=== PATIENT | female | born 1935 | race Caucasian/White ===

== ENCOUNTER 2020-08-16 10:18 | Outpatient (CLI) | payer MEDICARE, SELFPAY ==
[2020-08-16 10:35] LABS: Hematocrit 42.2 % (35.0-42.0); Hemoglobin 13.8 g/dL (11.7-13.8); Mean Corpuscular HGB Conc 32.7 g/dL (32.0-36.0); Mean Corpuscular Hemoglobin 30.3 pg (27.0-31.0); Mean Corpuscular Volume 92.5 fL (78.0-102.0); Mean Platelet Volume 9.5 fl (9.2-11.8); Platelet Count Result 259 K/mm3 (150-420); Red Blood Count 4.56 M/mm3 (4.20-5.40); Red Cell Distribution Width 12.4 % (11.6-14.4); White Blood Count 11.9 K/mm3 (4.8-10.8)
[2020-08-16 10:41] LABS: Add Urine Microscopic? YES; Appearance Urine Clear (Clear); Bilirubin Urine 1+ (Negative); Blood Urine Negative (Negative); Color Urine Amber (Yellow); Glucose Urine UA Negative (Negative); Ketones Urine Trace (Negative); Leukocyte Esterase Ur Negative LEU/UL (Negative); Nitrate Urine Negative (Negative); Protein Urine 1+ (Negative); Specific Grav Ur >= 1.030 (1.010-1.020); Urobilinogen Urine 0.2 mg/dL (0.2-1.0); pH Urine 5.5 (5.0-8.0)
[2020-08-16 11:11] LABS: Bacteria Urine 3+ /hpf; Mucus Urine Moderate /lpf; RBC Urine 0-2 /hpf (0-2); Squamous Epithelial Cell Urine Few /hpf (Few); WBC Urine 0-3 /hpf (0-3)
[2020-08-16 11:13] LABS: Alanine Aminotransferase 21 U/L (14-59); Albumin Level 3.5 g/dL (3.4-5.0); Alkaline Phosphatase 89 U/L (46-116); Anion Gap 6 mmol/L (8-16); Aspartate Amino Transferase 43 U/L (15-37); Bilirubin,Total 0.4 mg/dL (0.00-1.00); Blood Urea Nitrogen 11 mg/dL (7-18); CRP 2.8 mg/dL (0.0-0.9); Calcium 9.9 mg/dL (8.5-10.1); Carbon Dioxide 31 mmol/L (21-32); Chloride 100 mmol/L (98-108); Estimated Glomerular Filt Rate > 60; Glucose 105 mg/dL (70-99); Osmolality Calculated 283 mOsm/kg (285-295); Potassium 4.6 mmol/L (3.5-5.1); Sodium 137 mmol/L (136-145); Total Protein 6.1 g/dL (6.4-8.2)
== END 2020-08-16 10:19 | disposition home or self-care (01) ==
LOC: CHSLAB 10:22
PROVIDERS: PCP Internal Medicine; Visit Provider Internal Medicine
DX: M05.749 Rheumatoid arthritis with rheumatoid factor of unspecified hand without organ or systems involvement (principal); M19.90 Unspecified osteoarthritis, unspecified site
CPT/HCPCS: 36415; 80053; 81001; 85027; 86140

== ENCOUNTER 2020-12-30 09:50 | Inpatient (IN) | payer MEDICARE, SELFPAY ==
[2020-12-30] VITALS (7 sets, daily range): BP systolic 153–181; BP diastolic 75–100; PULSE 67–93; RESP 14–20; TEMP 36.5–37.4; O2SAT 95–100; BMI 17.2
--- NOTE | ~2020-12-30 | XR_ITS ---
EXAMINATION: XR chest 2V EXAM DATE: 12/30/2020 11:04 INDICATION: syncope last night found this AM, chest heaviness today . TECHNIQUE: Frontal and lateral projections of the chest obtained and reviewed. Comparison is made to prior examination from 01/15/2012. FINDINGS: Severe chronic hyperinflation. The lungs are clear. There are no pleural effusions. The cardiomediastinal silhouette is within normal limits. There is no pneumothorax suspected. Bones sean ear osteopenic. Thoracic vertebral body heights are maintained. There are cholecystectomy clips. IMPRESSION: Chronic hyperinflation. Reviewed, dictated and finalized at location B. ITY CONTROLLER IMPRESSION: Chronic hyperinflation.
--- NOTE | ~2020-12-30 | CT_ITS ---
EXAMINATION: CT brain wo con, CT cervical spine wo con EXAM DATE: 12/30/2020 11:03 (accession [id number]), 12/30/2020 11:05 (accession [id number]) INDICATION: Syncope, fall last night and found this AM, post head pain, injury. TECHNIQUE: Spiral CT of the head was performed without contrast. Axial, coronal and sagittal images were reviewed. Spiral CT of the cervical spine was performed without contrast. Axial images were rev iewed. Coronal and sagittal reformatted images were also reviewed. The dose-length product (DLP) fo r this examination was 605.33 (accession [id number]), 91.52 (accession [id number]) mGy-cm. T he exposure was tailored according to patient size, and iterative reconstruction (ASIR) was used as a dditional dose reduction technique. There is no prior study for comparison. FINDINGS: HEAD CT: There is no acute intraparenchymal hemorrhage. No evidence of intraparenchymal brain mass l esion. No evidence of acute infarction. There is mild to moderate periventricular and subcortical hy podensity, nonspecific but probably related to small vessel ischemic disease. There is mild to mode rate prominence of the sulci and ventricles related to cerebral atrophy. There is intracranial banuelos tid arteriosclerosis. There is no mass effect or midline shift. There is no obstructive hydrocephal us suspected. There are no extra-axial collections. There are no acute calvarial fractures. The or bits are unremarkable. Soft tissue is unremarkable. The visualized sinuses and mastoid air cells ar e well aerated. CERVICAL CT: There is no evidence of acute cervical fracture. The odontoid process is intact. Pre- dens space is normal. Prevertebral soft tissue is normal. There are no soft tissue abnormalities id entified. There is no disc space widening or traumatic vertebral body subluxation suspected. There is advanced arthropathy and moderate cervical disc disease. A detailed level by level evaluation of spondylosis can be added as addendum if requested. IMPRESSION: 1. No acute intracranial findings or cervical fracture. 2. Age-related intracranial findings. 3. Moderate to severe cervical spondylosis. Reviewed, dictated and finalized at location B. TECHNICIAN IMPRESSION: 1. No acute intracranial findings or cervical fracture. 2. Age-related intracranial findings. 3. Moderate to severe cervical spondylosis.
--- NOTE | ~2020-12-30 | MR_ITS ---
EXAMINATION: MR brain IAC wo con DATE: 01/01/2021 08:39 INDICATION: Dizziness. TECHNIQUE: Magnetic resonance imaging (MRI) of the brain and brainstem was performed without intraven ous contrast. Sequences included sagittal and axial T1-weighted FSE, axial diffusion-weighted FS EPI, axial T2*-weighted GRE, axial T2-weighted FLAIR Propeller, and axial T2-weighted Propeller. Apparent diffusion coefficient (ADC) maps were created. COMPARISON: Head CT 12/30/2020 FINDINGS: There are scattered areas of nonspecific increased T2-weighted signal intensity in the cere bral white matter and mohan. There is no intracranial hemorrhage, acute infarction, or abnormal intrac ranial mass lesion. The ventricles are normal in size. There is mild mucosal thickening in the ethmoi d sinuses. The orbits are normal. The mastoid air cells are normal. IMPRESSION: 1. Moderate nonspecific cerebral white matter disease and pontine disease, which likely represents ch ronic small vessel ischemic disease. Reviewed, dictated and finalized at location A. MILITARY ANALYST IMPRESSION: 1. Moderate nonspecific cerebral white matter disease and pontine disease, whic h likely represents chronic small vessel ischemic disease.
--- NOTE | ~2020-12-30 | US_ITS ---
EXAMINATION: US carotid duplex BI EXAM DATE: 12/31/2020 15:40 INDICATION: Stroke. TECHNIQUE: Grayscale, color and pulsed Doppler images of the cervical carotid arteries were obtained . The degree of vessel stenosis is placed in one of the following categories: normal, <50% stenosis, 50-69% stenosis, >=70% stenosis but less than near-occlusion, near-occlusion, or occlusion. Note that percent stenosis relative to normal distal artery lumen diameter is indirectly measured from velocit y measurements as described by Shyam, et al. Radiology 2003; 229:340-346. There is no prior study fo r comparison. FINDINGS: RIGHT SIDE: Right common carotid artery peak systolic velocity (PSV in cm/s): 59 Right bulb/internal carotid artery peak systolic velocity (PSV in cm/s): 106 Right internal carotid artery end diastolic velocity (EDV in cm/s): 29 Right ICA/CCA peak systolic ratio: 1.8 Right external carotid artery peak systolic velocity (PSV in cm/s): 53 Right vertebral artery antegrade flow: yes There is mild carotid bulb plaque. Velocity and Doppler waveforms in the common and internal carotid arteries is normal. LEFT SIDE: Left common carotid artery peak systolic velocity (PSV in cm/s): 78 Left bulb/internal carotid artery peak systolic velocity (PSV in cm/s): 73 Left internal carotid artery end diastolic velocity (EDV in cm/s): 24 Left ICA/CCA peak systolic ratio: 0.9 Left external carotid artery peak systolic velocity (PSV in cm/s): 55 Left vertebral artery antegrade flow: yes There is mild carotid bulb plaque. Velocity and Doppler waveforms in the common and internal carotid arteries is normal. IMPRESSION: 1. Less than 50 percent stenosis in the right internal carotid artery. 2. Less than 50 percent stenosis in the left internal carotid artery. Reviewed, dictated and finalized at location B. ANTINE INSPECTOR
[2020-12-30 10:03] LABS: Glucose Point of Care 93 (65-105)
[2020-12-30 10:20] LABS: Add Urine Microscopic? YES; Appearance Urine Cloudy (Clear); Bilirubin Urine Negative (Negative); Blood Urine Negative (Negative); Color Urine Yellow (Yellow); Glucose Urine UA Negative (Negative); Ketones Urine 1+ (Negative); Leukocyte Esterase Ur Negative LEU/UL (Negative); Nitrate Urine Negative (Negative); Protein Urine Trace (Negative); Specific Grav Ur 1.025 (1.010-1.020); pH Urine 7.5 (5.0-8.0)
[2020-12-30 10:25] LABS: Amorphous Sediment Urine Moderate; Bacteria Urine Trace /hpf; RBC Urine None seen /hpf (0-2); Squamous Epithelial Cell Urine Few /hpf (Few); WBC Urine None seen /hpf (0-3)
[2020-12-30] MEDS: SODIUM CHLORIDE 0.9% IV 500 ML 999 ML IV CONT (10:28)
[2020-12-30 10:30] LABS: Basophils Absolute Auto 0.04 K/mm3 (0.00-0.10); Basophils Percent Auto 0.3 % (0.0-1.0); Eosinophils Absolute Auto 0.02 K/mm3 (0.02-0.50); Eosinophils Percent Auto 0.1 % (1.0-6.0); Hematocrit 40.8 % (35.0-42.0); Immature Granulocyte Absolute 0.08 K/mm3 (0.00-0.00); Immature Granulocyte Percent A 0.6 % (0.0-0.0); Lymphocytes Absolute Auto 0.88 K/mm3 (1.10-4.50); Lymphocytes Percent Auto 6.6 % (18.0-42.0); Mean Corpuscular HGB Conc 31.9 g/dL (32.0-36.0); Mean Corpuscular Volume 84.8 fL (78.0-102.0); Mean Platelet Volume 8.6 fl (9.2-11.8); Monocytes Absolute Auto 1.26 K/mm3 (0.10-0.90); Monocytes Percent Auto 9.4 % (2.0-11.0); Neutrophils Absolute Auto 11.1 K/mm3 (1.7-7.2); Platelet Count Result 420 K/mm3 (150-420); Red Blood Count 4.81 M/mm3 (4.20-5.40); Red Cell Distribution Width 12.8 % (11.6-14.4); White Blood Count 13.4 K/mm3 (4.8-10.8)
--- NOTE | 2020-12-30 10:38 | ECG_ITS ---
Measurements Intervals [place] Rate: 85 P: 76 CT: 123 QRS: 83 QRSD: 79 T: 50 QT: 394 QTc: 469 Interpretive Statements SINUS RHYTHM MINIMAL Q WAVES- INF/LAT LEADS BORDERLINE ST ABNORMALITY- ANTEROLAT/INF LEADS BASELINE WANDER- I, II, III, AVR, AVL BORDERLINE ECG Electronically Signed On 12-30-2020 11:07:18 PLOW HOLDER by Jesus Allen D.O.
[2020-12-30 10:44] LABS: INR 1.1; Partial Thromboplastin Time 31.6 SEC (23.90-30.70); Prothrombin Time 11.9 Seconds (9.50-12.10)
[2020-12-30 10:48] LABS: BNP 158 pg/mL (0-100)
[2020-12-30 10:51] LABS: Lactic Acid Reflex 1.7 mmol/L (0.4-2.0)
[2020-12-30 10:52] LABS: Magnesium 1.8 mg/dL (1.8-2.4)
[2020-12-30 10:53] LABS: Troponin I 23.8 ng/L (0.00-60.4)
[2020-12-30 10:58] LABS: Alanine Aminotransferase 25 U/L (14-59); Albumin Level 2.9 g/dL (3.4-5.0); Alkaline Phosphatase 96 U/L (46-116); Anion Gap 9 mmol/L (8-16); Aspartate Amino Transferase 53 U/L (15-37); Bilirubin,Total 0.8 mg/dL (0.00-1.00); Blood Urea Nitrogen 11 mg/dL (7-18); Calcium 9.9 mg/dL (8.5-10.1); Carbon Dioxide 28 mmol/L (21-32); Chloride 96 mmol/L (98-108); Estimated Glomerular Filt Rate > 60; Glucose 103 mg/dL (70-99); Osmolality Calculated 275 mOsm/kg (285-295); Potassium 3.3 mmol/L (3.5-5.1); Sodium 133 mmol/L (136-145); Total Protein 6.4 g/dL (6.4-8.2)
--- NOTE | 2020-12-30 11:13 | ED.FALL ---
HPI - Fall General Chief Complaint: Fall Stated Complaint: ambulance Source: patient Mode of arrival: EMS History of Present Illness HPI Narrative: This is an 85-year-old patient from home that was brought in via EMS with a weakness left-sided with a mild facial droop and deviation of her tongue to the left apparently fell earlier today last known normal was some last night when she went to bed currently has some confusion weakness patient states that she did strike the back of her head there is no hematoma currently no chest pain no shortness of no dysuria no back pain does have some neck pain with with movement and minimal with palpation. Patient has a history of rheumatoid arthritis and hypertension. complaint: fall Onset (ago): hour(s) Fall from: standing Fall witnessed: no Place fall occurred: home Prolonged down time: unclear Symptoms prior to fall: dizziness Related Data Home Medications Medication Instructions Recorded Confirmed gabapentin 300 mg PO TID 08/25/19 12/30/20 quinapril 10 mg PO DAILY 12/30/20 12/30/20 Allergies Allergy/AdvReac Type Severity Reaction Status Date / Time celecoxib Allergy Unknown pounding Verified 08/20/20 12:16 chest fluconazole Allergy Unknown chest Verified 08/20/20 12:16 pain, dizziness ibandronate sodium Allergy Unknown Chest pain Verified 08/20/20 12:16 Review of Systems Review of Systems: All systems reviewed & are unremarkable except as noted in HPI and below PMFSH Past Medical History Medical History Allergies Arthritis Rhuematoid Hypertension Osteoporosis Vaginal delivery X2 1979 Female 1981 Female Surgical History Surgical History H/O: hysterectomy History of appendectomy Hx of cholecystectomy Family History Family History Grandparent Cerebrovascular accident Father Family history of chronic obstructive pulmonary disease Mother Hypertension Social History Social History Smoking status: Never smoker Alcohol intake: current Substance use: never Exam Const: General: no acute distress and alert Limitations: altered mental status HENMT: Head: normal to inspection Eyes: Conjunctivae: conjunctivae normal Pupils: Equal, round and reactive pupils present EOM: EOMs intact bilaterally Neck: Neck: normal visual inspection, no lymphadenopathy and no meningeal signs Chest: Chest palpation & inspection: normal inspection of the chest Resp: Effort & Inspection: normal respiratory effort Auscultation: clear to auscultation bilaterally Cardio: Rate: regular rate Rhythm: regular rhythm GI: GI Palp: Yes Soft to palpation Percussion: Yes normal to percussion : General: Yes no CVA tenderness Urinary Catheter: Urinary Catheter: patent and draining Back/Spine/Pelvis: Back: no CVA tenderness Skin: General skin exam: normal color Rashes: no rashes Neuro: Other: Motor weakness with some decreased strength in her left compared to her right arm currently no leg weakness or drift, the left arm there is a slight drift compared to the right and with a minimal deviation of her of her tongue to the left. Extrem: General: normal to inspection Psych: Appearance: disheveled Course Course Emergency Course: Patient appears comfortable in no acute distress no acute pain and family member with her and reviewed findings and advise admission. Vital Signs Vital signs: Vital Signs Temperature 36.5 C 12/30/20 10:04 Pulse Rate 90 12/30/20 10:04 Respiratory Rate 20 12/30/20 10:04 Blood Pressure 181/80 H 12/30/20 10:04 Pulse Oximetry 95 12/30/20 10:04 Temperature 36.5 C 12/30/20 10:04 Pulse Rate 86 12/30/20 10:29 Respiratory Rate 16 12/30/20 10:29 Blood Pressure 153/85 H 12/30
[2020-12-30] MEDS: SODIUM CHLORIDE 0.9% IV 1,000 ML 100 ML IV CONT ×2 (12:11→22:36)
--- NOTE | 2020-12-30 13:38 | ADMGEN ---
This patient, Roma Trujillo, was admitted to 2nd Floor Room 226-1. Patient/family oriented to hospital policies and general routines including ID bracelet, bed and alarms, visiting hours, pain management, procedures, bathroom and other care routines, personal items, smoking policy, room service/diet, and visiting hours. Information on how to activate the Rapid Response Team has been discussed. Patient/Family are encouraged to report perceived risks to care and to ask questions if they do not understand what they are told or what they should do. Patient alert and orient. claims she lost balance and fell to kitchen floor. claims she spent over a day on floor til she was able to crawl over to cell phone. lungs cta, abd soft. hand adult neuropsychologist equal. no pedal edema.
--- NOTE | 2020-12-30 13:44 | PM.IMHP ---
H&P: HPI History of Present Illness Date/Time: 12/30/20 13:44 Chief Complaint: Fatigue status post fall Narrative: Roma Trujillo is a 85 year old female who presented to our ED post fall patient has a past medical history of allergies, rheumatoid arthritis, and hypertension according to patient she has been feeling fatigued and lightheaded that particular day. Patient noted that she had been lying around in bed all day and needed to go to the restroom she proceeded to the restroom when she got out of the toilet she blacked out. Patient noted that she had stayed on the floor most of the night and her neighbors came over and discovered her on the floor. Patient does live at home alone she noted that she could not get herself of the floor. Patient noted she did hit the back of her head she denies injuring any other part of her body. Patient blood pressure is a little elevated 163/84 she does have left side facial drooping and left side upper arm weakness. Patient CT of her head was negative for any acute intracranial finding, a MRI, echo in carotid ultrasound are currently pending she will also have a bedside swallow eval. Patient EKG indicates sinus rhythm with a heart rate of 85, patient AST slightly elevated all other labs within normal limits. The patient denies SOB, CP, palpitation, extremity numbness, dizziness, constipation, diarrhea, chills, or fever. She does complain of a slight headache. Review of Systems Review of Systems: All systems reviewed & are unremarkable except as noted in HPI and below (10 point system review) [facility] Past Medical History Medical History (Updated 12/30/20 @ 13:45 by FRED Estrada) Allergies Arthritis Rhuematoid Hypertension Osteoporosis Vaginal delivery X2 1979 Female 1981 Female Surgical History Surgical History H/O: hysterectomy History of appendectomy Hx of cholecystectomy Family History Family History Grandparent Cerebrovascular accident Father Family history of chronic obstructive pulmonary disease Mother Hypertension Social History Social History Smoking status: Never smoker Alcohol intake: current Drinks per week: 3 Substance use: never Gender identity (if verbalized by the patient): Female Sexual Orientation (if Verbalized by the Patient): Straight or Heterosexual Spiritual care concerns: No Meds Home Medications and Allergies Home Medications Medication Instructions Recorded Confirmed Type hydroxychloroquine 200 mg tablet 400 mg PO DAILY #60 tablet 08/20/20 12/30/20 Rx prednisone 1 mg tablet 1 mg PO DAILY #90 tablet 08/20/20 12/30/20 Rx gabapentin 100 mg PO DAILY 12/30/20 12/30/20 History gabapentin [Neurontin] 200 mg PO HS 12/30/20 12/30/20 History quinapril 10 mg PO DAILY 12/30/20 12/30/20 History Allergies Allergy/AdvReac Type Severity Reaction Status Date / Time celecoxib Allergy Unknown pounding Verified 08/20/20 12:16 chest fluconazole Allergy Unknown chest Verified 08/20/20 12:16 pain, dizziness ibandronate sodium Allergy Unknown Chest pain Verified 08/20/20 12:16 Vital Signs Vital Signs - 24 hr 12/30/20 10:04 12/30/20 10:29 12/30/20 11:17 Temperature 97.7 F Pulse Rate 90 86 86 Respiratory Rate 20 16 Blood Pressure 181/80 H 153/85 H 161/88 H Pulse Oximetry 95 100 100 12/30/20 11:53 Temperature Pulse Rate 67 Respiratory Rate Blood Pressure 163/84 H Pulse Oximetry 100 Exam Narrative: Exam Narrative: GENERAL: This is a well-nourished, well-developed patient, in no apparent distress. HEAD: normocephalic, atraumatic. Left side facial drooping EYES: PERRL. Sclera clear/white. Vision is grossly intact. EARS: External ears normal, auditory canals clear and without drainage, TMs normal without perforation. Hearing
[2020-12-30] MEDS: GABAPENTIN 100 MG CAPSULE 200 MG PO (20:52)
[2020-12-31] VITALS: BP 154/75; PULSE 86; RESP 12; TEMP 37.6; O2SAT 97
[2020-12-31 04:00] VITALS: BP 154/75; PULSE 96; RESP 14; TEMP 37.6; O2SAT 99
[2020-12-31 05:42] LABS: Basophils Absolute Auto 0.05 K/mm3 (0.00-0.10); Basophils Percent Auto 0.5 % (0.0-1.0); Eosinophils Absolute Auto 0.25 K/mm3 (0.02-0.50); Eosinophils Percent Auto 2.7 % (1.0-6.0); Hematocrit 33.9 % (35.0-42.0); Hemoglobin 10.7 g/dL (11.7-13.8); Immature Granulocyte Absolute 0.06 K/mm3 (0.00-0.00); Immature Granulocyte Percent A 0.7 % (0.0-0.0); Lymphocytes Absolute Auto 0.71 K/mm3 (1.10-4.50); Lymphocytes Percent Auto 7.7 % (18.0-42.0); Mean Corpuscular HGB Conc 31.6 g/dL (32.0-36.0); Mean Corpuscular Volume 85.6 fL (78.0-102.0); Mean Platelet Volume 8.3 fl (9.2-11.8); Monocytes Percent Auto 9.8 % (2.0-11.0); Neutrophils Absolute Auto 7.2 K/mm3 (1.7-7.2); Neutrophils Percent Auto 78.6 % (50.0-70.0); Platelet Count Result 346 K/mm3 (150-420); Red Blood Count 3.96 M/mm3 (4.20-5.40); Red Cell Distribution Width 13.2 % (11.6-14.4); White Blood Count 9.2 K/mm3 (4.8-10.8)
[2020-12-31 06:08] LABS: Alanine Aminotransferase 18 U/L (14-59); Albumin Level 2.2 g/dL (3.4-5.0); Alkaline Phosphatase 71 U/L (46-116); Anion Gap 9 mmol/L (8-16); Aspartate Amino Transferase 34 U/L (15-37); Bilirubin,Total 0.4 mg/dL (0.00-1.00); Blood Urea Nitrogen 9 mg/dL (7-18); Calcium 8.6 mg/dL (8.5-10.1); Carbon Dioxide 25 mmol/L (21-32); Chloride 101 mmol/L (98-108); Estimated CRCL calculation 42 ml/min; Estimated Glomerular Filt Rate > 60; Glucose 101 mg/dL (70-99); Osmolality Calculated 278 mOsm/kg (285-295); Potassium 3.3 mmol/L (3.5-5.1); Sodium 135 mmol/L (136-145); Total Protein 5.2 g/dL (6.4-8.2)
[2020-12-31 08:00] VITALS: BP 156/90; PULSE 86; RESP 18; TEMP 37.7; O2SAT 98
--- NOTE | 2020-12-31 09:00 | ECHO_ITS ---
Patient Info Name: Roma Trujillo Age: 85 years : 1935 Gender: Female Ht: 64 in Wt: 100 lbs BSA: 1.42 m2 HR: 67 bpm BP: 163 / 84 mmHg Heart Rhythm: Sinus Rhythm Technical Quality: Excellent Exam Date: 12/31/2020 2:12 PM Exam Location: [facility] Patient Status: Inpatient Admit Date: 12/30/2020 Staff Ordering Physician: Braeden Borja MD Leader Assembler: Vanesa Browning RDCS Attending Provider: Braeden Borja MD Referring Physician: Huong MOONEY; Exam Type: CA echo doppler color flow Study Info Indications I69.90 - Unspecified sequelae of unspecified cerebrovascular disease Complete two-dimensional, color flow and Doppler transthoracic echocardiogram is performed. Strain analysis performed. History/Risk Factors Hypertension: Yes Tobacco Use: Never Cerebrovascular Disease: CVA Frailty Scale (CSHA): 4: Vulnerable Summary 1. Complete two-dimensional, color flow and Doppler transthoracic echocardiogram is performed. 2. Left ventricular chamber dimension is normal. 3. Left ventricular systolic function is normal, estimated at 65-70%. 4. The left ventricular diastolic function is grade I diastolic dysfunction. 5. E/e' 10 is mildly elevated. 6. Left atrial chamber dimension is mildly enlarged. 7. Right atrial chamber dimension is mildly enlarged. 8. There is mild aortic valve sclerosis. 9. There is trace mitral valve regurgitation. 10. There is mild tricuspid valve regurgitation. 11. No pulmonary hypertension, estimated pulmonary arterial systolic pressure is 26 mmHg. Left Ventricle E/e' 10 is mildly elevated. Left ventricular chamber dimension is normal. Left ventricular systolic function is normal, estimated at 65-70%. The left ventricular diastolic function is grade I diastolic dysfunction. Right Ventricle Right ventricular chamber dimension is normal. Right ventricular systolic function is normal. Left Atria Left atrial chamber dimension is mildly enlarged. Right Atria Right atrial chamber dimension is mildly enlarged. Aortic Valve The aortic valve is trileaflet. There is mild aortic valve sclerosis. There is no aortic valve stenosis. There is no aortic valve regurgitation. Pulmonic Valve There is no pulmonic regurgitation. Mitral Valve There is no mitral valve stenosis. There is trace mitral valve regurgitation. Tricuspid Valve There is mild tricuspid valve regurgitation. No pulmonary hypertension, estimated pulmonary arterial systolic pressure is 26 mmHg. Pericardium/Pleural There is no pericardial effusion. Inferior Vena Cava Normal inferior vena cava with >50% collapse upon inspiration consistent with normal right atrial pressure, 5 mmHg. Aorta The aortic root size at the sinus of Valsalva is normal. Left Ventricular Outflow Tract Name Value Normal LVOT 2D LVOT Diameter 1.6 cm LVOT Doppler LVOT Peak Velocity 136 cm/s LVOT Peak Gradient 7 mmHg LVOT Mean Gradient 3 mmHg LVOT VTI 25 cm
[2020-12-31] MEDS: POTASSIUM CHLORIDE 20 MEQ TABLET 40 MEQ PO (09:19)
[2020-12-31] MEDS: HYDROXYCHLOROQUINE SULFATE 200 MG TABLET 400 MG PO (09:20)
[2020-12-31] MEDS: predniSONE 1 MG TABLET PO (09:20)
[2020-12-31] MEDS: CLOPIDOGREL BISULFATE 75 MG TABLET PO (09:21)
[2020-12-31] MEDS: GABAPENTIN 100 MG CAPSULE PO (09:21)
[2020-12-31] MEDS: lisinopriL 10 MG TABLET PO (09:22)
[2020-12-31 12:00] VITALS: BP 154/92
--- NOTE | 2020-12-31 12:49 | WPDPN ---
Progress Note: A&P Assessment and Plan (1) Stroke: Qualifiers: CVA mechanism: unspecified Qualified Code(s): I63.9 - Cerebral infarction, unspecified <Daphne Mccarthy TAYENicholas - Last Filed: 12/31/20 12:52> Code(s): I63.9 - Cerebral infarction, unspecified <Daphne Mccarthy TAYEC - Last Filed: 12/31/20 12:52> Status: Acute <Daphne Mccarthy TAYENicholas - Last Filed: 12/31/20 12:52> Assessment and Plan: Left-sided weakness CT of the head no acute intracranial finding MRI, echo in carotid ultrasound pending Continue Plavix Will start aspirin once we rule out hemorrhagic stroke Continue PT OT Speech therapy consult placed <Daphne Mccarthy ELECTRONIC OPERATORPedroNicholas - Last Filed: 12/31/20 12:52> (2) Syncope: Qualifiers: Syncope type: unspecified Qualified Code(s): R55 - Syncope and collapse <Daphne Mccarthy DYLONRadha - Last Filed: 12/31/20 12:52> Code(s): R55 - Syncope and collapse <Daphne Mccarthy TAYEC - Last Filed: 12/31/20 12:52> Status: Acute <Daphne Mccarthy FRED - Last Filed: 12/31/20 12:52> Assessment and Plan: Possibly secondary to severe CT of the head no acute intracranial finding MRI, echo in carotid ultrasound pending Continue Plavix Will start aspirin once we rule out hemorrhagic stroke Will start PT OT <Daphne Mccarthy ELECTRONIC OPERATOR-C - Last Filed: 12/31/20 12:52> (3) Seropositive rheumatoid arthritis of hand: Code(s): M05.749 - Rheumatoid arthritis with rheumatoid factor of unspecified hand without organ or systems involvement <Daphne Mccarthy ELECTRONIC OPERATOR-C - Last Filed: 12/31/20 12:52> Status: Acute <Daphne Mccarthy ELECTRONIC OPERATORPedroNicholas - Last Filed: 12/31/20 12:52> Assessment and Plan: Will start hydroxychloroquin, prednisone <Daphne FranksFRED Reeder - Last Filed: 12/31/20 12:52> (4) Hypertension: Code(s): I10 - Essential (primary) hypertension <TAYE EstradaNicholas - Last Filed: 12/31/20 12:52> Status: Acute <FRED Estrada - Last Filed: 12/31/20 12:52> Assessment and Plan: Blood pressure 156/90 Continue quinapril Will slowly lower blood pressure Vital signs as ordered Will adjust medication as needed <TAYE EstradaNicholas - Last Filed: 12/31/20 12:52> Review of Systems Review of Systems: All systems reviewed & are unremarkable except as noted in HPI and below (10 point system review) <FRED Estrada - Last Filed: 12/31/20 12:52> Exam Narrative: Exam Narrative: GENERAL: This is a well-nourished, well-developed patient, in no apparent distress. HEAD: normocephalic, atraumatic. Left side facial drooping EYES: PERRL. Sclera clear/white. Vision is grossly intact. EARS: External ears normal, auditory canals clear and without drainage, TMs normal without perforation. Hearing grossly intact. NOSE: External nose normal with no obvious nasal discharge, nares without redness, no rhinorrhea. THROAT: Mucous membranes moist, posterior pharynx clear. NECK: Neck supple, non-tender without lymphadenopathy, masses or thyromegaly. CARDIOVASCULAR: Regular rate and rhythm without murmurs, gallops, or rubs. RESPIRATORY: Clear to auscultation. Breath sounds equal bilaterally. No wheezes, rales, or rhonchi. GASTROINTESTINAL: Abdomen soft, non-tender, nondistended. Bowel sounds are active. No hepato-splenomegaly, or palpable masses. No guarding. SKIN: warm, intact with no suspicious lesions or rash, good texture and turgor. NEURO: awake, alert, and oriented to person, place and time. EXTREMITIES: unequal handgrips upper extremity left side weakness no edema. No calf tenderness. Negative Homans sign bilaterally. BACK: Nontender without deformity or crepitance. No flank tenderness. <TAYE EstradaNicholas - Last Filed: 12/31/20 12:52> Objective Data Vital Signs Vital Signs: Vital Signs - 24 hr 12/30/20 15:57 12/30/20 20:00 12/31
--- NOTE | 2020-12-31 12:49 | P.PN_ITS ---
Progress Note: A&P Assessment and Plan (1) Stroke: Qualifiers: CVA mechanism: unspecified Qualified Code(s): I63.9 - Cerebral infarction, unspecified <Daphne MccarthyFRED - Last Filed: 12/31/20 12:52> Code(s): I63.9 - Cerebral infarction, unspecified <Daphne MccarthyFRED - Last Filed: 12/31/20 12:52> Status: Acute <Daphne MccarthyFRED - Last Filed: 12/31/20 12:52> Assessment and Plan: * Left-sided weakness * CT of the head no acute intracranial finding * MRI, echo in carotid ultrasound pending * Continue Plavix * Will start aspirin once we rule out hemorrhagic stroke * Continue PT OT * Speech therapy consult placed <Daphne MccarthyFRED - Last Filed: 12/31/20 12:52> (2) Syncope: Qualifiers: Syncope type: unspecified Qualified Code(s): R55 - Syncope and collapse <Daphne Snyder FRED Mccarthy - Last Filed: 12/31/20 12:52> Code(s): R55 - Syncope and collapse <Daphne MccarthyFRED - Last Filed: 12/31/20 12:52> Status: Acute <Daphne MccarthyFRED - Last Filed: 12/31/20 12:52> Assessment and Plan: * Possibly secondary to severe * CT of the head no acute intracranial finding * MRI, echo in carotid ultrasound pending * Continue Plavix * Will start aspirin once we rule out hemorrhagic stroke * Will start PT OT <Daphne MccarthyFRED - Last Filed: 12/31/20 12:52> (3) Seropositive rheumatoid arthritis of hand: Code(s): M05.749 - Rheumatoid arthritis with rheumatoid factor of unspecified hand without organ or systems involvement <Reaganlucila TinyFRED Reeder - Last Filed: 12/31/20 12:52> Status: Acute <Daphne Snyder FRED Mccarthy - Last Filed: 12/31/20 12:52> Assessment and Plan: * Will start hydroxychloroquin, prednisone <Reaganlucila TinyFRED Reeder - Last Filed: 12/31/20 12:52> (4) Hypertension: Code(s): I10 - Essential (primary) hypertension <FRED Estrada - Last Filed: 12/31/20 12:52> Status: Acute <FRED Estrada - Last Filed: 12/31/20 12:52> Assessment and Plan: * Blood pressure 156/90 * Continue quinapril * Will slowly lower blood pressure * Vital signs as ordered * Will adjust medication as needed <FRED Estrada - Last Filed: 12/31/20 12:52> Review of Systems Review of Systems: All systems reviewed & are unremarkable except as noted in HPI and below (10 point system review) <FRED Estrada - Last Filed: 12/31/20 12:52> Exam Narrative: Exam Narrative: GENERAL: This is a well-nourished, well-developed patient, in no apparent distress. HEAD: normocephalic, atraumatic. Left side facial drooping EYES: PERRL. Sclera clear/white. Vision is grossly intact. EARS: External ears normal, auditory canals clear and without drainage, TMs normal without perforation. Hearing grossly intact. NOSE: External nose normal with no obvious nasal discharge, nares without redness, no rhinorrhea. THROAT: Mucous membranes moist, posterior pharynx clear. NECK: Neck supple, non-tender without lymphadenopathy, masses or thyromegaly. CARDIOVASCULAR: Regular rate and rhythm without murmurs, gallops, or rubs. RESPIRATORY: Clear to auscultation. Breath sounds equal bilaterally. No wheezes, rales, or rhonchi. GASTROINTESTINAL: Abdomen soft, non-tender, nondistended. Bowel sounds are active. No hepato-splenomegaly, or palpable masses. No guarding. SKIN: warm, intact with no suspicious lesions or rash, good texture and turgor. NEURO: awake, alert, and oriented to person, place and time.
[2020-12-31 15:47] VITALS: BP 145/75; PULSE 85; RESP 20; TEMP 36.3; O2SAT 100
[2020-12-31 20:00] VITALS: BP 130/70; PULSE 80; RESP 20; TEMP 36.4; O2SAT 98
[2020-12-31] MEDS: GABAPENTIN 100 MG CAPSULE 200 MG PO (20:40)
[2021-01-01] VITALS (7 sets, daily range): BP systolic 116–146; BP diastolic 63–76; PULSE 75–98; RESP 18–20; TEMP 36.6–37.8; O2SAT 95–98
[2021-01-01 05:45] LABS: Hematocrit 32.7 % (35.0-42.0); Hemoglobin 10.2 g/dL (11.7-13.8); Mean Corpuscular HGB Conc 31.2 g/dL (32.0-36.0); Mean Corpuscular Hemoglobin 26.8 pg (27.0-31.0); Mean Corpuscular Volume 85.8 fL (78.0-102.0); Mean Platelet Volume 8.2 fl (9.2-11.8); Platelet Count Result 339 K/mm3 (150-420); Red Blood Count 3.81 M/mm3 (4.20-5.40); Red Cell Distribution Width 13.2 % (11.6-14.4); White Blood Count 8.1 K/mm3 (4.8-10.8)
[2021-01-01 06:03] LABS: Alanine Aminotransferase 18 U/L (14-59); Albumin Level 2.1 g/dL (3.4-5.0); Alkaline Phosphatase 66 U/L (46-116); Anion Gap 3 mmol/L (8-16); Aspartate Amino Transferase 28 U/L (15-37); Bilirubin,Total 0.2 mg/dL (0.00-1.00); Blood Urea Nitrogen 6 mg/dL (7-18); Calcium 8.8 mg/dL (8.5-10.1); Carbon Dioxide 29 mmol/L (21-32); Chloride 104 mmol/L (98-108); Estimated CRCL calculation 44 ml/min; Estimated Glomerular Filt Rate > 60; Glucose 109 mg/dL (70-99); Osmolality Calculated 280 mOsm/kg (285-295); Potassium 3.8 mmol/L (3.5-5.1); Sodium 136 mmol/L (136-145); Total Protein 4.9 g/dL (6.4-8.2)
--- NOTE | 2021-01-01 08:39 | PC.NURSE ---
Returned via wheel chair to room from MRI, assisted to bed, side rails up and call light in reach of patient, denies needs
[2021-01-01] MEDS: ASPIRIN 325 MG ENTERIC TABLET PO (09:00)
[2021-01-01] MEDS: HYDROXYCHLOROQUINE SULFATE 200 MG TABLET 400 MG PO (09:06)
[2021-01-01] MEDS: POTASSIUM CHLORIDE 20 MEQ TABLET 40 MEQ PO (09:06)
[2021-01-01] MEDS: lisinopriL 10 MG TABLET PO (09:06)
[2021-01-01] MEDS: CLOPIDOGREL BISULFATE 75 MG TABLET PO (09:07)
[2021-01-01] MEDS: predniSONE 1 MG TABLET PO (09:07)
[2021-01-01] MEDS: GABAPENTIN 100 MG CAPSULE PO (09:07)
--- NOTE | 2021-01-01 12:09 | WPDPN ---
Progress Note: A&P Assessment and Plan (1) Stroke: Qualifiers: CVA mechanism: unspecified Qualified Code(s): I63.9 - Cerebral infarction, unspecified Code(s): I63.9 - Cerebral infarction, unspecified Status: Acute Assessment and Plan: Resolved Resolved left-sided weakness CT of the head no acute intracranial finding MRI-pending echo -grade 1 diastolic dysfunction carotid ultrasound <50 stenosis bilater Continue Plavix started Plavix ABCD2 score 6 Continue PT OT Speech therapy without any deficiency (2) Syncope: Qualifiers: Syncope type: unspecified Qualified Code(s): R55 - Syncope and collapse Code(s): R55 - Syncope and collapse Status: Acute Assessment and Plan: Possibly secondary to TIA versus CVA Refer to stroke CT of the head no acute intracranial finding Continue Plavix Will start aspirin once we rule out hemorrhagic stroke Continue PT OT (3) Seropositive rheumatoid arthritis of hand: Code(s): M05.749 - Rheumatoid arthritis with rheumatoid factor of unspecified hand without organ or systems involvement Status: Acute Assessment and Plan: Will continue hydroxychloroquin, prednisone (4) Hypertension: Code(s): I10 - Essential (primary) hypertension Status: Acute Assessment and Plan: Blood pressure 136/96 Continue quinapril Vital signs as ordered Will adjust medication as needed Review of Systems Review of Systems: All systems reviewed & are unremarkable except as noted in HPI and below (10 point system review) Exam Narrative: Exam Narrative: GENERAL: This is a well-nourished, well-developed patient, in no apparent distress. HEAD: normocephalic, atraumatic. EYES: PERRL. Sclera clear/white. Vision is grossly intact. EARS: External ears normal, auditory canals clear and without drainage, TMs normal without perforation. Hearing grossly intact. NOSE: External nose normal with no obvious nasal discharge, nares without redness, no rhinorrhea. THROAT: Mucous membranes moist, posterior pharynx clear. NECK: Neck supple, non-tender without lymphadenopathy, masses or thyromegaly. CARDIOVASCULAR: Regular rate and rhythm without murmurs, gallops, or rubs. RESPIRATORY: Clear to auscultation. Breath sounds equal bilaterally. No wheezes, rales, or rhonchi. GASTROINTESTINAL: Abdomen soft, non-tender, nondistended. Bowel sounds are active. No hepato-splenomegaly, or palpable masses. No guarding. SKIN: warm, intact with no suspicious lesions or rash, good texture and turgor. NEURO: awake, alert, and oriented to person, place and time. There were no obvious focal neurologic abnormalities. Steady gait EXTREMITIES: Normal range of motion. No edema. No calf tenderness. Negative Homans sign bilaterally. BACK: Nontender without deformity or crepitance. No flank tenderness. Objective Data Vital Signs Vital Signs: Vital Signs - 24 hr 12/31/20 15:47 12/31/20 20:00 01/01/21 00:00 Temperature 97.3 F L 97.5 F L 98 F Pulse Rate 85 80 98 Respiratory Rate 20 20 20 Blood Pressure 145/75 H 130/70 117/63 Pulse Oximetry 100 98 98 01/01/21 03:54 01/01/21 08:00 Temperature 97.8 F 100.1 F H Pulse Rate 92 81 Respiratory Rate 18 18 Blood Pressure 146/76 H 126/76 Pulse Oximetry 98 97 Intake/Output Intake/Output: Intake & Output 12/29/20 12/30/20 12/31/20 01/01/21 23:59 23:59 23:59 23:59 Intake Total 2340 2890 360 Output Total 852 857 2217 Balance 2040 2190 -940 Meds/Results Medications: Active Medications Generic Name Dose Route Start Last Admin Trade Name Freq PRN Reason Stop Dose Admin Acetaminophen 650 mg 12/30/20 11:20 Acetaminophen 325 Mg Tablet PO Q4H PRN Mild Pain (1-3) or Fever Bisacodyl 5 mg 12/30/20 11:20 Bisacodyl 5 Mg Tablet Ec PO DAILY PRN Constipation Clopidogrel Bisulfate 75 mg 12/31/20 09:00 01/01/21 09:07 Clopidogrel Bisulfate 75 Mg
[2021-01-01] MEDS: GABAPENTIN 100 MG CAPSULE 200 MG PO (21:23)
[2021-01-02 04:00] VITALS: BP 135/66; PULSE 84; RESP 20; TEMP 36.7; O2SAT 97
[2021-01-02 08:00] VITALS: BP 132/72; PULSE 85; RESP 18; TEMP 37.2; O2SAT 97
[2021-01-02] MEDS: predniSONE 1 MG TABLET PO (09:08)
[2021-01-02] MEDS: HYDROXYCHLOROQUINE SULFATE 200 MG TABLET 400 MG PO (09:08)
[2021-01-02] MEDS: GABAPENTIN 100 MG CAPSULE PO (09:09)
[2021-01-02] MEDS: CLOPIDOGREL BISULFATE 75 MG TABLET PO (09:09)
[2021-01-02] MEDS: ASPIRIN 325 MG ENTERIC TABLET PO (09:09)
[2021-01-02] MEDS: lisinopriL 10 MG TABLET PO (09:09)
[2021-01-02] MEDS: POTASSIUM CHLORIDE 20 MEQ TABLET 40 MEQ PO (09:09)
--- NOTE | 2021-01-02 10:54 | WPDPN ---
Progress Note: A&P Assessment and Plan (1) Stroke: Qualifiers: CVA mechanism: unspecified Qualified Code(s): I63.9 - Cerebral infarction, unspecified Code(s): I63.9 - Cerebral infarction, unspecified Status: Acute Assessment and Plan: Resolved Resolved left-sided weakness CT of the head no acute intracranial finding MRI-negative for CVA echo -grade 1 diastolic dysfunction carotid ultrasound <50 stenosis bilater Continue Plavix started Plavix ABCD2 score 6 Continue PT OT Speech therapy without any deficiency (2) Syncope: Qualifiers: Syncope type: unspecified Qualified Code(s): R55 - Syncope and collapse Code(s): R55 - Syncope and collapse Status: Acute Assessment and Plan: Possibly secondary to TIA versus CVA Refer to stroke CT of the head no acute intracranial finding Continue Plavix Will start aspirin once we rule out hemorrhagic stroke Continue PT OT (3) Seropositive rheumatoid arthritis of hand: Code(s): M05.749 - Rheumatoid arthritis with rheumatoid factor of unspecified hand without organ or systems involvement Status: Acute Assessment and Plan: Will continue hydroxychloroquin, prednisone (4) Hypertension: Code(s): I10 - Essential (primary) hypertension Status: Acute Assessment and Plan: Blood pressure stable Continue quinapril Vital signs as ordered Will adjust medication as needed Review of Systems Review of Systems: All systems reviewed & are unremarkable except as noted in HPI and below (10 point system review) Exam Narrative: Exam Narrative: GENERAL: This is a well-nourished, well-developed patient, in no apparent distress. HEAD: normocephalic, atraumatic. EYES: PERRL. Sclera clear/white. Vision is grossly intact. EARS: External ears normal, auditory canals clear and without drainage, TMs normal without perforation. Hearing grossly intact. NOSE: External nose normal with no obvious nasal discharge, nares without redness, no rhinorrhea. THROAT: Mucous membranes moist, posterior pharynx clear. NECK: Neck supple, non-tender without lymphadenopathy, masses or thyromegaly. CARDIOVASCULAR: Regular rate and rhythm without murmurs, gallops, or rubs. RESPIRATORY: Clear to auscultation. Breath sounds equal bilaterally. No wheezes, rales, or rhonchi. GASTROINTESTINAL: Abdomen soft, non-tender, nondistended. Bowel sounds are active. No hepato-splenomegaly, or palpable masses. No guarding. SKIN: warm, intact with no suspicious lesions or rash, good texture and turgor. NEURO: awake, alert, and oriented to person, place and time. There were no obvious focal neurologic abnormalities. Steady gait EXTREMITIES: Normal range of motion. No edema. No calf tenderness. Negative Homans sign bilaterally. BACK: Nontender without deformity or crepitance. No flank tenderness. Objective Data Vital Signs Vital Signs: Vital Signs - 24 hr 01/01/21 12:00 01/01/21 16:00 01/01/21 19:26 Temperature 99.6 F 99.1 F 98.9 F Pulse Rate 88 85 81 Respiratory Rate 18 18 18 Blood Pressure 116/68 118/75 126/68 Pulse Oximetry 97 97 95 01/01/21 23:48 01/02/21 04:00 01/02/21 08:00 Temperature 98.4 F 98.1 F 98.9 F Pulse Rate 75 84 85 Respiratory Rate 20 20 18 Blood Pressure 130/73 135/66 132/72 Pulse Oximetry 98 97 97 Intake/Output Intake/Output: Intake & Output 12/30/20 12/31/20 01/01/21 01/02/21 23:59 23:59 23:59 23:59 Intake Total 2340 2890 1080 440 Output Total 150 828 0217 1000 Balance 2040 2190 -820 -560 Meds/Results Medications: Active Medications Generic Name Dose Route Start Last Admin Trade Name Freq PRN Reason Stop Dose Admin Acetaminophen 650 mg 12/30/20 11:20 Acetaminophen 325 Mg Tablet PO Q4H PRN Mild Pain (1-3) or Fever Aspirin 325 mg 01/01/21 09:00 01/02/21 09:09 Aspirin 325 Mg Enteric Tablet PO 325 mg QAM HILARY Administration Bisacodyl 5 mg 02
[2021-01-02 12:00] VITALS: BP 120/62; PULSE 78; RESP 18; TEMP 37.2; O2SAT 97
[2021-01-02 16:00] VITALS: BP 128/63; PULSE 83; RESP 16; TEMP 37.6; O2SAT 98
[2021-01-02 20:00] VITALS: BP 125/70; PULSE 80; RESP 18; TEMP 37; O2SAT 98
[2021-01-02] MEDS: GABAPENTIN 100 MG CAPSULE 200 MG PO (21:01)
[2021-01-02 23:57] VITALS: BP 115/62; PULSE 74; RESP 18; TEMP 36.8; O2SAT 99
--- NOTE | 2021-01-03 01:35 | PC.NURSE ---
pt ambulated to bathroom with walker and sba, pt tolerated well
[2021-01-03 08:00] VITALS: BP 148/73; PULSE 81; RESP 18; TEMP 36.8; O2SAT 97
[2021-01-03] MEDS: POTASSIUM CHLORIDE 20 MEQ TABLET 40 MEQ PO (09:15)
[2021-01-03] MEDS: ASPIRIN 325 MG ENTERIC TABLET PO (09:15)
[2021-01-03] MEDS: GABAPENTIN 100 MG CAPSULE PO (09:15)
[2021-01-03] MEDS: CLOPIDOGREL BISULFATE 75 MG TABLET PO (09:15)
[2021-01-03] MEDS: HYDROXYCHLOROQUINE SULFATE 200 MG TABLET 400 MG PO (09:15)
[2021-01-03] MEDS: lisinopriL 10 MG TABLET PO (09:16)
[2021-01-03] MEDS: predniSONE 1 MG TABLET PO (09:16)
--- NOTE | 2021-01-03 10:39 | WPDPN ---
Progress Note: A&P Assessment and Plan (1) Stroke: Qualifiers: CVA mechanism: unspecified Qualified Code(s): I63.9 - Cerebral infarction, unspecified Code(s): I63.9 - Cerebral infarction, unspecified Status: Acute Assessment and Plan: Resolved Resolved left-sided weakness CT of the head no acute intracranial finding MRI-negative for CVA echo -grade 1 diastolic dysfunction carotid ultrasound <50 stenosis bilater Continue Plavix started Plavix ABCD2 score 6 Continue PT OT Speech therapy without any deficiency (2) Syncope: Qualifiers: Syncope type: unspecified Qualified Code(s): R55 - Syncope and collapse Code(s): R55 - Syncope and collapse Status: Acute Assessment and Plan: Possibly secondary to TIA versus CVA Refer to stroke CT of the head no acute intracranial finding Continue Plavix Will start aspirin once we rule out hemorrhagic stroke Continue PT OT (3) Seropositive rheumatoid arthritis of hand: Code(s): M05.749 - Rheumatoid arthritis with rheumatoid factor of unspecified hand without organ or systems involvement Status: Acute Assessment and Plan: Will continue hydroxychloroquin, prednisone (4) Hypertension: Code(s): I10 - Essential (primary) hypertension Status: Acute Assessment and Plan: Blood pressure stable Continue quinapril Vital signs as ordered Will adjust medication as needed Review of Systems Review of Systems: All systems reviewed & are unremarkable except as noted in HPI and below (10 point system review) Exam Narrative: Exam Narrative: GENERAL: This is a well-nourished, well-developed patient, in no apparent distress. HEAD: normocephalic, atraumatic. EYES: PERRL. Sclera clear/white. Vision is grossly intact. EARS: External ears normal, auditory canals clear and without drainage, TMs normal without perforation. Hearing grossly intact. NOSE: External nose normal with no obvious nasal discharge, nares without redness, no rhinorrhea. THROAT: Mucous membranes moist, posterior pharynx clear. NECK: Neck supple, non-tender without lymphadenopathy, masses or thyromegaly. CARDIOVASCULAR: Regular rate and rhythm without murmurs, gallops, or rubs. RESPIRATORY: Clear to auscultation. Breath sounds equal bilaterally. No wheezes, rales, or rhonchi. GASTROINTESTINAL: Abdomen soft, non-tender, nondistended. Bowel sounds are active. No hepato-splenomegaly, or palpable masses. No guarding. SKIN: warm, intact with no suspicious lesions or rash, good texture and turgor. NEURO: awake, alert, and oriented to person, place and time. There were no obvious focal neurologic abnormalities. Steady gait EXTREMITIES: Normal range of motion. No edema. No calf tenderness. Negative Homans sign bilaterally. BACK: Nontender without deformity or crepitance. No flank tenderness. Objective Data Vital Signs Vital Signs: Vital Signs - 24 hr 01/02/21 12:00 01/02/21 16:00 01/02/21 20:00 Temperature 98.9 F 99.7 F H 98.6 F Pulse Rate 78 83 80 Respiratory Rate 18 16 18 Blood Pressure 120/62 128/63 125/70 Pulse Oximetry 97 98 98 01/02/21 23:57 01/03/21 08:00 Temperature 98.2 F 98.3 F Pulse Rate 74 81 Respiratory Rate 18 18 Blood Pressure 115/62 148/73 H Pulse Oximetry 99 97 Intake/Output Intake/Output: Intake & Output 12/31/20 01/01/21 01/02/21 01/03/21 23:59 23:59 23:59 23:59 Intake Total 2890 1080 1150 590 Output Total 700 1900 2200 1450 Balance 2190 -820 -1050 -860 Meds/Results Medications: Active Medications Generic Name Dose Route Start Last Admin Trade Name Freq PRN Reason Stop Dose Admin Acetaminophen 650 mg 12/30/20 11:20 Acetaminophen 325 Mg Tablet PO Q4H PRN Mild Pain (1-3) or Fever Aspirin 325 mg 01/01/21 09:00 01/03/21 09:15 Aspirin 325 Mg Enteric Tablet PO 325 mg QAM HILARY Administration Bisacodyl 5 mg 12/30/20 11:20 Bisacodyl 5 Mg T
--- NOTE | 2021-01-03 11:09 | PM.DS ---
DS: Admitting Diagnosis Admitting Diagnosis Admitting Diagnosis: TIA generalized weakness DS: Discharge Diagnosis Discharge Diagnosis (1) Stroke: Qualifiers: CVA mechanism: unspecified Qualified Code(s): I63.9 - Cerebral infarction, unspecified Code(s): I63.9 - Cerebral infarction, unspecified Status: Acute Assessment and Plan: Resolved Resolved left-sided weakness CT of the head no acute intracranial finding MRI-negative for CVA echo -grade 1 diastolic dysfunction carotid ultrasound <50 stenosis bilater Continue Plavix started Plavix ABCD2 score 6 Continue PT OT Speech therapy without any deficiency (2) Syncope: Qualifiers: Syncope type: unspecified Qualified Code(s): R55 - Syncope and collapse Code(s): R55 - Syncope and collapse Status: Acute Assessment and Plan: Possibly secondary to TIA versus CVA Refer to stroke CT of the head no acute intracranial finding Continue Plavix started aspirin once we rule out hemorrhagic stroke Continue PT OT (3) Seropositive rheumatoid arthritis of hand: Code(s): M05.749 - Rheumatoid arthritis with rheumatoid factor of unspecified hand without organ or systems involvement Status: Acute Assessment and Plan: Will continue hydroxychloroquin, prednisone (4) Hypertension: Code(s): I10 - Essential (primary) hypertension Status: Acute Assessment and Plan: Blood pressure stable Continue quinapril Vital signs as ordered Will adjust medication as needed (5) TIA (transient ischemic attack): Code(s): G45.9 - Transient cerebral ischemic attack, unspecified Status: Acute Assessment and Plan: Resolved Resolved left-sided weakness CT of the head no acute intracranial finding MRI-negative for CVA echo -grade 1 diastolic dysfunction carotid ultrasound <50 stenosis bilater Continue Plavix started Plavix ABCD2 score 6 Continue PT OT Speech therapy without any deficiency DS: Summary Hospital Course Reason for hospitalization: TIA, General weakness Hospital Course: Roma Trujillo is a 85 year old female who presented to our ED post fall patient has a past medical history of allergies, rheumatoid arthritis, and hypertension according to patient she has been feeling fatigued and lightheaded that particular day. Patient noted that she had been lying around in bed all day and needed to go to the restroom she proceeded to the restroom when she got out of the toilet she blacked out. Patient noted that she had stayed on the floor most of the night and her neighbors came over and discovered her on the floor. Patient does live at home alone she noted that she could not get herself of the floor. Patient noted she did hit the back of her head she denies injuring any other part of her body. On admission patient blood pressure was elevated 163/84 she did have left side facial drooping and left side upper arm weakness. Patient CT and MRI of her head and was negative for any acute intracranial finding.. Patient EKG indicates sinus rhythm with a heart rate of 85, patient AST slightly elevated all other labs within normal limits on admission. The patient denies SOB, CP, palpitation, extremity numbness, dizziness, constipation, diarrhea, chills, or fever. Patient continues to complain of generalized weakness she has been admitted into our swing bed due to generalized weakness and physical deconditioning. Patient admitted in swing bed for rehabilitation due to decreased balance decreased mobility in severe limited function endurant and/or mobility. Time Spent with Patient Time attestation: Total time spent providing and/or coordinating discharge services: Exam Narrative: Exam Narrative: GENERAL: This is a well-nourished, well-developed patient, in no apparent distress. HEAD: normocephalic, atraumatic. EYES: PERRL. Sclera clear/white. Vision is grossly i
--- NOTE | 2021-01-03 11:33 | PC.NURSE ---
Patient status changing from inpatient to swingbed. Patient continues to stay in 226. IV removed, catheter intact. Stand by assist with wheeled walker, gait belt.
== END 2021-01-03 11:20 | disposition swing bed (61) | DRG 69 ==
LOC: CHSED 11:20 → CHS2ND 13:01
PROVIDERS: Nurse Practitioner; Admitting Provider Emergency Medicine; Emergency Provider Emergency Medicine; PCP Internal Medicine; Visit Provider Emergency Medicine
DX: I63.9 Cerebral infarction, unspecified (principal); M47.812 Spondylosis without myelopathy or radiculopathy, cervical region; G45.9 Transient cerebral ischemic attack, unspecified; G81.94 Hemiplegia, unspecified affecting left nondominant side; M06.9 Rheumatoid arthritis, unspecified; I10 Essential (primary) hypertension; M81.0 Age-related osteoporosis without current pathological fracture; Z90.710 Acquired absence of both cervix and uterus; Z90.49 Acquired absence of other specified parts of digestive tract; R29.810 Facial weakness; I35.8 Other nonrheumatic aortic valve disorders; I36.1 Nonrheumatic tricuspid (valve) insufficiency; R55 Syncope and collapse
CPT/HCPCS: 36415; 70450; 70551; 71046; 72125; 80053; 81001; 82948; 83605; 83735; 83880; 84484; 85025; 85027; 85610; 85730; 87040; 92610; 93005; 93306; 93880; 96360; 97110; 97116; 97161; 97165; 97530; 99285; A9270; J7030; J7040

== ENCOUNTER 2021-01-03 11:21 | Inpatient (IN) | payer MEDICARE, SELFPAY ==
[2021-01-03 11:50] VITALS: BMI 17.2
--- NOTE | 2021-01-03 11:55 | WPDREHABHP ---
H&P: HPI History of Present Illness Date/Time: 01/03/21 11:55 Chief Complaint: Generalized weakness/physical deconditioning Narrative: Roma Trujillo is a 85 year old female who presented to our ED post fall patient has a past medical history of allergies, rheumatoid arthritis, and hypertension according to patient she has been feeling fatigued and lightheaded that particular day. Patient noted that she had been lying around in bed all day and needed to go to the restroom she proceeded to the restroom when she got out of the toilet she blacked out. Patient noted that she had stayed on the floor most of the night and her neighbors came over and discovered her on the floor. Patient does live at home alone she noted that she could not get herself of the floor. Patient noted she did hit the back of her head she denies injuring any other part of her body. On admission patient blood pressure was elevated 163/84 she did have left side facial drooping and left side upper arm weakness. Patient CT and MRI of her head and was negative for any acute intracranial finding.. Patient EKG indicates sinus rhythm with a heart rate of 85, patient AST slightly elevated all other labs within normal limits on admission. The patient denies SOB, CP, palpitation, extremity numbness, dizziness, constipation, diarrhea, chills, or fever. Patient continues to complain of generalized weakness she has been admitted into our swing bed due to generalized weakness and physical deconditioning. Patient admitted in swing bed for rehabilitation due to decreased balance decreased mobility in severe limited function endurant and/or mobility. Review of Systems Review of Systems All systems reviewed & are unremarkable except as noted in HPI and below (12 point system reviewed) [facility] Past Medical History Medical History (Updated 01/03/21 @ 11:59 by FRED Estrada) Allergies Arthritis Rhuematoid Hypertension Osteoporosis Vaginal delivery X2 1980 Female 1980 Female Surgical History Surgical History H/O: hysterectomy History of appendectomy Hx of cholecystectomy Family History Family History Grandparent Cerebrovascular accident Father Family history of chronic obstructive pulmonary disease Mother Hypertension Social History Social History Smoking status: Never smoker Alcohol intake: current Drinks per week: 3 Substance use: never Gender identity (if verbalized by the patient): Female Spiritual care concerns: No Meds Home Medications and Allergies Home Medications Medication Instructions Recorded Confirmed Type hydroxychloroquine 200 mg tablet 400 mg PO DAILY #60 tablet 08/20/20 01/03/21 Rx prednisone 1 mg tablet 1 mg PO DAILY #90 tablet 08/20/20 01/03/21 Rx gabapentin 100 mg PO DAILY 12/30/20 01/03/21 History gabapentin [Neurontin] 200 mg PO HS 12/30/20 01/03/21 History quinapril 10 mg PO DAILY 12/30/20 01/03/21 History aspirin 325 mg PO QAM #30 tablet 01/02/21 01/03/21 Rx clopidogrel 75 mg PO QAM #30 tablet 01/02/21 01/03/21 Rx Allergies Allergy/AdvReac Type Severity Reaction Status Date / Time celecoxib Allergy Unknown pounding Verified 08/20/20 12:16 chest fluconazole Allergy Unknown chest Verified 08/20/20 12:16 pain, dizziness ibandronate sodium Allergy Unknown Chest pain Verified 08/20/20 12:16 Exam Narrative Exam Narrative: Exam Narrative: GENERAL: This is a well-nourished, well-developed patient, in no apparent distress. HEAD: normocephalic, atraumatic. EYES: PERRL. Sclera clear/white. Vision is grossly intact. EARS: External ears normal, auditory canals clear and without drainage, TMs normal without perforation. Hearing grossly intact. NOSE: External nose normal with no obvious nasal discharge, nares without redness, no rhino
[2021-01-03 12:15] VITALS: BP 148/73; PULSE 81; RESP 18; TEMP 36.8; O2SAT 97
[2021-01-03 16:00] VITALS: BP 136/72; PULSE 80; RESP 18; TEMP 37.8; O2SAT 98
[2021-01-03] MEDS: DOCUSATE SODIUM 100 MG CAPSULE PO (20:29)
[2021-01-03] MEDS: ACETAMINOPHEN 500 MG TABLET 1000 MG PO (20:34)
[2021-01-03] MEDS: GABAPENTIN 100 MG CAPSULE 200 MG PO (20:39)
[2021-01-03 23:56] VITALS: BP 109/63; PULSE 70; RESP 18; TEMP 36.6; O2SAT 99
[2021-01-04] MEDS: ACETAMINOPHEN 500 MG TABLET 1000 MG PO (05:34)
[2021-01-04 07:57] VITALS: BP 132/73; PULSE 75; RESP 18; TEMP 36.7; O2SAT 99
[2021-01-04 07:58] VITALS: O2SAT 99
[2021-01-04] MEDS: HYDROXYCHLOROQUINE SULFATE 200 MG TABLET 400 MG PO (08:44)
[2021-01-04] MEDS: DOCUSATE SODIUM 100 MG CAPSULE PO ×2 (08:44→20:36)
[2021-01-04] MEDS: GABAPENTIN 100 MG CAPSULE PO (08:44)
[2021-01-04] MEDS: ASPIRIN 325 MG ENTERIC TABLET PO (08:44)
[2021-01-04] MEDS: predniSONE 1 MG TABLET PO (08:44)
[2021-01-04] MEDS: CLOPIDOGREL BISULFATE 75 MG TABLET PO (08:45)
[2021-01-04] MEDS: lisinopriL 10 MG TABLET PO (08:45)
[2021-01-04 15:58] VITALS: BP 128/72; PULSE 75; RESP 18; TEMP 37.1; O2SAT 99
[2021-01-04] MEDS: GABAPENTIN 100 MG CAPSULE 200 MG PO (20:28)
[2021-01-05] VITALS: BP 133/69; PULSE 75; RESP 20; TEMP 36.6; O2SAT 100
[2021-01-05 07:30] VITALS: BP 162/74; PULSE 85; RESP 18; TEMP 36.9; O2SAT 99
[2021-01-05] MEDS: HYDROXYCHLOROQUINE SULFATE 200 MG TABLET 400 MG PO (08:28)
[2021-01-05] MEDS: lisinopriL 10 MG TABLET PO (08:28)
[2021-01-05] MEDS: predniSONE 1 MG TABLET PO (08:28)
[2021-01-05] MEDS: DOCUSATE SODIUM 100 MG CAPSULE PO ×2 (08:28→20:49)
[2021-01-05] MEDS: CLOPIDOGREL BISULFATE 75 MG TABLET PO (08:28)
[2021-01-05] MEDS: ASPIRIN 325 MG ENTERIC TABLET PO (08:28)
[2021-01-05] MEDS: GABAPENTIN 100 MG CAPSULE PO (08:28)
[2021-01-05 16:00] VITALS: BP 134/70; PULSE 81; RESP 18; TEMP 37.4; O2SAT 98
[2021-01-05] MEDS: GABAPENTIN 100 MG CAPSULE 200 MG PO (20:49)
[2021-01-05 23:21] VITALS: BP 146/78; PULSE 80; RESP 18; TEMP 37.1; O2SAT 99
--- NOTE | 2021-01-06 01:56 | PC.NURSE ---
pt sleeping, no evidence of distress noted, belongings and call light within reach
[2021-01-06 07:40] VITALS: BP 128/80; PULSE 83; RESP 18; TEMP 36.7; O2SAT 97
[2021-01-06] MEDS: predniSONE 1 MG TABLET PO (08:37)
[2021-01-06] MEDS: HYDROXYCHLOROQUINE SULFATE 200 MG TABLET 400 MG PO (08:37)
[2021-01-06] MEDS: DOCUSATE SODIUM 100 MG CAPSULE PO ×2 (08:37→21:28)
[2021-01-06] MEDS: lisinopriL 10 MG TABLET PO (08:37)
[2021-01-06] MEDS: ASPIRIN 325 MG ENTERIC TABLET PO (08:38)
[2021-01-06] MEDS: GABAPENTIN 100 MG CAPSULE PO (08:38)
[2021-01-06] MEDS: CLOPIDOGREL BISULFATE 75 MG TABLET PO (08:38)
[2021-01-06 15:35] VITALS: BP 150/78; PULSE 79; RESP 18; TEMP 36.9; O2SAT 99
[2021-01-07] VITALS: BP 140/58; PULSE 78; RESP 14; TEMP 37.2; O2SAT 97
[2021-01-07] MEDS: GABAPENTIN 100 MG CAPSULE 200 MG PO ×2 (00:28→20:44)
[2021-01-07 07:25] VITALS: BP 140/73; PULSE 79; RESP 18; TEMP 36.6; O2SAT 97
[2021-01-07] MEDS: HYDROXYCHLOROQUINE SULFATE 200 MG TABLET 400 MG PO (08:47)
[2021-01-07] MEDS: lisinopriL 10 MG TABLET PO (08:48)
[2021-01-07] MEDS: DOCUSATE SODIUM 100 MG CAPSULE PO (08:48)
[2021-01-07] MEDS: GABAPENTIN 100 MG CAPSULE PO (08:48)
[2021-01-07] MEDS: CLOPIDOGREL BISULFATE 75 MG TABLET PO (08:48)
[2021-01-07] MEDS: predniSONE 1 MG TABLET PO (08:48)
[2021-01-07] MEDS: ASPIRIN 325 MG ENTERIC TABLET PO (08:48)
[2021-01-07 16:20] VITALS: BP 143/78; PULSE 83; RESP 18; TEMP 36.9; O2SAT 99
[2021-01-07 23:43] VITALS: BP 132/71; PULSE 72; RESP 16; TEMP 36.8; O2SAT 99
[2021-01-08 07:40] VITALS: BP 147/77; PULSE 78; RESP 18; TEMP 36.7; O2SAT 98
[2021-01-08] MEDS: lisinopriL 10 MG TABLET PO (08:43)
[2021-01-08] MEDS: DOCUSATE SODIUM 100 MG CAPSULE PO ×2 (08:43→20:36)
[2021-01-08] MEDS: GABAPENTIN 100 MG CAPSULE PO (08:43)
[2021-01-08] MEDS: ASPIRIN 325 MG ENTERIC TABLET PO (08:43)
[2021-01-08] MEDS: HYDROXYCHLOROQUINE SULFATE 200 MG TABLET 400 MG PO (08:43)
[2021-01-08] MEDS: CLOPIDOGREL BISULFATE 75 MG TABLET PO (08:43)
[2021-01-08] MEDS: predniSONE 1 MG TABLET PO (08:43)
[2021-01-08 16:00] VITALS: BP 132/78; PULSE 78; RESP 16; TEMP 37.1; O2SAT 97
[2021-01-08] MEDS: GABAPENTIN 100 MG CAPSULE 200 MG PO (20:37)
[2021-01-08 23:58] VITALS: PULSE 80; RESP 20; TEMP 36.6; O2SAT 98
[2021-01-09 06:12] LABS: Hematocrit 32.9 % (35.0-42.0); Hemoglobin 10.5 g/dL (11.7-13.8); Mean Corpuscular HGB Conc 31.9 g/dL (32.0-36.0); Mean Corpuscular Volume 84.6 fL (78.0-102.0); Mean Platelet Volume 8.8 fl (9.2-11.8); Platelet Count Result 411 K/mm3 (150-420); Red Blood Count 3.89 M/mm3 (4.20-5.40); Red Cell Distribution Width 13.2 % (11.6-14.4); White Blood Count 7.1 K/mm3 (4.8-10.8)
[2021-01-09 06:25] LABS: Anion Gap 6 mmol/L (8-16); Blood Urea Nitrogen 8 mg/dL (7-18); Calcium 9.2 mg/dL (8.5-10.1); Carbon Dioxide 27 mmol/L (21-32); Chloride 95 mmol/L (98-108); Estimated CRCL calculation 43 ml/min; Estimated Glomerular Filt Rate > 60; Glucose 95 mg/dL (70-99); Osmolality Calculated 264 mOsm/kg (285-295); Potassium 3.9 mmol/L (3.5-5.1); Sodium 128 mmol/L (136-145)
[2021-01-09 07:40] VITALS: BP 132/75; PULSE 73; RESP 18; TEMP 36.7; O2SAT 98
[2021-01-09] MEDS: HYDROXYCHLOROQUINE SULFATE 200 MG TABLET 400 MG PO (08:51)
[2021-01-09] MEDS: ASPIRIN 325 MG ENTERIC TABLET PO (08:51)
[2021-01-09] MEDS: predniSONE 1 MG TABLET PO (08:51)
[2021-01-09] MEDS: lisinopriL 10 MG TABLET PO (08:51)
[2021-01-09] MEDS: CLOPIDOGREL BISULFATE 75 MG TABLET PO (08:51)
[2021-01-09] MEDS: GABAPENTIN 100 MG CAPSULE PO (08:51)
[2021-01-09] MEDS: DOCUSATE SODIUM 100 MG CAPSULE PO ×2 (08:51→20:28)
--- NOTE | 2021-01-09 13:28 | PM.EVENT ---
Event Note Event Note Event Note: Labs drawn this AM in anticipation of DC tomorrow. Noted was a decrease in NaCl levels. I changed diet to Regular and added Sodium Chloride tabs 1 gm BID starting at 1700 this evening and Pt may add salt to her meals as well. Pt may benefit from adding the Sodium Chloride tabs to her DC medications.
[2021-01-09 16:00] VITALS: BP 146/76; PULSE 88; RESP 18; TEMP 37.4; O2SAT 99
[2021-01-09] MEDS: SODIUM CHLORIDE 1 GM TABLET PO (18:31)
[2021-01-09] MEDS: GABAPENTIN 100 MG CAPSULE 200 MG PO (20:28)
[2021-01-10] VITALS: BP 136/69; PULSE 78; RESP 20; TEMP 36.5; O2SAT 99
[2021-01-10 07:30] VITALS: BP 134/64; PULSE 76; RESP 18; TEMP 36.9; O2SAT 98
[2021-01-10] MEDS: SODIUM CHLORIDE 1 GM TABLET PO ×2 (09:05→17:53)
[2021-01-10] MEDS: DOCUSATE SODIUM 100 MG CAPSULE PO ×2 (09:05→20:18)
[2021-01-10] MEDS: HYDROXYCHLOROQUINE SULFATE 200 MG TABLET 400 MG PO (09:05)
[2021-01-10] MEDS: CLOPIDOGREL BISULFATE 75 MG TABLET PO (09:05)
[2021-01-10] MEDS: ASPIRIN 325 MG ENTERIC TABLET PO (09:05)
[2021-01-10] MEDS: GABAPENTIN 100 MG CAPSULE PO (09:05)
[2021-01-10] MEDS: lisinopriL 10 MG TABLET PO (09:05)
[2021-01-10] MEDS: predniSONE 1 MG TABLET PO (09:05)
--- NOTE | 2021-01-10 12:24 | PM.IMPN ---
Progress Note: A&P Assessment and Plan (1) Weakness: Code(s): R53.1 - Weakness Status: Acute Assessment and Plan: 01/10/2021 Had PT do and evaluation regarding DC of this Pt, PT recommendation is to extend PT for this Pt for an additional week. Pt has been doing well but will need more time with her progression towards goals. (2) TIA (transient ischemic attack): Code(s): G45.9 - Transient cerebral ischemic attack, unspecified Status: Acute Assessment and Plan: Resolved Resolved left-sided weakness CT of the head no acute intracranial finding MRI-negative for CVA echo -grade 1 diastolic dysfunction carotid ultrasound <50 stenosis bilater Continue Plavix started Plavix ABCD2 score 6 Continue PT OT Speech therapy without any deficiency 01/10/2021 Continue work with PT per PT recommendations (3) Hypertension: Code(s): I10 - Essential (primary) hypertension Status: Acute Assessment and Plan: Blood pressure stable Continue quinapril Vital signs as ordered Will adjust medication as needed 01/10/2021 BP has been stable, no changes to be made to medications at this time (4) Arthritis: Code(s): M19.90 - Unspecified osteoarthritis, unspecified site Status: Acute Assessment and Plan: Will continue hydroxychloroquin, prednisone 01/10/2021 No changes at this time (5) Syncope: Qualifiers: Syncope type: unspecified Qualified Code(s): R55 - Syncope and collapse Code(s): R55 - Syncope and collapse Status: Acute Assessment and Plan: Secondary to TIA Refer to TIA Subjective Date/time seen: 01/10/21 12:24 Pt states she feels she is getting a little stronger with PT but only a little bit at a time. PT stated she would benefit from a few more days. Pt will now be here until Thursday January 14, 2021. Pt has no CP, SOB, abdominal pain or issues. She states that being able to walk around is better but only a little bit at a time. She is happy that she will be staying though the end of the week to work with PT. Review of Systems Constitutional: Constitutional: Reports no additional constitutional complaints, Denies body ache(s), Denies chills, Denies fever(s), Denies headache(s) and Reports weakness Cardiovascular: Cardiovascular: Reports no additional cardiovascular complaints, Denies chest pain, Denies chest pain at rest and Denies chest pain with activity Respiratory: Respiratory: Reports no additional respiratory complaints, Denies chest congestion, Denies dyspnea and Denies dyspnea on exertion Gastrointestinal: Gastrointestinal: Reports no additional gastrointestinal complaints and Denies abdominal pain Musculoskeletal: Musculoskeletal: Reports muscle weakness (but improving) Neurologic: Reports system reviewed and no additional complaints, except as documented Exam Const: General: cooperative, comfortable, no acute distress, alert, awake and Physically active Nutritional Appearance: average body habitus Resp: Effort & Inspection: normal respiratory effort Auscultation: clear to auscultation bilaterally Cardio: Rate: regular rate Heart sounds: S1 normal heart sound present and S2 normal heart sound present GI: GI Palp: Yes Soft to palpation and No Tenderness to palpation present (GI) Auscultation: normal bowel sounds Neuro: General: oriented to person, oriented to place and oriented to time Cranial nerves: Yes CN's II-XII intact bilaterally (grossly intact) Extrem: General: full ROM (for age) and no pedal edema Objective Data Vital Signs Vital Signs: Vital Signs - 24 hr 01/09/21 16:00 01/10/21 00:00 01/10/21 07:30 Temperature 99.4 F 97.7 F 98.5 F Pulse Rate 88 78 76 Respiratory Rate 18 20 18 Blood Pressure 146/76 H 136/69 134/64 Pulse Oximetry 99 99 98 Intake/Output Intake/Output: Intake & Output 01/07/21 01/08/21 01/09/21 01/10/21 23:59 23:59 23:59 23:59 Intake Total 1690 1400 810 320 Balance 1690 1400 8
[2021-01-10 16:00] VITALS: BP 132/67; PULSE 78; RESP 16; TEMP 37.2; O2SAT 98
[2021-01-10] MEDS: GABAPENTIN 100 MG CAPSULE 200 MG PO (21:00)
[2021-01-10 23:56] VITALS: PULSE 75; RESP 20; TEMP 36.6; O2SAT 98
[2021-01-11 07:50] VITALS: BP 136/71; PULSE 79; RESP 18; TEMP 37.1; O2SAT 99
[2021-01-11 07:51] VITALS: PULSE 79; RESP 18; O2SAT 99
[2021-01-11] MEDS: predniSONE 1 MG TABLET PO (09:03)
[2021-01-11] MEDS: ASPIRIN 325 MG ENTERIC TABLET PO (09:03)
[2021-01-11] MEDS: lisinopriL 10 MG TABLET PO (09:04)
[2021-01-11] MEDS: CLOPIDOGREL BISULFATE 75 MG TABLET PO (09:04)
[2021-01-11] MEDS: SODIUM CHLORIDE 1 GM TABLET PO ×2 (09:04→17:05)
[2021-01-11] MEDS: HYDROXYCHLOROQUINE SULFATE 200 MG TABLET 400 MG PO (09:04)
[2021-01-11] MEDS: GABAPENTIN 100 MG CAPSULE PO (09:04)
[2021-01-11] MEDS: DOCUSATE SODIUM 100 MG CAPSULE PO ×2 (09:04→21:24)
[2021-01-11] MEDS: ACETAMINOPHEN 500 MG TABLET 1000 MG PO (09:04)
[2021-01-11 15:58] VITALS: BP 111/63; PULSE 77; RESP 16; TEMP 37; O2SAT 97
[2021-01-11] MEDS: GABAPENTIN 100 MG CAPSULE 200 MG PO (21:24)
[2021-01-12] VITALS: BP 150/74; PULSE 76; RESP 18; TEMP 37.3; O2SAT 100
[2021-01-12 08:00] VITALS: BP 130/76; PULSE 77; RESP 18; TEMP 37; O2SAT 95
[2021-01-12] MEDS: HYDROXYCHLOROQUINE SULFATE 200 MG TABLET 400 MG PO (09:17)
[2021-01-12] MEDS: DOCUSATE SODIUM 100 MG CAPSULE PO (09:17)
[2021-01-12] MEDS: SODIUM CHLORIDE 1 GM TABLET PO ×2 (09:17→16:35)
[2021-01-12] MEDS: GABAPENTIN 100 MG CAPSULE PO (09:18)
[2021-01-12] MEDS: predniSONE 1 MG TABLET PO (09:18)
[2021-01-12] MEDS: ASPIRIN 325 MG ENTERIC TABLET PO (09:18)
[2021-01-12] MEDS: lisinopriL 10 MG TABLET PO (09:18)
[2021-01-12] MEDS: CLOPIDOGREL BISULFATE 75 MG TABLET PO (09:18)
--- NOTE | 2021-01-12 09:56 | PC.NURSE ---
Assisted back to bed, denies needs, call light and personal items in reach
--- NOTE | 2021-01-12 14:00 | PC.NURSE ---
Up in [place] with physical therapy, ambulating with walker, tolerating well
[2021-01-12 15:40] VITALS: BP 120/66; PULSE 78; RESP 18; TEMP 36.7; O2SAT 98
[2021-01-12] MEDS: GABAPENTIN 100 MG CAPSULE 200 MG PO (21:31)
[2021-01-13] VITALS: BP 109/61; PULSE 74; RESP 20; TEMP 36.8; O2SAT 99
[2021-01-13 07:47] VITALS: BP 138/75; PULSE 81; RESP 18; TEMP 36.9; O2SAT 96
[2021-01-13] MEDS: ASPIRIN 325 MG ENTERIC TABLET PO (08:31)
[2021-01-13] MEDS: HYDROXYCHLOROQUINE SULFATE 200 MG TABLET 400 MG PO (08:31)
[2021-01-13] MEDS: SODIUM CHLORIDE 1 GM TABLET PO (08:31)
[2021-01-13] MEDS: CLOPIDOGREL BISULFATE 75 MG TABLET PO (08:31)
[2021-01-13] MEDS: lisinopriL 10 MG TABLET PO (08:32)
[2021-01-13] MEDS: predniSONE 1 MG TABLET PO (08:32)
[2021-01-13] MEDS: GABAPENTIN 100 MG CAPSULE PO (08:33)
--- NOTE | 2021-01-13 10:10 | PC.NURSE ---
In bed resting, states therapy wore her out, side rails up and personal items in reach of patient
--- NOTE | 2021-01-13 11:51 | PM.DS ---
DS: Admitting Diagnosis Admitting Diagnosis Admitting Diagnosis: Generalized weakness/ physical deconditioning DS: Discharge Diagnosis Discharge Diagnosis (1) Weakness: Code(s): R53.1 - Weakness Status: Acute Assessment and Plan: On discharge patient ambulated 400 feet with wheeled walker standby assistance She will discharge home with home [facility]/PT OT (2) TIA (transient ischemic attack): Code(s): G45.9 - Transient cerebral ischemic attack, unspecified Status: Acute Assessment and Plan: Resolved Resolved left-sided weakness CT of the head no acute intracranial finding MRI-negative for CVA echo -grade 1 diastolic dysfunction carotid ultrasound <50 stenosis bilater Continue Plavix started Plavix ABCD2 score 6 Speech therapy without any deficiency (3) Hypertension: Code(s): I10 - Essential (primary) hypertension Status: Acute Assessment and Plan: Blood pressure stable Continue quinapril (4) Arthritis: Code(s): M19.90 - Unspecified osteoarthritis, unspecified site Status: Acute Assessment and Plan: Will continue hydroxychloroquin, prednisone (5) Syncope: Qualifiers: Syncope type: unspecified Qualified Code(s): R55 - Syncope and collapse Code(s): R55 - Syncope and collapse Status: Acute Assessment and Plan: Secondary to TIA Refer to TIA DS: Summary Hospital Course Hospital Course: Roma Trujillo is a 85 year old female who presented to our ED post fall patient has a past medical history of allergies, rheumatoid arthritis, and hypertension according to patient she has been feeling fatigued and lightheaded that particular day. Patient noted that she had been lying around in bed all day and needed to go to the restroom she proceeded to the restroom when she got out of the toilet she blacked out. Patient noted that she had stayed on the floor most of the night and her neighbors came over and discovered her on the floor. Patient does live at home alone she noted that she could not get herself of the floor. Patient noted she did hit the back of her head she denies injuring any other part of her body. On admission patient blood pressure was elevated 163/84 she did have left side facial drooping and left side upper arm weakness. Patient CT and MRI of her head and was negative for any acute intracranial finding.. Patient EKG indicates sinus rhythm with a heart rate of 85, patient AST slightly elevated all other labs within normal limits on admission. The patient denies SOB, CP, palpitation, extremity numbness, dizziness, constipation, diarrhea, chills, or fever. On discharge patient able to ambulate 400 feet with wheeled walker and standby assist Time Spent with Patient Time attestation: Total time spent providing and/or coordinating discharge services: Exam Narrative: Exam Narrative: Exam Narrative: GENERAL: This is a well-nourished, well-developed patient, in no apparent distress. HEAD: normocephalic, atraumatic. EYES: PERRL. Sclera clear/white. Vision is grossly intact. EARS: External ears normal, auditory canals clear and without drainage, TMs normal without perforation. Hearing grossly intact. NOSE: External nose normal with no obvious nasal discharge, nares without redness, no rhinorrhea. THROAT: Mucous membranes moist, posterior pharynx clear. NECK: Neck supple, non-tender without lymphadenopathy, masses or thyromegaly. CARDIOVASCULAR: Regular rate and rhythm without murmurs, gallops, or rubs. RESPIRATORY: Clear to auscultation. Breath sounds equal bilaterally. No wheezes, rales, or rhonchi. GASTROINTESTINAL: Abdomen soft, non-tender, nondistended. Bowel sounds are active. No hepato-splenomegaly, or palpable masses. No guarding. SKIN: warm, intact with no suspicious lesions or rash, good texture and turgor. NEURO: awake, alert, and oriented to person, place and time. There were no obvious focal
--- NOTE | 2021-01-13 11:54 | PC.NURSE ---
Assisted up to bathroom, then to chair for lunch, SBA and use of walker
--- NOTE | 2021-01-13 12:50 | PC.NURSE ---
discharge to home via wheel chair with brother, denies needs, verbalizes understanding of dc orders, copies of discharge orders sent
--- NOTE | 2021-01-18 14:29 | PC.NURSE ---
Pt states she received and understood her discharge instructions. Pt states her care was excellent .
== END 2021-01-13 12:50 | disposition home health service (06) | DRG 948 ==
PROVIDERS: Nurse Practitioner Family; Admitting Provider Emergency Medicine; PCP Internal Medicine; Visit Provider Emergency Medicine
DX: R53.1 Weakness (principal); E87.1 Hypo-osmolality and hyponatremia; Z86.73 Personal history of transient ischemic attack (TIA), and cerebral infarction without residual deficits; I10 Essential (primary) hypertension; M81.0 Age-related osteoporosis without current pathological fracture; M06.9 Rheumatoid arthritis, unspecified; M19.90 Unspecified osteoarthritis, unspecified site; Z90.710 Acquired absence of both cervix and uterus; Z90.49 Acquired absence of other specified parts of digestive tract
CPT/HCPCS: 36415; 80048; 85027; 97110; 97112; 97116; 97161; 97165; 97530; 97535; A9270

== ENCOUNTER 2021-01-26 16:39 | Observation (INO) | payer MEDICARE, SELFPAY ==
--- NOTE | ~2021-01-26 | XR_ITS ---
XR hip RT 2V w AP pelvis DATE: 01/26/2021 17:08 INDICATION: Lateral right hip pain after fall. TECHNIQUE: Portable views: AP pelvis. AP and lateral views of right hip COMPARISON: 10/31/2010 left hip FINDINGS: Diffuse osteopenia. No pelvic fracture or bone destruction is detected. Normal alignment at the pubic symphysis and sacro iliac joints. No fracture, dislocation, avascular necrosis or bone destruction of the right hip is evident. Surgical clips overlie the lower abdomen and pelvis. IMPRESSION: Osteopenia; no pelvic or right hip fracture or dislocation is detected Reviewed, dictated and finalized at location B. IMPRESSION: Osteopenia; no pelvic or right hip fracture or dislocation is detec jana
[2021-01-26 16:50] VITALS: BP 137/83; PULSE 81; RESP 20; TEMP 36.7; O2SAT 96
--- NOTE | 2021-01-26 16:55 | ED.GENADULT ---
HPI - General Adult General Chief complaint: Fall Stated complaint: amb Source: patient and family Mode of arrival: ambulatory Limitations: no limitations History of Present Illness HPI narrative: Rmoa is an 85F with a PMH of a TIA/CVA, HTN, and RA on chronic steroids that presented to the ED via EMS with right hip pain after she had a ground level fall from tripping on a rug. This happened this morning. She has also been able to ambulate with a walker since then but has pain on the lateral right thigh and in the groin. She did not hit her head or lose consciousness. She has no other concerns. Related Data Home Medications Medication Instructions Recorded Confirmed gabapentin 100 mg PO DAILY 12/30/20 01/26/21 gabapentin [Neurontin] 200 mg PO HS 12/30/20 01/26/21 quinapril 10 mg PO DAILY 12/30/20 01/26/21 Allergies Allergy/AdvReac Type Severity Reaction Status Date / Time celecoxib Allergy Unknown pounding Verified 08/20/20 12:16 chest fluconazole Allergy Unknown chest Verified 08/20/20 12:16 pain, dizziness ibandronate sodium Allergy Unknown Chest pain Verified 08/20/20 12:16 Review of Systems Constitutional: Constitutional: Denies chills, Denies fever(s) and Denies weakness Eyes: Eyes: Reports no additional eye complaints ENT: Reports system reviewed and no additional complaints, except as documented Cardiovascular: Cardiovascular: Reports no additional cardiovascular complaints Respiratory: Respiratory: Reports no additional respiratory complaints Gastrointestinal: Gastrointestinal: Reports no additional gastrointestinal complaints Genitourinary: Genitourinary: Reports no additional female genitourinary complaints Musculoskeletal: Musculoskeletal: Reports as per HPI Integumentary/Breasts: Skin/Breast: Reports system reviewed and no additional complaints, except as docu Neurologic: Reports system reviewed and no additional complaints, except as documented Psychiatric: Psychiatric: Reports no additional psychiatric complaints Endocrine: Endocrine: Reports no additional endocrine complaints Hematologic/Lymphatic: Hematologic/Lymphatic: Reports no additional hematologic/lymphatic complaints Allergic/Immunologic: Allergic/Immunologic: Reports no additional allergic/immunologic complaints [facility] Past Medical History Medical History Age-related osteoporosis without current pathological fracture Allergies Arthralgia of both hands Arthritis Rhuematoid Cervical radiculopathy due to degenerative joint disease of spine Counseling on health promotion and disease prevention Encounter for medication management Encounter for screening for other viral diseases Hypertension Osteoarthritis involving multiple joints on both sides of body Osteoporosis Pain in left hand (12/10/18) Pain in right hand (12/10/18) Paresthesia of bilateral legs Seropositive rheumatoid arthritis of hand Vaginal delivery X2 1979 Female 1981 Female Vitamin D deficiency Surgical History Surgical History H/O: hysterectomy History of appendectomy Hx of cholecystectomy Family History Family History Grandparent Cerebrovascular accident Father Family history of chronic obstructive pulmonary disease Mother Hypertension Social History Social History Smoking status: Never smoker Alcohol intake: former Drinks per week: 3 Substance use: never Gender identity (if verbalized by the patient): Female Spiritual care concerns: No Exam Const: General: no acute distress and alert Orientation/consciousness: patient oriented x3 Limitations: No altered mental status HENMT: Head: normal to inspection Mouth: Yes Normal oral and palatal mucosa present Eyes: Pupils: Equal, round and effie
--- NOTE | 2021-01-26 17:26 | ECG_ITS ---
Measurements Intervals Edgar Rate: 76 P: 86 WY: 127 QRS: 76 QRSD: 82 T: 72 QT: 393 QTc: 443 Interpretive Statements SINUS RHYTHM ATRIAL PREMATURE COMPLEX MINIMAL Q WAVES- INF/LAT LEADS BASELINE WANDER- V3 BORDERLINE ECG Electronically Signed On 01-26-2021 18:45:24 CDT by Jesus Allen D.O.
[2021-01-26 17:42] LABS: Basophils Absolute Auto 0.04 K/mm3 (0.00-0.10); Basophils Percent Auto 0.4 % (0.0-1.0); Eosinophils Absolute Auto 0.07 K/mm3 (0.02-0.50); Eosinophils Percent Auto 0.7 % (1.0-6.0); Hematocrit 30.9 % (35.0-42.0); Hemoglobin 9.8 g/dL (11.7-13.8); Immature Granulocyte Absolute 0.07 K/mm3 (0.00-0.00); Immature Granulocyte Percent A 0.7 % (0.0-0.0); Lymphocytes Absolute Auto 1.01 K/mm3 (1.10-4.50); Lymphocytes Percent Auto 10.6 % (18.0-42.0); Mean Corpuscular HGB Conc 31.7 g/dL (32.0-36.0); Mean Corpuscular Hemoglobin 26.6 pg (27.0-31.0); Mean Corpuscular Volume 83.7 fL (78.0-102.0); Mean Platelet Volume 8.2 fl (9.2-11.8); Monocytes Absolute Auto 1.05 K/mm3 (0.10-0.90); Neutrophils Absolute Auto 7.3 K/mm3 (1.7-7.2); Neutrophils Percent Auto 76.6 % (50.0-70.0); Platelet Count Result 335 K/mm3 (150-420); Red Blood Count 3.69 M/mm3 (4.20-5.40); Red Cell Distribution Width 13.1 % (11.6-14.4); White Blood Count 9.5 K/mm3 (4.8-10.8)
[2021-01-26 18:15] LABS: Alanine Aminotransferase 19 U/L (14-59); Albumin Level 2.5 g/dL (3.4-5.0); Alkaline Phosphatase 76 U/L (46-116); Anion Gap 7 mmol/L (8-16); Aspartate Amino Transferase 23 U/L (15-37); Bilirubin,Total 0.3 mg/dL (0.00-1.00); Blood Urea Nitrogen 13 mg/dL (7-18); Calcium 9.1 mg/dL (8.5-10.1); Carbon Dioxide 27 mmol/L (21-32); Chloride 94 mmol/L (98-108); Estimated CRCL calculation 36 ml/min; Estimated Glomerular Filt Rate > 60; Glucose 103 mg/dL (70-99); Osmolality Calculated 266 mOsm/kg (285-295); Potassium 4.1 mmol/L (3.5-5.1); Sodium 128 mmol/L (136-145); Total Protein 5.6 g/dL (6.4-8.2)
[2021-01-26 18:17] LABS: Thyroid Stimulating Hormone 1.34 uIU/mL (0.36-3.74); Troponin I 6.4 ng/L (0.00-60.4)
[2021-01-26] MEDS: SODIUM CHLORIDE 0.9% IV 1,000 ML 100 ML IV CONT (18:35)
[2021-01-26 19:00] VITALS: BP 139/66; PULSE 76; RESP 20; O2SAT 97
[2021-01-26 19:15] VITALS: PULSE 78; RESP 20; O2SAT 99
[2021-01-26 19:37] VITALS: BMI 17.6
--- NOTE | 2021-01-26 20:00 | ADMGEN ---
This patient, Roma Trujillo, was admitted to 2nd Floor Room 209-1. Patient oriented to hospital policies and general routines including ID bracelet, bed and alarms, visiting hours, pain management, procedures, bathroom and other care routines, personal items, smoking policy, room service/diet, and visiting hours. Information on how to activate the Rapid Response Team has been discussed. Patient is encouraged to report perceived risks to care and to ask questions if they do not understand what they are told or what they should do.
[2021-01-26] MEDS: GABAPENTIN 100 MG CAPSULE 200 MG PO (20:19)
[2021-01-26] MEDS: HYDROcodone/acetaminophen (*CRX) 5-325 MG TABLET 1 TAB PO (20:54)
[2021-01-26 23:45] LABS: Add Urine Microscopic? YES; Appearance Urine Cloudy (Clear); Bilirubin Urine Negative (Negative); Blood Urine Negative (Negative); Color Urine Yellow (Yellow); Glucose Urine UA Negative (Negative); Ketones Urine Negative (Negative); Leukocyte Esterase Ur Negative LEU/UL (Negative); Nitrate Urine Negative (Negative); Protein Urine Negative (Negative); Specific Grav Ur 1.025 (1.010-1.020); pH Urine 7.5 (5.0-8.0)
[2021-01-26 23:50] VITALS: BP 128/61; PULSE 78; RESP 20; TEMP 37.7; O2SAT 98
[2021-01-26 23:52] LABS: Amorphous Sediment Urine Moderate; Bacteria Urine 3+ /hpf; RBC Urine 0-2 /hpf (0-2); Squamous Epithelial Cell Urine Rare /hpf (Few); WBC Urine 0-3 /hpf (0-3)
--- NOTE | 2021-01-27 01:14 | PC.NURSE ---
Dr. Machado notified of urine test results; No new orders at this time.
[2021-01-27] MEDS: SODIUM CHLORIDE 0.9% IV 1,000 ML 100 ML IV CONT ×2 (04:10→19:20)
[2021-01-27 05:23] LABS: Anion Gap 6 mmol/L (8-16); Blood Urea Nitrogen 9 mg/dL (7-18); Calcium 8.5 mg/dL (8.5-10.1); Carbon Dioxide 26 mmol/L (21-32); Chloride 96 mmol/L (98-108); Estimated CRCL calculation 43 ml/min; Estimated Glomerular Filt Rate > 60; Glucose 89 mg/dL (70-99); Osmolality Calculated 263 mOsm/kg (285-295); Potassium 4.2 mmol/L (3.5-5.1); Sodium 128 mmol/L (136-145)
--- NOTE | 2021-01-27 06:55 | PC.NURSE ---
Up to BSC with assist of two, shuffling gait and tries to sit instead of remaining standing. Continuos verbal cues for safety. Returned to bed and assisted to lie down in bed.
--- NOTE | 2021-01-27 07:57 | PM.IMHP ---
H&P: HPI History of Present Illness Date/Time: 01/27/21 07:57 this is a 85-year old female that was recently discharged from our hospital on 01/13/2021 for strokelike symptoms diagnosed with a TIA here today for post fall due to generalized weakness. Patient has a past medical history of allergies, arthritis, rheumatoid arthritis, hypertension, and osteoporosis. Patient notes that while she was at home she attempted to stand up and turned and fell. Patient denies hitting her head or injuring herself she also denies any blackouts, vertigo ,lightheaded or dizziness. patient notes that she has had generalized weakness since her last discharge .she also noted that she feels unsafe staying at home alone. Patient does stay at home alone she was discharged with PT /OT and home health. Patient does admit that she has not had significant oral intake due to decreased appetite. I did discuss placement with patient she is in agreements. She does not feel safe being at home alone. Patient WBC on admission 9.5 hematocrit 30.9 platelets 335, sodium 128, potassium 4.2, creatinine 0.59 urinalysis with bacteria. Hip x-ray no fracture or dislocation EKG sinus rhythm with a heart rate of 76. Patient is being admitted for hyponatremia and generalized weakness. The patient denies SOB, CP, palpitation, extremity numbness, lightheadedness, dizziness, constipation, diarrhea, chills, or fever. Chief Complaint: Status post fall Review of Systems Review of Systems: Narrative: A 14 organ system Review of Systems was performed and pertinent positives included in the HPI, otherwise remaining ROS is negative. [facility] Past Medical History Medical History Age-related osteoporosis without current pathological fracture Allergies Arthralgia of both hands Arthritis Rhuematoid Cervical radiculopathy due to degenerative joint disease of spine Counseling on health promotion and disease prevention Encounter for medication management Encounter for screening for other viral diseases Hypertension Osteoarthritis involving multiple joints on both sides of body Osteoporosis Pain in left hand (12/10/18) Pain in right hand (12/10/18) Paresthesia of bilateral legs Seropositive rheumatoid arthritis of hand Vaginal delivery X2 1979 Female 1981 Female Vitamin D deficiency Surgical History Surgical History H/O: hysterectomy History of appendectomy Hx of cholecystectomy Family History Family History Grandparent Cerebrovascular accident Father Family history of chronic obstructive pulmonary disease Mother Hypertension Social History Social History Smoking status: Never smoker Second hand tobacco smoke exposure: No Alcohol intake: former Drinks per week: 3 Substance use: never Gender identity (if verbalized by the patient): Female Sexual Orientation (if Verbalized by the Patient): Straight or Heterosexual Spiritual care concerns: No Meds Home Medications and Allergies Home Medications Medication Instructions Recorded Confirmed Type prednisone 1 mg tablet 1 mg PO DAILY #90 tablet 08/20/20 01/26/21 Rx gabapentin 100 mg PO DAILY 12/30/20 01/26/21 History gabapentin [Neurontin] 200 mg PO HS 12/30/20 01/26/21 History quinapril 10 mg PO DAILY 12/30/20 01/26/21 History aspirin 325 mg PO QAM #30 tablet 01/02/21 01/26/21 Rx clopidogrel [Plavix] 75 mg PO DAILY #30 tablet 01/13/21 01/26/21 Rx hydroxychloroquine 200 mg tablet 400 mg PO DAILY #60 tablet 01/24/21 01/26/21 Rx Allergies Allergy/AdvReac Type Severity Reaction Status Date / Time celecoxib Allergy Unknown pounding Verified 08/20/20 12:16 chest fluconazole Allergy Unknown chest Verified 08/20/20 12:16 pain, dizziness ibandronate sodium Allergy Unknown Chest
[2021-01-27 08:00] VITALS: BP 138/65; PULSE 92; RESP 18; TEMP 37.6; O2SAT 96
[2021-01-27] MEDS: GABAPENTIN 100 MG CAPSULE PO (08:29)
[2021-01-27] MEDS: ASPIRIN 325 MG ENTERIC TABLET PO (08:29)
[2021-01-27] MEDS: ACETAMINOPHEN 325 MG TABLET 650 MG PO (08:29)
[2021-01-27] MEDS: FERROUS SULFATE 324 MG TABLET PO (08:29)
[2021-01-27] MEDS: CLOPIDOGREL BISULFATE 75 MG TABLET PO (08:30)
[2021-01-27] MEDS: HYDROXYCHLOROQUINE SULFATE 200 MG TABLET 400 MG PO (08:30)
[2021-01-27] MEDS: predniSONE 1 MG TABLET PO (08:30)
[2021-01-27 09:02] LABS: BNP 137 pg/mL (0-100)
[2021-01-27] MEDS: lisinopriL 10 MG TABLET PO (09:32)
[2021-01-27 09:47] LABS: Thyroid Stimulating Hormone Reflex 1.19 u/IU/mL (0.36-3.74)
[2021-01-27 12:43] LABS: SARS-CoV-2 Ag Negative (Negative)
[2021-01-27 16:00] VITALS: BP 154/72; PULSE 84; RESP 18; TEMP 36.9; O2SAT 99
--- NOTE | 2021-01-27 19:45 | PC.NURSE ---
Patient in bed resting. Fluids continue as ordered.
--- NOTE | 2021-01-27 20:45 | PC.NURSE ---
Patient resting at this time. Up to bedside commode. Fluids continue as ordered
[2021-01-27] MEDS: GABAPENTIN 100 MG CAPSULE 200 MG PO (21:07)
[2021-01-27] MEDS: HYDROcodone/acetaminophen (*CRX) 5-325 MG TABLET 1 TAB PO (21:08)
--- NOTE | 2021-01-27 22:12 | PC.NURSE ---
Patient given PRN pain medication for discomfort to left groin.
--- NOTE | 2021-01-27 23:08 | PC.NURSE ---
Patient continues on NS at 100 ml/hour. Up to bedside commode with difficulty.
[2021-01-28] VITALS: BP 127/62; PULSE 82; RESP 16; TEMP 37.3; O2SAT 98
--- NOTE | 2021-01-28 01:07 | PC.NURSE ---
Patient up to bedside commode Unable to follow directions for transfer. Left leg weak during transfer.
--- NOTE | 2021-01-28 03:06 | PC.NURSE ---
Patient confused Unable to follow directions to transfer and use walker appropriately.
[2021-01-28] MEDS: SODIUM CHLORIDE 0.9% IV 1,000 ML 100 ML IV CONT (04:57)
[2021-01-28 06:20] LABS: Hematocrit 30.5 % (35.0-42.0); Hemoglobin 9.4 g/dL (11.7-13.8); Mean Corpuscular HGB Conc 30.8 g/dL (32.0-36.0); Mean Corpuscular Hemoglobin 26.2 pg (27.0-31.0); Mean Platelet Volume 8.7 fl (9.2-11.8); Platelet Count Result 370 K/mm3 (150-420); Red Blood Count 3.59 M/mm3 (4.20-5.40); Red Cell Distribution Width 13.2 % (11.6-14.4); White Blood Count 8.3 K/mm3 (4.8-10.8)
[2021-01-28 06:35] LABS: Alanine Aminotransferase 13 U/L (14-59); Albumin Level 2.3 g/dL (3.4-5.0); Alkaline Phosphatase 77 U/L (46-116); Anion Gap 9 mmol/L (8-16); Aspartate Amino Transferase 19 U/L (15-37); Bilirubin,Total 0.2 mg/dL (0.00-1.00); Blood Urea Nitrogen 6 mg/dL (7-18); Calcium 8.8 mg/dL (8.5-10.1); Carbon Dioxide 25 mmol/L (21-32); Chloride 101 mmol/L (98-108); Estimated CRCL calculation 43 ml/min; Estimated Glomerular Filt Rate > 60; Glucose 88 mg/dL (70-99); Osmolality Calculated 276 mOsm/kg (285-295); Potassium 3.8 mmol/L (3.5-5.1); Sodium 135 mmol/L (136-145); Total Protein 5.5 g/dL (6.4-8.2)
[2021-01-28 08:00] VITALS: BP 147/67; PULSE 89; RESP 18; TEMP 37.7; O2SAT 97
[2021-01-28] MEDS: FERROUS SULFATE 324 MG TABLET PO (09:12)
[2021-01-28] MEDS: lisinopriL 10 MG TABLET PO (09:12)
[2021-01-28] MEDS: ASPIRIN 325 MG ENTERIC TABLET PO (09:12)
[2021-01-28] MEDS: ACETAMINOPHEN 325 MG TABLET 650 MG PO (09:12)
[2021-01-28] MEDS: CLOPIDOGREL BISULFATE 75 MG TABLET PO (09:13)
[2021-01-28] MEDS: HYDROXYCHLOROQUINE SULFATE 200 MG TABLET 400 MG PO (09:13)
[2021-01-28] MEDS: predniSONE 1 MG TABLET PO (09:13)
[2021-01-28] MEDS: GABAPENTIN 100 MG CAPSULE PO (09:13)
--- NOTE | 2021-01-28 12:10 | WPDPN ---
Progress Note: A&P Assessment and Plan (1) Acute hyponatremia: Code(s): E87.1 - Hypo-osmolality and hyponatremia Status: Acute Assessment and Plan: Sodium 128--> 128--> Continue sodium chloride supplements Will closely monitor TSH within normal limit and BNP slightly elevated not clinically significant No seizure activity noted (2) Weakness: Code(s): R53.1 - Weakness Status: Acute Assessment and Plan: Possibly secondary to hyponatremia versus deteriorating condition Case Coordination Consulted Patient Will Be Placed PT OT consult placed (3) Anemia: Code(s): D64.9 - Anemia, unspecified Status: Acute Assessment and Plan: Patient is at baseline Continue iron supplement (4) Hypertension: Code(s): I10 - Essential (primary) hypertension Status: Acute Assessment and Plan: Stable Continue home medication (5) Arthritis: Code(s): M19.90 - Unspecified osteoarthritis, unspecified site Status: Acute (6) Fall: Code(s): W19.XXXA - Unspecified fall, initial encounter Status: Acute Assessment and Plan: Secondary generalized weakness Patient hip x-ray negative for fracture dislocation No infection indicated EKG sinus rhythm Review of Systems Review of Systems: Narrative: A 14 organ system Review of Systems was performed and pertinent positives included in the HPI, otherwise remaining ROS is negative. Exam Narrative: Exam Narrative: GENERAL: Elderly fatigued frail woman in no apparent distress. HEAD: normocephalic, atraumatic. EYES: PERRL. Sclera clear/white. Vision is grossly intact. EARS: External ears normal, auditory canals clear and without drainage, TMs normal without perforation. Hearing grossly intact. NOSE: External nose normal with no obvious nasal discharge, nares without redness, no rhinorrhea. THROAT: Mucous membranes moist, posterior pharynx clear. NECK: Neck supple, non-tender without lymphadenopathy, masses or thyromegaly. CARDIOVASCULAR: Regular rate and rhythm without murmurs, gallops, or rubs. RESPIRATORY: Clear to auscultation. Breath sounds equal bilaterally. No wheezes, rales, or rhonchi. GASTROINTESTINAL: Abdomen soft, non-tender, nondistended. Bowel sounds are active. No hepato-splenomegaly, or palpable masses. No guarding. SKIN: warm, intact with no suspicious lesions or rash, good texture and turgor. NEURO: awake, alert, and oriented to person, place and time. There were no obvious focal neurologic abnormalities. Steady gait EXTREMITIES: Normal range of motion. No edema. No calf tenderness. Negative Homans sign bilaterally. BACK: Nontender without deformity or crepitance. No flank tenderness. Objective Data Vital Signs Vital Signs: Vital Signs - 24 hr 01/27/21 16:00 01/28/21 00:00 01/28/21 08:00 Temperature 98.5 F 99.2 F 99.9 F H Pulse Rate 84 82 89 Respiratory Rate 18 16 18 Blood Pressure 154/72 H 127/62 147/67 H Pulse Oximetry 99 98 97 Intake/Output Intake/Output: Intake & Output 01/25/21 01/26/21 01/27/21 01/28/21 23:59 23:59 23:59 23:59 Intake Total 3690 2361.667 Output Total 1750 2100 Balance 1940 261.667 Meds/Results Medications: Active Medications Generic Name Dose Route Start Last Admin Trade Name Freq PRN Reason Stop Dose Admin Acetaminophen 650 mg 01/26/21 18:28 01/28/21 09:12 Acetaminophen 325 Mg Tablet PO 650 mg Q4H PRN Administration Mild Pain (1-3) or Fever Acetaminophen 1,000 mg 01/27/21 12:06 Acetaminophen 500 Mg Tablet PO Q6H PRN Mild Pain (1-3) or Fever Hydrocodone Bitart/Acetaminophen 1 tab 01/26/21 18:28 01/27/21 21:08 Hydrocodone/Acetaminophen (*Crx) 5-325 Mg Tablet PO 1 tab Q4H PRN Administration Moderate Pain (4-6) Aspirin 325 mg 01/27/21 09:00 01/28/21 09:12 Aspirin 325 Mg Enteric Tablet PO 325 mg QAM HILARY Administration Clopidogrel Bisulfate 75 mg 01/27/21 09:
[2021-01-28 16:00] VITALS: BP 156/75; PULSE 84; RESP 18; TEMP 36.9; O2SAT 99
[2021-01-28] MEDS: SODIUM CHLORIDE 1 GM TABLET PO (17:55)
[2021-01-28] MEDS: GABAPENTIN 100 MG CAPSULE 200 MG PO (20:34)
[2021-01-29] VITALS: BP 143/66; PULSE 90; RESP 18; TEMP 37.2; O2SAT 97
[2021-01-29 05:31] LABS: Mean Corpuscular Volume 83.8 fL (78.0-102.0); Mean Platelet Volume 8.3 fl (9.2-11.8); Platelet Count Result 333 K/mm3 (150-420); Red Blood Count 3.46 M/mm3 (4.20-5.40); Red Cell Distribution Width 13.1 % (11.6-14.4)
[2021-01-29 05:50] LABS: Albumin Level 2.1 g/dL (3.4-5.0); Alkaline Phosphatase 72 U/L (46-116); Anion Gap 6 mmol/L (8-16); Aspartate Amino Transferase 18 U/L (15-37); Bilirubin,Total 0.2 mg/dL (0.00-1.00); Blood Urea Nitrogen 6 mg/dL (7-18); Calcium 8.5 mg/dL (8.5-10.1); Carbon Dioxide 27 mmol/L (21-32); Chloride 100 mmol/L (98-108); Estimated CRCL calculation 43 ml/min; Estimated Glomerular Filt Rate > 60; Glucose 99 mg/dL (70-99); Osmolality Calculated 273 mOsm/kg (285-295); Potassium 3.6 mmol/L (3.5-5.1); Sodium 133 mmol/L (136-145); Total Protein 5.1 g/dL (6.4-8.2)
[2021-01-29 05:59] LABS: Alanine Aminotransferase 7 U/L (14-59)
[2021-01-29 08:00] VITALS: BP 137/69; PULSE 78; RESP 18; TEMP 37; O2SAT 96
[2021-01-29] MEDS: ASPIRIN 325 MG ENTERIC TABLET PO (08:56)
[2021-01-29] MEDS: FERROUS SULFATE 324 MG TABLET PO (08:56)
[2021-01-29] MEDS: SODIUM CHLORIDE 1 GM TABLET PO (08:56)
[2021-01-29] MEDS: predniSONE 1 MG TABLET PO (08:56)
[2021-01-29] MEDS: lisinopriL 10 MG TABLET PO (08:56)
[2021-01-29] MEDS: HYDROXYCHLOROQUINE SULFATE 200 MG TABLET 400 MG PO (08:56)
[2021-01-29] MEDS: GABAPENTIN 100 MG CAPSULE PO (08:56)
[2021-01-29] MEDS: CLOPIDOGREL BISULFATE 75 MG TABLET PO (08:56)
--- NOTE | 2021-01-29 10:44 | PM.DS ---
DS: Admitting Diagnosis Admitting Diagnosis Admitting Diagnosis: Hyponatremia DS: Discharge Diagnosis Discharge Diagnosis (1) Acute hyponatremia: Code(s): E87.1 - Hypo-osmolality and hyponatremia Status: Acute Assessment and Plan: Sodium 128--> 128-->133 Continue sodium chloride supplements Will closely monitor TSH within normal limit and BNP slightly elevated not clinically significant No seizure activity noted Biweekly sodium levels Fluid restriction to assess by PCP or retirement physician (2) Weakness: Code(s): R53.1 - Weakness Status: Acute Assessment and Plan: Possibly secondary to hyponatremia versus deteriorating condition Discharged to [place] with physical therapy/Occupational Therapy (3) Anemia: Code(s): D64.9 - Anemia, unspecified Status: Acute Assessment and Plan: Patient is at baseline Continue iron supplement (4) Hypertension: Code(s): I10 - Essential (primary) hypertension Status: Acute Assessment and Plan: Stable Continue home medication (5) Arthritis: Code(s): M19.90 - Unspecified osteoarthritis, unspecified site Status: Acute (6) Fall: Code(s): W19.XXXA - Unspecified fall, initial encounter Status: Acute Assessment and Plan: Secondary generalized weakness Patient hip x-ray negative for fracture dislocation No infection indicated EKG sinus rhythm DS: Summary Hospital Course Hospital Course: This is a 85-year old female that was recently discharged from our hospital on 01/13/2021 for strokelike symptoms diagnosed with a TIA here for post fall due to generalized weakness. Patient has a past medical history of allergies, arthritis, rheumatoid arthritis, hypertension, and osteoporosis. Patient notes that while she was at home she attempted to stand up and turned and fell. Patient denies hitting her head or injuring herself she also denies any blackouts, vertigo ,lightheaded or dizziness. patient notes that she has had generalized weakness since her last discharge .she also noted that she feels unsafe staying at home alone. Patient does stay at home alone she was discharged with PT /OT and home health. This day of discharge patient is discharging to a residential facility. patient did admit that she has not had significant oral intake due to decreased appetite. I did discuss placement with patient she is in agreements. She will discharge to [facility]. she does not feel safe being at home alone. Patient WBC on admission 9.5 hematocrit 30.9 platelets 335, sodium 128, potassium 4.2, creatinine 0.59 urinalysis with bacteria. Hip x-ray no fracture or dislocation EKG sinus rhythm with a heart rate of 76. Patient is being admitted for hyponatremia and generalized weakness. The patient denies SOB, CP, palpitation, extremity numbness, lightheadedness, dizziness, constipation, diarrhea, chills, or fever. Patient is to receive biweekly sodium levels she will remain on a fluid restriction until evaluated by her primary care physician or retirement physician Disposition patient discharged to nursing facility Time Spent with Patient Time attestation: Total time spent providing and/or coordinating discharge services: 60 minutes Exam Narrative: Exam Narrative: GENERAL: Elderly fatigued frail woman in no apparent distress. HEAD: normocephalic, atraumatic. EYES: PERRL. Sclera clear/white. Vision is grossly intact. EARS: External ears normal, auditory canals clear and without drainage, TMs normal without perforation. Hearing grossly intact. NOSE: External nose normal with no obvious nasal discharge, nares without redness, no rhinorrhea. THROAT: Mucous membranes moist, posterior pharynx clear. NECK: Neck supple, non-tender without lymphadenopathy, masses or thyromegaly. CARDIOVASCULAR: Regular rate and rhythm without murmurs, gallops, or rubs. RESPIRATORY: Clear to auscultation
--- NOTE | 2021-01-29 12:15 | PC.NURSE ---
Alert/oriented x 3; in good spirits, moves all extremities, respirations easy/unlabored and regular. Skin pink, warm and dry. Assisted to dress and shoes put on without socks per patient request. Assisted to w/c by one, tolerated activity well. Sister in law at bedside and discussed need to follow up on bowel management, encouraged patient to drink a glass of apple juice and ask for a laxative if no BM tomorrow as patient states she only goes about every four days. Discussed need to observe IV site for signs of infection: redness, swelling, and discharge. Discharged per w/c to family's care accompanied by RN with no problems. Report called to Shahbaz jimenez [facility] at [phone]. Discussed need to follow up on bowel management and script for Narcotic in patient transfer packet. Given report of labs, medications due and assessment. No further questions regarding patient care needs. Informed floor phone number and names of caregiver and Charge Nurse for further questions or concerns.
--- NOTE | 2021-01-31 14:33 | PC.NURSE ---
[facility] nurse states they received and understood all of the discharge instructions.
== END 2021-01-29 12:15 ==
LOC: CHSED 18:43 → CHS2ND 18:45
PROVIDERS: Nurse Practitioner; Admitting Provider Family Medicine; Emergency Provider Family Medicine; PCP Internal Medicine; Visit Provider Family Medicine
DX: E87.1 Hypo-osmolality and hyponatremia (principal); R53.1 Weakness; D64.9 Anemia, unspecified; E55.9 Vitamin D deficiency, unspecified; I10 Essential (primary) hypertension; M06.9 Rheumatoid arthritis, unspecified; M81.0 Age-related osteoporosis without current pathological fracture; M54.12 Radiculopathy, cervical region; M47.812 Spondylosis without myelopathy or radiculopathy, cervical region; Z90.710 Acquired absence of both cervix and uterus; Z20.822 Contact with and (suspected) exposure to COVID-19; Z86.73 Personal history of transient ischemic attack (TIA), and cerebral infarction without residual deficits
CPT/HCPCS: 36415; 73502; 80048; 80053; 81001; 83735; 83880; 84443; 84484; 85025; 85027; 87426; 93005; 96360; 96361; 97161; 97165; 99285; A9270; C9803; G0378; J7030

== ENCOUNTER 2021-03-21 14:02 | Outpatient (NON) | payer MEDICARE, SELFPAY ==
[2021-03-21 15:04] LABS: Basophils Absolute Auto 0.05 K/mm3 (0.00-0.10); Basophils Percent Auto 0.6 % (0.0-1.0); Eosinophils Absolute Auto 0.08 K/mm3 (0.02-0.50); Eosinophils Percent Auto 0.9 % (1.0-6.0); Hemoglobin 11.1 g/dL (11.7-13.8); Immature Granulocyte Absolute 0.06 K/mm3 (0.00-0.00); Immature Granulocyte Percent A 0.7 % (0.0-0.0); Lymphocytes Absolute Auto 1.06 K/mm3 (1.10-4.50); Lymphocytes Percent Auto 12.3 % (18.0-42.0); Mean Corpuscular HGB Conc 31.7 g/dL (32.0-36.0); Mean Corpuscular Hemoglobin 25.9 pg (27.0-31.0); Mean Corpuscular Volume 81.6 fL (78.0-102.0); Mean Platelet Volume 8.8 fl (9.2-11.8); Monocytes Absolute Auto 1.02 K/mm3 (0.10-0.90); Monocytes Percent Auto 11.8 % (2.0-11.0); Neutrophils Absolute Auto 6.3 K/mm3 (1.7-7.2); Neutrophils Percent Auto 73.7 % (50.0-70.0); Platelet Count Result 408 K/mm3 (150-420); Red Blood Count 4.29 M/mm3 (4.20-5.40); Red Cell Distribution Width 13.6 % (11.6-14.4); White Blood Count 8.6 K/mm3 (4.8-10.8)
[2021-03-21 15:16] LABS: Alanine Aminotransferase 14 U/L (14-59); Albumin Level 3.1 g/dL (3.4-5.0); Alkaline Phosphatase 111 U/L (46-116); Anion Gap 8 mmol/L (8-16); Aspartate Amino Transferase 18 U/L (15-37); Bilirubin,Total 0.3 mg/dL (0.00-1.00); Blood Urea Nitrogen 11 mg/dL (7-18); CRP 3.3 mg/dL (0.0-0.9); Calcium 9.5 mg/dL (8.5-10.1); Carbon Dioxide 28 mmol/L (21-32); Chloride 94 mmol/L (98-108); Estimated Glomerular Filt Rate > 60; Glucose 100 mg/dL (70-99); Osmolality Calculated 269 mOsm/kg (285-295); Potassium 4.7 mmol/L (3.5-5.1); Sodium 130 mmol/L (136-145); Total Protein 5.9 g/dL (6.4-8.2)
== END 2021-03-21 14:03 | disposition home or self-care (01) ==
LOC: CHSLAB 14:05
PROVIDERS: Visit Provider Internal Medicine
DX: M06.9 Rheumatoid arthritis, unspecified (principal)
CPT/HCPCS: 36415; 80053; 85025; 86140

== ENCOUNTER 2021-04-04 14:38 | Observation (INO) | payer MEDICARE, SELFPAY ==
--- NOTE | ~2021-04-04 | CT_ITS ---
EXAMINATION: CT brain wo con DATE: 04/04/2021 15:58 INDICATION: Status post fall. Head injury. TECHNIQUE: Computed tomography (CT) of the head was performed without intravenous contrast. The dose- length product was 605.33 mGy-cm. Automated exposure control and iterative reconstruction technique w ere employed. COMPARISON: CT dated 12/30/2020 FINDINGS: Generalized atrophy. There are scattered mild periventricular and subcortical white matter changes, most likely related to small vessel ischemic disease (microangiopathy). No ventriculomegaly or midline shift. No acute intracranial hemorrhage, infarction, mass or mass effect. There is intracr anial atherosclerosis. Paranasal sinuses and mastoids are pneumatized. No depressed skull fractures. IMPRESSION: 1. No acute intracranial abnormality. Reviewed, dictated and finalized at location A.
--- NOTE | ~2021-04-04 | XR_ITS ---
EXAMINATION: XR chest 1V portable DATE: 04/07/2021 09:11 INDICATION: 3 days of fever TECHNIQUE: frontal view of the chest was obtained. COMPARISON: Chest radiograph dated 12/30/2020 FINDINGS: The lungs remain hyperexpanded but clear with no focal airspace opacities, pulmonary edema, pleural e ffusion or pneumothorax. The cardiomediastinal silhouette is normal. Visualized bones and soft tissue s are unremarkable. IMPRESSION: 1. Chronic hyperexpansion of lungs. No acute cardiopulmonary disease. Reviewed, dictated and finalized at location A.
--- NOTE | ~2021-04-04 | CT_ITS ---
EXAMINATION: CT cervical spine wo con DATE: 04/04/2021 15:58 INDICATION: Status post fall. Neck pain. TECHNIQUE: Computed tomography (CT) of the cervical spine was performed without intravenous contrast. The dose-length product was 82 mGy-cm. Automated exposure control and iterative reconstruction techn ique were employed. COMPARISON: CT dated 12/30/2020 FINDINGS: Normal cervical alignment. There is disc narrowing and endplate degenerative change at mult iple levels, most advanced at C5-6 and C6-7. Vertebral body heights are maintained. No evidence for p erched facet. Odontoid process within normal limits. Lung apices are normal. No paraspinal soft tissu e abnormality. There is multilevel uncinate and facet hypertrophy. No acute fracture or traumatic mal alignment. IMPRESSION: 1. No acute fracture. Reviewed, dictated and finalized at location A. IMPRESSION: 1. No acute fracture.
--- NOTE | ~2021-04-04 | XR_ITS ---
XR hip LT 2V w AP pelvis 04/04/2021 15:58 Indication: Pain after fall Procedure: AP pelvis and 3 views left hip Comparison: 01/26/2021 Findings: There are bilateral inferior pubic rami fractures. Sacral foramen are symmetric. There is m ild osteoarthritis of the hips. No significant soft tissue abnormality. Impression: 1: Bilateral inferior pubic rami fractures. Reviewed, dictated and finalized at location A. Impression: 1: Bilateral inferior pubic rami fractures.
[2021-04-04 14:50] VITALS: BP 141/72; PULSE 77; RESP 20; TEMP 36.7; O2SAT 100
--- NOTE | 2021-04-04 14:58 | ECG_ITS ---
Measurements Intervals Elliott Rate: 72 P: 86 MD: 133 QRS: 73 QRSD: 80 T: 72 QT: 401 QTc: 442 Interpretive Statements SINUS RHYTHM NORMAL ECG Electronically Signed On 04-04-2021 19:02:47 CDT by Jesus Allen D.O.
--- NOTE | 2021-04-04 15:12 | ED.GENADULT ---
HPI - General Adult General Chief complaint: Extremity Injury, Lower Stated complaint: ambulance Source: patient Mode of arrival: ambulatory Limitations: no limitations History of Present Illness HPI narrative: Roma is a very pleasant 85F with a PMH of hyponatremia, anemia, TIA/CVA, HTN, arthritis, that presented to the ED from the [facility] after a ground level fall. She stood up from the chair to get something, became lightheaded and fell. She did not lose consciousness. There was no CP, SOB, nausea or vomiting. She reports a little pain in the back of her head but the worst of the pain is in her left hip. Related Data Home Medications Medication Instructions Recorded Confirmed quinapril 10 mg PO DAILY 12/30/20 04/04/21 aspirin 81 mg PO QAM 04/04/21 04/04/21 ferrous gluconate 324 mg PO DAILY 04/04/21 04/04/21 hydroxychloroquine [Plaquenil] 200 mg PO BID 04/04/21 04/04/21 prednisone 5 mg PO DAILY 04/04/21 04/04/21 Allergies Allergy/AdvReac Type Severity Reaction Status Date / Time celecoxib Allergy Unknown pounding Verified 04/04/21 15:06 chest fluconazole Allergy Unknown chest Verified 04/04/21 15:06 pain, dizziness ibandronate sodium Allergy Unknown Chest pain Verified 04/04/21 15:06 Review of Systems Constitutional: Constitutional: Reports no additional constitutional complaints, Denies chills and Denies fever(s) Eyes: Eyes: Reports no additional eye complaints ENT: Reports system reviewed and no additional complaints, except as documented Cardiovascular: Cardiovascular: Denies chest pain, Denies rapid heart rate and Denies radiating jaw, neck or arm pain Respiratory: Respiratory: Reports no additional respiratory complaints Gastrointestinal: Gastrointestinal: Reports no additional gastrointestinal complaints Genitourinary: Genitourinary: Reports no additional female genitourinary complaints Musculoskeletal: Musculoskeletal: Reports as per HPI Integumentary/Breasts: Skin/Breast: Reports system reviewed and no additional complaints, except as docu Neurologic: Reports as per HPI Psychiatric: Psychiatric: Reports no additional psychiatric complaints Endocrine: Endocrine: Reports no additional endocrine complaints Hematologic/Lymphatic: Hematologic/Lymphatic: Reports no additional hematologic/lymphatic complaints Allergic/Immunologic: Allergic/Immunologic: Reports no additional allergic/immunologic complaints [facility] Past Medical History Medical History Age-related osteoporosis without current pathological fracture Allergies Arthralgia of both hands Arthritis Rhuematoid Cervical radiculopathy due to degenerative joint disease of spine Counseling on health promotion and disease prevention Encounter for medication management Encounter for screening for other viral diseases Hypertension Osteoarthritis involving multiple joints on both sides of body Osteoporosis Pain in left hand (12/10/18) Pain in right hand (12/10/18) Paresthesia of bilateral legs Seropositive rheumatoid arthritis of hand Vaginal delivery X2 1979 Female 1981 Female Vitamin D deficiency Surgical History Surgical History H/O: hysterectomy History of appendectomy Hx of cholecystectomy Family History Family History Grandparent Cerebrovascular accident Father Family history of chronic obstructive pulmonary disease Mother Hypertension Social History Social History Smoking status: Never smoker Second hand tobacco smoke exposure: No Alcohol intake: former Drinks per week: 3 Substance use: never Gender identity (if verbalized by the patient): Female Spiritual care concerns: No Exam Const: General: no acute distress and alert; No confusion Orientation/consciousness:
[2021-04-04 15:15] VITALS: BP 139/68; PULSE 78; RESP 20; O2SAT 98
[2021-04-04 15:15] LABS: Basophils Absolute Auto 0.04 K/mm3 (0.00-0.10); Basophils Percent Auto 0.4 % (0.0-1.0); Eosinophils Absolute Auto 0.03 K/mm3 (0.02-0.50); Eosinophils Percent Auto 0.3 % (1.0-6.0); Hematocrit 35.5 % (35.0-42.0); Hemoglobin 11.4 g/dL (11.7-13.8); Immature Granulocyte Absolute 0.21 K/mm3 (0.00-0.00); Immature Granulocyte Percent A 2.1 % (0.0-0.0); Lymphocytes Absolute Auto 0.88 K/mm3 (1.10-4.50); Lymphocytes Percent Auto 8.6 % (18.0-42.0); Mean Corpuscular HGB Conc 32.1 g/dL (32.0-36.0); Mean Corpuscular Hemoglobin 25.7 pg (27.0-31.0); Mean Platelet Volume 8.1 fl (9.2-11.8); Monocytes Absolute Auto 0.86 K/mm3 (0.10-0.90); Monocytes Percent Auto 8.4 % (2.0-11.0); Neutrophils Absolute Auto 8.2 K/mm3 (1.7-7.2); Neutrophils Percent Auto 80.2 % (50.0-70.0); Platelet Count Result 410 K/mm3 (150-420); Red Blood Count 4.44 M/mm3 (4.20-5.40); Red Cell Distribution Width 13.7 % (11.6-14.4); White Blood Count 10.2 K/mm3 (4.8-10.8)
[2021-04-04 15:27] LABS: Prothrombin Time 10.7 Seconds (9.50-12.10)
[2021-04-04] MEDS: MORPHINE SULFATE (*CRX) 4 MG/ML INJ IV PUSH (15:28)
[2021-04-04 15:33] LABS: Alanine Aminotransferase 26 U/L (14-59); Alkaline Phosphatase 101 U/L (46-116); Anion Gap 7 mmol/L (8-16); Aspartate Amino Transferase 26 U/L (15-37); Bilirubin,Total 0.2 mg/dL (0.00-1.00); Blood Urea Nitrogen 12 mg/dL (7-18); Calcium 9.2 mg/dL (8.5-10.1); Carbon Dioxide 28 mmol/L (21-32); Chloride 94 mmol/L (98-108); Estimated CRCL calculation 31 ml/min; Estimated Glomerular Filt Rate > 60; Glucose 118 mg/dL (70-99); Osmolality Calculated 268 mOsm/kg (285-295); Potassium 4.4 mmol/L (3.5-5.1); Sodium 129 mmol/L (136-145); Total Protein 6.1 g/dL (6.4-8.2); Troponin I 6.7 ng/L (0.00-60.4)
[2021-04-04] MEDS: ONDANSETRON INJ 4 MG/2 ML VIAL IV PUSH (16:15)
[2021-04-04 16:30] VITALS: BP 138/59; PULSE 70; RESP 20; O2SAT 97
[2021-04-04 17:30] VITALS: BP 143/68; PULSE 77; RESP 20; O2SAT 98
[2021-04-04 17:40] VITALS: PULSE 78; RESP 20; O2SAT 97
[2021-04-04 18:01] VITALS: BMI 17.6
[2021-04-04 18:33] VITALS: BP 144/98; PULSE 81; RESP 16; TEMP 37; O2SAT 99
[2021-04-04] MEDS: SODIUM CHLORIDE 0.9% IV 1,000 ML 100 ML IV CONT (18:39)
[2021-04-04] MEDS: MORPHINE SULFATE (*CRX) 2 MG/ML INJ IV PUSH (19:58)
[2021-04-04] MEDS: ENOXAPARIN 40 MG/0.4 ML SYRINGE SUB-Q (20:01)
--- NOTE | 2021-04-04 22:00 | PC.NURSE ---
Asked patient if she needed to urinate yet, as she had not done so since being admitted. Patient said she did not need to go right now.
[2021-04-05] VITALS: BP 139/88; PULSE 68; RESP 18; TEMP 36.9; O2SAT 98
[2021-04-05] MEDS: MORPHINE SULFATE (*CRX) 2 MG/ML INJ IV PUSH ×3 (00:59→16:18)
--- NOTE | 2021-04-05 01:00 | PC.NURSE ---
2 nurses attempted to assist patient to bedside commode. Patient grimacing just getting to edge of bed and getting gait belt on. As patient's feet got to the floor patient was grimacing and couldn't or wouldn't stand. Patient's buttocks never left the bed and she was moaning and let out a little yell. Patient assisted back to lying position and then assisted to roll to get on bedpan. HOB elevated and patient left on bedpan a few minutes. Patient was unable to urinate and was assisted off bedpan. Nurse told patient she could try again later. PRN Morphine given also. Call light in reach.
--- NOTE | 2021-04-05 03:45 | PC.NURSE ---
Patient assisted onto pedpan to try to urinate. 10 minutes later, took patient off bedpan. Patient said she did urinate. Approximately 10-15cc clear yellow urine emptied from bedpan. Patient said she went all that she could. Patient reports that her pain level is still good and that she medicine helps. No distress noted. Call light in reach. Ilana Mahmood RN, Charge Nurse notified of patient not being able to urinate more than 10-15cc.
--- NOTE | 2021-04-05 04:05 | PC.NURSE ---
Dr. Machado notified of pt's urinary retention; New orders received and noted.
--- NOTE | 2021-04-05 04:37 | PC.NURSE ---
#16 spence catheter inserted as ordered; Immediate return of clear, loren urine. Pt tolerated procedure well.
--- NOTE | 2021-04-05 04:45 | PC.NURSE ---
Notified Dr. Machado of pt's urinary retention; New order received and noted.
[2021-04-05 08:00] VITALS: BP 133/60; PULSE 100; RESP 18; TEMP 37.8; O2SAT 98
[2021-04-05] MEDS: predniSONE 5 MG TABLET PO (08:47)
[2021-04-05] MEDS: HYDROXYCHLOROQUINE SULFATE 200 MG TABLET PO ×2 (08:47→16:18)
[2021-04-05] MEDS: ASPIRIN 81 MG ENTERIC TABLET PO (08:48)
[2021-04-05] MEDS: lisinopriL 10 MG TABLET PO (08:48)
[2021-04-05] MEDS: CLOPIDOGREL BISULFATE 75 MG TABLET PO (08:48)
[2021-04-05] MEDS: FERROUS GLUCONATE 324 MG TABLET PO (08:48)
[2021-04-05 09:05] LABS: Add Urine Microscopic? YES; Appearance Urine Clear (Clear); Bilirubin Urine Negative (Negative); Blood Urine Negative (Negative); Color Urine Yellow (Yellow); Glucose Urine UA Negative (Negative); Ketones Urine Negative (Negative); Leukocyte Esterase Ur Negative LEU/UL (Negative); Nitrate Urine Negative (Negative); Protein Urine Trace (Negative); Specific Grav Ur >= 1.030 (1.010-1.020); pH Urine 6.5 (5.0-8.0)
[2021-04-05 09:10] LABS: Bacteria Urine Trace /hpf; Mucus Urine Moderate /lpf; RBC Urine None seen /hpf (0-2); Squamous Epithelial Cell Urine Rare /hpf (Few); WBC Urine 0-3 /hpf (0-3)
[2021-04-05] MEDS: HYDROcodone/acetaminophen (*CRX) 5-325 MG TABLET 1 TAB PO ×2 (09:23→18:36)
--- NOTE | 2021-04-05 12:49 | PM.IMHP ---
H&P: HPI History of Present Illness Date/Time: 04/05/21 12:49 this is a 85-year-old female that presented to urgent care status post fall with a bilateral pelvic fracture. Patient has a past medical history of osteoporosis arthritis, rheumatoid arthritis, hypertension, hyponatremia, anemia, TIA/CVA,. According to patient lives in [place] her assisted living home and attempted to stand up with her arms in the air this when she felt lightheaded and fell ,she does complain of left hip pain. WBC is 8.6 hemoglobin 11.1 hematocrit 35.0 platelets 408, sodium 130 potassium 4.7 BUN 11 creatinine 0.6 glucose 100. Patient does complain of hip pain that is being controlled with pain medication. The patient denies SOB, CP, palpitation, extremity numbness, lightheadedness, dizziness, constipation, diarrhea, chills, or fever. Patient will transition into a swing bed once again Observation Time spent 60 minutes Disposition patient will possibly have to discharge to a retirement Chief Complaint: Status post fall Review of Systems Review of Systems: Narrative: A 14 organ system Review of Systems was performed and pertinent positives included in the HPI, otherwise remaining ROS is negative. [facility] Past Medical History Medical History Age-related osteoporosis without current pathological fracture Allergies Arthralgia of both hands Arthritis Rhuematoid Cervical radiculopathy due to degenerative joint disease of spine Counseling on health promotion and disease prevention Encounter for medication management Encounter for screening for other viral diseases Hypertension Osteoarthritis involving multiple joints on both sides of body Osteoporosis Pain in left hand (12/10/18) Pain in right hand (12/10/18) Paresthesia of bilateral legs Seropositive rheumatoid arthritis of hand Vaginal delivery X2 1979 Female 1981 Female Vitamin D deficiency Surgical History Surgical History H/O: hysterectomy History of appendectomy Hx of cholecystectomy Family History Family History Grandparent Cerebrovascular accident Father Family history of chronic obstructive pulmonary disease Mother Hypertension Social History Social History Smoking status: Never smoker Second hand tobacco smoke exposure: Yes Alcohol intake: never Drinks per week: 3 Substance use: never Gender identity (if verbalized by the patient): Female Spiritual care concerns: No Meds Home Medications and Allergies Home Medications Medication Instructions Recorded Confirmed Type quinapril 10 mg PO DAILY 12/30/20 04/04/21 History clopidogrel [Plavix] 75 mg PO DAILY #30 tablet 01/13/21 04/04/21 Rx acetaminophen 1,000 mg PO Q6H PRN #30 tablet 01/29/21 04/04/21 Rx acetaminophen [Mapap 650 mg PO Q4H PRN #30 tablet 01/29/21 04/04/21 Rx (acetaminophen)] diphenhydramine HCl 25 mg PO HS PRN #30 cap 01/29/21 04/04/21 Rx polyethylene glycol 3350 [Miralax] 17 g PO QAM PRN #30 ea 01/29/21 04/04/21 Rx aspirin 81 mg PO QAM 04/04/21 04/04/21 History ferrous gluconate 324 mg PO DAILY 04/04/21 04/04/21 History hydroxychloroquine [Plaquenil] 200 mg PO BID 04/04/21 04/04/21 History prednisone 5 mg PO DAILY 04/04/21 04/04/21 History Allergies Allergy/AdvReac Type Severity Reaction Status Date / Time celecoxib Allergy Unknown pounding Verified 04/04/21 15:06 chest fluconazole Allergy Unknown chest Verified 04/04/21 15:06 pain, dizziness ibandronate sodium Allergy Unknown Chest pain Verified 04/04/21 15:06 Vital Signs Vital Signs - 24 hr 04/04/21 14:50 04/04/21 15:15 04/04/21 16:30 Temperature 98.1 F Pulse Rate 77 78 70 Respiratory Rate 20 20 20 Blood Pressure 141/72 H 139/68 138/59 L Pulse Oximetry 100 98 97 04/04/21 17:
[2021-04-05 15:39] VITALS: BP 124/75; PULSE 89; RESP 16; TEMP 37.4; O2SAT 94
[2021-04-05 18:44] LABS: Anion Gap 5 mmol/L (8-16); Blood Urea Nitrogen 11 mg/dL (7-18); Carbon Dioxide 29 mmol/L (21-32); Chloride 94 mmol/L (98-108); Estimated CRCL calculation 39 ml/min; Estimated Glomerular Filt Rate > 60; Glucose 118 mg/dL (70-99); Osmolality Calculated 266 mOsm/kg (285-295); Potassium 4.4 mmol/L (3.5-5.1); Sodium 128 mmol/L (136-145)
[2021-04-05 20:00] VITALS: PULSE 94; RESP 16; O2SAT 94
[2021-04-05] MEDS: ENOXAPARIN 40 MG/0.4 ML SYRINGE SUB-Q (21:16)
[2021-04-06] VITALS: BP 123/65; PULSE 92; RESP 18; TEMP 37.1; O2SAT 93
[2021-04-06] MEDS: HYDROcodone/acetaminophen (*CRX) 5-325 MG TABLET 1 TAB PO ×5 (00:04→20:04)
[2021-04-06 05:50] LABS: Hematocrit 31.1 % (35.0-42.0); Hemoglobin 9.8 g/dL (11.7-13.8); Mean Corpuscular HGB Conc 31.5 g/dL (32.0-36.0); Mean Corpuscular Hemoglobin 25.3 pg (27.0-31.0); Mean Corpuscular Volume 80.4 fL (78.0-102.0); Mean Platelet Volume 8.3 fl (9.2-11.8); Platelet Count Result 306 K/mm3 (150-420); Red Blood Count 3.87 M/mm3 (4.20-5.40); Red Cell Distribution Width 13.7 % (11.6-14.4)
[2021-04-06 06:03] LABS: Alanine Aminotransferase 26 U/L (14-59); Albumin Level 2.5 g/dL (3.4-5.0); Alkaline Phosphatase 89 U/L (46-116); Anion Gap 5 mmol/L (8-16); Aspartate Amino Transferase 23 U/L (15-37); Bilirubin,Total 0.3 mg/dL (0.00-1.00); Blood Urea Nitrogen 11 mg/dL (7-18); Calcium 8.6 mg/dL (8.5-10.1); Carbon Dioxide 28 mmol/L (21-32); Chloride 94 mmol/L (98-108); Estimated CRCL calculation 38 ml/min; Estimated Glomerular Filt Rate > 60; Glucose 99 mg/dL (70-99); Osmolality Calculated 263 mOsm/kg (285-295); Potassium 4.2 mmol/L (3.5-5.1); Sodium 127 mmol/L (136-145); Total Protein 5.3 g/dL (6.4-8.2)
[2021-04-06 08:00] VITALS: BP 131/68; PULSE 81; RESP 18; TEMP 36.9; O2SAT 95
[2021-04-06] MEDS: FERROUS GLUCONATE 324 MG TABLET PO (09:05)
[2021-04-06] MEDS: lisinopriL 10 MG TABLET PO (09:05)
[2021-04-06] MEDS: HYDROXYCHLOROQUINE SULFATE 200 MG TABLET PO ×2 (09:05→16:07)
[2021-04-06] MEDS: predniSONE 5 MG TABLET PO (09:05)
[2021-04-06] MEDS: ASPIRIN 81 MG ENTERIC TABLET PO (09:05)
[2021-04-06] MEDS: CLOPIDOGREL BISULFATE 75 MG TABLET PO (09:05)
[2021-04-06] MEDS: ONDANSETRON INJ 4 MG/2 ML VIAL IV PUSH (09:06)
--- NOTE | 2021-04-06 10:54 | PC.NURSE ---
pt resting in bed with eyes closed, no evidence of distress noted, belongings and call light within reach
--- NOTE | 2021-04-06 11:56 | P.PN_ITS ---
Progress Note: A&P Assessment and Plan (1) Bilateral pubic rami fractures: Code(s): S32.591A - Other specified fracture of right pubis, initial encounter for closed fracture; S32.592A - Other specified fracture of left pubis, initial encounter for closed fracture <Daphne MccarthyDYLON-C - Last Filed: 04/06/21 11:58> Status: Acute <Daphne MccarthyDYLON-C - Last Filed: 04/06/21 11:58> Assessment and Plan: * Status post fall * Hip x-ray indicate Bilateral inferior pubic rami fractures. * PT OT evaluation ordered * Control pain * Will transition to swing bed <Reaganlucila TinyDYLON Reeder-C - Last Filed: 04/06/21 11:58> (2) Fall: Code(s): W19.XXXA - Unspecified fall, initial encounter <Daphne MccarthyDYLON-C - Last Filed: 04/06/21 11:58> Status: Acute <Daphne MccarthyDYLON-C - Last Filed: 04/06/21 11:58> Assessment and Plan: * Order PT OT * CT of the head and spine negative for fracture or dislocation * Hip x-ray indicate bilateral pelvis fracture <Daphne MccarthyDYLON-C - Last Filed: 04/06/21 11:58> (3) Acute hyponatremia: Code(s): E87.1 - Hypo-osmolality and hyponatremia <Daphne MccarthyDYLON-C - Last Filed: 04/06/21 11:58> Status: Acute <Daphne MccarthyDYLON-C - Last Filed: 04/06/21 11:58> Assessment and Plan: * Chronic 129 baseline between 128 and 133 * Will continue to monitor and supplement <aDphne FranksDYLON Reeder-C - Last Filed: 04/06/21 11:58> (4) Weakness: Code(s): R53.1 - Weakness <Daphne MccarthyDYLON-C - Last Filed: 04/06/21 11:58> Status: Acute <Reaganlucila TinyDYLON Reeder-C - Last Filed: 04/06/21 11:58> Assessment and Plan: * ? Exhibit tolerance during physical activity as evidenced by a normal fluctuation of vital signs during physical activity. ? Patient will be ability to perform required activities of daily living. ? Provide appropriate nutrition for healing and strength. ? Use appropriate to prevent falls. ? Continue physical therapy/occupational therapy. <Daphne Mccarthy INSURANCE EXECUTIVEPedroC - Last Filed: 04/06/21 11:58> (5) Anemia: Code(s): D64.9 - Anemia, unspecified <Daphne Mccarthy DYLON-C - Last Filed: 04/06/21 11:58> Status: Acute <Daphne Mccarthy DYLON-C - Last Filed: 04/06/21 11:58> Assessment and Plan: * Hemoglobin at 11.4, hematocrit 35.5 baseline hemoglobin between 9- 10 * No active bleeding noted * Continue iron supplement * We will continue to monitor <Daphne Mccarthy INSURANCE EXECUTIVE-C - Last Filed: 04/06/21 11:58> (6) Hypertension: Code(s): I10 - Essential (primary) hypertension <Daphne Mccarthy [employer]URANCE EXECUTIVEPedroC - Last Filed: 04/06/21 11:58> Status: Acute <Daphne Mccarthy TAYEC - Last Filed: 04/06/21 11:58> Assessment and Plan: * Stable * Continue quinapril 10 mg p.o. daily * Vital signs as ordered * Will adjust medication as needed <Daphne Mccarthy INSURANCE EXECUTIVE-C - Last Filed: 04/06/21 11:58> (7) Arthritis: Code(s): M19.90 - Unspecified osteoarthritis, unspecified site <Daphne Mccarthy INSURANCE EXECUTIVE-C - Last Filed: 04/06/21 11:58> Status: Acute <Daphne Mccarthy INSURANCE EXECUTIVE-C - Last Filed: 04/06/21 11:58> Assessment and Plan: * Continue pain medication * Continue home medication <Daphne FranksWill Fabio INSURANCE EXECUTIVE-C - Last Filed: 04/06/21 11:58> (8) TIA (transient ischemic attack): Code(s): G45.9 - Transient cerebral ischemic attack, unspecified <Reaganlucila TinyWill Mccarthy INSURANCE EXECUTIVE-C - Last Filed: 04/06/21 11:58> Status:
--- NOTE | 2021-04-06 11:56 | WPDPN ---
Progress Note: A&P Assessment and Plan (1) Bilateral pubic rami fractures: Code(s): S32.591A - Other specified fracture of right pubis, initial encounter for closed fracture; S32.592A - Other specified fracture of left pubis, initial encounter for closed fracture <Daphne MccarthyDYLON-C - Last Filed: 04/06/21 11:58> Status: Acute <Daphne MccarthyDYLON-C - Last Filed: 04/06/21 11:58> Assessment and Plan: Status post fall Hip x-ray indicate Bilateral inferior pubic rami fractures. PT OT evaluation ordered Control pain Will transition to swing bed <Daphne FranksDYLON Reeder-C - Last Filed: 04/06/21 11:58> (2) Fall: Code(s): W19.XXXA - Unspecified fall, initial encounter <Daphne MccarthyDYLON-C - Last Filed: 04/06/21 11:58> Status: Acute <Daphne MccarthyDYLON-C - Last Filed: 04/06/21 11:58> Assessment and Plan: Order PT OT CT of the head and spine negative for fracture or dislocation Hip x-ray indicate bilateral pelvis fracture <Daphne MccarthyDYLON-C - Last Filed: 04/06/21 11:58> (3) Acute hyponatremia: Code(s): E87.1 - Hypo-osmolality and hyponatremia <Daphne Mccarthy MANAGER COST-C - Last Filed: 04/06/21 11:58> Status: Acute <Daphne MccarthyMILANAP-C - Last Filed: 04/06/21 11:58> Assessment and Plan: Chronic 129 baseline between 128 and 133 Will continue to monitor and supplement <Daphne MccarthyMILANAP-C - Last Filed: 04/06/21 11:58> (4) Weakness: Code(s): R53.1 - Weakness <Daphne MccarthyMILANAP-C - Last Filed: 04/06/21 11:58> Status: Acute <Daphne Mccarthy MANAGER COST-C - Last Filed: 04/06/21 11:58> Assessment and Plan: ? Exhibit tolerance during physical activity as evidenced by a normal fluctuation of vital signs during physical activity. ? Patient will be ability to perform required activities of daily living. ? Provide appropriate nutrition for healing and strength. ? Use appropriate to prevent falls. ? Continue physical therapy/occupational therapy. <Daphne MccarthyTAYEC - Last Filed: 04/06/21 11:58> (5) Anemia: Code(s): D64.9 - Anemia, unspecified <Daphne MccarthyDYLON-C - Last Filed: 04/06/21 11:58> Status: Acute <Daphne Mccarthy MANAGER COST-C - Last Filed: 04/06/21 11:58> Assessment and Plan: Hemoglobin at 11.4, hematocrit 35.5 baseline hemoglobin between 9-10 No active bleeding noted Continue iron supplement We will continue to monitor <Daphne MccarthyDYLON-C - Last Filed: 04/06/21 11:58> (6) Hypertension: Code(s): I10 - Essential (primary) hypertension <Reaganlucila TinyDYLON Reeder-C - Last Filed: 04/06/21 11:58> Status: Acute <Daphne MccarthyDYLON-C - Last Filed: 04/06/21 11:58> Assessment and Plan: Stable Continue quinapril 10 mg p.o. daily Vital signs as ordered Will adjust medication as needed <Reaganlucila TinyDYLON Reeder-C - Last Filed: 04/06/21 11:58> (7) Arthritis: Code(s): M19.90 - Unspecified osteoarthritis, unspecified site <Reaganlucila TinyDYLON Reeder-C - Last Filed: 04/06/21 11:58> Status: Acute <Daphne MccarthyDYLON-C - Last Filed: 04/06/21 11:58> Assessment and Plan: Continue pain medication Continue home medication <Reaganlucila TinyDYLON Reeder-C - Last Filed: 04/06/21 11:58> (8) TIA (transient ischemic attack): Code(s): G45.9 - Transient cerebral ischemic attack, unspecified <Daphne TinyWill Mccrathy MANAGER COST-C - Last Filed: 04/06/21 11:58> Status: Acute <Daphne TinyDYLON Reeder-C - Last Filed: 04/06/21 11:58> Assessment and Plan: Continue aspirin and Plavix <FRED Estrada - Last Filed: 04/06/21 11:58> Review of Systems Review of Systems: Narrative: A 14 organ system Review of Systems was performed and pertinent positives included in the HPI, otherwise remaining ROS is negative. <TAYE EstradaC
[2021-04-06 16:00] VITALS: BP 122/66; PULSE 92; RESP 18; TEMP 37.2; O2SAT 96
[2021-04-06] MEDS: ENOXAPARIN 40 MG/0.4 ML SYRINGE SUB-Q (20:05)
[2021-04-07 00:27] VITALS: BP 110/72; PULSE 82; RESP 20; TEMP 37.4; O2SAT 95
[2021-04-07 05:27] LABS: Hematocrit 32.1 % (35.0-42.0); Hemoglobin 10.1 g/dL (11.7-13.8); Mean Corpuscular HGB Conc 31.5 g/dL (32.0-36.0); Mean Corpuscular Hemoglobin 25.5 pg (27.0-31.0); Mean Corpuscular Volume 81.1 fL (78.0-102.0); Mean Platelet Volume 8.6 fl (9.2-11.8); Platelet Count Result 302 K/mm3 (150-420); Red Blood Count 3.96 M/mm3 (4.20-5.40); Red Cell Distribution Width 13.7 % (11.6-14.4); White Blood Count 10.5 K/mm3 (4.8-10.8)
[2021-04-07 05:43] LABS: Alanine Aminotransferase 20 U/L (14-59); Albumin Level 2.5 g/dL (3.4-5.0); Alkaline Phosphatase 85 U/L (46-116); Anion Gap 6 mmol/L (8-16); Aspartate Amino Transferase 18 U/L (15-37); Bilirubin,Total 0.3 mg/dL (0.00-1.00); Blood Urea Nitrogen 10 mg/dL (7-18); Calcium 8.7 mg/dL (8.5-10.1); Carbon Dioxide 29 mmol/L (21-32); Chloride 95 mmol/L (98-108); Estimated CRCL calculation 40 ml/min; Estimated Glomerular Filt Rate > 60; Glucose 95 mg/dL (70-99); Osmolality Calculated 269 mOsm/kg (285-295); Potassium 4.2 mmol/L (3.5-5.1); Sodium 130 mmol/L (136-145); Total Protein 5.5 g/dL (6.4-8.2)
[2021-04-07 07:45] VITALS: BP 130/63; PULSE 90; RESP 16; TEMP 37.6; O2SAT 96
--- NOTE | 2021-04-07 07:53 | PC.NURSE ---
Patient set up on side of bed. Patient states she doesn't want chair/recliner. They aren't comfortable.
[2021-04-07] MEDS: predniSONE 5 MG TABLET PO (08:36)
[2021-04-07] MEDS: FERROUS GLUCONATE 324 MG TABLET PO (08:37)
[2021-04-07] MEDS: HYDROXYCHLOROQUINE SULFATE 200 MG TABLET PO (08:37)
[2021-04-07] MEDS: HYDROcodone/acetaminophen (*CRX) 5-325 MG TABLET 1 TAB PO (08:37)
[2021-04-07] MEDS: ASPIRIN 81 MG ENTERIC TABLET PO (08:37)
[2021-04-07] MEDS: CLOPIDOGREL BISULFATE 75 MG TABLET PO (08:37)
[2021-04-07] MEDS: lisinopriL 10 MG TABLET PO (08:37)
--- NOTE | 2021-04-07 08:50 | P.DS_ITS ---
DS: Admitting Diagnosis Admitting Diagnosis Admitting Diagnosis: Bilateral pelvis fracture DS: Discharge Diagnosis Discharge Diagnosis (1) Bilateral pubic rami fractures: Code(s): S32.591A - Other specified fracture of right pubis, initial encounter for closed fracture; S32.592A - Other specified fracture of left pubis, initial encounter for closed fracture Status: Acute Assessment and Plan: * Status post fall * Hip x-ray indicate Bilateral inferior pubic rami fractures. * PT OT evaluation ordered * Control pain * Will transition to swing bed (2) Fall: Code(s): W19.XXXA - Unspecified fall, initial encounter Status: Acute Assessment and Plan: * Order PT OT * CT of the head and spine negative for fracture or dislocation * Hip x-ray indicate bilateral pelvis fracture (3) Acute hyponatremia: Code(s): E87.1 - Hypo-osmolality and hyponatremia Status: Acute Assessment and Plan: * Chronic 130 baseline between 128 and 133 * Will continue to monitor and supplement (4) Weakness: Code(s): R53.1 - Weakness Status: Acute Assessment and Plan: * ? Exhibit tolerance during physical activity as evidenced by a normal fluctuation of vital signs during physical activity. ? Patient will be ability to perform required activities of daily living. ? Provide appropriate nutrition for healing and strength. ? Use appropriate to prevent falls. ? Continue physical therapy/occupational therapy. (5) Anemia: Code(s): D64.9 - Anemia, unspecified Status: Acute Assessment and Plan: * Hemoglobin at 10.1 hematocrit 32.1baseline hemoglobin between 9-10 * No active bleeding noted * Continue iron supplement * We will continue to monitor (6) Hypertension: Code(s): I10 - Essential (primary) hypertension Status: Acute Assessment and Plan: * Stable * Continue quinapril 10 mg p.o. daily * Vital signs as ordered * Will adjust medication as needed (7) Arthritis: Code(s): M19.90 - Unspecified osteoarthritis, unspecified site Status: Acute Assessment and Plan: * Continue pain medication * Continue home medication (8) TIA (transient ischemic attack): Code(s): G45.9 - Transient cerebral ischemic attack, unspecified Status: Acute Assessment and Plan: * Continue aspirin and Plavix DS: Summary Hospital Course Reason for hospitalization: Generalized weakness physical decondition Hospital Course: this is a 85-year-old female that presented to urgent care status post fall with a bilateral pelvic fracture. Patient has a past medical history of osteoporosis arthritis, rheumatoid arthritis, hypertension, hyponatremia, anemia, TIA/CVA,. According to patient lives in [place] her assisted living home and attempted to stand up with her arms in the air this when she felt lightheaded and fell ,she does complain of left hip pain. Patient admitted in swing bed for rehabilitation due to decreased balance decreased mobility in severe limited function endurant and/or mobility. The patient denies SOB, CP, palpitation, extremity numbness, lightheadedness, dizziness, constipation, diarrhea, chills, or fever. Swing bed 60 minutes time spent Disposition: Patient will probably discharge to a senior living versus assisted living Time Spent with Patient Time attestation: Total time spent providing and/or coordinating discharge services: 60 Exam Narrative: Exam Narrative: GENERAL: Frail fatigued elderly female in no
--- NOTE | 2021-04-07 08:50 | PM.DS ---
DS: Admitting Diagnosis Admitting Diagnosis Admitting Diagnosis: Bilateral pelvis fracture DS: Discharge Diagnosis Discharge Diagnosis (1) Bilateral pubic rami fractures: Code(s): S32.591A - Other specified fracture of right pubis, initial encounter for closed fracture; S32.592A - Other specified fracture of left pubis, initial encounter for closed fracture Status: Acute Assessment and Plan: Status post fall Hip x-ray indicate Bilateral inferior pubic rami fractures. PT OT evaluation ordered Control pain Will transition to swing bed (2) Fall: Code(s): W19.XXXA - Unspecified fall, initial encounter Status: Acute Assessment and Plan: Order PT OT CT of the head and spine negative for fracture or dislocation Hip x-ray indicate bilateral pelvis fracture (3) Acute hyponatremia: Code(s): E87.1 - Hypo-osmolality and hyponatremia Status: Acute Assessment and Plan: Chronic 130 baseline between 128 and 133 Will continue to monitor and supplement (4) Weakness: Code(s): R53.1 - Weakness Status: Acute Assessment and Plan: ? Exhibit tolerance during physical activity as evidenced by a normal fluctuation of vital signs during physical activity. ? Patient will be ability to perform required activities of daily living. ? Provide appropriate nutrition for healing and strength. ? Use appropriate to prevent falls. ? Continue physical therapy/occupational therapy. (5) Anemia: Code(s): D64.9 - Anemia, unspecified Status: Acute Assessment and Plan: Hemoglobin at 10.1 hematocrit 32.1baseline hemoglobin between 9-10 No active bleeding noted Continue iron supplement We will continue to monitor (6) Hypertension: Code(s): I10 - Essential (primary) hypertension Status: Acute Assessment and Plan: Stable Continue quinapril 10 mg p.o. daily Vital signs as ordered Will adjust medication as needed (7) Arthritis: Code(s): M19.90 - Unspecified osteoarthritis, unspecified site Status: Acute Assessment and Plan: Continue pain medication Continue home medication (8) TIA (transient ischemic attack): Code(s): G45.9 - Transient cerebral ischemic attack, unspecified Status: Acute Assessment and Plan: Continue aspirin and Plavix DS: Summary Hospital Course Reason for hospitalization: Generalized weakness physical decondition Hospital Course: this is a 85-year-old female that presented to urgent care status post fall with a bilateral pelvic fracture. Patient has a past medical history of osteoporosis arthritis, rheumatoid arthritis, hypertension, hyponatremia, anemia, TIA/CVA,. According to patient lives in [place] her assisted living home and attempted to stand up with her arms in the air this when she felt lightheaded and fell ,she does complain of left hip pain. Patient admitted in swing bed for rehabilitation due to decreased balance decreased mobility in severe limited function endurant and/or mobility. The patient denies SOB, CP, palpitation, extremity numbness, lightheadedness, dizziness, constipation, diarrhea, chills, or fever. Swing bed 60 minutes time spent Disposition: Patient will probably discharge to a [facility] versus assisted living Time Spent with Patient Time attestation: Total time spent providing and/or coordinating discharge services: 60 Exam Narrative: Exam Narrative: GENERAL: Frail fatigued elderly female in no apparent distress. HEAD: normocephalic, atraumatic. EYES: PERRL. Sclera clear/white. Vision is grossly intact. EARS: External ears normal, auditory canals clear and without drainage, TMs normal without perforation. Hearing grossly intact. NOSE: External nose normal with no obvious nasal discharge, nares without redness, no rhinorrhea. THROAT: Mucous membranes moist, posterior pharynx clear. NECK: Neck supple, non-tender without lymphadenopat
--- NOTE | 2021-04-07 09:37 | PC.NURSE ---
Patient inpatient status changed to swingbed status
== END 2021-04-07 09:37 | disposition swing bed (61) ==
LOC: CHSED 14:42 → CHS2ND 17:29
PROVIDERS: Nurse Practitioner; Admitting Provider Family Medicine; Emergency Provider Family Medicine; PCP Internal Medicine; Visit Provider Family Medicine
DX: S32.592A Other specified fracture of left pubis, initial encounter for closed fracture (principal); S32.591A Other specified fracture of right pubis, initial encounter for closed fracture; I10 Essential (primary) hypertension; D64.9 Anemia, unspecified; E87.1 Hypo-osmolality and hyponatremia; E55.9 Vitamin D deficiency, unspecified; M19.90 Unspecified osteoarthritis, unspecified site; M81.0 Age-related osteoporosis without current pathological fracture; M25.542 Pain in joints of left hand; M25.541 Pain in joints of right hand; M54.12 Radiculopathy, cervical region; M05.9 Rheumatoid arthritis with rheumatoid factor, unspecified; W19.XXXA Unspecified fall, initial encounter; Z86.73 Personal history of transient ischemic attack (TIA), and cerebral infarction without residual deficits; Z90.49 Acquired absence of other specified parts of digestive tract
CPT/HCPCS: 36415; 70450; 71045; 72125; 73502; 80048; 80053; 81001; 84484; 85025; 85027; 85610; 93005; 96361; 96372; 96374; 96375; 96376; 97161; 97165; 97530; 97535; 99285; A9270; G0378; J1650; J2270; J2405; J7030; J7512

== ENCOUNTER 2021-04-07 09:38 | Inpatient (IN) | payer MEDICARE, SELFPAY ==
[2021-04-07 10:04] VITALS: BMI 17.6
[2021-04-07 10:21] VITALS: PULSE 90; RESP 16; O2SAT 96
--- NOTE | 2021-04-07 10:28 | ADMGEN ---
This patient, Roma Trujillo, was admitted to 2nd Floor Room 205-2. Patient/family oriented to hospital policies and general routines including ID bracelet, bed and alarms, visiting hours, pain management, procedures, bathroom and other care routines, personal items, smoking policy, room service/diet, and visiting hours. Information on how to activate the Rapid Response Team has been discussed. Patient/Family are encouraged to report perceived risks to care and to ask questions if they do not understand what they are told or what they should do. Patient's status has changed from Observation to swingbed.
--- NOTE | 2021-04-07 11:51 | WPDREHABHP ---
H&P: HPI History of Present Illness Date/Time: 04/07/21 11:51thiivania is a 85-year-old female that presented to urgent care status post fall with a bilateral pelvic fracture. Patient has a past medical history of osteoporosis arthritis, rheumatoid arthritis, hypertension, hyponatremia, anemia, TIA/CVA,. According to patient lives in [place] her assisted living home and attempted to stand up with her arms in the air when she felt lightheaded and fell ,she does complain of left hip pain. Patient does complain of hip pain that is being controlled with pain medication. The patient denies SOB, CP, palpitation, extremity numbness, lightheadedness, dizziness, constipation, diarrhea, chills, or fever. Patient will transition into a swing bed once again. Imaging data indicate bilateral pelvic fracture. Patient admitted in swing bed for rehabilitation due to decreased balance decreased mobility in severe limited function endurant and/or mobility. Chief Complaint: Generalized weakness Review of Systems Review of Systems Narrative: A 14 organ system Review of Systems was performed and pertinent positives included in the HPI, otherwise remaining ROS is negative. [facility] Past Medical History Medical History Age-related osteoporosis without current pathological fracture Allergies Arthralgia of both hands Arthritis Rhuematoid Cervical radiculopathy due to degenerative joint disease of spine Counseling on health promotion and disease prevention Encounter for medication management Encounter for screening for other viral diseases Hypertension Osteoarthritis involving multiple joints on both sides of body Osteoporosis Pain in left hand (12/10/18) Pain in right hand (12/10/18) Paresthesia of bilateral legs Seropositive rheumatoid arthritis of hand Vaginal delivery X2 1979 Female 1981 Female Vitamin D deficiency Surgical History Surgical History H/O: hysterectomy History of appendectomy Hx of cholecystectomy Family History Family History Grandparent Cerebrovascular accident Father Family history of chronic obstructive pulmonary disease Mother Hypertension Social History Social History Smoking status: Never smoker Second hand tobacco smoke exposure: Yes Alcohol intake: former Drinks per week: 3 Substance use: never Gender identity (if verbalized by the patient): Female Sexual Orientation (if Verbalized by the Patient): Straight or Heterosexual Spiritual care concerns: No Meds Home Medications and Allergies Home Medications Medication Instructions Recorded Confirmed Type quinapril 10 mg PO DAILY 12/30/20 04/07/21 History clopidogrel [Plavix] 75 mg PO DAILY #30 tablet 01/13/21 04/07/21 Rx polyethylene glycol 3350 [Miralax] 17 g PO QAM PRN #30 ea 01/29/21 04/07/21 Rx aspirin 81 mg PO QAM 04/04/21 04/07/21 History ferrous gluconate 324 mg PO DAILY 04/04/21 04/07/21 History hydroxychloroquine [Plaquenil] 200 mg PO BID 04/04/21 04/07/21 History prednisone 5 mg PO DAILY 04/04/21 04/07/21 History acetaminophen [Mapap 650 mg PO Q4H PRN #1 tablet 04/07/21 04/07/21 Rx (acetaminophen)] diphenhydramine HCl 25 mg PO HS PRN #1 cap 04/07/21 04/07/21 Rx enoxaparin [Lovenox] 40 mg SUBCUT Q24H #1 ml 04/07/21 04/07/21 Rx hydrocodone-acetaminophen 1 tablet PO Q4H PRN #2 tablet 04/07/21 04/07/21 Rx Allergies Allergy/AdvReac Type Severity Reaction Status Date / Time celecoxib Allergy Unknown pounding Verified 04/04/21 15:06 chest fluconazole Allergy Unknown chest Verified 04/04/21 15:06 pain, dizziness ibandronate sodium Allergy Unknown Chest pain Verified 04/04/21 15:06 Vital Signs Vital Signs - 24 hr 04/07/21 10:21 Pulse Rate 90 Respiratory Rate 16 Pulse Oximetry 96 Exam N
[2021-04-07 16:00] VITALS: BP 121/64; PULSE 80; RESP 16; TEMP 37.1; O2SAT 97
[2021-04-07] MEDS: HYDROcodone/acetaminophen (*CRX) 5-325 MG TABLET 1 TAB PO (17:03)
[2021-04-07] MEDS: HYDROXYCHLOROQUINE SULFATE 200 MG TABLET PO (17:04)
[2021-04-07] MEDS: ENOXAPARIN 40 MG/0.4 ML SYRINGE SUB-Q (20:44)
[2021-04-08] VITALS: PULSE 80; RESP 20; TEMP 36.9; O2SAT 97
[2021-04-08 07:52] VITALS: BP 127/63; PULSE 87; RESP 20; TEMP 37.1; O2SAT 96
[2021-04-08] MEDS: FERROUS GLUCONATE 324 MG TABLET PO (08:32)
[2021-04-08] MEDS: predniSONE 5 MG TABLET PO (08:32)
[2021-04-08] MEDS: ASPIRIN 81 MG ENTERIC TABLET PO (08:32)
[2021-04-08] MEDS: lisinopriL 10 MG TABLET PO (08:32)
[2021-04-08] MEDS: HYDROcodone/acetaminophen (*CRX) 5-325 MG TABLET 1 TAB PO ×3 (08:33→20:50)
[2021-04-08] MEDS: CLOPIDOGREL BISULFATE 75 MG TABLET PO (08:33)
[2021-04-08] MEDS: HYDROXYCHLOROQUINE SULFATE 200 MG TABLET PO ×2 (08:33→16:42)
--- NOTE | 2021-04-08 15:15 | PC.NURSE ---
OT Ning in working with the pt
[2021-04-08 15:31] VITALS: BP 118/67; PULSE 78; RESP 16; TEMP 37.2; O2SAT 98
--- NOTE | 2021-04-08 17:18 | PC.NURSE ---
pt does not like recliner, amb back to bed with walker, gait belt and assist of 1, hob up, call light in reach, tray set up
[2021-04-08] MEDS: ENOXAPARIN 40 MG/0.4 ML SYRINGE SUB-Q (20:51)
[2021-04-09] VITALS: BP 117/64; PULSE 77; RESP 18; TEMP 36.4; O2SAT 97
[2021-04-09] MEDS: HYDROcodone/acetaminophen (*CRX) 5-325 MG TABLET 1 TAB PO ×3 (02:22→13:56)
[2021-04-09 05:58] LABS: Anion Gap 6 mmol/L (8-16); Blood Urea Nitrogen 11 mg/dL (7-18); Calcium 9.2 mg/dL (8.5-10.1); Carbon Dioxide 30 mmol/L (21-32); Chloride 97 mmol/L (98-108); Estimated CRCL calculation 42 ml/min; Estimated Glomerular Filt Rate > 60; Glucose 101 mg/dL (70-99); Osmolality Calculated 275 mOsm/kg (285-295); Potassium 3.7 mmol/L (3.5-5.1); Sodium 133 mmol/L (136-145)
[2021-04-09 08:00] VITALS: BP 126/60; PULSE 71; RESP 18; TEMP 37; O2SAT 99
[2021-04-09] MEDS: HYDROXYCHLOROQUINE SULFATE 200 MG TABLET PO ×2 (08:06→17:10)
[2021-04-09] MEDS: FERROUS GLUCONATE 324 MG TABLET PO (08:06)
[2021-04-09] MEDS: predniSONE 5 MG TABLET PO (08:06)
[2021-04-09] MEDS: ASPIRIN 81 MG ENTERIC TABLET PO (08:06)
[2021-04-09] MEDS: lisinopriL 10 MG TABLET PO (08:06)
[2021-04-09] MEDS: CLOPIDOGREL BISULFATE 75 MG TABLET PO (08:06)
[2021-04-09] MEDS: DOCUSATE SODIUM 100 MG CAPSULE PO (09:10)
[2021-04-09] MEDS: polyethylene glycoL 3350 17 GM POWD.PACK PO (09:10)
[2021-04-09 16:00] VITALS: BP 115/55; PULSE 80; RESP 16; TEMP 36.7; O2SAT 97
[2021-04-09] MEDS: ACETAMINOPHEN 325 MG TABLET 650 MG PO (21:26)
[2021-04-09] MEDS: SENNA/DOCUSATE SODIUM TABLET 1 TAB PO (21:26)
[2021-04-09] MEDS: ENOXAPARIN 40 MG/0.4 ML SYRINGE SUB-Q (21:27)
[2021-04-10] VITALS: BP 116/59; PULSE 72; RESP 20; TEMP 36.4; O2SAT 97
[2021-04-10 07:30] VITALS: BP 135/69; PULSE 80; RESP 18; TEMP 36.8; O2SAT 97
[2021-04-10] MEDS: polyethylene glycoL 3350 17 GM POWD.PACK PO (08:27)
[2021-04-10] MEDS: predniSONE 5 MG TABLET PO (08:29)
[2021-04-10] MEDS: FERROUS GLUCONATE 324 MG TABLET PO (08:29)
[2021-04-10] MEDS: HYDROXYCHLOROQUINE SULFATE 200 MG TABLET PO ×2 (08:29→16:00)
[2021-04-10] MEDS: CLOPIDOGREL BISULFATE 75 MG TABLET PO (08:29)
[2021-04-10] MEDS: lisinopriL 10 MG TABLET PO (08:29)
[2021-04-10] MEDS: ASPIRIN 81 MG ENTERIC TABLET PO (08:29)
[2021-04-10] MEDS: DOCUSATE SODIUM 100 MG CAPSULE PO (08:29)
[2021-04-10] MEDS: ACETAMINOPHEN 325 MG TABLET 650 MG PO (08:29)
[2021-04-10 10:07] LABS: Add Urine Microscopic? YES; Appearance Urine Turbid (Clear); Bilirubin Urine Negative (Negative); Blood Urine 3+ (Negative); Color Urine Yellow (Yellow); Glucose Urine UA Negative (Negative); Ketones Urine Negative (Negative); Leukocyte Esterase Ur 2+ (Negative); Nitrate Urine Positive (Negative); Protein Urine 1+ (Negative); Specific Grav Ur 1.025 (1.010-1.020)
[2021-04-10 10:14] LABS: WBC Urine 31-50 /hpf (0-3)
[2021-04-10 10:15] LABS: Bacteria Urine 2+ /hpf; Squamous Epithelial Cell Urine Rare /hpf (Few)
--- NOTE | 2021-04-10 11:04 | PM.EVENT ---
Event Note Event Note Event Note: Patient's Carpenter to continue UA sample indicates UTI. Started Bactrim twice daily for 7 days culture pending
[2021-04-10] MEDS: HYDROcodone/acetaminophen (*CRX) 5-325 MG TABLET 1 TAB PO ×2 (15:57→21:03)
[2021-04-10 16:00] VITALS: BP 133/68; PULSE 78; RESP 18; TEMP 37.4; O2SAT 97
[2021-04-10] MEDS: ENOXAPARIN 40 MG/0.4 ML SYRINGE SUB-Q (21:03)
[2021-04-10] MEDS: SENNA/DOCUSATE SODIUM TABLET 1 TAB PO (21:03)
--- NOTE | 2021-04-10 22:56 | PC.NURSE ---
report to birdie schmidt
[2021-04-11] VITALS: BP 114/66; PULSE 70; RESP 20; TEMP 36.8; O2SAT 98
[2021-04-11 07:47] VITALS: BP 126/67; PULSE 80; RESP 16; TEMP 37; O2SAT 99
[2021-04-11 07:49] VITALS: PULSE 80; RESP 16; O2SAT 96
[2021-04-11] MEDS: ASPIRIN 81 MG ENTERIC TABLET PO (08:15)
[2021-04-11] MEDS: HYDROcodone/acetaminophen (*CRX) 5-325 MG TABLET 1 TAB PO ×3 (08:15→21:33)
[2021-04-11] MEDS: CLOPIDOGREL BISULFATE 75 MG TABLET PO (08:15)
[2021-04-11] MEDS: HYDROXYCHLOROQUINE SULFATE 200 MG TABLET PO ×2 (08:15→17:19)
[2021-04-11] MEDS: FERROUS GLUCONATE 324 MG TABLET PO (08:15)
[2021-04-11] MEDS: predniSONE 5 MG TABLET PO (08:15)
[2021-04-11] MEDS: lisinopriL 10 MG TABLET PO (08:15)
[2021-04-11] MEDS: DOCUSATE SODIUM 100 MG CAPSULE PO (08:15)
[2021-04-11 16:00] VITALS: BP 123/67; PULSE 77; RESP 18; TEMP 37.2; O2SAT 99
[2021-04-11] MEDS: SENNA/DOCUSATE SODIUM TABLET 1 TAB PO (20:21)
[2021-04-11] MEDS: ENOXAPARIN 40 MG/0.4 ML SYRINGE SUB-Q (20:21)
[2021-04-12 00:14] VITALS: BP 117/67; PULSE 75; RESP 20; TEMP 36.9; O2SAT 98
[2021-04-12 07:36] VITALS: BP 120/64; PULSE 73; RESP 18; TEMP 37.1; O2SAT 97
[2021-04-12 07:37] VITALS: PULSE 73; RESP 18; O2SAT 97
[2021-04-12] MEDS: HYDROcodone/acetaminophen (*CRX) 5-325 MG TABLET 1 TAB PO ×2 (07:46→20:25)
[2021-04-12] MEDS: CLOPIDOGREL BISULFATE 75 MG TABLET PO (08:20)
[2021-04-12] MEDS: lisinopriL 10 MG TABLET PO (08:20)
[2021-04-12] MEDS: predniSONE 5 MG TABLET PO (08:20)
[2021-04-12] MEDS: FERROUS GLUCONATE 324 MG TABLET PO (08:20)
[2021-04-12] MEDS: HYDROXYCHLOROQUINE SULFATE 200 MG TABLET PO ×2 (08:20→17:32)
[2021-04-12] MEDS: DOCUSATE SODIUM 100 MG CAPSULE PO (08:20)
[2021-04-12] MEDS: ASPIRIN 81 MG ENTERIC TABLET PO (08:20)
--- NOTE | 2021-04-12 11:54 | PCOTNOTE ---
On 04/12/21, the student, [ Namita Boone], provided care and completed [facility] documentation on this patient. I have reviewed the student's documentation and agree with the findings.
[2021-04-12 15:55] VITALS: BP 124/77; PULSE 75; RESP 18; TEMP 37.1; O2SAT 97
[2021-04-12] MEDS: SENNA/DOCUSATE SODIUM TABLET 1 TAB PO (20:26)
[2021-04-12] MEDS: ENOXAPARIN 40 MG/0.4 ML SYRINGE SUB-Q (20:26)
[2021-04-13] VITALS: BP 121/55; PULSE 68; RESP 18; TEMP 36.9; O2SAT 96
[2021-04-13 08:00] VITALS: BP 118/50; PULSE 66; RESP 18; TEMP 36.6; O2SAT 96
--- NOTE | 2021-04-13 08:05 | PM.IMPN ---
Progress Note: A&P Assessment and Plan (1) Weakness: Code(s): R53.1 - Weakness <Shahbaz Ramsey OPAL Lockett - Last Filed: 04/13/21 10:17> Status: Acute <Shahbaz ToddOPAL simpson - Last Filed: 04/13/21 10:17> Assessment and Plan: ? Exhibit tolerance during physical activity as evidenced by a normal fluctuation of vital signs during physical activity. ? Patient will be ability to perform required activities of daily living. ? Provide appropriate nutrition for healing and strength. ? Use appropriate to prevent falls. ? Continue physical therapy/occupational therapy. 04/13/2021 Pt states she is doing well with PT/OT but does have some increased pain in the evening hours, she was reminded that she has Maxwell that she can ask for when her pain increases. <Shahbaz ToddOPAL simpson - Last Filed: 04/13/21 10:17> (2) Bilateral pubic rami fractures: Code(s): S32.591A - Other specified fracture of right pubis, initial encounter for closed fracture; S32.592A - Other specified fracture of left pubis, initial encounter for closed fracture <Shahbaz Ramsey OPAL Lockett - Last Filed: 04/13/21 10:17> Status: Acute <Shahbaz ToddOPAL simpson - Last Filed: 04/13/21 10:17> Assessment and Plan: Status post fall Hip x-ray indicate Bilateral inferior pubic rami fractures. PT OT evaluation ordered Control pain 04/13/2021 During the day pain is managed with Tylenol and as noted she was reminded that she has Maxwell for increased pain. <Shahbaz DukeOPAL Truong - Last Filed: 04/13/21 10:17> (3) Fall: Code(s): W19.XXXA - Unspecified fall, initial encounter <Shahbaz DukeOPAL Truong - Last Filed: 04/13/21 10:17> Status: Acute <Shahbaz Ramsey OPAL Lockett - Last Filed: 04/13/21 10:17> Assessment and Plan: Order PT OT CT of the head and spine negative for fracture or dislocation Hip x-ray indicate bilateral pelvis fracture 04/13/2021 Pt is working with PT/OT, fall precautions, up with assistance <Shahbaz Ramsey OPAL Lockett - Last Filed: 04/13/21 10:17> (4) Hypertension: Code(s): I10 - Essential (primary) hypertension <Shahbaz ToddABY simpsonC - Last Filed: 04/13/21 10:17> Status: Acute <Shahbaz ToddOPAL simpson - Last Filed: 04/13/21 10:17> Assessment and Plan: Stable Continue quinapril 10 mg p.o. daily Vital signs as ordered Will adjust medication as needed 04/13/2021 VSS, no need to adjust medications at this time. <Shahbaz DukeOPAL Truong - Last Filed: 04/13/21 10:17> (5) Acute hyponatremia: Code(s): E87.1 - Hypo-osmolality and hyponatremia <Shahbaz Ramsey OPAL Lockett - Last Filed: 04/13/21 10:17> Status: Acute <Shahbaz DukeOPAL Truong - Last Filed: 04/13/21 10:17> Assessment and Plan: Chronic 130 baseline between 128 and 133 Will continue to monitor and supplement 04/13/2021 Na/Cl decreased 127/92, added Sodium Tab 1 gm BID, Will recheck levels in about 3-4 days. <Shahbaz ToddOPAL simpson - Last Filed: 04/13/21 10:17> (6) Anemia: Code(s): D64.9 - Anemia, unspecified <Shahbaz DukeOPAL Truong - Last Filed: 04/13/21 10:17> Status: Acute <Shahbaz Ramsey OPAL Lockett - Last Filed: 04/13/21 10:17> Assessment and Plan: Hemoglobin at 10.1 hematocrit 32.1baseline hemoglobin between 9-10 No active bleeding noted Continue iron supplement We will continue to monitor 04/13/2021 Stable 11.2/34 <Shahbaz Ramsey ABY LockettC - Last Filed: 04/13/21 10:17> Subjective Date/time seen: 04/13/21 08:05 Pt states she feels like she is doing well with PT/OT but by the evening hours she feels she could use something stronger than just Tylenol. She does have Maxwell in her MAR. Pt states during the day the Tylenol does fine. Currently her pain is 5/10 and states the RN was going to bring her pain medication. Pt denies any other pain, no SOB, no muscle weakness, no dizziness, fever or chills. <Shahbaz Lockett, FILTERATION OPERATOR-C - Last
[2021-04-13 08:07] LABS: Hematocrit 34.5 % (35.0-42.0); Hemoglobin 11.2 g/dL (11.7-13.8); Mean Corpuscular HGB Conc 32.5 g/dL (32.0-36.0); Mean Platelet Volume 8.6 fl (9.2-11.8); Platelet Count Result 412 K/mm3 (150-420); Red Blood Count 4.31 M/mm3 (4.20-5.40); Red Cell Distribution Width 14.1 % (11.6-14.4); White Blood Count 9.7 K/mm3 (4.8-10.8)
[2021-04-13 08:15] LABS: Anion Gap 11 mmol/L (8-16); Blood Urea Nitrogen 14 mg/dL (7-18); Calcium 9.4 mg/dL (8.5-10.1); Carbon Dioxide 24 mmol/L (21-32); Chloride 92 mmol/L (98-108); Estimated CRCL calculation 33 ml/min; Estimated Glomerular Filt Rate > 60; Glucose 100 mg/dL (70-99); Osmolality Calculated 264 mOsm/kg (285-295); Potassium 4.2 mmol/L (3.5-5.1); Sodium 127 mmol/L (136-145)
[2021-04-13] MEDS: ASPIRIN 81 MG ENTERIC TABLET PO (08:35)
[2021-04-13] MEDS: DOCUSATE SODIUM 100 MG CAPSULE PO (08:35)
[2021-04-13] MEDS: HYDROXYCHLOROQUINE SULFATE 200 MG TABLET PO ×2 (08:35→16:42)
[2021-04-13] MEDS: lisinopriL 10 MG TABLET PO (08:36)
[2021-04-13] MEDS: FERROUS GLUCONATE 324 MG TABLET PO (08:36)
[2021-04-13] MEDS: predniSONE 5 MG TABLET PO (08:36)
[2021-04-13] MEDS: CLOPIDOGREL BISULFATE 75 MG TABLET PO (08:37)
[2021-04-13] MEDS: SODIUM CHLORIDE 1 GM TABLET PO ×2 (09:00→16:42)
--- NOTE | 2021-04-13 09:42 | PC.NURSE ---
Assisted back to bed, full contact needed and full assist needed to get from chair to bed, attempted to use walker not successful, gait belt used and needed full guidance back to bed, did not support weight on legs well, full assist to get legs back to bed, side rails up and call light in reach
--- NOTE | 2021-04-13 10:23 | PCOTNOTE ---
On 04/13/21, the student, [Namita Boone ], provided care and completed [facility] documentation on this patient. I have reviewed the student's documentation and agree with the findings.
[2021-04-13 16:00] VITALS: BP 124/56; PULSE 70; RESP 16; TEMP 36.4; O2SAT 96
[2021-04-13] MEDS: traMADol HCL (*CRX) 25 MG TABLET PO (16:46)
[2021-04-13] MEDS: HYDROcodone/acetaminophen (*CRX) 5-325 MG TABLET 1 TAB PO (21:26)
[2021-04-13] MEDS: SENNA/DOCUSATE SODIUM TABLET 1 TAB PO (21:26)
[2021-04-13] MEDS: ENOXAPARIN 40 MG/0.4 ML SYRINGE SUB-Q (21:27)
[2021-04-13 23:59] VITALS: BP 117/71; PULSE 68; RESP 16; TEMP 36.3; O2SAT 99
[2021-04-14 07:56] VITALS: BP 114/62; PULSE 74; RESP 14; TEMP 36.8; O2SAT 96
[2021-04-14] MEDS: ASPIRIN 81 MG ENTERIC TABLET PO (08:45)
[2021-04-14] MEDS: DOCUSATE SODIUM 100 MG CAPSULE PO (08:45)
[2021-04-14] MEDS: FERROUS GLUCONATE 324 MG TABLET PO (08:46)
[2021-04-14] MEDS: SODIUM CHLORIDE 1 GM TABLET PO ×2 (08:46→16:29)
[2021-04-14] MEDS: CLOPIDOGREL BISULFATE 75 MG TABLET PO (08:46)
[2021-04-14] MEDS: HYDROXYCHLOROQUINE SULFATE 200 MG TABLET PO ×2 (08:46→16:29)
[2021-04-14] MEDS: lisinopriL 10 MG TABLET PO (08:47)
[2021-04-14] MEDS: predniSONE 5 MG TABLET PO (08:47)
[2021-04-14 16:00] VITALS: BP 108/66; PULSE 77; RESP 16; TEMP 37.1; O2SAT 96
[2021-04-14] MEDS: ACETAMINOPHEN 325 MG TABLET 650 MG PO (20:33)
[2021-04-14] MEDS: ENOXAPARIN 40 MG/0.4 ML SYRINGE SUB-Q (20:33)
[2021-04-14] MEDS: SENNA/DOCUSATE SODIUM TABLET 1 TAB PO (20:33)
[2021-04-15] VITALS: PULSE 73; RESP 20; TEMP 36.5; O2SAT 97
[2021-04-15 07:55] VITALS: BP 121/62; PULSE 76; RESP 16; TEMP 36.4; O2SAT 97
[2021-04-15] MEDS: ASPIRIN 81 MG ENTERIC TABLET PO (08:38)
[2021-04-15] MEDS: CLOPIDOGREL BISULFATE 75 MG TABLET PO (08:38)
[2021-04-15] MEDS: SODIUM CHLORIDE 1 GM TABLET PO ×2 (08:38→17:00)
[2021-04-15] MEDS: predniSONE 5 MG TABLET PO (08:39)
[2021-04-15] MEDS: lisinopriL 10 MG TABLET PO (08:39)
[2021-04-15] MEDS: DOCUSATE SODIUM 100 MG CAPSULE PO (08:39)
[2021-04-15] MEDS: HYDROXYCHLOROQUINE SULFATE 200 MG TABLET PO ×2 (08:39→17:00)
[2021-04-15] MEDS: ACETAMINOPHEN 325 MG TABLET 650 MG PO (09:21)
[2021-04-15] MEDS: FERROUS GLUCONATE 324 MG TABLET PO (09:57)
--- NOTE | 2021-04-15 14:48 | PCOTNOTE ---
On 04/15/21, the student, [Namita Boone], provided care and completed [facility] documentation on this patient. I have reviewed the student's documentation and agree with the findings.
[2021-04-15 15:30] VITALS: BP 125/65; PULSE 68; RESP 18; TEMP 36.2; O2SAT 98
[2021-04-15] MEDS: SENNA/DOCUSATE SODIUM TABLET 1 TAB PO (20:47)
[2021-04-15] MEDS: HYDROcodone/acetaminophen (*CRX) 5-325 MG TABLET 1 TAB PO (20:47)
[2021-04-15] MEDS: ENOXAPARIN 40 MG/0.4 ML SYRINGE SUB-Q (20:48)
[2021-04-16] VITALS: BP 114/59; PULSE 66; RESP 16; TEMP 36.7; O2SAT 98
[2021-04-16 05:40] LABS: Hematocrit 32.3 % (35.0-42.0); Hemoglobin 10.2 g/dL (11.7-13.8); Mean Corpuscular HGB Conc 31.6 g/dL (32.0-36.0); Mean Corpuscular Hemoglobin 24.9 pg (27.0-31.0); Mean Platelet Volume 8.4 fl (9.2-11.8); Platelet Count Result 408 K/mm3 (150-420); Red Blood Count 4.09 M/mm3 (4.20-5.40); Red Cell Distribution Width 14.5 % (11.6-14.4); White Blood Count 7.8 K/mm3 (4.8-10.8)
[2021-04-16 05:45] LABS: Anion Gap 9 mmol/L (8-16); Blood Urea Nitrogen 11 mg/dL (7-18); Calcium 8.8 mg/dL (8.5-10.1); Carbon Dioxide 24 mmol/L (21-32); Chloride 92 mmol/L (98-108); Estimated CRCL calculation 39 ml/min; Estimated Glomerular Filt Rate > 60; Glucose 85 mg/dL (70-99); Osmolality Calculated 258 mOsm/kg (285-295); Potassium 4.1 mmol/L (3.5-5.1); Sodium 125 mmol/L (136-145)
[2021-04-16 07:30] VITALS: BP 97/77; PULSE 71; RESP 18; TEMP 37; O2SAT 99
[2021-04-16] MEDS: predniSONE 5 MG TABLET PO (08:33)
[2021-04-16] MEDS: DOCUSATE SODIUM 100 MG CAPSULE PO (08:33)
[2021-04-16] MEDS: FERROUS GLUCONATE 324 MG TABLET PO (08:33)
[2021-04-16] MEDS: CLOPIDOGREL BISULFATE 75 MG TABLET PO (08:33)
[2021-04-16] MEDS: HYDROXYCHLOROQUINE SULFATE 200 MG TABLET PO ×2 (08:33→16:48)
[2021-04-16] MEDS: lisinopriL 10 MG TABLET PO (08:33)
[2021-04-16] MEDS: SODIUM CHLORIDE 1 GM TABLET PO ×2 (08:33→16:48)
[2021-04-16] MEDS: ASPIRIN 81 MG ENTERIC TABLET PO (08:34)
[2021-04-16] MEDS: HYDROcodone/acetaminophen (*CRX) 5-325 MG TABLET 1 TAB PO (12:08)
[2021-04-16] MEDS: MEGESTROL ACETATE (*CHEMO) 40 MG TABLET 20 MG PO (12:09)
--- NOTE | 2021-04-16 12:09 | PM.EVENT ---
Event Note Event Note Event Note: Reviewed labs this AM to follow Electrolytes. I had placed this Pt on Sodium Tabs 1 gm BID a few days earlier. However, come to find out the Pt has a very poor appetite with last reported intake of 15% of her meal. Current NaCl is 125 and 92. Her diet is Regular along with the 1 mg Sodium tabs BID. Will start Pt on Megace and requested staff physical therapist to encourage Pt to eat.
[2021-04-16 16:00] VITALS: BP 107/52; PULSE 70; RESP 18; TEMP 37.1; O2SAT 98
[2021-04-16] MEDS: ACETAMINOPHEN 325 MG TABLET 650 MG PO (20:26)
[2021-04-16] MEDS: ENOXAPARIN 40 MG/0.4 ML SYRINGE SUB-Q (20:28)
[2021-04-16] MEDS: SENNA/DOCUSATE SODIUM TABLET 1 TAB PO (20:28)
[2021-04-17] VITALS: BP 109/58; PULSE 66; RESP 18; TEMP 37; O2SAT 98
[2021-04-17] MEDS: ACETAMINOPHEN 325 MG TABLET 650 MG PO (06:03)
[2021-04-17 08:00] VITALS: BP 118/58; PULSE 68; RESP 16; TEMP 37.1; O2SAT 98
[2021-04-17] MEDS: MEGESTROL ACETATE (*CHEMO) 40 MG TABLET 20 MG PO (09:12)
[2021-04-17] MEDS: CLOPIDOGREL BISULFATE 75 MG TABLET PO (09:12)
[2021-04-17] MEDS: HYDROXYCHLOROQUINE SULFATE 200 MG TABLET PO ×2 (09:12→16:46)
[2021-04-17] MEDS: lisinopriL 10 MG TABLET PO (09:12)
[2021-04-17] MEDS: predniSONE 5 MG TABLET PO (09:12)
[2021-04-17] MEDS: SODIUM CHLORIDE 1 GM TABLET PO ×2 (09:12→16:47)
[2021-04-17] MEDS: FERROUS GLUCONATE 324 MG TABLET PO (09:12)
[2021-04-17] MEDS: DOCUSATE SODIUM 100 MG CAPSULE PO (09:12)
[2021-04-17] MEDS: ASPIRIN 81 MG ENTERIC TABLET PO (09:12)
[2021-04-17] MEDS: HYDROcodone/acetaminophen (*CRX) 5-325 MG TABLET 1 TAB PO ×3 (09:12→20:37)
[2021-04-17 16:00] VITALS: BP 119/62; PULSE 72; RESP 18; TEMP 36.9; O2SAT 98
[2021-04-17] MEDS: SENNA/DOCUSATE SODIUM TABLET 1 TAB PO (20:37)
[2021-04-17] MEDS: ENOXAPARIN 40 MG/0.4 ML SYRINGE SUB-Q (20:37)
[2021-04-18] VITALS: BP 101/56; PULSE 64; RESP 18; TEMP 37.1; O2SAT 98
[2021-04-18 07:35] VITALS: BP 111/56; PULSE 68; RESP 16; TEMP 36.9; O2SAT 100
--- NOTE | 2021-04-18 07:36 | PM.EVENT ---
Event Note Event Note Event Note: Meal consumption on 04/17/21 Breakfast 20%, Lunch 50%, Dinner 70%. Megace was started a couple days ago. Pt was having decreased appetite and decreased electrolytes.
[2021-04-18] MEDS: HYDROXYCHLOROQUINE SULFATE 200 MG TABLET PO ×2 (08:24→17:54)
[2021-04-18] MEDS: CLOPIDOGREL BISULFATE 75 MG TABLET PO (08:24)
[2021-04-18] MEDS: FERROUS GLUCONATE 324 MG TABLET PO (08:24)
[2021-04-18] MEDS: predniSONE 5 MG TABLET PO (08:24)
[2021-04-18] MEDS: MEGESTROL ACETATE (*CHEMO) 40 MG TABLET 20 MG PO (08:24)
[2021-04-18] MEDS: ASPIRIN 81 MG ENTERIC TABLET PO (08:24)
[2021-04-18] MEDS: SODIUM CHLORIDE 1 GM TABLET PO ×2 (08:24→17:54)
[2021-04-18] MEDS: DOCUSATE SODIUM 100 MG CAPSULE PO (08:25)
[2021-04-18] MEDS: HYDROcodone/acetaminophen (*CRX) 5-325 MG TABLET 1 TAB PO ×2 (08:25→21:02)
[2021-04-18] MEDS: lisinopriL 10 MG TABLET PO (08:25)
--- NOTE | 2021-04-18 13:09 | PCOTNOTE ---
On 04/18/21, the student, [ Namita Boone], provided care and completed [facility] documentation on this patient. I have reviewed the student's documentation and agree with the findings.
[2021-04-18 16:00] VITALS: BP 110/54; PULSE 66; RESP 20; TEMP 37.1; O2SAT 98
[2021-04-18] MEDS: SENNA/DOCUSATE SODIUM TABLET 1 TAB PO (20:15)
[2021-04-18] MEDS: ENOXAPARIN 40 MG/0.4 ML SYRINGE SUB-Q (20:15)
[2021-04-18 23:51] VITALS: BP 114/55; PULSE 70; RESP 16; TEMP 37.3; O2SAT 99
[2021-04-19 06:17] LABS: Hematocrit 32.3 % (35.0-42.0); Hemoglobin 10.3 g/dL (11.7-13.8); Mean Corpuscular HGB Conc 31.9 g/dL (32.0-36.0); Mean Corpuscular Hemoglobin 25.5 pg (27.0-31.0); Mean Platelet Volume 8.3 fl (9.2-11.8); Platelet Count Result 456 K/mm3 (150-420); Red Blood Count 4.04 M/mm3 (4.20-5.40); Red Cell Distribution Width 14.8 % (11.6-14.4); White Blood Count 10.2 K/mm3 (4.8-10.8)
[2021-04-19 06:25] LABS: Anion Gap 7 mmol/L (8-16); Blood Urea Nitrogen 13 mg/dL (7-18); Calcium 9.1 mg/dL (8.5-10.1); Carbon Dioxide 25 mmol/L (21-32); Chloride 96 mmol/L (98-108); Estimated CRCL calculation 50 ml/min; Estimated Glomerular Filt Rate > 60; Glucose 89 mg/dL (70-99); Osmolality Calculated 265 mOsm/kg (285-295); Sodium 128 mmol/L (136-145)
[2021-04-19 08:00] VITALS: BP 122/69; PULSE 78; RESP 18; TEMP 37.1; O2SAT 98
[2021-04-19] MEDS: FERROUS GLUCONATE 324 MG TABLET PO (08:35)
[2021-04-19] MEDS: predniSONE 5 MG TABLET PO (08:35)
[2021-04-19] MEDS: ASPIRIN 81 MG ENTERIC TABLET PO (08:35)
[2021-04-19] MEDS: MEGESTROL ACETATE (*CHEMO) 40 MG TABLET 20 MG PO (08:35)
[2021-04-19] MEDS: SODIUM CHLORIDE 1 GM TABLET PO ×2 (08:35→16:39)
[2021-04-19] MEDS: DOCUSATE SODIUM 100 MG CAPSULE PO (08:35)
[2021-04-19] MEDS: CLOPIDOGREL BISULFATE 75 MG TABLET PO (08:35)
[2021-04-19] MEDS: lisinopriL 10 MG TABLET PO (08:35)
[2021-04-19] MEDS: HYDROXYCHLOROQUINE SULFATE 200 MG TABLET PO ×2 (08:35→16:39)
--- NOTE | 2021-04-19 13:54 | PCOTNOTE ---
On 04/19/21, the student, [ Namita Boone ], provided care and completed [facility] documentation on this patient. I have reviewed the student's documentation and agree with the findings.
--- NOTE | 2021-04-19 14:07 | PC.NURSE ---
pt resting in bed, denies any needs at this time, belongings within reach
[2021-04-19 16:00] VITALS: BP 116/61; PULSE 77; RESP 18; TEMP 36.9; O2SAT 98
[2021-04-19] MEDS: ENOXAPARIN 40 MG/0.4 ML SYRINGE SUB-Q (20:33)
[2021-04-19] MEDS: SENNA/DOCUSATE SODIUM TABLET 1 TAB PO (20:33)
[2021-04-20] VITALS: BP 104/52; PULSE 72; RESP 16; TEMP 36.5; O2SAT 98
[2021-04-20 08:00] VITALS: BP 115/62; PULSE 82; RESP 18; TEMP 37.2; O2SAT 100
--- NOTE | 2021-04-20 08:17 | PCOTNOTE ---
On 04/20/21, the student, [Namita Boone ], provided care and completed [facility] documentation on this patient. I have reviewed the student's documentation and agree with the findings.
[2021-04-20] MEDS: SODIUM CHLORIDE 1 GM TABLET PO ×2 (08:25→16:43)
[2021-04-20] MEDS: CLOPIDOGREL BISULFATE 75 MG TABLET PO (08:26)
[2021-04-20] MEDS: lisinopriL 10 MG TABLET PO (08:26)
[2021-04-20] MEDS: FERROUS GLUCONATE 324 MG TABLET PO (08:26)
[2021-04-20] MEDS: predniSONE 5 MG TABLET PO (08:26)
[2021-04-20] MEDS: MEGESTROL ACETATE (*CHEMO) 40 MG TABLET 20 MG PO (08:26)
[2021-04-20] MEDS: DOCUSATE SODIUM 100 MG CAPSULE PO (08:26)
[2021-04-20] MEDS: ASPIRIN 81 MG ENTERIC TABLET PO (08:26)
[2021-04-20] MEDS: HYDROXYCHLOROQUINE SULFATE 200 MG TABLET PO ×2 (08:26→16:43)
--- NOTE | 2021-04-20 09:34 | WPDPN ---
Progress Note: A&P Assessment and Plan (1) Weakness: Code(s): R53.1 - Weakness <Daphne Mccarthy DYLON-C - Last Filed: 04/20/21 09:37> Status: Acute <Daphne Mccarthy DYLON-C - Last Filed: 04/20/21 09:37> Assessment and Plan: ? Exhibit tolerance during physical activity as evidenced by a normal fluctuation of vital signs during physical activity. ? Patient will be ability to perform required activities of daily living. ? Provide appropriate nutrition for healing and strength. ? Use appropriate to prevent falls. ? Continue physical therapy/occupational therapy. <Daphne Mccarthy ATTENDANT [employer]PER[employer] LAUNDRY-C - Last Filed: 04/20/21 09:37> (2) Bilateral pubic rami fractures: Code(s): S32.591A - Other specified fracture of right pubis, initial encounter for closed fracture; S32.592A - Other specified fracture of left pubis, initial encounter for closed fracture <Daphne Mccarthy ATTENDANT [employer]UN[employer]Y-C - Last Filed: 04/20/21 09:37> Status: Acute <Daphne Mccarthy ATTEND[employer]Y-C - Last Filed: 04/20/21 09:37> Assessment and Plan: Status post fall Hip x-ray indicate Bilateral inferior pubic rami fractures. PT OT evaluation ordered Control pain <Daphne Mccarthy DYLON-C - Last Filed: 04/20/21 09:37> (3) Fall: Code(s): W19.XXXA - Unspecified fall, initial encounter <Daphne Mccarthy ATTENDANT [employer]UN[employer]Y-C - Last Filed: 04/20/21 09:37> Status: Acute <Daphne Mccarthy ATTEND[employer]Y-C - Last Filed: 04/20/21 09:37> Assessment and Plan: Order PT OT CT of the head and spine negative for fracture or dislocation Hip x-ray indicate bilateral pelvis fracture <Daphne Mccarthy ATTENDANT [employer]-C - Last Filed: 04/20/21 09:37> (4) Hypertension: Code(s): I10 - Essential (primary) hypertension <Daphne Mccarthy ATTENDANT [employer]UN[employer]-C - Last Filed: 04/20/21 09:37> Status: Acute <Daphne Mccarthy ATTEND[employer]-C - Last Filed: 06/16/21 09:37> Assessment and Plan: Stable Continue quinapril 10 mg p.o. daily Vital signs as ordered Will adjust medication as needed <FRED Estrada - Last Filed: 04/20/21 09:37> (5) Acute hyponatremia: Code(s): E87.1 - Hypo-osmolality and hyponatremia <FRED Estrada - Last Filed: 04/20/21 09:37> Status: Acute <FRED Estrada - Last Filed: 04/20/21 09:37> Assessment and Plan: Chronic 128 baseline between 128 and 133 Will continue to monitor and supplement <FRED Estrada - Last Filed: 04/20/21 09:37> (6) Anemia: Code(s): D64.9 - Anemia, unspecified <FRED Estrada - Last Filed: 04/20/21 09:37> Status: Acute <FRED Estrada - Last Filed: 04/20/21 09:37> Assessment and Plan: Hemoglobin and hematocrit stable baseline hemoglobin between 9-10 No active bleeding noted Continue iron supplement We will continue to monitor <FRED Estrada - Last Filed: 04/20/21 09:37> Review of Systems Review of Systems: Narrative: A 14 organ system Review of Systems was performed and pertinent positives included in the HPI, otherwise remaining ROS is negative. <FRED Estrada - Last Filed: 04/20/21 09:37> Exam Narrative: Exam Narrative: Exam Narrative: GENERAL: Frail fatigued elderly female in no apparent distress. HEAD: normocephalic, atraumatic. EYES: PERRL. Sclera clear/white. Vision is grossly intact. EARS: External ears normal, auditory canals clear and without drainage, TMs normal without perforation. Hearing grossly intact. NOSE: External nose normal with no obvious nasal discharge, nares without redness, no rhinorrhea. THROAT: Mucous membranes moist, posterior pharynx clear. NECK: Neck supple, non-tender without lymphadenopathy, masses or thyromegaly. CARDIOVASCULAR: Regular rate and rhythm without murmurs, gallops, or rubs. RESPIRATORY: Clear to auscultation. Breath sounds equal bilaterally. No wheezes, rales, or rhonchi. GASTROINTESTINAL: Abdomen soft, non
--- NOTE | 2021-04-20 10:14 | PC.NURSE ---
pt resting in bed watching tv, denies any needs at this time
[2021-04-20] MEDS: ACETAMINOPHEN 325 MG TABLET 650 MG PO (14:08)
[2021-04-20 15:32] VITALS: BP 109/53; PULSE 70; RESP 16; TEMP 37.1; O2SAT 98
[2021-04-20] MEDS: SENNA/DOCUSATE SODIUM TABLET 1 TAB PO (20:33)
[2021-04-20] MEDS: ENOXAPARIN 40 MG/0.4 ML SYRINGE SUB-Q (20:33)
[2021-04-20] MEDS: HYDROcodone/acetaminophen (*CRX) 5-325 MG TABLET 1 TAB PO (20:33)
[2021-04-21 00:11] VITALS: BP 112/52; PULSE 68; RESP 20; TEMP 36.8; O2SAT 100
[2021-04-21 08:00] VITALS: BP 120/50; PULSE 64; RESP 18; TEMP 36.6; O2SAT 98
[2021-04-21] MEDS: FERROUS GLUCONATE 324 MG TABLET PO (08:28)
[2021-04-21] MEDS: CLOPIDOGREL BISULFATE 75 MG TABLET PO (08:28)
[2021-04-21] MEDS: predniSONE 5 MG TABLET PO (08:28)
[2021-04-21] MEDS: DOCUSATE SODIUM 100 MG CAPSULE PO (08:28)
[2021-04-21] MEDS: SODIUM CHLORIDE 1 GM TABLET PO ×2 (08:28→17:17)
[2021-04-21] MEDS: HYDROXYCHLOROQUINE SULFATE 200 MG TABLET PO ×2 (08:29→17:17)
[2021-04-21] MEDS: lisinopriL 10 MG TABLET PO (08:29)
[2021-04-21] MEDS: MEGESTROL ACETATE (*CHEMO) 40 MG TABLET 20 MG PO (08:29)
[2021-04-21] MEDS: ASPIRIN 81 MG ENTERIC TABLET PO (08:29)
[2021-04-21] MEDS: HYDROcodone/acetaminophen (*CRX) 5-325 MG TABLET 1 TAB PO (12:52)
[2021-04-21 16:00] VITALS: BP 120/54; PULSE 78; RESP 20; TEMP 36.4; O2SAT 98
[2021-04-21] MEDS: SENNA/DOCUSATE SODIUM TABLET 1 TAB PO (20:44)
[2021-04-21] MEDS: ENOXAPARIN 40 MG/0.4 ML SYRINGE SUB-Q (20:44)
[2021-04-22] VITALS: BP 123/61; PULSE 73; RESP 18; TEMP 37.3; O2SAT 99
[2021-04-22 08:00] VITALS: BP 101/61; PULSE 76; RESP 12; TEMP 37.1; O2SAT 97
[2021-04-22] MEDS: SODIUM CHLORIDE 1 GM TABLET PO ×2 (08:10→17:10)
[2021-04-22] MEDS: ASPIRIN 81 MG ENTERIC TABLET PO (08:11)
[2021-04-22] MEDS: CLOPIDOGREL BISULFATE 75 MG TABLET PO (08:11)
[2021-04-22] MEDS: FERROUS GLUCONATE 324 MG TABLET PO (08:11)
[2021-04-22] MEDS: MEGESTROL ACETATE (*CHEMO) 40 MG TABLET 20 MG PO (08:11)
[2021-04-22] MEDS: lisinopriL 10 MG TABLET PO (08:11)
[2021-04-22] MEDS: HYDROcodone/acetaminophen (*CRX) 5-325 MG TABLET 1 TAB PO (08:12)
[2021-04-22] MEDS: DOCUSATE SODIUM 100 MG CAPSULE PO (08:12)
[2021-04-22] MEDS: predniSONE 5 MG TABLET PO (08:12)
[2021-04-22] MEDS: HYDROXYCHLOROQUINE SULFATE 200 MG TABLET PO ×2 (08:12→17:10)
--- NOTE | 2021-04-22 10:14 | WPDPN ---
Objective Data Vital Signs Vital Signs: Vital Signs - 24 hr 04/21/21 16:00 04/22/21 00:00 04/22/21 08:00 Temperature 97.6 F 99.2 F 98.8 F Pulse Rate 78 73 76 Respiratory Rate 20 18 12 Blood Pressure 120/54 L 123/61 101/61 Pulse Oximetry 98 99 97 Intake/Output Intake/Output: Intake & Output 04/19/21 04/20/21 04/21/21 04/22/21 23:59 23:59 23:59 23:59 Intake Total 660 750 960 440 Output Total 200 500 Balance 460 250 960 440 Meds/Results Medications: Active Medications Generic Name Dose Route Start Last Admin Trade Name Freq PRN Reason Stop Dose Admin Acetaminophen 650 mg 04/07/21 11:48 04/20/21 14:08 Acetaminophen 325 Mg Tablet PO 650 mg Q4H PRN Administration Mild Pain (1-3) Or Fever Hydrocodone Bitart/Acetaminophen 1 tab 04/07/21 11:48 04/22/21 08:12 Hydrocodone/Acetaminophen (*Crx) 5-325 Mg Tablet PO 1 tab Q4H PRN Administration pain (scale score 7-10) Aspirin 81 mg 04/08/21 09:00 04/22/21 08:11 Aspirin 81 Mg Enteric Tablet PO 81 mg QAM HILARY Administration Clopidogrel Bisulfate 75 mg 04/08/21 09:00 04/22/21 08:11 Clopidogrel Bisulfate 75 Mg Tablet PO 75 mg DAILY HILARY Administration Diphenhydramine HCl 25 mg 04/07/21 11:48 Diphenhydramine Hcl Cap 25 Mg Capsule PO HS PRN Itching Docusate Sodium 100 mg 04/09/21 09:00 04/22/21 08:12 Docusate Sodium 100 Mg Capsule PO 100 mg DAILY HILARY Administration Enoxaparin Sodium 40 mg 04/07/21 21:00 04/21/21 20:44 Enoxaparin 40 Mg/0.4 Ml Syringe SUB-Q 40 mg Q24H HILARY Administration Ferrous Gluconate 324 mg 04/08/21 09:00 04/22/21 08:11 Ferrous Gluconate 324 Mg Tablet PO 324 mg DAILY HILARY Administration Hydroxychloroquine Sulfate 200 mg 04/07/21 17:00 04/22/21 08:12 Hydroxychloroquine Sulfate 200 Mg Tablet PO 200 mg BID HILARY Administration Hydroxyzine HCl 25 mg 04/07/21 11:50 Hydroxyzine Hcl 25 Mg Tablet PO HS PRN Itching Lisinopril 10 mg 04/08/21 09:00 04/22/21 08:11 Lisinopril 10 Mg Tablet PO 10 mg QAM HILARY Administration Lorazepam 0.5 mg 04/07/21 11:49 Lorazepam (*Crx) 0.5 Mg Tablet PO Q6H PRN Anxiety Megestrol Acetate 20 mg 04/17/21 09:00 04/22/21 08:11 Megestrol Acetate (*Chemo) 40 Mg Tablet PO 20 mg QAM HILARY Administration Polyethylene Glycol 17 gm 04/09/21 08:28 04/10/21 08:27 Polyethylene Glycol 3350 17 Gm Powd.Pack PO 17 gm DAILY PRN Administration Constipation Prednisone 5 mg 04/08/21 09:00 04/22/21 08:12 Prednisone 5 Mg Tablet PO 5 mg DAILY HILARY Administration Senna/Docusate Sodium 1 tab 04/09/21 21:00 04/21/21 20:44 Senna/Docusate Sodium Tablet PO 1 tab HS HILARY Administration Sodium Chloride 1 gm 04/13/21 09:00 04/22/21 08:10 Sodium Chloride 1 Gm Tablet PO 1 gm BID HILARY Administration Tramadol HCl 25 mg 04/07/21 11:49 04/13/21 16:46 Tramadol Hcl (*Crx) 25 Mg Tablet PO 25 mg Q6H PRN Administration Pain Rated 4-6 Quality VTE Prophylaxis VTE prophylaxis: pharmacologic ordered (Lovenox) Subjective Date/time seen: 04/22/21 10:14
--- NOTE | 2021-04-22 11:02 | PC.NURSE ---
Checked on patient, patient sleeping in chair, patient comfortable
[2021-04-22 14:07] LABS: Add Urine Microscopic? YES; Appearance Urine Cloudy (Clear); Bilirubin Urine Negative (Negative); Blood Urine Negative (Negative); Color Urine Light Yellow (Yellow); Glucose Urine UA Negative (Negative); Ketones Urine Negative (Negative); Leukocyte Esterase Ur 1+ LEU/UL (Negative); Nitrate Urine Negative (Negative); Protein Urine Negative (Negative); Specific Grav Ur >= 1.030 (1.010-1.020); Urobilinogen Urine 0.2 mg/dL (0.2-1.0)
[2021-04-22 14:12] LABS: RBC Urine 0-2 /hpf (0-2)
[2021-04-22 14:13] LABS: Amorphous Sediment Urine Moderate; Bacteria Urine 4+ /hpf; Squamous Epithelial Cell Urine None seen /hpf (Few)
[2021-04-22 15:10] VITALS: BP 104/59; PULSE 71; RESP 18; TEMP 37; O2SAT 98
--- NOTE | 2021-04-22 18:03 | PC.NURSE ---
Pt. assisted back to bed p eating dinner. No c/o call light in reach.
[2021-04-22] MEDS: SENNA/DOCUSATE SODIUM TABLET 1 TAB PO (21:14)
[2021-04-22] MEDS: CEPHALEXIN 500 MG CAPSULE PO (21:14)
[2021-04-22] MEDS: ENOXAPARIN 40 MG/0.4 ML SYRINGE SUB-Q (21:14)
[2021-04-23] VITALS: BP 118/55; PULSE 67; RESP 18; TEMP 36.9; O2SAT 100
[2021-04-23] MEDS: ACETAMINOPHEN 325 MG TABLET 650 MG PO (05:10)
--- NOTE | 2021-04-23 07:34 | PM.DS ---
DS: Admitting Diagnosis Admitting Diagnosis Admitting Diagnosis: Rehab ,generalized weakness ,debility bilateral pubic fracture <Reaganlucila TinyDYLON Reeder-C - Last Filed: 04/23/21 13:17> DS: Discharge Diagnosis Discharge Diagnosis (1) Weakness: Code(s): R53.1 - Weakness <Daphne Snyder DYLON Mccarthy-C - Last Filed: 04/23/21 13:17> Status: Acute <Reaganlucila Lillian DYLON Mccarthy-C - Last Filed: 04/23/21 13:17> Assessment and Plan: Patient will discharge to SNF day of discharge she ambulates CGA x40 feet <ReaganMILANA McdonaldP-C - Last Filed: 04/23/21 13:17> (2) Bilateral pubic rami fractures: Code(s): S32.591A - Other specified fracture of right pubis, initial encounter for closed fracture; S32.592A - Other specified fracture of left pubis, initial encounter for closed fracture <MILANA EstradaP-C - Last Filed: 04/23/21 13:17> Status: Acute <Reaganlucila TinyMILANA ReederP-C - Last Filed: 04/23/21 13:17> Assessment and Plan: Status post fall Hip x-ray indicate Bilateral inferior pubic rami fractures. Control pain <DYLON Estrada-C - Last Filed: 04/23/21 13:17> (3) Fall: Code(s): W19.XXXA - Unspecified fall, initial encounter <DYLON Estrada-C - Last Filed: 04/23/21 13:17> Status: Acute <Daphne TinyDYLON Reeder-C - Last Filed: 04/23/21 13:17> Assessment and Plan: CT of the head and spine negative for fracture or dislocation Hip x-ray indicate bilateral pelvis fracture <DYLON Estrada-C - Last Filed: 04/23/21 13:17> (4) Hypertension: Code(s): I10 - Essential (primary) hypertension <MILANA EstradaP-C - Last Filed: 04/23/21 13:17> Status: Acute <MILANA EstradaP-C - Last Filed: 04/23/21 13:17> Assessment and Plan: Stable Continue quinapril 10 mg p.o. daily Vital signs as ordered Will adjust medication as needed <ReaganDYLON McdonaldPedroNicholas - Last Filed: 04/23/21 13:17> (5) Acute hyponatremia: Code(s): E87.1 - Hypo-osmolality and hyponatremia <FRED Estrada - Last Filed: 04/23/21 13:17> Status: Acute <Daphne FranksWill Mccarthy FRED - Last Filed: 04/23/21 13:17> Assessment and Plan: Chronic 128 >131 baseline between 128 and 133 Will continue to monitor and supplement <DYLON EstradaPedroNicholas - Last Filed: 04/23/21 13:17> (6) Anemia: Code(s): D64.9 - Anemia, unspecified <Daphne Mccarthy FRED - Last Filed: 04/23/21 13:17> Status: Acute <Daphne Mccarthy FRED - Last Filed: 04/23/21 13:17> Assessment and Plan: Hemoglobin and hematocrit stable baseline hemoglobin between 9-10 No active bleeding noted Continue iron supplement We will continue to monitor <Reaganlucila Mccarthy FRED - Last Filed: 04/23/21 13:17> DS: Summary Hospital Course Reason for hospitalization: this is a 85-year-old female that presented to our ED status post fall with a bilateral pubic fracture. Patient has a past medical history of osteoporosis arthritis, rheumatoid arthritis, hypertension, hyponatremia, anemia, TIA/CVA,. Patient lives in [facility] living home and attempted to stand up with her arms in the air when she felt lightheaded and fell, patient does not feel as if she is ready to go home to the assisted living alone so she will transition to SNF for more PT OT. Patient notes that her pain is better controlled and she does admit that her condition has improved. The patient denies SOB, CP, palpitation, extremity numbness, lightheadedness, dizziness, constipation, diarrhea, chills, or fever. This day of discharge patient completed our rehab program ,patient able to ambulate CGA x40 feet Time spent 60-minute. <FRED Estrada - Last Filed: 04/23/21 13:17> Hospital Course: Rehab <FRED Estrada - Last Filed: 04/23/21 13:17> Time Spent with Patient Time attestation: Total time spe
[2021-04-23 07:44] LABS: Hematocrit 31.9 % (35.0-42.0); Hemoglobin 10.3 g/dL (11.7-13.8); Mean Corpuscular HGB Conc 32.3 g/dL (32.0-36.0); Mean Corpuscular Hemoglobin 26.1 pg (27.0-31.0); Platelet Count Result 424 K/mm3 (150-420); Red Blood Count 3.94 M/mm3 (4.20-5.40); Red Cell Distribution Width 14.9 % (11.6-14.4); White Blood Count 8.4 K/mm3 (4.8-10.8)
[2021-04-23 07:56] LABS: Alanine Aminotransferase 13 U/L (14-59); Albumin Level 2.9 g/dL (3.4-5.0); Alkaline Phosphatase 236 U/L (46-116); Anion Gap 9 mmol/L (8-16); Aspartate Amino Transferase 19 U/L (15-37); Bilirubin,Total 0.2 mg/dL (0.00-1.00); Blood Urea Nitrogen 13 mg/dL (7-18); Calcium 8.9 mg/dL (8.5-10.1); Carbon Dioxide 23 mmol/L (21-32); Chloride 99 mmol/L (98-108); Estimated CRCL calculation 43 ml/min; Estimated Glomerular Filt Rate > 60; Glucose 91 mg/dL (70-99); Osmolality Calculated 272 mOsm/kg (285-295); Potassium 4.1 mmol/L (3.5-5.1); Sodium 131 mmol/L (136-145); Total Protein 5.5 g/dL (6.4-8.2)
[2021-04-23 08:00] VITALS: BP 126/63; PULSE 64; RESP 16; TEMP 37.2; O2SAT 100
[2021-04-23] MEDS: SODIUM CHLORIDE 1 GM TABLET PO (09:59)
[2021-04-23] MEDS: lisinopriL 10 MG TABLET PO (10:00)
[2021-04-23] MEDS: DOCUSATE SODIUM 100 MG CAPSULE PO (10:00)
[2021-04-23] MEDS: ASPIRIN 81 MG ENTERIC TABLET PO (10:00)
[2021-04-23] MEDS: HYDROXYCHLOROQUINE SULFATE 200 MG TABLET PO (10:00)
[2021-04-23] MEDS: MEGESTROL ACETATE (*CHEMO) 40 MG TABLET 20 MG PO (10:00)
[2021-04-23] MEDS: FERROUS GLUCONATE 324 MG TABLET PO (10:01)
[2021-04-23] MEDS: CLOPIDOGREL BISULFATE 75 MG TABLET PO (10:01)
[2021-04-23] MEDS: CEPHALEXIN 500 MG CAPSULE PO (10:01)
[2021-04-23] MEDS: predniSONE 5 MG TABLET PO (10:01)
--- NOTE | 2021-04-23 14:43 | PC.NURSE ---
Pt discharged to [facility] in [facility]. RN called report to Makenna. Family here with pt. All pt property returned. Discharge instructions given to pt an family. Questions answered.
--- NOTE | 2021-04-26 10:43 | PC.NURSE ---
shelter nurse states they received and understood the discharge instructions.
== END 2021-04-23 14:00 | DRG 560 ==
PROVIDERS: Nurse Practitioner; Nurse Practitioner Family; Admitting Provider Emergency Medicine; PCP Internal Medicine; Visit Provider Emergency Medicine
DX: S32.592D Other specified fracture of left pubis, subsequent encounter for fracture with routine healing (principal); E87.1 Hypo-osmolality and hyponatremia; N39.0 Urinary tract infection, site not specified; T83.511A Infection and inflammatory reaction due to indwelling urethral catheter, initial encounter; S32.591D Other specified fracture of right pubis, subsequent encounter for fracture with routine healing; R53.1 Weakness; I10 Essential (primary) hypertension; D64.9 Anemia, unspecified; E55.9 Vitamin D deficiency, unspecified; M81.0 Age-related osteoporosis without current pathological fracture; M47.22 Other spondylosis with radiculopathy, cervical region; M05.749 Rheumatoid arthritis with rheumatoid factor of unspecified hand without organ or systems involvement; W19.XXXD Unspecified fall, subsequent encounter; Z86.73 Personal history of transient ischemic attack (TIA), and cerebral infarction without residual deficits; Z90.49 Acquired absence of other specified parts of digestive tract; Z90.710 Acquired absence of both cervix and uterus
CPT/HCPCS: 36415; 80048; 80053; 81001; 85027; 87077; 87086; 87088; 97110; 97161; 97165; 97530; 97535; A9270; J1650; J7512

== ENCOUNTER 2021-05-03 06:34 | Outpatient (NON) | payer MEDICARE, SELFPAY ==
[2021-05-03 06:46] LABS: Add Urine Microscopic? NO; Appearance Urine Clear (Clear); Basophils Absolute Auto 0.05 K/mm3 (0.00-0.10); Basophils Percent Auto 0.5 % (0.0-1.0); Bilirubin Urine Negative (Negative); Blood Urine Negative (Negative); Color Urine Light Yellow (Yellow); Eosinophils Absolute Auto 0.19 K/mm3 (0.02-0.50); Eosinophils Percent Auto 1.8 % (1.0-6.0); Glucose Urine UA Negative (Negative); Hematocrit 32.3 % (35.0-42.0); Hemoglobin 10.2 g/dL (11.7-13.8); Immature Granulocyte Absolute 0.05 K/mm3 (0.00-0.00); Immature Granulocyte Percent A 0.5 % (0.0-0.0); Ketones Urine Negative (Negative); Leukocyte Esterase Ur Negative (Negative); Lymphocytes Absolute Auto 1.27 K/mm3 (1.10-4.50); Lymphocytes Percent Auto 12.2 % (18.0-42.0); Mean Corpuscular HGB Conc 31.6 g/dL (32.0-36.0); Mean Corpuscular Hemoglobin 25.4 pg (27.0-31.0); Mean Corpuscular Volume 80.5 fL (78.0-102.0); Mean Platelet Volume 8.7 fl (9.2-11.8); Monocytes Absolute Auto 1.19 K/mm3 (0.10-0.90); Monocytes Percent Auto 11.4 % (2.0-11.0); Neutrophils Absolute Auto 7.7 K/mm3 (1.7-7.2); Neutrophils Percent Auto 73.6 % (50.0-70.0); Nitrate Urine Negative (Negative); Platelet Count Result 382 K/mm3 (150-420); Protein Urine Negative (Negative); Red Blood Count 4.01 M/mm3 (4.20-5.40); Red Cell Distribution Width 15.6 % (11.6-14.4); Urobilinogen Urine 0.2 mg/dL (0.2-1.0); White Blood Count 10.4 K/mm3 (4.8-10.8)
[2021-05-03 07:01] LABS: Alanine Aminotransferase 19 U/L (14-59); Albumin Level 2.9 g/dL (3.4-5.0); Alkaline Phosphatase 215 U/L (46-116); Anion Gap 10 mmol/L (8-16); Aspartate Amino Transferase 17 U/L (15-37); Bilirubin,Total 0.2 mg/dL (0.00-1.00); Blood Urea Nitrogen 13 mg/dL (7-18); Carbon Dioxide 24 mmol/L (21-32); Chloride 98 mmol/L (98-108); Estimated Glomerular Filt Rate > 60; Glucose 86 mg/dL (70-99); Osmolality Calculated 273 mOsm/kg (285-295); Potassium 4.2 mmol/L (3.5-5.1); Sodium 132 mmol/L (136-145); Total Protein 5.4 g/dL (6.4-8.2)
[2021-05-06 10:34] LABS: Parathyroid Intact 25 pg/mL (14-64)
== END 2021-05-03 06:35 | disposition home or self-care (01) ==
LOC: CHSLAB 06:37
PROVIDERS: Visit Provider Internal Medicine
DX: D64.9 Anemia, unspecified (principal); I10 Essential (primary) hypertension; Z79.899 Other long term (current) drug therapy; N39.0 Urinary tract infection, site not specified
CPT/HCPCS: 36415; 80053; 81003; 83970; 85025; 87077; 87086; 87088; 87186

== ENCOUNTER 2021-05-03 13:27 | Outpatient (CLI) | payer MEDICARE, SELFPAY ==
[2021-05-03 14:00] VITALS: BMI 17.6
[2021-05-03] MEDS: DENOSUMAB 60 MG/ML SYRINGE SUB-Q (14:00)
[2021-05-03 14:01] VITALS: BP 136/71; PULSE 72; RESP 14; TEMP 36.7; O2SAT 98
--- NOTE | 2021-05-03 14:03 | PC.NURSE ---
Patient here for Prolia. Education on medication given. No concerns voiced. Prolia injection administered. Safe exit of hospital. Patient resident at [facility] at present. Hoping to get back to [place].
== END 2021-05-03 13:28 | disposition home or self-care (01) ==
LOC: CHSTREATRM 13:28
PROVIDERS: PCP Internal Medicine; Visit Provider Internal Medicine
DX: M81.0 Age-related osteoporosis without current pathological fracture (principal)
CPT/HCPCS: 96372; J0897

== ENCOUNTER 2021-06-02 06:34 | Outpatient (NON) | payer MEDICARE, SELFPAY ==
[2021-06-02 06:49] LABS: Basophils Absolute Auto 0.05 K/mm3 (0.00-0.10); Basophils Percent Auto 0.5 % (0.0-1.0); Eosinophils Percent Auto 0.9 % (1.0-6.0); Hemoglobin 11.1 g/dL (11.7-13.8); Immature Granulocyte Absolute 0.06 K/mm3 (0.00-0.00); Immature Granulocyte Percent A 0.5 % (0.0-0.0); Lymphocytes Absolute Auto 1.39 K/mm3 (1.10-4.50); Lymphocytes Percent Auto 12.7 % (18.0-42.0); Mean Corpuscular HGB Conc 31.7 g/dL (32.0-36.0); Mean Corpuscular Hemoglobin 26.4 pg (27.0-31.0); Mean Corpuscular Volume 83.1 fL (78.0-102.0); Mean Platelet Volume 8.2 fl (9.2-11.8); Monocytes Absolute Auto 1.38 K/mm3 (0.10-0.90); Monocytes Percent Auto 12.6 % (2.0-11.0); Neutrophils Percent Auto 72.8 % (50.0-70.0); Platelet Count Result 393 K/mm3 (150-420); Red Blood Count 4.21 M/mm3 (4.20-5.40); Red Cell Distribution Width 15.3 % (11.6-14.4)
[2021-06-02 07:11] LABS: Alanine Aminotransferase 14 U/L (14-59); Albumin Level 2.8 g/dL (3.4-5.0); Alkaline Phosphatase 116 U/L (46-116); Anion Gap 11 mmol/L (8-16); Aspartate Amino Transferase 17 U/L (15-37); Bilirubin,Total 0.2 mg/dL (0.00-1.00); Blood Urea Nitrogen 9 mg/dL (7-18); CRP 2.6 mg/dL (0.0-0.9); Calcium 8.7 mg/dL (8.5-10.1); Carbon Dioxide 28 mmol/L (21-32); Chloride 95 mmol/L (98-108); Estimated Glomerular Filt Rate > 60; Glucose 83 mg/dL (70-99); Osmolality Calculated 275 mOsm/kg (285-295); Potassium 4.3 mmol/L (3.5-5.1); Sodium 134 mmol/L (136-145); Total Protein 5.1 g/dL (6.4-8.2)
== END 2021-06-02 06:35 | disposition home or self-care (01) ==
LOC: CHSLAB 06:36
PROVIDERS: Visit Provider Internal Medicine
DX: R53.1 Weakness (principal); G45.9 Transient cerebral ischemic attack, unspecified; M81.0 Age-related osteoporosis without current pathological fracture; I10 Essential (primary) hypertension
CPT/HCPCS: 36415; 80053; 85025; 86140

== ENCOUNTER 2021-06-24 13:29 | Outpatient (NON) | payer MEDICARE, SELFPAY ==
[2021-06-24 13:50] LABS: Basophils Absolute Auto 0.05 K/mm3 (0.00-0.10); Basophils Percent Auto 0.4 % (0.0-1.0); Eosinophils Absolute Auto 0.09 K/mm3 (0.02-0.50); Eosinophils Percent Auto 0.7 % (1.0-6.0); Hematocrit 37.9 % (35.0-42.0); Hemoglobin 12.2 g/dL (11.7-13.8); Immature Granulocyte Absolute 0.08 K/mm3 (0.00-0.00); Immature Granulocyte Percent A 0.6 % (0.0-0.0); Lymphocytes Absolute Auto 0.94 K/mm3 (1.10-4.50); Lymphocytes Percent Auto 7.3 % (18.0-42.0); Mean Corpuscular HGB Conc 32.2 g/dL (32.0-36.0); Mean Corpuscular Hemoglobin 27.2 pg (27.0-31.0); Mean Corpuscular Volume 84.6 fL (78.0-102.0); Mean Platelet Volume 8.4 fl (9.2-11.8); Monocytes Absolute Auto 1.09 K/mm3 (0.10-0.90); Monocytes Percent Auto 8.4 % (2.0-11.0); Neutrophils Absolute Auto 10.7 K/mm3 (1.7-7.2); Neutrophils Percent Auto 82.6 % (50.0-70.0); Platelet Count Result 426 K/mm3 (150-420); Red Blood Count 4.48 M/mm3 (4.20-5.40); Red Cell Distribution Width 14.2 % (11.6-14.4)
[2021-06-24 14:08] LABS: Alanine Aminotransferase 19 U/L (14-59); Albumin Level 3.3 g/dL (3.4-5.0); Alkaline Phosphatase 102 U/L (46-116); Anion Gap 10 mmol/L (8-16); Aspartate Amino Transferase 24 U/L (15-37); Bilirubin,Total 0.4 mg/dL (0.00-1.00); Blood Urea Nitrogen 10 mg/dL (7-18); CRP 2.2 mg/dL (0.0-0.9); Carbon Dioxide 27 mmol/L (21-32); Chloride 99 mmol/L (98-108); Estimated Glomerular Filt Rate > 60; Glucose 149 mg/dL (70-99); Osmolality Calculated 284 mOsm/kg (285-295); Sodium 136 mmol/L (136-145); Total Protein 5.7 g/dL (6.4-8.2)
[2021-06-24 14:51] LABS: Add Urine Microscopic? NO; Appearance Urine Clear (Clear); Bilirubin Urine Negative (Negative); Blood Urine Negative (Negative); Color Urine Light Yellow (Yellow); Glucose Urine UA Negative (Negative); Ketones Urine Negative (Negative); Leukocyte Esterase Ur Negative (Negative); Nitrate Urine Negative (Negative); Protein Urine Negative (Negative); Urobilinogen Urine 0.2 mg/dL (0.2-1.0); pH Urine 8.5 (5.0-8.0)
== END 2021-06-24 13:30 | disposition home or self-care (01) ==
LOC: CHSLAB 13:35
PROVIDERS: Visit Provider Internal Medicine
DX: R53.83 Other fatigue (principal); N39.0 Urinary tract infection, site not specified; R11.10 Vomiting, unspecified
CPT/HCPCS: 36415; 80053; 81003; 85025; 86140; 87086

== ENCOUNTER 2021-07-02 06:45 | Outpatient (NON) | payer MEDICARE, SELFPAY ==
[2021-07-02 07:14] LABS: Basophils Absolute Auto 0.12 K/mm3 (0.00-0.10); Basophils Percent Auto 1.1 % (0.0-1.0); Eosinophils Absolute Auto 0.45 K/mm3 (0.02-0.50); Hematocrit 35.6 % (35.0-42.0); Hemoglobin 11.1 g/dL (11.7-13.8); Immature Granulocyte Absolute 0.06 K/mm3 (0.00-0.00); Immature Granulocyte Percent A 0.5 % (0.0-0.0); Lymphocytes Absolute Auto 1.42 K/mm3 (1.10-4.50); Lymphocytes Percent Auto 12.8 % (18.0-42.0); Mean Corpuscular HGB Conc 31.2 g/dL (32.0-36.0); Mean Corpuscular Hemoglobin 26.5 pg (27.0-31.0); Mean Platelet Volume 8.8 fl (9.2-11.8); Monocytes Absolute Auto 1.46 K/mm3 (0.10-0.90); Monocytes Percent Auto 13.1 % (2.0-11.0); Neutrophils Absolute Auto 7.6 K/mm3 (1.7-7.2); Neutrophils Percent Auto 68.5 % (50.0-70.0); Platelet Count Result 445 K/mm3 (150-420); Red Blood Count 4.19 M/mm3 (4.20-5.40); Red Cell Distribution Width 13.8 % (11.6-14.4); White Blood Count 11.1 K/mm3 (4.8-10.8)
[2021-07-02 07:25] LABS: Alanine Aminotransferase 19 U/L (14-59); Alkaline Phosphatase 85 U/L (46-116); Anion Gap 4 mmol/L (8-16); Aspartate Amino Transferase 21 U/L (15-37); Bilirubin,Total 0.2 mg/dL (0.00-1.00); Blood Urea Nitrogen 10 mg/dL (7-18); CRP 2.2 mg/dL (0.0-0.9); Calcium 8.8 mg/dL (8.5-10.1); Carbon Dioxide 29 mmol/L (21-32); Chloride 103 mmol/L (98-108); Estimated Glomerular Filt Rate > 60; Glucose 102 mg/dL (70-99); Osmolality Calculated 281 mOsm/kg (285-295); Potassium 4.2 mmol/L (3.5-5.1); Sodium 136 mmol/L (136-145); Total Protein 5.5 g/dL (6.4-8.2)
== END 2021-07-02 06:46 | disposition home or self-care (01) ==
LOC: CHSLAB 06:46
PROVIDERS: PCP Internal Medicine; Visit Provider Internal Medicine
DX: M81.0 Age-related osteoporosis without current pathological fracture (principal); G45.9 Transient cerebral ischemic attack, unspecified; I10 Essential (primary) hypertension
CPT/HCPCS: 36415; 80053; 85025; 86140

== ENCOUNTER 2021-07-12 15:54 | Outpatient (CLI) | payer MEDICARE, SELFPAY ==
--- NOTE | ~2021-07-12 | CT_ITS ---
EXAMINATION: CT brain wo con DATE: 07/12/2021 16:45 INDICATION: Mental status changes TECHNIQUE: Computed tomography (CT) of the head was performed without intravenous contrast. The dose- length product was 681.00 mGy-cm. Automated exposure control and iterative reconstruction technique w ere employed. COMPARISON: 04/04/2021 FINDINGS: There is a large parenchymal hemorrhage of the right frontal-temporal lobe with surrounding vasogenic edema. There is mild mass effect. No significant midline shift. No ventriculomegaly. There are scattered moderate periventricular and subcortical white matter changes, most likely related to small vessel ischemic disease (microangiopathy). There is a moderate size scalp hematoma at the right parietal vertex. No underlying depressed skull fracture. Basilar cisterns are patent. IMPRESSION: 1. Large right frontal-temporal lobe hemorrhage with surrounding vasogenic edema and mild mass effect . 2: Chronic age-related findings. Dr. Bartolo Teague discussed with Dr. Migel Su MD at 07/12/2021 16:52 CDT. Reviewed, dictated and finalized at location A. IMPRESSION: 1. Large right frontal-temporal lobe hemorrhage with surrounding vasogenic gisel a and mild mass effect. 2: Chronic age-related findings. Dr. Bartolo Teague discussed with Dr. Migel Su MD at 07/12/2021 16:52 CDT.
[2021-07-12 16:49] LABS: Basophils Absolute Auto 0.05 K/mm3 (0.00-0.10); Basophils Percent Auto 0.4 % (0.0-1.0); Eosinophils Absolute Auto 0.14 K/mm3 (0.02-0.50); Eosinophils Percent Auto 1.1 % (1.0-6.0); Hematocrit 33.7 % (35.0-42.0); Hemoglobin 10.5 g/dL (11.7-13.8); Immature Granulocyte Absolute 0.07 K/mm3 (0.00-0.00); Immature Granulocyte Percent A 0.6 % (0.0-0.0); Lymphocytes Absolute Auto 1.06 K/mm3 (1.10-4.50); Lymphocytes Percent Auto 8.4 % (18.0-42.0); Mean Corpuscular HGB Conc 31.2 g/dL (32.0-36.0); Mean Corpuscular Hemoglobin 27.1 pg (27.0-31.0); Mean Corpuscular Volume 86.9 fL (78.0-102.0); Mean Platelet Volume 9.1 fl (9.2-11.8); Monocytes Absolute Auto 1.28 K/mm3 (0.10-0.90); Monocytes Percent Auto 10.1 % (2.0-11.0); Neutrophils Absolute Auto 10.1 K/mm3 (1.7-7.2); Neutrophils Percent Auto 79.4 % (50.0-70.0); Platelet Count Result 400 K/mm3 (150-420); Red Blood Count 3.88 M/mm3 (4.20-5.40); Red Cell Distribution Width 13.9 % (11.6-14.4); White Blood Count 12.7 K/mm3 (4.8-10.8)
[2021-07-12 17:06] LABS: Alanine Aminotransferase 19 U/L (14-59); Alkaline Phosphatase 79 U/L (46-116); Anion Gap 5 mmol/L (8-16); Aspartate Amino Transferase 20 U/L (15-37); Bilirubin,Total 0.2 mg/dL (0.00-1.00); Blood Urea Nitrogen 26 mg/dL (7-18); Carbon Dioxide 29 mmol/L (21-32); Chloride 105 mmol/L (98-108); Estimated Glomerular Filt Rate > 60; Glucose 101 mg/dL (70-99); Osmolality Calculated 292 mOsm/kg (285-295); Potassium 4.1 mmol/L (3.5-5.1); Sodium 139 mmol/L (136-145); Total Protein 5.9 g/dL (6.4-8.2)
== END 2021-07-12 15:55 | disposition home or self-care (01) ==
LOC: CHSLAB 15:56
PROVIDERS: PCP Internal Medicine; Visit Provider Internal Medicine
DX: R41.82 Altered mental status, unspecified (principal)
CPT/HCPCS: 36415; 70450; 80053; 85025

== ENCOUNTER 2021-07-12 16:57 | Emergency (ER) | payer MEDICARE, SELFPAY ==
[2021-07-12] VITALS (7 sets, daily range): BP systolic 148–161; BP diastolic 73–92; PULSE 82–86; RESP 16–20; TEMP 36.5; O2SAT 96–100
--- NOTE | ~2021-07-12 | CT_ITS ---
EXAMINATION: CT cervical spine wo con DATE: 07/12/2021 22:27 INDICATION: Neck pain after recent fall TECHNIQUE: Computed tomography (CT) of the cervical spine was performed without intravenous contrast. The dose-length product was 102 mGy-cm. Automated exposure control and iterative reconstruction technique were employed. COMPARISON: CT dated 04/04/2021 FINDINGS: There is multilevel degenerative disc disease most advanced at C5-6 and C6-7. There is mode rate multilevel uncinate hypertrophy. Odontoid process within normal limits. There is severe multilev el facet hypertrophy, left greater than right. There is apical pleural thickening/scarring. There is carotid atherosclerosis. Craniovertebral junction within normal limits. No evidence for perched facet . Mild dextrocurvature of the cervical spine. IMPRESSION: 1. No acute abnormality of the cervical spine. 2: Severe cervical spondylosis. Reviewed, dictated and finalized at location A.
--- NOTE | 2021-07-12 17:06 | ED.HEATRA ---
HPI - Head Injury General Chief complaint: Head Injury Stated complaint: sent by doctor Time Seen by Provider: 07/13/21 07:33 Source: patient and RN notes reviewed Mode of arrival: wheelchair Limitations: no limitations History of Present Illness HPI Narrative: Patient had fallen 3 days ago. In then seemed to began having problems with mentation and balance. She went to her primary care physician who sent her over for CT scan and blood work. Consequently she was found have an intraparenchymal hemorrhage and she is sent here for further treatment and transfer to a neuro Center. Complaint: head injury Onset (ago): day(s) (3) Mechanism of Injury: fall Place: home Loss of Consciousness: unsure Location of injury: parietal Severity: moderate Quality: dull and aching Other Injuries: none Context: on aspirin and other anticoagulant use (plavix) Associated symptoms: confusion and other (headache) Related Data Home Medications Medication Instructions Recorded Confirmed ferrous gluconate 324 mg PO DAILY 04/04/21 07/12/21 prednisone 5 mg PO DAILY 04/04/21 07/12/21 acetaminophen [Mapap 650 mg PO Q6H PRN 07/12/21 07/12/21 (acetaminophen)] alum-mag hydroxide-simeth [Mylanta] 15 ml PO QID PRN 07/12/21 07/12/21 aspirin 81 mg PO DAILY 07/12/21 07/12/21 bisacodyl [Dulcolax (bisacodyl)] 10 mg RECTAL DAILY PRN 07/12/21 07/12/21 calcitriol 0.25 mcg PO EVERY OTHER DAY 07/12/21 07/12/21 cranberry fruit [cranberry] 450 mg PO BID 07/12/21 07/12/21 duloxetine 20 mg PO QAM 07/12/21 07/12/21 hydroxychloroquine [Plaquenil] 200 mg PO BID 07/12/21 07/12/21 Allergies Allergy/AdvReac Type Severity Reaction Status Date / Time celecoxib Allergy Unknown pounding Verified 04/04/21 15:06 chest fluconazole Allergy Unknown chest Verified 04/04/21 15:06 pain, dizziness ibandronate sodium Allergy Unknown Chest pain Verified 04/04/21 15:06 Review of Systems Review of Systems: All systems reviewed & are unremarkable except as noted in HPI and below Constitutional: Constitutional: Denies chills and Denies fever(s) Cardiovascular: Cardiovascular: Denies chest pain Respiratory: Respiratory: Denies cough and Denies dyspnea Neurologic: Reports confusion, Denies syncope, Reports headache(s) and Denies focal weakness PMFSH Past Medical History Medical History Age-related osteoporosis without current pathological fracture Allergies Arthralgia of both hands Arthritis Rhuematoid Cervical radiculopathy due to degenerative joint disease of spine Counseling on health promotion and disease prevention Encounter for medication management Encounter for screening for other viral diseases Hypertension Osteoarthritis involving multiple joints on both sides of body Osteoporosis Pain in left hand (12/10/18) Pain in right hand (12/10/18) Paresthesia of bilateral legs Seropositive rheumatoid arthritis of hand Vaginal delivery X2 1979 Female 1981 Female Vitamin D deficiency Surgical History Surgical History H/O: hysterectomy History of appendectomy Hx of cholecystectomy Family History Family History Grandparent Cerebrovascular accident Father Family history of chronic obstructive pulmonary disease Mother Hypertension Social History Social History Smoking status: Never smoker Second hand tobacco smoke exposure: Yes Alcohol intake: former Drinks per week: 3 Alcohol use details: socially Substance use: never Gender identity (if verbalized by the patient): Female Sexual Orientation (if Verbalized by the Patient): Straight or Heterosexual Spiritual care concerns: No Exam Const: General: healthy appearing, no acute distress, alert and confusion Nutritional Appearance: well nourished HENMT: Head
--- NOTE | 2021-07-12 17:27 | PC.NURSE ---
pt and pts family request [facility] for transfer. [facility] and [facility] both contacted, neither hospital has bed availability. edp and family aware.
[2021-07-12 17:45] LABS: Partial Thromboplastin Time 20.5 SEC (23.90-30.70); Prothrombin Time 10.5 Seconds (9.50-12.10)
--- NOTE | 2021-07-12 18:51 | PC.NURSE ---
awaiting sharmin to return call for dr to . pt and family aware. no change in pt condition.
[2021-07-12 19:08] LABS: SARS-CoV-2 Ag Negative (Negative)
--- NOTE | 2021-07-12 19:53 | PC.NURSE ---
report to malika smith
--- NOTE | 2021-07-12 21:39 | PC.NURSE ---
1929 resumed care from sarah chavis. pt resting per cot with family at bedside. watching tv. alert and answers questions appropriately. 1999 call to sharmin , spoke with malika. awaiting call from neuro systems protection technician. 2029 pt resting, family member going home. continue to wait for call from sharmin. pt watching tv. call saunders in reach , understanding to ring for assistance. no needs at this time. 2099 lights dimmed. pt watching tv, no complaints or needs voiced at this time. 2129 pt watching tv, call to sharmin, spoke with malika, will call back.
--- NOTE | 2021-07-12 22:11 | PC.NURSE ---
jessica from [facility] updated on transfer status of ptWill
--- NOTE | 2021-07-12 22:22 | PC.NURSE ---
awaiting bed placement at [facility].
[2021-07-13] VITALS (10 sets, daily range): BP systolic 137–152; BP diastolic 58–79; PULSE 74–90; RESP 14–20; O2SAT 96–99
--- NOTE | 2021-07-13 01:33 | PC.NURSE ---
update to [facility] regarding bed placement, spoke with Bill. no beds available at this time.
--- NOTE | 2021-07-13 05:43 | PC.NURSE ---
0500-Assisted patient to commode, patient needed extensive help, did not transfer well. After getting patient to commode I noticed that her adult brief, bed pad, and gown was wet. I helped patient get changed and cleaned up, into a new gown and clean adult brief. Patient back in bed watching television.
--- NOTE | 2021-07-13 07:06 | PC.NURSE ---
report to sarah jordan
--- NOTE | 2021-07-13 07:24 | PC.NURSE ---
REPORT RECEIVED FROM KARIN OSBORN
--- NOTE | 2021-07-13 07:44 | PC.NURSE ---
HEART MONITOR PLACED ON
--- NOTE | 2021-07-13 07:50 | PC.NURSE ---
ROUNDS COMPLETED BY RN. PT ALERT AND ORIENTED AND DENIES COMPLAINTS AT THIS TIME. CALL LIGHT WITHIN REACH.
--- NOTE | 2021-07-13 08:08 | PC.NURSE ---
[facility] TRANSFER LINE REP, ALVIN, CONTACTED RN AT THIS TIME FOR AN UPDATE ON PATIENT STATUS. VITAL SIGNS PROVIDED. ALVIN STATES THERE IS STILL NOT AN AVAILABLE BED AT THIS TIME
--- NOTE | 2021-07-13 08:45 | PC.NURSE ---
CLEAR LIQUID TRAY PROVIDED.
--- NOTE | 2021-07-13 10:29 | PC.NURSE ---
Telephone report provided to Christel Prather RN at [phone]. [facility] called to request transfer at [phone].
== END 2021-07-13 11:07 | disposition short-term general hospital (02) ==
PROVIDERS: Emergency Medicine; Emergency Provider Emergency Medicine; PCP Internal Medicine
DX: I61.8 Other nontraumatic intracerebral hemorrhage (principal); S09.90XD Unspecified injury of head, subsequent encounter; Z20.822 Contact with and (suspected) exposure to COVID-19; I10 Essential (primary) hypertension; M81.0 Age-related osteoporosis without current pathological fracture
CPT/HCPCS: 36415; 72125; 85610; 85730; 87426; 99285; C9803

== ENCOUNTER 2022-05-17 14:04 | Outpatient (NON) | payer MEDICARE, SELFPAY ==
[2022-05-17 14:13] LABS: Add Urine Microscopic? YES; Appearance Urine Clear (Clear); Bilirubin Urine Negative (Negative); Blood Urine Negative (Negative); Color Urine Light Yellow (Yellow); Glucose Urine UA Negative (Negative); Ketones Urine Negative (Negative); Leukocyte Esterase Ur 1+ LEU/UL (Negative); Nitrate Urine Negative (Negative); Protein Urine Negative (Negative); Urobilinogen Urine 0.2 mg/dL (0.2-1.0)
[2022-05-17 14:19] LABS: RBC Urine None seen /hpf (0-2)
[2022-05-17 14:20] LABS: Bacteria Urine 1+ /hpf; Renal Epithelial Cells Urine Few /hpf; Squamous Epithelial Cell Urine Few /hpf (Few)
== END 2022-05-17 14:05 | disposition home or self-care (01) ==
LOC: CHSLAB 14:06
PROVIDERS: Visit Provider Internal Medicine
DX: N39.0 Urinary tract infection, site not specified (principal)
CPT/HCPCS: 81001; 87086; 87088

== ENCOUNTER 2022-08-01 06:37 | Outpatient (NON) | payer MEDICARE, SELFPAY ==
[2022-08-01 07:07] LABS: Alanine Aminotransferase 16 U/L (14-59); Albumin Level 2.8 g/dL (3.4-5.0); Alkaline Phosphatase 87 U/L (46-116); Anion Gap 5 mmol/L (8-16); Aspartate Amino Transferase 23 U/L (15-37); Bilirubin,Total 0.2 mg/dL (0.00-1.00); Blood Urea Nitrogen 9 mg/dL (7-18); CRP 6.4 mg/dL (0.0-0.9); Calcium 9.7 mg/dL (8.5-10.1); Carbon Dioxide 33 mmol/L (21-32); Chloride 100 mmol/L (98-108); Estimated Glomerular Filt Rate > 60; Glucose 103 mg/dL (70-99); Osmolality Calculated 284 mOsm/kg (285-295); Potassium 3.7 mmol/L (3.5-5.1); Sodium 138 mmol/L (136-145); Total Protein 6.6 g/dL (6.4-8.2)
== END 2022-08-01 06:38 | disposition home or self-care (01) ==
LOC: CHSLAB 06:41
PROVIDERS: Visit Provider Internal Medicine
DX: M06.9 Rheumatoid arthritis, unspecified (principal); Z86.73 Personal history of transient ischemic attack (TIA), and cerebral infarction without residual deficits; I10 Essential (primary) hypertension
CPT/HCPCS: 36415; 80053; 86140

== ENCOUNTER 2022-08-31 06:50 | Outpatient (NON) | payer MEDICARE, SELFPAY ==
[2022-08-31 07:12] LABS: Basophils Absolute Auto 0.09 K/mm3 (0.00-0.10); Basophils Percent Auto 0.8 % (0.0-1.0); Eosinophils Absolute Auto 0.89 K/mm3 (0.02-0.50); Eosinophils Percent Auto 7.7 % (1.0-6.0); Hematocrit 40.4 % (35.0-42.0); Immature Granulocyte Absolute 0.11 K/mm3 (0.00-0.00); Lymphocytes Absolute Auto 1.06 K/mm3 (1.10-4.50); Lymphocytes Percent Auto 9.2 % (18.0-42.0); Mean Corpuscular HGB Conc 29.7 g/dL (32.0-36.0); Mean Corpuscular Hemoglobin 24.9 pg (27.0-31.0); Mean Platelet Volume 9.3 fl (9.2-11.8); Monocytes Absolute Auto 1.34 K/mm3 (0.10-0.90); Monocytes Percent Auto 11.6 % (2.0-11.0); Neutrophils Percent Auto 69.7 % (50.0-70.0); Platelet Count Result 387 K/mm3 (150-420); Red Blood Count 4.81 M/mm3 (4.20-5.40); Red Cell Distribution Width 14.1 % (11.6-14.4); White Blood Count 11.5 K/mm3 (4.8-10.8)
[2022-08-31 07:57] LABS: Alanine Aminotransferase 23 U/L (14-59); Albumin Level 3.2 g/dL (3.4-5.0); Alkaline Phosphatase 88 U/L (46-116); Anion Gap 6 mmol/L (8-16); Aspartate Amino Transferase 26 U/L (15-37); Bilirubin,Total 0.3 mg/dL (0.00-1.00); Blood Urea Nitrogen 12 mg/dL (7-18); CRP 5.5 mg/dL (0.0-0.9); Calcium 9.7 mg/dL (8.5-10.1); Carbon Dioxide 33 mmol/L (21-32); Chloride 102 mmol/L (98-108); Estimated Glomerular Filt Rate > 60; Glucose 98 mg/dL (70-99); Osmolality Calculated 291 mOsm/kg (285-295); Potassium 4.2 mmol/L (3.5-5.1); Sodium 141 mmol/L (136-145); Total Protein 6.4 g/dL (6.4-8.2)
== END 2022-08-31 06:51 | disposition home or self-care (01) ==
LOC: CHSLAB 06:57
PROVIDERS: Visit Provider Internal Medicine
DX: M06.9 Rheumatoid arthritis, unspecified (principal); Z86.73 Personal history of transient ischemic attack (TIA), and cerebral infarction without residual deficits; D64.9 Anemia, unspecified; I10 Essential (primary) hypertension
CPT/HCPCS: 36415; 80053; 85025; 86140

== ENCOUNTER 2022-09-12 06:52 | Outpatient (NON) | payer MEDICARE, SELFPAY ==
[2022-09-12 07:18] LABS: Basophils Absolute Auto 0.08 K/mm3 (0.00-0.10); Basophils Percent Auto 0.7 % (0.0-1.0); Eosinophils Absolute Auto 0.82 K/mm3 (0.02-0.50); Eosinophils Percent Auto 7.5 % (1.0-6.0); Hematocrit 34.9 % (35.0-42.0); Hemoglobin 10.9 g/dL (11.7-13.8); Immature Granulocyte Absolute 0.09 K/mm3 (0.00-0.00); Immature Granulocyte Percent A 0.8 % (0.0-0.0); Lymphocytes Absolute Auto 1.15 K/mm3 (1.10-4.50); Lymphocytes Percent Auto 10.6 % (18.0-42.0); Mean Corpuscular HGB Conc 31.2 g/dL (32.0-36.0); Mean Corpuscular Hemoglobin 26.1 pg (27.0-31.0); Mean Corpuscular Volume 83.5 fL (78.0-102.0); Mean Platelet Volume 9.3 fl (9.2-11.8); Monocytes Absolute Auto 1.21 K/mm3 (0.10-0.90); Monocytes Percent Auto 11.1 % (2.0-11.0); Neutrophils Absolute Auto 7.5 K/mm3 (1.7-7.2); Neutrophils Percent Auto 69.3 % (50.0-70.0); Platelet Count Result 348 K/mm3 (150-420); Red Blood Count 4.18 M/mm3 (4.20-5.40); Red Cell Distribution Width 14.2 % (11.6-14.4); White Blood Count 10.9 K/mm3 (4.8-10.8)
[2022-09-12 07:51] LABS: Alanine Aminotransferase 18 U/L (14-59); Albumin Level 2.7 g/dL (3.4-5.0); Alkaline Phosphatase 81 U/L (46-116); Anion Gap 7 mmol/L (8-16); Aspartate Amino Transferase 22 U/L (15-37); Bilirubin,Total 0.1 mg/dL (0.00-1.00); Blood Urea Nitrogen 8 mg/dL (7-18); CRP 5.1 mg/dL (0.0-0.9); Calcium 9.2 mg/dL (8.5-10.1); Carbon Dioxide 29 mmol/L (21-32); Chloride 105 mmol/L (98-108); Estimated Glomerular Filt Rate > 60; Glucose 90 mg/dL (70-99); Osmolality Calculated 290 mOsm/kg (285-295); Potassium 4.2 mmol/L (3.5-5.1); Sodium 141 mmol/L (136-145); Total Protein 5.7 g/dL (6.4-8.2)
== END 2022-09-12 06:53 | disposition home or self-care (01) ==
LOC: CHSPT 06:53 → CHSLAB 07:17
PROVIDERS: Visit Provider Internal Medicine
DX: M06.9 Rheumatoid arthritis, unspecified (principal); D64.9 Anemia, unspecified; I11.0 Hypertensive heart disease with heart failure
CPT/HCPCS: 36415; 80053; 85025; 86140

== ENCOUNTER 2023-01-11 06:20 | Outpatient (NON) | payer MEDICARE, SELFPAY ==
[2023-01-11 06:53] LABS: Basophils Absolute Auto 0.13 K/mm3 (0.00-0.10); Eosinophils Absolute Auto 0.92 K/mm3 (0.02-0.50); Eosinophils Percent Auto 7.2 % (1.0-6.0); Hematocrit 32.9 % (35.0-42.0); Hemoglobin 9.6 g/dL (11.7-13.8); Immature Granulocyte Absolute 0.11 K/mm3 (0.00-0.00); Immature Granulocyte Percent A 0.9 % (0.0-0.0); Lymphocytes Absolute Auto 1.33 K/mm3 (1.10-4.50); Lymphocytes Percent Auto 10.4 % (18.0-42.0); Mean Corpuscular HGB Conc 29.2 g/dL (32.0-36.0); Mean Corpuscular Hemoglobin 23.3 pg (27.0-31.0); Mean Corpuscular Volume 79.9 fL (78.0-102.0); Mean Platelet Volume 9.1 fl (9.2-11.8); Monocytes Absolute Auto 1.39 K/mm3 (0.10-0.90); Monocytes Percent Auto 10.9 % (2.0-11.0); Neutrophils Absolute Auto 8.9 K/mm3 (1.7-7.2); Neutrophils Percent Auto 69.6 % (50.0-70.0); Platelet Count Result 456 K/mm3 (150-420); Red Blood Count 4.12 M/mm3 (4.20-5.40); Red Cell Distribution Width 14.1 % (11.6-14.4); White Blood Count 12.8 K/mm3 (4.8-10.8)
[2023-01-11 07:11] LABS: Alanine Aminotransferase 15 U/L (14-59); Albumin Level 2.7 g/dL (3.4-5.0); Alkaline Phosphatase 81 U/L (46-116); Anion Gap 6 mmol/L (8-16); Aspartate Amino Transferase 24 U/L (15-37); Bilirubin,Total 0.2 mg/dL (0.00-1.00); Blood Urea Nitrogen 10 mg/dL (7-18); Calcium 9.5 mg/dL (8.5-10.1); Carbon Dioxide 31 mmol/L (21-32); Chloride 102 mmol/L (98-108); Estimated Glomerular Filt Rate > 60; Glucose 116 mg/dL (70-99); Osmolality Calculated 288 mOsm/kg (285-295); Potassium 4.2 mmol/L (3.5-5.1); Sodium 139 mmol/L (136-145); Total Protein 6.1 g/dL (6.4-8.2)
== END 2023-01-11 06:21 | disposition home or self-care (01) ==
LOC: CHSLAB 06:27
PROVIDERS: Visit Provider Internal Medicine
DX: M06.9 Rheumatoid arthritis, unspecified (principal); Z86.73 Personal history of transient ischemic attack (TIA), and cerebral infarction without residual deficits; D64.9 Anemia, unspecified; I10 Essential (primary) hypertension
CPT/HCPCS: 36415; 80053; 85025; 86140

== ENCOUNTER 2023-01-12 06:27 | Outpatient (NON) | payer MEDICARE, SELFPAY ==
[2023-01-12 07:15] LABS: Occult Blood Negative (Negative)
[2023-01-12 07:15] LABS: Occult Blood Negative (Negative)
[2023-01-12 07:15] LABS: Occult Blood Negative (Negative)
== END 2023-01-12 06:28 | disposition home or self-care (01) ==
LOC: CHSLAB 06:33
PROVIDERS: Visit Provider Internal Medicine
DX: D64.9 Anemia, unspecified (principal)
CPT/HCPCS: 82272

== ENCOUNTER 2023-04-21 06:27 | Outpatient (NON) | payer MEDICARE, SELFPAY ==
[2023-04-21 07:00] LABS: Basophils Percent Auto 0.9 % (0.0-1.0); Eosinophils Absolute Auto 0.99 K/mm3 (0.02-0.50); Eosinophils Percent Auto 8.5 % (1.0-6.0); Hematocrit 34.9 % (35.0-42.0); Immature Granulocyte Absolute 0.08 K/mm3 (0.00-0.00); Immature Granulocyte Percent A 0.7 % (0.0-0.0); Lymphocytes Absolute Auto 1.33 K/mm3 (1.10-4.50); Lymphocytes Percent Auto 11.5 % (18.0-42.0); Mean Corpuscular HGB Conc 28.7 g/dL (32.0-36.0); Mean Corpuscular Hemoglobin 23.3 pg (27.0-31.0); Mean Corpuscular Volume 81.2 fL (78.0-102.0); Mean Platelet Volume 9.8 fl (9.2-11.8); Monocytes Absolute Auto 1.21 K/mm3 (0.10-0.90); Monocytes Percent Auto 10.4 % (2.0-11.0); Neutrophils Absolute Auto 7.9 K/mm3 (1.7-7.2); Platelet Count Result 448 K/mm3 (150-420); Red Cell Distribution Width 16.2 % (11.6-14.4); White Blood Count 11.6 K/mm3 (4.8-10.8)
[2023-04-21 07:07] LABS: Alanine Aminotransferase 12 U/L (14-59); Albumin Level 2.9 g/dL (3.4-5.0); Alkaline Phosphatase 75 U/L (46-116); Anion Gap 6 mmol/L (8-16); Aspartate Amino Transferase 22 U/L (15-37); Bilirubin,Total 0.2 mg/dL (0.00-1.00); Blood Urea Nitrogen 14 mg/dL (7-18); CRP 4.8 mg/dL (0.0-0.9); Calcium 9.4 mg/dL (8.5-10.1); Carbon Dioxide 31 mmol/L (21-32); Chloride 102 mmol/L (98-108); Estimated Glomerular Filt Rate > 60; Glucose 104 mg/dL (70-99); Osmolality Calculated 288 mOsm/kg (285-295); Potassium 4.1 mmol/L (3.5-5.1); Sodium 139 mmol/L (136-145); Total Protein 6.2 g/dL (6.4-8.2)
== END 2023-04-21 06:28 | disposition home or self-care (01) ==
LOC: CHSLAB 06:28
PROVIDERS: PCP Internal Medicine; Visit Provider Internal Medicine
DX: D64.9 Anemia, unspecified (principal); I10 Essential (primary) hypertension; G45.9 Transient cerebral ischemic attack, unspecified; M06.9 Rheumatoid arthritis, unspecified
CPT/HCPCS: 36415; 80053; 85025; 86140

== ENCOUNTER 2023-06-02 06:54 | Outpatient (NON) | payer MEDICARE, SELFPAY ==
[2023-06-02 07:12] LABS: Hematocrit 35.6 % (35.0-42.0); Hemoglobin 10.3 g/dL (11.7-13.8); Mean Corpuscular HGB Conc 28.9 g/dL (32.0-36.0); Mean Corpuscular Hemoglobin 24.4 pg (27.0-31.0); Mean Corpuscular Volume 84.4 fL (78.0-102.0); Mean Platelet Volume 9.6 fl (9.2-11.8); Platelet Count Result 439 K/mm3 (150-420); Red Blood Count 4.22 M/mm3 (4.20-5.40); Red Cell Distribution Width 15.4 % (11.6-14.4); White Blood Count 13.1 K/mm3 (4.8-10.8)
[2023-06-02 07:21] LABS: Alanine Aminotransferase 25 U/L (14-59); Albumin Level 3.1 g/dL (3.4-5.0); Alkaline Phosphatase 86 U/L (46-116); Anion Gap 7 mmol/L (8-16); Aspartate Amino Transferase 27 U/L (15-37); Bilirubin,Total 0.2 mg/dL (0.00-1.00); Blood Urea Nitrogen 9 mg/dL (7-18); CRP 3.5 mg/dL (0.0-0.9); Calcium 9.8 mg/dL (8.5-10.1); Carbon Dioxide 33 mmol/L (21-32); Chloride 104 mmol/L (98-108); Estimated Glomerular Filt Rate > 60; Glucose 103 mg/dL (70-99); Osmolality Calculated 296 mOsm/kg (285-295); Potassium 3.9 mmol/L (3.5-5.1); Sodium 144 mmol/L (136-145); Total Protein 6.4 g/dL (6.4-8.2)
[2023-06-02 07:57] LABS: Band Neutrophils Percent 0 % (0-6); Eosinophils Absolute Manual 1.96 K/mm3 (0.02-0.5); Eosinophils Percent Manual 15 % (1-6); Lymphocytes Absolute Manual 1.04 K/mm3 (1.1-4.5); Lymphocytes Percent Manual 8 % (18-44); Monocytes Absolute Manual 1.31 K/mm3 (0.1-0.90); Monocytes Percent Manual 10 % (3-9); Neutrophils Absolute Manual 8.77 K/mm3 (1.7-7.2); Neutrophils Percent Manual 67 % (46-73); Total Cells Counted 100
[2023-06-02 07:58] LABS: Microcytosis 2+ (NORMAL); Schistocytes None Seen (NORMAL)
== END 2023-06-02 06:55 | disposition home or self-care (01) ==
PROVIDERS: PCP Internal Medicine; Visit Provider Internal Medicine
DX: I10 Essential (primary) hypertension (principal); D64.9 Anemia, unspecified; Z79.899 Other long term (current) drug therapy
CPT/HCPCS: 36415; 80053; 85025; 86140

== ENCOUNTER 2023-07-04 12:23 | Outpatient (CLI) | payer MEDICARE, SELFPAY ==
--- NOTE | ~2023-07-04 | US_ITS ---
EXAMINATION: US arterial ankle brachial ind DATE: 07/04/2023 13:50 INDICATION: Lower limb edema and peripheral arterial occlusive disease. TECHNIQUE: Segmental pressures and plethysmographic and Doppler waveforms of the brachial and lower e xtremity arteries were obtained. COMPARISON: None. FINDINGS: Right and left brachial artery pressures of 148 mm Hg and 150 mm Hg, respectively, are concordant (no rmal difference <= 30 mmHg). The right ankle-brachial index (JOSE) is 0.50 (normal >= 0.9-1.0). The right great toe-brachial index (TBI) is 0.24 (normal >= 0.65). Arterial Doppler waveforms are monophasic with brisk systolic upstrok es at both right posterior tibial and dorsalis pedis arteries. The left JOSE is 0.51. The left TBI is unable to be obtained due to no dopplerable pulse at the left g reat toe. Arterial Doppler waveforms are monophasic with borderline delayed upstrokes at the left pos terior tibial artery. No dopplerable pulse at the left dorsalis pedis artery. IMPRESSION: 1. 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 Reviewed, dictated and finalized at location A. IMPRESSION: 1. 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
== END 2023-07-04 12:24 | disposition home or self-care (01) ==
LOC: CHSIMG 12:24
PROVIDERS: PCP Internal Medicine; Visit Provider Internal Medicine
DX: I73.9 Peripheral vascular disease, unspecified (principal)
CPT/HCPCS: 93922

== ENCOUNTER 2023-07-20 08:47 | Outpatient (NON) | payer MEDICARE, SELFPAY ==
[2023-07-20 09:13] LABS: Basophils Absolute Auto 0.11 K/mm3 (0.00-0.10); Basophils Percent Auto 1.2 % (0.0-1.0); Eosinophils Absolute Auto 0.89 K/mm3 (0.02-0.50); Eosinophils Percent Auto 9.3 % (1.0-6.0); Hemoglobin 12.1 g/dL (11.7-13.8); Immature Granulocyte Absolute 0.04 K/mm3 (0.00-0.00); Immature Granulocyte Percent A 0.4 % (0.0-0.0); Lymphocytes Absolute Auto 1.03 K/mm3 (1.10-4.50); Lymphocytes Percent Auto 10.8 % (18.0-42.0); Mean Corpuscular HGB Conc 30.3 g/dL (32.0-36.0); Mean Corpuscular Hemoglobin 24.5 pg (27.0-31.0); Mean Corpuscular Volume 81.1 fL (78.0-102.0); Mean Platelet Volume 11.5 fl (9.2-11.8); Monocytes Absolute Auto 1.09 K/mm3 (0.10-0.90); Monocytes Percent Auto 11.4 % (2.0-11.0); Neutrophils Absolute Auto 6.4 K/mm3 (1.7-7.2); Neutrophils Percent Auto 66.9 % (50.0-70.0); Platelet Count Result 324 K/mm3 (150-420); Red Blood Count 4.93 M/mm3 (4.20-5.40); Red Cell Distribution Width 13.7 % (11.6-14.4); White Blood Count 9.6 K/mm3 (4.8-10.8)
[2023-07-20 09:20] LABS: Alanine Aminotransferase 25 U/L (14-59); Alkaline Phosphatase 97 U/L (46-116); Anion Gap 5 mmol/L (8-16); Aspartate Amino Transferase 44 U/L (15-37); Bilirubin,Total 0.2 mg/dL (0.00-1.00); Blood Urea Nitrogen 8 mg/dL (7-18); CRP 3.2 mg/dL (0.0-0.9); Calcium 9.7 mg/dL (8.5-10.1); Carbon Dioxide 34 mmol/L (21-32); Chloride 99 mmol/L (98-108); Estimated Glomerular Filt Rate > 60; Glucose 107 mg/dL (70-99); Osmolality Calculated 284 mOsm/kg (285-295); Sodium 138 mmol/L (136-145); Total Protein 5.9 g/dL (6.4-8.2)
[2023-07-23 12:00] LABS: NT Pro B Type Natriuretic Pept 358 pg/mL (0-450)
== END 2023-07-20 08:48 | disposition home or self-care (01) ==
LOC: CHSLAB 08:50
PROVIDERS: Visit Provider Internal Medicine
DX: M06.9 Rheumatoid arthritis, unspecified (principal); E87.1 Hypo-osmolality and hyponatremia; I50.9 Heart failure, unspecified
CPT/HCPCS: 36415; 80053; 83880; 85025; 86140

== ENCOUNTER 2023-07-28 11:05 | Outpatient (NON) | payer MEDICARE, SELFPAY ==
[2023-07-28 11:58] LABS: Alanine Aminotransferase 14 U/L (14-59); Albumin Level 2.8 g/dL (3.4-5.0); Alkaline Phosphatase 96 U/L (46-116); Anion Gap 9 mmol/L (8-16); Aspartate Amino Transferase 27 U/L (15-37); Bilirubin,Total 0.2 mg/dL (0.00-1.00); Blood Urea Nitrogen 12 mg/dL (7-18); Calcium 9.9 mg/dL (8.5-10.1); Carbon Dioxide 28 mmol/L (21-32); Chloride 105 mmol/L (98-108); Estimated Glomerular Filt Rate > 60; Glucose 158 mg/dL (70-99); Magnesium 2.2 mg/dL (1.8-2.4); Osmolality Calculated 296 mOsm/kg (285-295); Potassium 4.1 mmol/L (3.5-5.1); Sodium 142 mmol/L (136-145)
== END 2023-07-28 11:06 | disposition home or self-care (01) ==
LOC: CHSLAB 11:07
PROVIDERS: PCP Internal Medicine; Visit Provider Internal Medicine
DX: E87.1 Hypo-osmolality and hyponatremia (principal); M06.9 Rheumatoid arthritis, unspecified; I10 Essential (primary) hypertension; I73.9 Peripheral vascular disease, unspecified; G45.9 Transient cerebral ischemic attack, unspecified
CPT/HCPCS: 36415; 80053; 83735

== ENCOUNTER 2023-07-30 09:31 | Inpatient (IN) | payer MEDICARE, SELFPAY ==
[2023-07-30] VITALS (55 sets, daily range): BP systolic 62–187; BP diastolic 27–139; PULSE 86–133; RESP 12–38; TEMP 36.8–37; O2SAT 93–100; BMI 25.9
--- NOTE | ~2023-07-30 | XR_ITS ---
EXAMINATION: XR chest 1V portable DATE: 07/30/2023 11:31 INDICATION: Altered mental status. Confusion. TECHNIQUE: frontal view of the chest was obtained. COMPARISON: Chest radiograph dated 04/07/2021 FINDINGS: The lungs remain clear with no focal airspace opacities, pulmonary edema, pleural effusion or pneumot horax. Heart size is normal. Retrocardiac opacity consistent with a moderate-sized hiatal hernia. IMPRESSION: 1. No acute cardiopulmonary disease. 2. Moderate-sized hiatal hernia. Reviewed, dictated and finalized at location A.
--- NOTE | ~2023-07-30 | CT_ITS ---
EXAMINATION: CT soft tissue neck w con DATE: 07/30/2023 11:24 INDICATION: Right neck swelling. TECHNIQUE: Computed tomography (CT) of the neck was performed with 75 mL Omnipaque-350 intravenous co ntrast. Automated exposure control and iterative reconstruction technique were employed. The dose-barbara gth product was 376.92 mGy-cm. COMPARISON: CT cervical spine 07/12/2021 FINDINGS: There is mild scarring at the lung apices. Right parotid gland is enlarged with increased d ensity and surrounding fat stranding, consistent with parotiditis. There is no sialolith. There are n o pathologically enlarged lymph nodes. There are calcifications in right palatine tonsil. There is pl aque in the proximal internal carotid arteries with less than 50% stenosis relative to normal distal artery lumen diameters. The mastoid air cells are normal. There is mild mucosal thickening in the eth moid sinuses. There is severe cervical spondylosis. IMPRESSION: 1. Right-sided parotiditis. Reviewed, dictated and finalized at location A. IMPRESSION: 1. Right-sided parotiditis.
--- NOTE | ~2023-07-30 | XR_ITS ---
EXAMINATION: XR tibia fibula LT 2V DATE: 07/30/2023 11:32 INDICATION: Ulcer at the anterior distal left cat. TECHNIQUE: Anteroposterior and lateral views of the left tibia and fibula were obtained. COMPARISON: None. FINDINGS: Diffuse osteopenia. Bone alignment is normal. No fracture. Joint spaces appear normal. No periosteal reaction or cortical erosions to suggest ostomy myelitis. Soft tissue swelling with subcutaneous gisel a throughout the calf. No radiopaque foreign bodies or soft tissue gas. IMPRESSION: 1. Diffuse osteopenia. No other osseous abnormality. Reviewed, dictated and finalized at location A.
--- NOTE | ~2023-07-30 | CT_ITS ---
EXAMINATION: CT brain wo con DATE: 08/13/2023 00:21 INDICATION: Altered mental status. TECHNIQUE: Computed tomography (CT) of the head was performed without intravenous contrast. The mA wa s adjusted according to patient size. Iterative reconstruction technique was employed. The dose-lengt h product was 1210.67 mGy-cm. COMPARISON: Head CT 07/30/2023 FINDINGS: There is an old infarct involving the right frontal lobe and right insula. There are scatte red areas of low attenuation in the cerebral white matter. There is no intracranial hemorrhage, acute infarction, or abnormal intracranial mass lesion. There is expected dilatation of frontal horn of ri ght lateral ventricle. The orbits are normal. There is mild mucosal thickening in the ethmoid sinuses . The mastoid air cells are normal. IMPRESSION: 1. 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 2. Stable extensive nonspecific cerebral white matter disease, which likely represents chronic small vessel ischemic disease. Reviewed, dictated and finalized at location A. IMPRESSION: 1. 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 2. Stable extensive nonspecific cerebral white matter disease, which likely rep resents chronic small vessel ischemic disease.
--- NOTE | ~2023-07-30 | XR_ITS ---
EXAMINATION: XR chest 1V portable DATE: 08/13/2023 10:23 INDICATION: Lethargy. TECHNIQUE: A single frontal view of the chest was obtained. COMPARISON: Chest view 07/30/2023 FINDINGS: There is mild atelectasis at the lung bases. No pleural effusion or pneumothorax. The heart size is normal. Surgical clips in the right upper quadrant are likely from cholecystectomy. IMPRESSION: 1. Mild atelectasis at the lung bases. Reviewed, dictated and finalized at location A.
--- NOTE | ~2023-07-30 | CT_ITS ---
EXAMINATION: CT brain wo con DATE: 07/30/2023 11:23 INDICATION: Altered mental status. TECHNIQUE: Computed tomography (CT) of the head was performed without intravenous contrast. The mA wa s adjusted according to patient size. Iterative reconstruction technique was employed. The dose-lengt h product was 605.33 mGy-cm. COMPARISON: Head CT 07/12/2021 FINDINGS: There is chronic encephalomalacia in right frontal lobe and right insula. There are scatter ed areas of low attenuation in the cerebral white matter. There is no intracranial hemorrhage, acute infarction, or abnormal intracranial mass lesion. There is mild ex vacuo dilatation of right lateral ventricle. There is mild mucosal thickening in the paranasal sinuses. The orbits are normal. The mast oid air cells are normal. There is soft tissue swelling of right face and right neck. IMPRESSION: 1. 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 2. Extensive nonspecific cerebral white matter disease, which likely represents chronic small vessel ischemic disease. Reviewed, dictated and finalized at location A.
--- NOTE | ~2023-07-30 | US_ITS ---
EXAMINATION: US venous doppler [facility] DATE: 07/31/2023 13:28 INDICATION: Lower limb swelling. TECHNIQUE: Grayscale ultrasound images without and with compression and Doppler ultrasound images of the bilateral lower extremity veins were obtained. COMPARISON: None. FINDINGS: The visualized portions of right common femoral vein, profunda (deep) femoral vein, femoral vein, pop liteal vein, posterior tibial veins, and greater saphenous vein outflow are patent. The visualized portions of left common femoral vein, profunda femoral vein, femoral vein, and greater saphenous vein outflow are patent. There is thrombus in left popliteal vein. The calf veins are not well visualized. IMPRESSION: 1. Deep vein thrombosis involving left popliteal vein. Reviewed, dictated and finalized at location A.
--- NOTE | ~2023-07-30 | CT_ITS ---
EXAMINATION: CT facial bones wo con DATE: 07/30/2023 11:24 INDICATION: Right neck swelling. Altered mental status. TECHNIQUE: Computed tomography (CT) of the facial bones and maxillofacial region was performed withou t intravenous contrast. Automated exposure control and iterative reconstruction technique were employ ed. The dose-length product was 276.27 mGy-cm. COMPARISON: None. FINDINGS: There is mild mucosal thickening in the ethmoid sinuses. Right parotid gland is enlarged wi th increased density and surrounding fat stranding, consistent with parotiditis. There are small sial oliths in the right parotid gland duct and in right sublingual gland. There are no pathologically enl arged lymph nodes. The mastoid air cells are normal. IMPRESSION: 1. Right-sided parotiditis. 2. Small sialoliths in the right parotid gland duct and in right sublingual gland. Reviewed, dictated and finalized at location A. IMPRESSION: 1. Right-sided parotiditis. 2. Small sialoliths in the right parotid gland duct and in right sublingual gla nd.
--- NOTE | 2023-07-30 09:57 | ECG_ITS ---
Measurements Intervals [place] Rate: 88 P: 50 LA: 128 QRS: 10 QRSD: 83 T: 28 QT: 380 QTc: 462 Interpretive Statements SINUS RHYTHM WITH SINUS ARRHYTHMIA BASELINE ARTIFACT- I, II, III, AVL NORMAL ECG COMPARED TO ECG 04/04/2021 16:08:49 SINUS ARRHYTHMIA NOW PRESENT Electronically Signed On 07-30-2023 10:30:41 CDT by Jesus Allen D.O.
--- NOTE | 2023-07-30 10:00 | ED.GENADULT ---
HPI - General Adult General Chief complaint: Altered Mental Status Stated complaint: Altered mental status Time Seen by Provider: 07/30/23 09:33 History of Present Illness HPI narrative: 87-year-old female presenting for altered mental status. Per living facility, patient's last known normal was greater than 18 hours ago. She presents alert to herself and place. No other meaningful information provided. No recent illnesses or falls. Patient has no complaints. Related Data Home Medications Medication Instructions Recorded Confirmed ferrous gluconate 324 mg (38 mg 324 mg PO DAILY 04/04/21 07/30/23 iron) tablet prednisone 5 mg tablet 5 mg PO DAILY 04/04/21 07/30/23 acetaminophen 325 mg tablet (Mapap 650 mg PO Q6H PRN Mild Pain (1-3) 07/12/21 07/30/23 (acetaminophen)) Or Fever aluminum-mag hydroxide-simethicone 15 ml PO QID PRN Nausea 07/12/21 07/30/23 200 mg-200 mg-20 mg/5 mL oral susp aspirin 81 mg tablet,delayed 81 mg PO DAILY 07/12/21 07/30/23 release bisacodyl 10 mg rectal suppository 10 mg RECTAL DAILY PRN Constipation 07/12/21 07/30/23 (Dulcolax (bisacodyl)) calcitriol 0.25 mcg capsule 0.25 mcg PO EVERY OTHER DAY 07/12/21 07/30/23 cranberry fruit 450 mg tablet 450 mg PO BID 07/12/21 07/30/23 (cranberry) duloxetine 20 mg capsule,delayed 20 mg PO QAM 07/12/21 07/30/23 release hydroxychloroquine 200 mg tablet 200 mg PO BID 07/12/21 07/30/23 (Plaquenil) Allergies Allergy/AdvReac Type Severity Reaction Status Date / Time iohexol Allergy Severe Hypotension Verified 07/30/23 13:34 [From contrast - CT, X-RAY] celecoxib Allergy Unknown pounding Verified 07/30/23 10:37 chest fluconazole Allergy Unknown chest Verified 07/30/23 10:37 pain, dizziness ibandronate sodium Allergy Unknown Chest pain Verified 07/30/23 10:37 PMFSH Past Medical History Medical History Age-related osteoporosis without current pathological fracture Allergies Arthralgia of both hands Arthritis Rhuematoid Cervical radiculopathy due to degenerative joint disease of spine Counseling on health promotion and disease prevention Encounter for medication management Encounter for screening for other viral diseases Hypertension Osteoarthritis involving multiple joints on both sides of body Osteoporosis Pain in left hand (12/10/18) Pain in right hand (12/10/18) Paresthesia of bilateral legs Seropositive rheumatoid arthritis of hand Vaginal delivery X2 1979 Female 1981 Female Vitamin D deficiency Surgical History Surgical History H/O: hysterectomy History of appendectomy Hx of cholecystectomy Family History Family History Grandparent Cerebrovascular accident Father Family history of chronic obstructive pulmonary disease Mother Hypertension Social History Social History Smoking status: Never smoker Second hand tobacco smoke exposure: Yes Alcohol intake: former Drinks per week: 3 Alcohol use details: socially Substance use: never Gender identity (if verbalized by the patient): Female Sexual Orientation (if Verbalized by the Patient): Straight or Heterosexual Spiritual care concerns: No Exam Narrative: Mild erythema noted to the right lower mandible and right neck. No palpable deformities. No increased warmth. Mildly tender. Patient also has a wound to her left anterior cat. Mild erythema. No increased warmth. No drainage. All other systems otherwise unremarkable. Course Vital Signs Vital signs: Vital Signs Temperature 36.8 C 07/30/23 09:33 Pulse Rate 95 07/30/23 09:33 Respiratory Rate 18 07/30/23 09:33 Blood Pressure 153/81 H 07/30/23 09:33 Pulse Oximetry 93 07/30/23 09:33 Oxygen Delivery Room Air 07/30/23 09:33 Temper
[2023-07-30 10:25] LABS: Appearance Urine Slightly Cloudy (Clear); Bilirubin Urine Negative (Negative); Blood Urine Negative (Negative); Color Urine Yellow (Yellow); Glucose Urine UA Negative (Negative); Ketones Urine 2+ (Negative); Leukocyte Esterase Ur Negative LEU/UL (Negative); Nitrate Urine Negative (Negative); Protein Urine 1+ (Negative); Specific Grav Ur >= 1.030 (1.010-1.020); Urobilinogen Urine 0.2 mg/dL (0.2-1.0)
[2023-07-30 10:26] LABS: Hematocrit 39.4 % (35.0-42.0); Hemoglobin 11.9 g/dL (11.7-13.8); Mean Corpuscular HGB Conc 30.2 g/dL (32.0-36.0); Mean Corpuscular Hemoglobin 24.4 pg (27.0-31.0); Mean Corpuscular Volume 80.9 fL (78.0-102.0); Mean Platelet Volume 10.9 fl (9.2-11.8); Platelet Count Result 283 K/mm3 (150-420); Red Blood Count 4.87 M/mm3 (4.20-5.40); Red Cell Distribution Width 14.3 % (11.6-14.4)
[2023-07-30 10:28] LABS: White Blood Count 23.8 K/mm3 (4.8-10.8)
[2023-07-30 10:32] LABS: Add Urine Microscopic? YES; RBC Urine None seen /hpf (0-2); Squamous Epithelial Cell Urine Few /hpf (Few); WBC Urine None seen /hpf (0-3)
[2023-07-30 10:33] LABS: Amorphous Sediment Urine Moderate; Bacteria Urine Trace /hpf; Mucus Urine Moderate /lpf
--- NOTE | 2023-07-30 10:34 | PC.NURSE ---
updated son, Martinez via telephone. He stated that patient wasnt talking much over the weekend and felt like they had to pull words out of her, which is how she is presenting now. Patient is a/ox1 at baseline.
[2023-07-30 10:45] LABS: Band Neutrophils Percent 1 % (0-6); Basophils Percent Manual 0 % (0-1); Eosinophils Absolute Manual 0.23 K/mm3 (0.02-0.5); Eosinophils Percent Manual 1 % (1-6); Lymphocytes Absolute Manual 0.71 K/mm3 (1.1-4.5); Lymphocytes Percent Manual 3 % (18-44); Metamyelocytes Percent 1 %; Monocytes Absolute Manual 0.71 K/mm3 (0.1-0.90); Monocytes Percent Manual 3 % (3-9); Neutrophils Absolute Manual 21.89 K/mm3 (1.7-7.2); Neutrophils Percent Manual 91 % (46-73); Platelet Estimate Adequate (Adequate); Total Cells Counted 100
[2023-07-30] MEDS: SODIUM CHLORIDE 0.9% IV 1,000 ML 999 ML IV CONT ×2 (11:35→12:56)
--- NOTE | 2023-07-30 11:43 | PC.NURSE ---
patient BP steading dropping down to 60s systolic. ERP aware, see orders.
--- NOTE | 2023-07-30 11:43 | PC.NURSE ---
RN called to room for snoring respirations by military administrative technician and ER PCT. Upon assessment patient was unresponsive, no gag reflex. IVF started. ERP spoke with family, patient is a DNR, they only want her to be comfortable, DNR is on file.
[2023-07-30] MEDS: CEFEPIME 1 GM/NS 50 ML 1 GM/50 ML BAG IVPB ×2 (11:54→20:59)
[2023-07-30] MEDS: VANCOMYCIN 1,250 MG/NS 250 ML 1,250 MG/250 ML BAG 166.67 MG IVPB (11:56)
--- NOTE | 2023-07-30 11:58 | PC.NURSE ---
800ml IVF infused in to patient, now she is more responsive, moving around in bed, able to follow simple commands, opening eyes, able to move all extremities. BP returning to baseline.
[2023-07-30 12:03] LABS: Anion Gap 6 mmol/L (8-16); Blood Urea Nitrogen 16 mg/dL (7-18); Carbon Dioxide 28 mmol/L (21-32); Chloride 104 mmol/L (98-108); Estimated CRCL calculation 37 ml/min; Estimated Glomerular Filt Rate 59; Glucose 191 mg/dL (70-99); Potassium 4.1 mmol/L (3.5-5.1); Sodium 138 mmol/L (136-145)
[2023-07-30 12:04] LABS: Alanine Aminotransferase 20 U/L (14-59); Albumin Level 2.5 g/dL (3.4-5.0); Alkaline Phosphatase 91 U/L (46-116); Aspartate Amino Transferase 26 U/L (15-37); Bilirubin,Total 0.3 mg/dL (0.00-1.00); Calcium 9.9 mg/dL (8.5-10.1); Lactate Dehydrogenase 240 U/L (81-234); Osmolality Calculated 292 mOsm/kg (285-295); Total Protein 6.2 g/dL (6.4-8.2)
[2023-07-30] MEDS: diphenhydrAMINE HCl INJ 50 MG/ML VIAL IV PUSH (12:13)
[2023-07-30] MEDS: FAMOTIDINE 20 MG/2 ML VIAL IV PUSH (12:13)
[2023-07-30] MEDS: methylPREDNISolone SOD SUCC 125 MG VIAL IV PUSH (12:13)
--- NOTE | 2023-07-30 12:36 | PC.NURSE ---
patient more responsive, family at bedside. Patient BP dropped back down into the 80s, ERP aware, will order more fluids
--- NOTE | 2023-07-30 12:46 | PC.NURSE ---
sister in law at bedside, was updated
--- NOTE | 2023-07-30 13:00 | PC.NURSE ---
son in law now at bedside, family updated on plan of care for patient. Family wishes to have patient admitted to this facility if possible.
[2023-07-30] MEDS: LORazepam INJ (*CRX) 2 MG/ML VIAL 0.5 MG IV PUSH (13:12)
[2023-07-30 13:20] LABS: Troponin I < 4.000 ng/mL (0.000-0.034)
--- NOTE | 2023-07-30 14:42 | PC.NURSE ---
PIV dressing changed, report called to KARIN Tejada. Patient admitted to rm 206 for obs.
--- NOTE | 2023-07-30 14:55 | PC.NURSE ---
Patient arrived on unit at 1450 from ED on stretcher. Patient required 4 assist to transfer from stretcher to bed. Patient unresponsive, but attempts to open her eyes sometimes when nurse calls her name. Unable to educate patient on use of call light, bed controls, hospital environment etc due to AMS. Patient noted to have open area measuring 4 cm x 2.5 cm on L distal medial lower leg. Photograph in record. Aquacell placed. Multiple scabbed areas also noted on bilateral lower extremities with +3 pitting edema. BLE cool to touch with zeferino discoloration.
--- NOTE | 2023-07-30 15:09 | PC.NURSE ---
Spoke with Yi FRAZIER from [facility], gave update, they will call the floor tomorrow.
[2023-07-30] MEDS: metroNIDAZOLE 500 MG/ISO 100ML 500 MG/100 ML BAG 100 MG IVPB ×2 (15:59→22:09)
[2023-07-30] MEDS: SODIUM CHLORIDE 0.9% IV 1,000 ML 100 ML IV CONT (16:00)
--- NOTE | 2023-07-30 20:31 | PC.NURSE ---
Pt getting continuous iv fluids at 100ml and hour. Pt is getting iv antibiotics to treat infection. Tolerating both well.
[2023-07-31] VITALS: BP 154/67; PULSE 90; RESP 18; TEMP 35.8; O2SAT 99
[2023-07-31] MEDS: SODIUM CHLORIDE 0.9% IV 1,000 ML 100 ML IV CONT (02:05)
[2023-07-31 05:27] LABS: Basophils Absolute Auto 0.02 K/mm3 (0.00-0.10); Basophils Percent Auto 0.1 % (0.0-1.0); Hematocrit 32.2 % (35.0-42.0); Hemoglobin 9.8 g/dL (11.7-13.8); Immature Granulocyte Absolute 0.09 K/mm3 (0.00-0.00); Immature Granulocyte Percent A 0.6 % (0.0-0.0); Lymphocytes Absolute Auto 0.58 K/mm3 (1.10-4.50); Lymphocytes Percent Auto 3.8 % (18.0-42.0); Mean Corpuscular HGB Conc 30.4 g/dL (32.0-36.0); Mean Corpuscular Hemoglobin 24.6 pg (27.0-31.0); Mean Corpuscular Volume 80.9 fL (78.0-102.0); Mean Platelet Volume 10.5 fl (9.2-11.8); Monocytes Absolute Auto 1.15 K/mm3 (0.10-0.90); Monocytes Percent Auto 7.6 % (2.0-11.0); Neutrophils Absolute Auto 13.2 K/mm3 (1.7-7.2); Neutrophils Percent Auto 87.9 % (50.0-70.0); Platelet Count Result 233 K/mm3 (150-420); Red Blood Count 3.98 M/mm3 (4.20-5.40); Red Cell Distribution Width 14.1 % (11.6-14.4); White Blood Count 15.1 K/mm3 (4.8-10.8)
[2023-07-31 05:41] LABS: Anion Gap 6 mmol/L (8-16); Blood Urea Nitrogen 11 mg/dL (7-18); Calcium 8.4 mg/dL (8.5-10.1); Carbon Dioxide 25 mmol/L (21-32); Chloride 111 mmol/L (98-108); Estimated CRCL calculation 50 ml/min; Estimated Glomerular Filt Rate > 60; Glucose 103 mg/dL (70-99); Osmolality Calculated 293 mOsm/kg (285-295); Potassium 3.6 mmol/L (3.5-5.1); Sodium 142 mmol/L (136-145)
[2023-07-31] MEDS: metroNIDAZOLE 500 MG/ISO 100ML 500 MG/100 ML BAG 100 MG IVPB ×3 (06:39→21:47)
[2023-07-31 08:00] VITALS: BP 147/59; PULSE 88; RESP 16; TEMP 35.7; O2SAT 100
[2023-07-31] MEDS: CLOPIDOGREL BISULFATE 75 MG TABLET PO (08:56)
[2023-07-31] MEDS: ASPIRIN 81 MG ENTERIC TABLET PO (08:56)
[2023-07-31] MEDS: DULoxetine HCL 20 MG CAPSULE.DR PO (08:57)
[2023-07-31] MEDS: calcitrioL 0.25 MCG CAPSULE PO (08:58)
[2023-07-31] MEDS: HYDROXYCHLOROQUINE SULFATE 200 MG TABLET PO ×2 (08:59→16:58)
[2023-07-31] MEDS: CEFEPIME 1 GM/NS 50 ML 1 GM/50 ML BAG IVPB ×2 (09:01→21:06)
--- NOTE | 2023-07-31 09:57 | PM.IMHP ---
H&P: HPI History of Present Illness Date/Time: 07/31/23 09:57 Chief Complaint: altered mental status and sepsis Narrative: This is an 87-year-old female patient admitted to the hospital after ER evaluation for altered mental status revealed patient experiencing sepsis from unknown source. Patient resides at the local nursing and has a history including hypertension rheumatoid arthritis osteoporosis vitamin-D deficiency and a venous stasis ulcer moderate left leg. Family noticed swelling the right side of patient's face. During imaging workup patient was found to have right-sided parotiditis and submandibular sialoadenitis. This is likely to be precipitating factor for sepsis as urine and CXR are not obviously infected. Blood cultures in process. Patient was started broad-spectrum antibiotics and admitted to the hospital for monitoring. This morning patient is awake and alert to baseline mental status which is mildly confused. Patient noted to have new oxygen demand and crackles in her lungs. She also has 3+ lower extremity pitting edema with chronic findings of peripheral vascular disease. Patient has a significant left lower extremity half dollar size venous stasis ulcer without purulence or definitive cellulitis changes. Review of Systems Review of Systems: All systems reviewed & are unremarkable except as noted in HPI and below PMFSH Past Medical History Medical History Age-related osteoporosis without current pathological fracture Allergies Arthralgia of both hands Arthritis Rhuematoid Cervical radiculopathy due to degenerative joint disease of spine Counseling on health promotion and disease prevention Encounter for medication management Encounter for screening for other viral diseases Hypertension Osteoarthritis involving multiple joints on both sides of body Osteoporosis Pain in left hand (12/10/18) Pain in right hand (12/10/18) Paresthesia of bilateral legs Seropositive rheumatoid arthritis of hand Vaginal delivery X2 1979 Female 1981 Female Vitamin D deficiency Surgical History Surgical History H/O: hysterectomy History of appendectomy Hx of cholecystectomy Family History Family History Grandparent Cerebrovascular accident Father Family history of chronic obstructive pulmonary disease Mother Hypertension Social History Social History Smoking status: Unknown if ever smoked Second hand tobacco smoke exposure: Yes Alcohol intake: never Drinks per week: 3 Alcohol use details: socially Substance use: never Substance use type: does not use Gender identity (if verbalized by the patient): Female Sexual Orientation (if Verbalized by the Patient): Straight or Heterosexual Spiritual care concerns: No Meds Home Medications and Allergies Home Medications Medication Instructions Recorded Confirmed Type clopidogrel 75 mg tablet (Plavix) 75 mg PO DAILY #30 tabs 01/13/21 07/30/23 Rx polyethylene glycol 3350 17 gram 17 g PO QAM PRN Constipation #30 ea 01/29/21 07/30/23 Rx oral powder packet (Miralax) ferrous gluconate 324 mg (38 mg 324 mg PO DAILY 04/04/21 07/30/23 History iron) tablet prednisone 5 mg tablet 5 mg PO DAILY 04/04/21 07/30/23 History docusate sodium 100 mg capsule 100 mg PO DAILY 30 days #30 caps 04/23/21 07/30/23 Rx sennosides 8.6 mg-docusate sodium 1 tab PO HS 30 days #30 tabs 04/23/21 07/30/23 Rx 50 mg tablet (Senokot-S) acetaminophen 325 mg tablet (Mapap 650 mg PO Q6H PRN Mild Pain (1-3) 07/12/21 07/30/23 History (acetaminophen)) Or Fever aluminum-mag hydroxide-simethicone 15 ml PO QID PRN Nausea 07/12/21 07/30/23 History 200 mg-200 mg-20 mg/5 mL oral susp aspirin 81 mg tablet,delayed 81 mg PO DAILY 07/12/21 07/30/23 Histo
[2023-07-31] MEDS: FUROSEMIDE INJ 40 MG/4 ML VIAL IV PUSH (10:48)
[2023-07-31] MEDS: VANCOMYCIN 1,250 MG/NS 250 ML 1,250 MG/250 ML BAG 166.67 MG IVPB (10:52)
--- NOTE | 2023-07-31 11:08 | PC.NURSE ---
Patient changed status from observation to inpatient.
--- NOTE | 2023-07-31 11:15 | PC.NURSE ---
SPO2 at 100 % on 1 L via n/c. Nurse discontinued O2 and Patient is still at 99% on room air.
--- NOTE | 2023-07-31 11:38 | PC.NURSE ---
11:08 changed to inpatient status
[2023-07-31 11:55] VITALS: PULSE 93
[2023-07-31 11:56] VITALS: BP 137/56; PULSE 94; RESP 16; TEMP 35.9; O2SAT 100
[2023-07-31] MEDS: APIXABAN 2.5 MG TABLET 10 MG PO ×2 (14:17→21:05)
[2023-07-31 16:00] VITALS: BP 149/57; PULSE 94; PULSE 95; RESP 16; TEMP 35.9; O2SAT 95
[2023-07-31] MEDS: FUROSEMIDE INJ 20 MG/2 ML VIAL IV PUSH (16:58)
[2023-07-31 20:00] VITALS: BP 140/68; PULSE 87; PULSE 90; RESP 16; TEMP 36.1; O2SAT 92
[2023-08-01] VITALS (7 sets, daily range): BP systolic 128–162; BP diastolic 57–76; PULSE 62–92; RESP 14–18; TEMP 36–36.6; O2SAT 93–98
[2023-08-01 05:18] LABS: Basophils Absolute Auto 0.04 K/mm3 (0.00-0.10); Basophils Percent Auto 0.3 % (0.0-1.0); Eosinophils Absolute Auto 0.33 K/mm3 (0.02-0.50); Eosinophils Percent Auto 2.8 % (1.0-6.0); Hematocrit 33.7 % (35.0-42.0); Hemoglobin 10.3 g/dL (11.7-13.8); Immature Granulocyte Absolute 0.06 K/mm3 (0.00-0.00); Immature Granulocyte Percent A 0.5 % (0.0-0.0); Lymphocytes Absolute Auto 0.86 K/mm3 (1.10-4.50); Lymphocytes Percent Auto 7.2 % (18.0-42.0); Mean Corpuscular HGB Conc 30.6 g/dL (32.0-36.0); Mean Corpuscular Hemoglobin 24.2 pg (27.0-31.0); Mean Corpuscular Volume 79.3 fL (78.0-102.0); Monocytes Absolute Auto 1.31 K/mm3 (0.10-0.90); Neutrophils Absolute Auto 9.3 K/mm3 (1.7-7.2); Neutrophils Percent Auto 78.2 % (50.0-70.0); Platelet Count Result 277 K/mm3 (150-420); Red Blood Count 4.25 M/mm3 (4.20-5.40); Red Cell Distribution Width 14.2 % (11.6-14.4); White Blood Count 11.9 K/mm3 (4.8-10.8)
[2023-08-01 05:48] LABS: Alanine Aminotransferase 17 U/L (14-59); Albumin Level 2.2 g/dL (3.4-5.0); Alkaline Phosphatase 70 U/L (46-116); Anion Gap 5 mmol/L (8-16); Aspartate Amino Transferase 26 U/L (15-37); Blood Urea Nitrogen 11 mg/dL (7-18); Calcium 8.8 mg/dL (8.5-10.1); Carbon Dioxide 31 mmol/L (21-32); Chloride 105 mmol/L (98-108); Estimated CRCL calculation 46 ml/min; Estimated Glomerular Filt Rate > 60; Glucose 79 mg/dL (70-99); Osmolality Calculated 290 mOsm/kg (285-295); Potassium 2.9 mmol/L (3.5-5.1); Sodium 141 mmol/L (136-145); Total Protein 5.3 g/dL (6.4-8.2)
[2023-08-01 05:49] LABS: NT Pro B Type Natriuretic Pept 873 pg/mL (0-450); Troponin I 29.3 ng/L (0.00-60.4)
[2023-08-01] MEDS: metroNIDAZOLE 500 MG/ISO 100ML 500 MG/100 ML BAG 100 MG IVPB ×3 (06:09→21:01)
--- NOTE | 2023-08-01 06:30 | PC.NURSE ---
Carolyne Raygoza NP called in to get report on patient. She said she would put in orders for medications.
[2023-08-01 06:32] LABS: Bilirubin,Total 0.2 mg/dL (0.00-1.00)
[2023-08-01] MEDS: KCL 20 MEQ/SW 100 ML 100 ML 50 MEQ IVPB (07:56)
[2023-08-01] MEDS: CLOPIDOGREL BISULFATE 75 MG TABLET PO (09:11)
[2023-08-01] MEDS: HYDROXYCHLOROQUINE SULFATE 200 MG TABLET PO ×2 (09:11→16:42)
[2023-08-01] MEDS: DULoxetine HCL 20 MG CAPSULE.DR PO (09:11)
[2023-08-01] MEDS: FUROSEMIDE INJ 20 MG/2 ML VIAL IV PUSH ×2 (09:11→16:42)
[2023-08-01] MEDS: ASPIRIN 81 MG ENTERIC TABLET PO (09:12)
[2023-08-01] MEDS: APIXABAN 2.5 MG TABLET 10 MG PO ×2 (09:12→20:17)
[2023-08-01] MEDS: CEFEPIME 1 GM/NS 50 ML 1 GM/50 ML BAG IVPB ×2 (10:45→20:17)
[2023-08-01] MEDS: VANCOMYCIN 1,250 MG/NS 250 ML 1,250 MG/250 ML BAG 166.67 MG IVPB (11:30)
--- NOTE | 2023-08-01 12:06 | WPDPN ---
Progress Note: A&P Assessment and Plan (1) Sepsis: Qualifiers: Sepsis acute organ dysfunction status: unspecified Sepsis type: sepsis due to unspecified organism Qualified Code(s): A41.9 - Sepsis, unspecified organism Code(s): A41.9 - Sepsis, unspecified organism Status: Acute Assessment and Plan: Sialoadenitis right parotid and right submandibular gland, Broad spectrum antibiotics started in ER. Improvement in mental status and WBC. Continue broad spectrum polymicrobial coverage for now. MRSA nasal screen ordered. New oxygen need with no prior history of CHF or need for supplemental oxygen and no pneumonia on CXR. (2) Altered mental status: Qualifiers: Altered mental status type: transient alteration of awareness Qualified Code(s): R40.4 - Transient alteration of awareness Code(s): R41.82 - Altered mental status, unspecified Status: Acute Assessment and Plan: Associated with sepsis, improving after IV fluids and broad spectrum antibiotics. Patient is now awake, alert but confused which is suspected to be patient's baseline mental status. (3) Acute sialoadenitis: Code(s): K11.21 - Acute sialoadenitis Status: Acute Assessment and Plan: Likely source of sepsis, right sided parotid and submandibular glands with mild edema/palpable tenderness, on broad spectrum antibiotics. MRSA nasal swab ordered. (4) Venous stasis ulcer: Code(s): I83.009 - Varicose veins of unspecified lower extremity with ulcer of unspecified site; L97.909 - Non-pressure chronic ulcer of unspecified part of unspecified lower leg with unspecified severity Status: Acute Assessment and Plan: Left lower leg sizable venous stasis ulcer without purulent drainage or best cellulitis. Bilateral lower extremity venous insufficiency noted. Distal pulses palpable. 3+ pitting edema to the knees bilaterally (5) Peripheral vascular disease: Code(s): I73.9 - Peripheral vascular disease, unspecified Status: Acute Assessment and Plan: bilateral lower extremity peripheral venous stasis noted with a stasis ulcer lower extremity (6) Fluid retention: Code(s): R60.9 - Edema, unspecified Status: Acute Assessment and Plan: no prior history of CHF but patient has some crackles, new oxygen need, bilateral lower extremity 3+ pitting edema. ordered IV Lasix, stopped IV fluids and ordered echocardiogram. (7) Left leg DVT: Code(s): I82.402 - Acute embolism and thrombosis of unspecified deep veins of left lower extremity Status: Acute Assessment and Plan: Left lower extremity DVT noted on venous ultrasound. Will start treatment with Eliquis. Patient had episode of hypotension after IV contrast yesterday. Will defer CTA of chest for PE as she is now on room air and troponin is stable. No added benefit in ruling in or out PE at this time. Plan Admit to Med/Tele, escalate to inpatient status Discontinue telemetry Continue broad spectrum antibiotics and watch blood cultures, Once stable deescalate to Augmentin and Bactrim per recommendation of ID pharmacist IV diuresis for fluid retention/lung crackles Echocardiogram ordered, attempting to get study done in next 1-2 days while inpatient, may have to complete on Sunday as outpatient if no tech availability Troponin and BNP with morning labs Start Eliquis for newly identified left leg DVT, no benefit in ruling in/out PE as above Continue Carpenter catheter for accurate I&O with diuresis Subjective Date/time seen: 08/01/23 12:06 Interval history: Positive blood cultures we will continue on the IV antibioitcs and when she is stable for oral we will place on bactrim DS and Augmentin. Patient will have a Echo tomorrow. Patient telemetry has been stable the past two days we will discontinue Tele today . Exam Narrative: GENERAL: Generally well appearing, alert and oriented, in no apparent distr
[2023-08-01] MEDS: POTASSIUM CHLORIDE 20 MEQ ER TABLET PO (16:41)
--- NOTE | 2023-08-01 18:28 | PC.NURSE ---
1814 patient wanting to use bathroom and not commode. wants to go into br. tried to explain that br not big enough for staff, paatient , and lift. lino madie claims she can not go there. patient did have small bm on b[facility]. [place] driver lift used. now c/o that her feet hurt to bad to stand on them pulls legs up off foot rest and places them on top of leg rests. this caused skin tears to both r and left shins. areas cleansed and dressed with woulnd cleanser and telfa pads and wrapped with ling. l cat was cresent shaped with with of 3cm. able to steri strips skin into place. r cat cat skin stuck to foot rest and area is 1cm x 2cm upper area with a 1cm x 1cm area under. patient back to bed at this time. hob up and watching tv.
[2023-08-02] MEDS: metroNIDAZOLE 500 MG/ISO 100ML 500 MG/100 ML BAG 100 MG IVPB (05:07)
[2023-08-02 05:24] LABS: Basophils Absolute Auto 0.08 K/mm3 (0.00-0.10); Basophils Percent Auto 0.8 % (0.0-1.0); Eosinophils Absolute Auto 0.86 K/mm3 (0.02-0.50); Eosinophils Percent Auto 8.8 % (1.0-6.0); Hematocrit 34.2 % (35.0-42.0); Hemoglobin 10.5 g/dL (11.7-13.8); Immature Granulocyte Absolute 0.06 K/mm3 (0.00-0.00); Immature Granulocyte Percent A 0.6 % (0.0-0.0); Lymphocytes Absolute Auto 0.92 K/mm3 (1.10-4.50); Lymphocytes Percent Auto 9.4 % (18.0-42.0); Mean Corpuscular HGB Conc 30.7 g/dL (32.0-36.0); Mean Corpuscular Hemoglobin 24.2 pg (27.0-31.0); Mean Corpuscular Volume 78.8 fL (78.0-102.0); Mean Platelet Volume 10.4 fl (9.2-11.8); Monocytes Absolute Auto 1.19 K/mm3 (0.10-0.90); Monocytes Percent Auto 12.1 % (2.0-11.0); Neutrophils Absolute Auto 6.7 K/mm3 (1.7-7.2); Neutrophils Percent Auto 68.3 % (50.0-70.0); Platelet Count Result 296 K/mm3 (150-420); Red Blood Count 4.34 M/mm3 (4.20-5.40); Red Cell Distribution Width 14.2 % (11.6-14.4); White Blood Count 9.8 K/mm3 (4.8-10.8)
[2023-08-02 05:45] LABS: Alanine Aminotransferase 16 U/L (14-59); Albumin Level 2.2 g/dL (3.4-5.0); Alkaline Phosphatase 68 U/L (46-116); Anion Gap 7 mmol/L (8-16); Aspartate Amino Transferase 19 U/L (15-37); Bilirubin,Total 0.2 mg/dL (0.00-1.00); Blood Urea Nitrogen 10 mg/dL (7-18); Calcium 8.8 mg/dL (8.5-10.1); Carbon Dioxide 30 mmol/L (21-32); Chloride 104 mmol/L (98-108); Estimated CRCL calculation 47 ml/min; Estimated Glomerular Filt Rate > 60; Glucose 99 mg/dL (70-99); Osmolality Calculated 291 mOsm/kg (285-295); Potassium 2.8 mmol/L (3.5-5.1); Sodium 141 mmol/L (136-145); Total Protein 5.3 g/dL (6.4-8.2)
[2023-08-02 08:00] VITALS: BP 140/58; PULSE 80; RESP 14; TEMP 36.6; O2SAT 97
[2023-08-02] MEDS: FUROSEMIDE INJ 20 MG/2 ML VIAL IV PUSH ×2 (08:37→17:52)
[2023-08-02] MEDS: calcitrioL 0.25 MCG CAPSULE PO (08:37)
[2023-08-02] MEDS: ASPIRIN 81 MG ENTERIC TABLET PO (08:38)
[2023-08-02] MEDS: CLOPIDOGREL BISULFATE 75 MG TABLET PO (08:38)
[2023-08-02] MEDS: DULoxetine HCL 20 MG CAPSULE.DR PO (08:38)
[2023-08-02] MEDS: HYDROXYCHLOROQUINE SULFATE 200 MG TABLET PO ×2 (08:38→17:52)
[2023-08-02] MEDS: APIXABAN 2.5 MG TABLET 10 MG PO ×2 (08:38→20:29)
[2023-08-02] MEDS: CEFEPIME 1 GM/NS 50 ML 1 GM/50 ML BAG IVPB (08:39)
[2023-08-02] MEDS: POTASSIUM CHLORIDE 20 MEQ ER TABLET PO ×2 (08:39→17:52)
--- NOTE | 2023-08-02 08:39 | PM.IMPN ---
Progress Note: A&P Assessment and Plan (1) Sepsis: Qualifiers: Sepsis acute organ dysfunction status: unspecified Sepsis type: sepsis due to unspecified organism Qualified Code(s): A41.9 - Sepsis, unspecified organism Code(s): A41.9 - Sepsis, unspecified organism Status: Acute Assessment and Plan: Sialoadenitis right parotid and right submandibular gland, Broad spectrum antibiotics started in ER. Improvement in mental status and WBC. Continue broad spectrum polymicrobial coverage for now. MRSA nasal screen ordered. New oxygen need with no prior history of CHF or need for supplemental oxygen and no pneumonia on CXR. Resolved (2) Altered mental status: Qualifiers: Altered mental status type: transient alteration of awareness Qualified Code(s): R40.4 - Transient alteration of awareness Code(s): R41.82 - Altered mental status, unspecified Status: Acute Assessment and Plan: Associated with sepsis, improving after IV fluids and broad spectrum antibiotics. Patient is now awake, alert but confused which is suspected to be patient's baseline mental status. improving (3) Acute sialoadenitis: Code(s): K11.21 - Acute sialoadenitis Status: Acute Assessment and Plan: Likely source of sepsis, right sided parotid and submandibular glands with mild edema/palpable tenderness, on broad spectrum antibiotics. MRSA nasal swab ordered. (4) Venous stasis ulcer: Code(s): I83.009 - Varicose veins of unspecified lower extremity with ulcer of unspecified site; L97.909 - Non-pressure chronic ulcer of unspecified part of unspecified lower leg with unspecified severity Status: Acute Assessment and Plan: Left lower leg sizable venous stasis ulcer without purulent drainage or best cellulitis. Bilateral lower extremity venous insufficiency noted. Distal pulses palpable. 3+ pitting edema to the knees bilaterally (5) Peripheral vascular disease: Code(s): I73.9 - Peripheral vascular disease, unspecified Status: Acute Assessment and Plan: bilateral lower extremity peripheral venous stasis noted with a stasis ulcer lower extremity (6) Fluid retention: Code(s): R60.9 - Edema, unspecified Status: Acute Assessment and Plan: no prior history of CHF but patient has some crackles, new oxygen need, bilateral lower extremity 3+ pitting edema. ordered IV Lasix, stopped IV fluids and ordered echocardiogram. (7) Left leg DVT: Code(s): I82.402 - Acute embolism and thrombosis of unspecified deep veins of left lower extremity Status: Acute Assessment and Plan: Left lower extremity DVT noted on venous ultrasound. Will start treatment with Eliquis. Patient had episode of hypotension after IV contrast yesterday. Will defer CTA of chest for PE as she is now on room air and troponin is stable. No added benefit in ruling in or out PE at this time. Plan Admit to Med/Tele, escalate to inpatient status Discontinue telemetry Continue broad spectrum antibiotics and watch blood cultures, Once stable deescalate to Augmentin and Bactrim per recommendation of ID pharmacist IV diuresis for fluid retention/lung crackles Echocardiogram ordered, attempting to get study done in next 1-2 days while inpatient, may have to complete on Sunday as outpatient if no tech availability Troponin and BNP with morning labs Start Eliquis for newly identified left leg DVT, no benefit in ruling in/out PE as above Continue Carpenter catheter for accurate I&O with diuresis Replace her potassium Subjective Date/time seen: 08/02/23 08:39 Interval history: patient potassium continue to remain 2.8 I will recheck her BNP change lasix to daily give her 40 meq of postassium and check her mag today . Patient states she is not feeling the greatest we will continue to keep for and additional day and monitor her electrolytes and treat her CHF Exam Narrative: GENER
[2023-08-02 09:07] LABS: NT Pro B Type Natriuretic Pept 410 pg/mL (0-450)
[2023-08-02 09:08] LABS: Magnesium 1.9 mg/dL (1.8-2.4)
[2023-08-02] MEDS: KCL 20 MEQ/SW 100 ML 100 ML 50 MEQ IVPB ×2 (09:36→14:26)
[2023-08-02 10:43] LABS: Vancomycin Trough 9.8 ug/mL (10.0-15.0)
--- NOTE | 2023-08-02 12:00 | ECHO_ITS ---
Patient Info Name: Roma Trujillo Age: 87 years : 1935 Gender: Female Ht: 63 in Wt: 146 lbs BSA: 1.73 m2 HR: 80 bpm BP: 140 / 58 mmHg Heart Rhythm: Sinus Rhythm Technical Quality: Good Exam Date: 08/02/2023 2:47 PM Exam Location: [facility] Patient Status: Inpatient Admit Date: 07/31/2023 Staff Ordering Physician: Efe Gonzalez APRN Calender Worker Helper: Avelina Brown RDCS Attending Provider: Shaun De La Paz MD Referring Physician: Carlos DEJESUS; Exam Type: CA echo doppler color flow Study Info Indications - FLUID RETENTION Complete two-dimensional, color flow and Doppler transthoracic echocardiogram is performed. History/Risk Factors Hypertension: Yes Tobacco Use: Never Cerebrovascular Disease: CVA Frailty Scale (CSHA): 4: Vulnerable Summary 1. Complete two-dimensional, color flow and Doppler transthoracic echocardiogram is performed. 2. Left ventricular chamber dimension is normal. 3. Left ventricular systolic function is normal, estimated at 60-65%. 4. The left ventricular diastolic function is grade I diastolic dysfunction. 5. E/e' 5 is not elevated. 6. There is mild aortic valve sclerosis. 7. There is trace aortic valve regurgitation. 8. There is mild mitral valve regurgitation. 9. There is mild tricuspid valve regurgitation. 10. No pulmonary hypertension, estimated pulmonary arterial systolic pressure is 34 mmHg. 11. There is trace pulmonic regurgitation. 12. There is small circumferential pericardial effusion. Left Ventricle E/e' 5 is not elevated. Left ventricular chamber dimension is normal. Left ventricular systolic function is normal, estimated at 60-65%. The left ventricular diastolic function is grade I diastolic dysfunction. Right Ventricle Right ventricular systolic function is normal and with normal TAPSE 2.6 cm. Right ventricular chamber dimension is normal. Left Atria Left atrial chamber dimension is normal. Right Atria Right atrial chamber dimension is normal. Aortic Valve The aortic valve is trileaflet. There is mild aortic valve sclerosis. There is no aortic valve stenosis. There is trace aortic valve regurgitation. Pulmonic Valve There is trace pulmonic regurgitation. Mitral Valve There is no mitral valve stenosis. There is mild mitral valve regurgitation. Tricuspid Valve There is mild tricuspid valve regurgitation. No pulmonary hypertension, estimated pulmonary arterial systolic pressure is 34 mmHg. Pericardium/Pleural No cardiac tamponade. There is small circumferential pericardial effusion. Inferior Vena Cava Normal inferior vena cava with >50% collapse upon inspiration consistent with normal right atrial pressure, 5 mmHg. Aorta The aortic root size at the sinus of Valsalva is normal. Left Ventricular Outflow Tract Name Value Normal LVOT 2D LVOT Diameter 1.9 cm LVOT Doppler LVOT Peak Velocity 135 cm/s LVOT Peak Gradient 5 mmHg LVOT Mean Gradient 2 mmHg LVOT VTI 36 cm LVOT VTI/AV VTI Ratio 1.0 LVOT Stroke Volume 98 ml Pu
--- NOTE | 2023-08-02 14:28 | PC.NURSE ---
second Pilo lau is late do to Vancomycin running 2 hours. RO
[2023-08-02 16:00] VITALS: BP 159/72; PULSE 89; RESP 16; TEMP 36.2; O2SAT 96
[2023-08-02] MEDS: AMOXICILLIN/CLAVULANATE K 875-125 MG TAB 1 TABLET PO (20:29)
[2023-08-03] VITALS: BP 141/76; PULSE 86; RESP 17; TEMP 36.3; O2SAT 96
[2023-08-03 05:24] LABS: Hematocrit 35.2 % (35.0-42.0); Hemoglobin 10.9 g/dL (11.7-13.8); Mean Corpuscular Hemoglobin 24.5 pg (27.0-31.0); Mean Corpuscular Volume 79.1 fL (78.0-102.0); Mean Platelet Volume 9.9 fl (9.2-11.8); Platelet Count Result 292 K/mm3 (150-420); Red Blood Count 4.45 M/mm3 (4.20-5.40); Red Cell Distribution Width 14.3 % (11.6-14.4); White Blood Count 10.1 K/mm3 (4.8-10.8)
[2023-08-03 05:38] LABS: Alanine Aminotransferase 17 U/L (14-59); Albumin Level 2.2 g/dL (3.4-5.0); Alkaline Phosphatase 70 U/L (46-116); Anion Gap 8 mmol/L (8-16); Aspartate Amino Transferase 21 U/L (15-37); Bilirubin,Total 0.2 mg/dL (0.00-1.00); Blood Urea Nitrogen 7 mg/dL (7-18); Carbon Dioxide 27 mmol/L (21-32); Chloride 106 mmol/L (98-108); Estimated CRCL calculation 47 ml/min; Estimated Glomerular Filt Rate > 60; Glucose 100 mg/dL (70-99); Osmolality Calculated 290 mOsm/kg (285-295); Potassium 3.4 mmol/L (3.5-5.1); Sodium 141 mmol/L (136-145); Total Protein 5.2 g/dL (6.4-8.2)
[2023-08-03 05:50] LABS: Band Neutrophils Percent 0 % (0-6); Basophils Percent Manual 1 % (0-1); Eosinophils Absolute Manual 1.01 K/mm3 (0.02-0.5); Eosinophils Percent Manual 10 % (1-6); Lymphocytes Percent Manual 8 % (18-44); Monocytes Absolute Manual 1.11 K/mm3 (0.1-0.90); Monocytes Percent Manual 11 % (3-9); Neutrophils Absolute Manual 7.07 K/mm3 (1.7-7.2); Neutrophils Percent Manual 70 % (46-73); Platelet Estimate Adequate (Adequate)
[2023-08-03 08:00] VITALS: BP 160/89; PULSE 83; RESP 15; TEMP 35.9; O2SAT 97
[2023-08-03] MEDS: APIXABAN 2.5 MG TABLET 10 MG PO ×2 (09:21→20:24)
[2023-08-03] MEDS: AMOXICILLIN/CLAVULANATE K 875-125 MG TAB 1 TABLET PO ×2 (09:21→20:25)
[2023-08-03] MEDS: POTASSIUM CHLORIDE 20 MEQ ER TABLET PO ×2 (09:21→17:44)
[2023-08-03] MEDS: CLOPIDOGREL BISULFATE 75 MG TABLET PO (09:21)
[2023-08-03] MEDS: HYDROXYCHLOROQUINE SULFATE 200 MG TABLET PO ×2 (09:22→17:44)
[2023-08-03] MEDS: ASPIRIN 81 MG ENTERIC TABLET PO (09:22)
[2023-08-03] MEDS: DULoxetine HCL 20 MG CAPSULE.DR PO (09:22)
[2023-08-03] MEDS: FUROSEMIDE INJ 20 MG/2 ML VIAL IV PUSH ×2 (09:22→17:44)
--- NOTE | 2023-08-03 10:20 | PM.IMPN ---
Progress Note: A&P Assessment and Plan (1) Sepsis: Qualifiers: Sepsis acute organ dysfunction status: unspecified Sepsis type: sepsis due to unspecified organism Qualified Code(s): A41.9 - Sepsis, unspecified organism Code(s): A41.9 - Sepsis, unspecified organism Status: Acute Assessment and Plan: Sialoadenitis right parotid and right submandibular gland, Broad spectrum antibiotics started in ER. Improvement in mental status and WBC. Continue broad spectrum polymicrobial coverage for now. MRSA nasal screen ordered. New oxygen need with no prior history of CHF or need for supplemental oxygen and no pneumonia on CXR. Resolved (2) Altered mental status: Qualifiers: Altered mental status type: transient alteration of awareness Qualified Code(s): R40.4 - Transient alteration of awareness Code(s): R41.82 - Altered mental status, unspecified Status: Acute Assessment and Plan: Associated with sepsis, improving after IV fluids and broad spectrum antibiotics. Patient is now awake, alert but confused which is suspected to be patient's baseline mental status. improving resolved (3) Acute sialoadenitis: Code(s): K11.21 - Acute sialoadenitis Status: Acute Assessment and Plan: Likely source of sepsis, right sided parotid and submandibular glands with mild edema/palpable tenderness, on broad spectrum antibiotics. MRSA nasal swab ordered. IV antibiotics Follow up with Dr Urias OCT 5 (4) Venous stasis ulcer: Code(s): I83.009 - Varicose veins of unspecified lower extremity with ulcer of unspecified site; L97.909 - Non-pressure chronic ulcer of unspecified part of unspecified lower leg with unspecified severity Status: Acute Assessment and Plan: Left lower leg sizable venous stasis ulcer without purulent drainage or best cellulitis. Bilateral lower extremity venous insufficiency noted. Distal pulses palpable. 3+ pitting edema to the knees bilaterally (5) Peripheral vascular disease: Code(s): I73.9 - Peripheral vascular disease, unspecified Status: Acute Assessment and Plan: bilateral lower extremity peripheral venous stasis noted with a stasis ulcer lower extremity (6) Fluid retention: Code(s): R60.9 - Edema, unspecified Status: Acute Assessment and Plan: no prior history of CHF but patient has some crackles, new oxygen need, bilateral lower extremity 3+ pitting edema. ordered IV Lasix, stopped IV fluids and ordered echocardiogram. Plan Admit to Med/Tele, escalate to inpatient status Discontinue telemetry Continue broad spectrum antibiotics and watch blood cultures, Once stable deescalate to Augmentin and Bactrim per recommendation of ID pharmacist IV diuresis for fluid retention/lung crackles Echocardiogram ordered, attempting to get study done in next 1-2 days while inpatient, may have to complete on Sunday as outpatient if no tech availability Troponin and BNP with morning labs Start Eliquis for newly identified left leg DVT, no benefit in ruling in/out PE as above Continue Carpenter catheter for accurate I&O with diuresis Replace her potassium REsolved Patient if her new Blood cultures come back negative than Vancomycin is working and she will be able to discharge back to [facility]. She has a ENT appointment on AUG [address] Brumfield Patient is looking a lot better at this time. Subjective Date/time seen: 08/03/23 10:20 Interval history: Patient has had another blood culture drawn on Sunday if the result come back negative she will need 4-6 weeks of IV Vancomycin in which she could have completed at the correction with Vanc Trough and monitoring with daily IV doses. Patient will also need to have ENT see her while she is still on the Antibiotic she has a appointment Set up for Aug [address] Loznao. We have to wait for the cultures to come back if negative she may be discharged otherwise she is in need
[2023-08-03 16:00] VITALS: BP 174/80; PULSE 87; RESP 16; TEMP 36.4; O2SAT 95
[2023-08-04] VITALS: BP 131/76; PULSE 95; RESP 16; TEMP 35.9; O2SAT 95
[2023-08-04 05:14] LABS: Hematocrit 36.4 % (35.0-42.0); Hemoglobin 11.3 g/dL (11.7-13.8); Mean Corpuscular Hemoglobin 24.8 pg (27.0-31.0); Mean Corpuscular Volume 79.8 fL (78.0-102.0); Mean Platelet Volume 10.1 fl (9.2-11.8); Platelet Count Result 311 K/mm3 (150-420); Red Blood Count 4.56 M/mm3 (4.20-5.40); Red Cell Distribution Width 14.2 % (11.6-14.4); White Blood Count 12.1 K/mm3 (4.8-10.8)
[2023-08-04 05:30] LABS: Alanine Aminotransferase 16 U/L (14-59); Albumin Level 2.3 g/dL (3.4-5.0); Alkaline Phosphatase 74 U/L (46-116); Anion Gap 5 mmol/L (8-16); Aspartate Amino Transferase 31 U/L (15-37); Bilirubin,Total 0.3 mg/dL (0.00-1.00); Blood Urea Nitrogen 6 mg/dL (7-18); Calcium 9.5 mg/dL (8.5-10.1); Carbon Dioxide 31 mmol/L (21-32); Chloride 104 mmol/L (98-108); Estimated CRCL calculation 41 ml/min; Estimated Glomerular Filt Rate > 60; Glucose 107 mg/dL (70-99); Osmolality Calculated 287 mOsm/kg (285-295); Potassium 3.6 mmol/L (3.5-5.1); Sodium 140 mmol/L (136-145); Total Protein 5.4 g/dL (6.4-8.2)
[2023-08-04 05:34] LABS: Total Cells Counted 100
[2023-08-04 05:35] LABS: Band Neutrophils Percent 0 % (0-6); Basophils Absolute Manual 0.12 K/mm3 (0-0.1); Basophils Percent Manual 1 % (0-1); Eosinophils Absolute Manual 0.96 K/mm3 (0.02-0.5); Eosinophils Percent Manual 8 % (1-6); Lymphocytes Absolute Manual 0.72 K/mm3 (1.1-4.5); Lymphocytes Percent Manual 6 % (18-44); Monocytes Absolute Manual 1.08 K/mm3 (0.1-0.90); Monocytes Percent Manual 9 % (3-9); Neutrophils Absolute Manual 9.19 K/mm3 (1.7-7.2); Neutrophils Percent Manual 76 % (46-73); Platelet Estimate Adequate (Adequate)
[2023-08-04 08:00] VITALS: BP 129/54; PULSE 84; RESP 14; TEMP 36.4; O2SAT 94
[2023-08-04] MEDS: calcitrioL 0.25 MCG CAPSULE PO (08:39)
[2023-08-04] MEDS: AMOXICILLIN/CLAVULANATE K 875-125 MG TAB 1 TABLET PO ×2 (08:39→20:38)
[2023-08-04] MEDS: APIXABAN 2.5 MG TABLET 10 MG PO ×2 (08:39→20:38)
[2023-08-04] MEDS: HYDROXYCHLOROQUINE SULFATE 200 MG TABLET PO ×2 (08:40→18:48)
[2023-08-04] MEDS: FUROSEMIDE INJ 20 MG/2 ML VIAL IV PUSH (08:40)
[2023-08-04] MEDS: POTASSIUM CHLORIDE 20 MEQ ER TABLET PO ×2 (08:40→17:35)
[2023-08-04] MEDS: CLOPIDOGREL BISULFATE 75 MG TABLET PO (08:40)
[2023-08-04] MEDS: ASPIRIN 81 MG ENTERIC TABLET PO (08:40)
[2023-08-04] MEDS: DULoxetine HCL 20 MG CAPSULE.DR PO (08:40)
--- NOTE | 2023-08-04 10:03 | PC.NURSE ---
During dressing change to wound noted to have dark purple nonbalncheable area on left heal. open are to left calf 2 x1 cm. Left extremity elevated off of bed
--- NOTE | 2023-08-04 10:23 | PM.IMPN ---
Progress Note: A&P Assessment and Plan (1) Sepsis: Qualifiers: Sepsis acute organ dysfunction status: unspecified Sepsis type: sepsis due to unspecified organism Qualified Code(s): A41.9 - Sepsis, unspecified organism Code(s): A41.9 - Sepsis, unspecified organism Status: Acute Assessment and Plan: MRSA in blood, on vancomycin. Parotitis and sialoadenitis appear resolved. Plan is midline catheter and IV antibiotics with return to snf anticipated in a couple days. (2) Altered mental status: Qualifiers: Altered mental status type: transient alteration of awareness Qualified Code(s): R40.4 - Transient alteration of awareness Code(s): R41.82 - Altered mental status, unspecified Status: Acute Assessment and Plan: Associated with sepsis, improving after IV fluids and broad spectrum antibiotics. Patient is now awake, alert but confused which is suspected to be patient's baseline mental status. improving resolved (3) Acute sialoadenitis: Code(s): K11.21 - Acute sialoadenitis Status: Acute Assessment and Plan: Likely source of sepsis, right sided parotid and submandibular glands with mild edema/palpable tenderness, on broad spectrum antibiotics. MRSA nasal swab ordered. IV antibiotics Follow up with Dr Lozano OCT 5 (4) Venous stasis ulcer: Code(s): I83.009 - Varicose veins of unspecified lower extremity with ulcer of unspecified site; L97.909 - Non-pressure chronic ulcer of unspecified part of unspecified lower leg with unspecified severity Status: Acute Assessment and Plan: Left lower leg sizable venous stasis ulcer without purulent drainage or best cellulitis. Bilateral lower extremity arterial and venous insufficiency noted. (5) Peripheral vascular disease: Code(s): I73.9 - Peripheral vascular disease, unspecified Status: Acute Assessment and Plan: bilateral lower extremity peripheral venous stasis noted with stasis ulcers left lower extremity (6) Left leg DVT: Code(s): I82.402 - Acute embolism and thrombosis of unspecified deep veins of left lower extremity Status: Acute Assessment and Plan: On Eliquis for treatment. (7) Grade I diastolic dysfunction: Code(s): I51.89 - Other ill-defined heart diseases Status: Acute Assessment and Plan: Pulmonary and peripheral edema resolved. Stop IV Lasix, start daily oral Lasix instead. Acute onset diastolic congestive heart failure. Plan Admit to Med/Tele, escalate to inpatient status Discontinue telemetry --Continue broad spectrum antibiotics and watch blood cultures, Once stable deescalate to Augmentin and Bactrim per recommendation of ID pharmacist?? Now IV antibiotics have been planned, will clarify on Sunday and continue vancomycin through the weekend. Start Eliquis for newly identified left leg DVT, no benefit in ruling in/out PE as above Continue Carpenter catheter for accurate I&O with diuresis Patient if her new Blood cultures come back negative than Vancomycin is working and she will be able to discharge back to [facility]. She has a ENT appointment on AUG [address] Lozano Patient is looking a lot better at this time. Time Spent With Patient Time with patient: Greater than 35 minutes Subjective Date/time seen: 08/04/23 10:23 Interval history: Patient feeling much better than when admitted. She denies any pain or difficulty breathing. Wounds noted on left leg--anterior and posterior stasis ulcers with poor healing due to severe PAD/PVD. Distal pulse weakly palpable. Initial blood cultures grew MRSA, patient on Augmentin and Vancomycin. Repeat blood cultures drawn yesterday, if remain negative plan to have Midline catheter placed on Sunday for DC back to halfway on IV Vancomycin. Previous plan had been Augmentin and Bactrim. Will clarify on Sunday. Patient has follow up visit with ENT, Dr. Lozano, scheduled on
[2023-08-04 11:17] LABS: Vancomycin Trough 17.1 ug/mL (10.0-15.0)
--- NOTE | 2023-08-04 11:19 | PC.NURSE ---
baljit tejeda completed [employer] DEPARTMENT MANAGER aware of new skin breakdown on LLE
--- NOTE | 2023-08-04 11:25 | PC.NURSE ---
pharmacy aware of vanco trough. they will review and dose.
--- NOTE | 2023-08-04 11:27 | PHAR ---
VANCOMYCIN LEVEL = 17.1 WHICH IS WITHIN OUR GOAL TROUGH LEVEL. NO CHANGE IN DOSING.
--- NOTE | 2023-08-04 13:09 | PC.NURSE ---
1300 a request for midline access sent off to [facility] for sunday, awaiting return call.
[2023-08-04 16:00] VITALS: BP 140/55; PULSE 96; RESP 16; TEMP 36.4; O2SAT 94
[2023-08-04] MEDS: FUROSEMIDE 20 MG TABLET PO (17:35)
[2023-08-04 20:00] VITALS: PULSE 96; RESP 16; O2SAT 94
[2023-08-04] MEDS: ACETAMINOPHEN 325 MG TABLET 650 MG PO (20:38)
[2023-08-05] VITALS: BP 131/56; PULSE 101; RESP 16; TEMP 36.1; O2SAT 96
--- NOTE | 2023-08-05 00:30 | PC.NURSE ---
Moderate amount of bleeding noted from open scab to left thigh, pressure applied until bleeding stopped, tolerated well.
[2023-08-05 05:25] LABS: Basophils Absolute Auto 0.21 K/mm3 (0.00-0.10); Basophils Percent Auto 1.4 % (0.0-1.0); Eosinophils Absolute Auto 1.43 K/mm3 (0.02-0.50); Eosinophils Percent Auto 9.8 % (1.0-6.0); Hematocrit 37.4 % (35.0-42.0); Hemoglobin 11.2 g/dL (11.7-13.8); Immature Granulocyte Absolute 0.16 K/mm3 (0.00-0.00); Immature Granulocyte Percent A 1.1 % (0.0-0.0); Lymphocytes Absolute Auto 1.05 K/mm3 (1.10-4.50); Lymphocytes Percent Auto 7.2 % (18.0-42.0); Mean Corpuscular HGB Conc 29.9 g/dL (32.0-36.0); Mean Corpuscular Hemoglobin 24.1 pg (27.0-31.0); Mean Corpuscular Volume 80.6 fL (78.0-102.0); Mean Platelet Volume 10.4 fl (9.2-11.8); Monocytes Absolute Auto 1.64 K/mm3 (0.10-0.90); Monocytes Percent Auto 11.3 % (2.0-11.0); Neutrophils Absolute Auto 10.1 K/mm3 (1.7-7.2); Neutrophils Percent Auto 69.2 % (50.0-70.0); Platelet Count Result 327 K/mm3 (150-420); Red Blood Count 4.64 M/mm3 (4.20-5.40); Red Cell Distribution Width 14.3 % (11.6-14.4); White Blood Count 14.6 K/mm3 (4.8-10.8)
[2023-08-05 05:46] LABS: Alanine Aminotransferase 15 U/L (14-59); Albumin Level 2.4 g/dL (3.4-5.0); Alkaline Phosphatase 75 U/L (46-116); Anion Gap 7 mmol/L (8-16); Aspartate Amino Transferase 24 U/L (15-37); Bilirubin,Total 0.3 mg/dL (0.00-1.00); Blood Urea Nitrogen 8 mg/dL (7-18); Calcium 9.5 mg/dL (8.5-10.1); Carbon Dioxide 28 mmol/L (21-32); Chloride 104 mmol/L (98-108); Estimated CRCL calculation 39 ml/min; Estimated Glomerular Filt Rate > 60; Glucose 118 mg/dL (70-99); Osmolality Calculated 287 mOsm/kg (285-295); Potassium 3.6 mmol/L (3.5-5.1); Sodium 139 mmol/L (136-145); Total Protein 5.4 g/dL (6.4-8.2)
[2023-08-05 08:00] VITALS: BP 125/60; PULSE 98; RESP 16; TEMP 36.1; O2SAT 98
[2023-08-05] MEDS: POTASSIUM CHLORIDE 20 MEQ ER TABLET PO ×2 (09:15→17:01)
[2023-08-05] MEDS: FUROSEMIDE 20 MG TABLET PO ×2 (09:16→17:01)
[2023-08-05] MEDS: HYDROXYCHLOROQUINE SULFATE 200 MG TABLET PO ×2 (09:17→17:01)
[2023-08-05] MEDS: CLOPIDOGREL BISULFATE 75 MG TABLET PO (09:17)
[2023-08-05] MEDS: APIXABAN 2.5 MG TABLET 10 MG PO ×2 (09:18→20:30)
[2023-08-05] MEDS: ASPIRIN 81 MG ENTERIC TABLET PO (09:19)
[2023-08-05] MEDS: DULoxetine HCL 20 MG CAPSULE.DR PO (09:19)
[2023-08-05] MEDS: AMOXICILLIN/CLAVULANATE K 875-125 MG TAB 1 TABLET PO (09:20)
[2023-08-05] MEDS: ACETAMINOPHEN 325 MG TABLET 650 MG PO ×2 (09:21→20:30)
--- NOTE | 2023-08-05 13:50 | PM.IMPN ---
Progress Note: A&P Assessment and Plan (1) Sepsis: Qualifiers: Sepsis acute organ dysfunction status: unspecified Sepsis type: sepsis due to unspecified organism Qualified Code(s): A41.9 - Sepsis, unspecified organism Code(s): A41.9 - Sepsis, unspecified organism Status: Acute Assessment and Plan: MRSA in blood, on vancomycin. Parotitis and sialoadenitis appear resolved. Plan is midline catheter and IV antibiotics with return to long term anticipated in a couple days. (2) Altered mental status: Qualifiers: Altered mental status type: transient alteration of awareness Qualified Code(s): R40.4 - Transient alteration of awareness Code(s): R41.82 - Altered mental status, unspecified Status: Acute Assessment and Plan: Associated with sepsis, improving after IV fluids and broad spectrum antibiotics. Patient is now awake, alert but confused which is suspected to be patient's baseline mental status. improving resolved (3) Acute sialoadenitis: Code(s): K11.21 - Acute sialoadenitis Status: Acute Assessment and Plan: Likely source of sepsis, right sided parotid and submandibular glands with mild edema/palpable tenderness, on broad spectrum antibiotics. MRSA nasal swab ordered. IV antibiotics Follow up with Dr Lozano OCT 5 (4) Venous stasis ulcer: Code(s): I83.009 - Varicose veins of unspecified lower extremity with ulcer of unspecified site; L97.909 - Non-pressure chronic ulcer of unspecified part of unspecified lower leg with unspecified severity Status: Acute Assessment and Plan: Left lower leg sizable venous stasis ulcer without purulent drainage or best cellulitis. Bilateral lower extremity arterial and venous insufficiency noted. (5) Peripheral vascular disease: Code(s): I73.9 - Peripheral vascular disease, unspecified Status: Acute Assessment and Plan: bilateral lower extremity peripheral venous stasis noted with stasis ulcers left lower extremity (6) Left leg DVT: Code(s): I82.402 - Acute embolism and thrombosis of unspecified deep veins of left lower extremity Status: Acute Assessment and Plan: On Eliquis for treatment. (7) Grade I diastolic dysfunction: Code(s): I51.89 - Other ill-defined heart diseases Status: Acute Assessment and Plan: Pulmonary and peripheral edema resolved. Stop IV Lasix, start daily oral Lasix instead. Acute onset diastolic congestive heart failure. Plan Admit to Med/Tele, escalate to inpatient status Discontinue telemetry --Continue broad spectrum antibiotics and watch blood cultures, Once stable deescalate to Augmentin and Bactrim per recommendation of ID pharmacist?? Now IV antibiotics have been planned, will clarify on Sunday and continue vancomycin through the weekend. Start Eliquis for newly identified left leg DVT, no benefit in ruling in/out PE as above Continue Carpenter catheter for accurate I&O with diuresis Patient if her new Blood cultures come back negative than Vancomycin is working and she will be able to discharge back to [facility]. She has a ENT appointment on AUG [address] Lozano Patient is looking a lot better at this time. 08/05: stopped Augmentin and added Bactrim DS twice daily. WBC climbing despite Augmentin/Vancomycin per morning labs. No fever Subjective Date/time seen: 08/05/23 13:50 Interval history: 08/04: Patient feeling much better than when admitted. She denies any pain or difficulty breathing. Wounds noted on left leg--anterior and posterior stasis ulcers with poor healing due to severe PAD/PVD. Distal pulse weakly palpable. Initial blood cultures grew MRSA, patient on Augmentin and Vancomycin. Repeat blood cultures drawn yesterday, if remain negative plan to have Midline catheter placed on Sunday for DC back to [facility] on IV Vancomycin. Previous plan had been Augmentin and Bactrim. Will clarify on Sunday.
[2023-08-05 16:00] VITALS: BP 140/68; PULSE 95; RESP 16; TEMP 36.6; O2SAT 98
[2023-08-05 20:00] VITALS: PULSE 95; RESP 16; O2SAT 98
[2023-08-05] MEDS: SULFAMETHOXAZOLE/TRIMETHOPRIM 800/160 MG DS TABLET 1 TAB PO (20:30)
[2023-08-06] VITALS: BP 132/68; PULSE 99; RESP 16; TEMP 36.4; O2SAT 96
[2023-08-06 05:35] LABS: Basophils Absolute Auto 0.16 K/mm3 (0.00-0.10); Basophils Percent Auto 1.1 % (0.0-1.0); Eosinophils Absolute Auto 1.31 K/mm3 (0.02-0.50); Eosinophils Percent Auto 8.8 % (1.0-6.0); Hematocrit 35.5 % (35.0-42.0); Hemoglobin 10.9 g/dL (11.7-13.8); Immature Granulocyte Absolute 0.21 K/mm3 (0.00-0.00); Immature Granulocyte Percent A 1.4 % (0.0-0.0); Lymphocytes Absolute Auto 1.31 K/mm3 (1.10-4.50); Lymphocytes Percent Auto 8.8 % (18.0-42.0); Mean Corpuscular HGB Conc 30.7 g/dL (32.0-36.0); Mean Corpuscular Hemoglobin 24.3 pg (27.0-31.0); Mean Corpuscular Volume 79.1 fL (78.0-102.0); Mean Platelet Volume 10.2 fl (9.2-11.8); Monocytes Absolute Auto 1.68 K/mm3 (0.10-0.90); Monocytes Percent Auto 11.3 % (2.0-11.0); Neutrophils Absolute Auto 10.2 K/mm3 (1.7-7.2); Neutrophils Percent Auto 68.6 % (50.0-70.0); Platelet Count Result 356 K/mm3 (150-420); Red Blood Count 4.49 M/mm3 (4.20-5.40); Red Cell Distribution Width 14.4 % (11.6-14.4); White Blood Count 14.9 K/mm3 (4.8-10.8)
[2023-08-06 05:46] LABS: Alanine Aminotransferase 16 U/L (14-59); Albumin Level 2.5 g/dL (3.4-5.0); Alkaline Phosphatase 82 U/L (46-116); Anion Gap 9 mmol/L (8-16); Aspartate Amino Transferase 21 U/L (15-37); Bilirubin,Total 0.3 mg/dL (0.00-1.00); Blood Urea Nitrogen 9 mg/dL (7-18); Calcium 9.7 mg/dL (8.5-10.1); Carbon Dioxide 27 mmol/L (21-32); Chloride 103 mmol/L (98-108); Estimated CRCL calculation 31 ml/min; Estimated Glomerular Filt Rate 59; Glucose 107 mg/dL (70-99); Osmolality Calculated 286 mOsm/kg (285-295); Potassium 3.8 mmol/L (3.5-5.1); Sodium 139 mmol/L (136-145); Total Protein 5.7 g/dL (6.4-8.2)
[2023-08-06] MEDS: ACETAMINOPHEN 325 MG TABLET 650 MG PO ×2 (07:18→20:40)
[2023-08-06] MEDS: POTASSIUM CHLORIDE 20 MEQ ER TABLET PO ×2 (07:23→17:24)
[2023-08-06 07:38] VITALS: BP 141/70; PULSE 94; RESP 16; TEMP 36.9; O2SAT 96
[2023-08-06] MEDS: FUROSEMIDE 20 MG TABLET PO ×2 (08:02→17:24)
[2023-08-06] MEDS: HYDROXYCHLOROQUINE SULFATE 200 MG TABLET PO ×2 (08:02→17:24)
[2023-08-06] MEDS: ASPIRIN 81 MG ENTERIC TABLET PO (08:02)
[2023-08-06] MEDS: calcitrioL 0.25 MCG CAPSULE PO (08:02)
[2023-08-06] MEDS: DULoxetine HCL 20 MG CAPSULE.DR PO (08:02)
[2023-08-06] MEDS: APIXABAN 2.5 MG TABLET 10 MG PO ×2 (08:02→20:40)
[2023-08-06] MEDS: SULFAMETHOXAZOLE/TRIMETHOPRIM 800/160 MG DS TABLET 1 TAB PO (08:03)
[2023-08-06] MEDS: CLOPIDOGREL BISULFATE 75 MG TABLET PO (08:03)
[2023-08-06] MEDS: cefTRIAXone 2 GM/NS 100 ML 2 GM/100 ML BAG IVPB (10:14)
--- NOTE | 2023-08-06 11:51 | PM.IMPN ---
Progress Note: A&P Assessment and Plan (1) Sepsis: Qualifiers: Sepsis acute organ dysfunction status: unspecified Sepsis type: sepsis due to unspecified organism Qualified Code(s): A41.9 - Sepsis, unspecified organism Code(s): A41.9 - Sepsis, unspecified organism Status: Acute Assessment and Plan: MRSA in blood, on vancomycin. Parotitis and sialoadenitis appear resolved. Plan is midline catheter and IV antibiotics with return to [facility] anticipated in a couple days. (2) Acute sialoadenitis: Code(s): K11.21 - Acute sialoadenitis Status: Acute Assessment and Plan: Likely source of sepsis, right sided parotid and submandibular glands with mild edema/palpable tenderness, on broad spectrum antibiotics. MRSA nasal swab ordered. IV antibiotics Follow up with Dr Lozano AUG 09 (3) Venous stasis ulcer: Code(s): I83.009 - Varicose veins of unspecified lower extremity with ulcer of unspecified site; L97.909 - Non-pressure chronic ulcer of unspecified part of unspecified lower leg with unspecified severity Status: Acute Assessment and Plan: Left lower leg sizable venous stasis ulcer without purulent drainage or best cellulitis. Bilateral lower extremity arterial and venous insufficiency noted. (4) Peripheral vascular disease: Code(s): I73.9 - Peripheral vascular disease, unspecified Status: Acute Assessment and Plan: bilateral lower extremity peripheral venous stasis noted with stasis ulcers left lower extremity (5) Left leg DVT: Code(s): I82.402 - Acute embolism and thrombosis of unspecified deep veins of left lower extremity Status: Acute Assessment and Plan: On Eliquis for treatment. (6) Grade I diastolic dysfunction: Code(s): I51.89 - Other ill-defined heart diseases Status: Acute Assessment and Plan: Pulmonary and peripheral edema resolved. Stop IV Lasix, start daily oral Lasix instead. Acute onset diastolic congestive heart failure. Plan IV vancomycin daily and IV Rocephin daily, will need joint terminal attack controller IV antibiotics on discharge Midline to be placed day of discharge Need to see improvement in WBC in order to feel good with [facility] to [facility] on IV antibiotics Office visit Dr. Lozano ENT on 08/09 Nursing staff concerned about eating/swallowing difficulty. Ordered Speech Therapy evaluation. Time Spent With Patient Time with patient: Greater than 35 minutes Subjective Date/time seen: 08/06/23 11:51 Interval history: Patient reports she is feeling well today. However, nursing staff is concerned that patient is more tired today. Labs reviewed and white blood cell count continues to rise despite change in antibiotics. Discussed with Infectious Disease pharmacist recommended IV Rocephin and IV vancomycin. On assessment patient has no further glandular swelling or tenderness we believe we fully attained source control. Discussed case patient still requires inpatient management if white blood cell count improves and patient remains otherwise stable, can consider discharge in the next 1-2 days on IV Vancomycin and Rocephin. Nursing reports concern for eating/swallowing so Speech Therapy consulted for bedside swallow assessment. Review of Systems Review of Systems: All systems reviewed & are unremarkable except as noted in HPI and below Exam Narrative: GENERAL: Generally well appearing, alert and oriented, in no apparent distress. She is pleasant and conversant in full sentences. HEENT: Pupils are equally round and briskly reactive to light. Extraocular muscles are intact. Oral mucous membranes are moist without lesions. NECK: The patient has no noted JVD. No palpable tenderness to glands, no adenopathy. CHEST/LUNGS: Lungs are clear bilaterally, no respiratory distress. There is no subcutaneous air appreciated. HEART: The patient has a regular rate and rhythm. Radial pulses are 2+. ABDOMEN: The pat
[2023-08-06 16:25] VITALS: BP 145/95; PULSE 102; RESP 18; TEMP 36; O2SAT 98
[2023-08-06 20:00] VITALS: PULSE 102; RESP 18; O2SAT 98
[2023-08-07] VITALS: BP 131/82; PULSE 108; RESP 16; TEMP 36.2; O2SAT 96
[2023-08-07 05:45] LABS: Basophils Absolute Auto 0.18 K/mm3 (0.00-0.10); Basophils Percent Auto 1.3 % (0.0-1.0); Eosinophils Absolute Auto 1.29 K/mm3 (0.02-0.50); Eosinophils Percent Auto 9.4 % (1.0-6.0); Hematocrit 33.1 % (35.0-42.0); Hemoglobin 10.2 g/dL (11.7-13.8); Immature Granulocyte Absolute 0.18 K/mm3 (0.00-0.00); Immature Granulocyte Percent A 1.3 % (0.0-0.0); Lymphocytes Absolute Auto 1.17 K/mm3 (1.10-4.50); Lymphocytes Percent Auto 8.5 % (18.0-42.0); Mean Corpuscular HGB Conc 30.8 g/dL (32.0-36.0); Mean Corpuscular Hemoglobin 24.3 pg (27.0-31.0); Mean Corpuscular Volume 78.8 fL (78.0-102.0); Mean Platelet Volume 10.5 fl (9.2-11.8); Monocytes Absolute Auto 1.65 K/mm3 (0.10-0.90); Neutrophils Absolute Auto 9.3 K/mm3 (1.7-7.2); Neutrophils Percent Auto 67.5 % (50.0-70.0); Platelet Count Result 352 K/mm3 (150-420); Red Cell Distribution Width 14.5 % (11.6-14.4); White Blood Count 13.7 K/mm3 (4.8-10.8)
[2023-08-07 06:08] LABS: Alanine Aminotransferase 13 U/L (14-59); Albumin Level 2.5 g/dL (3.4-5.0); Alkaline Phosphatase 82 U/L (46-116); Anion Gap 6 mmol/L (8-16); Aspartate Amino Transferase 21 U/L (15-37); Bilirubin,Total 0.3 mg/dL (0.00-1.00); Blood Urea Nitrogen 10 mg/dL (7-18); Calcium 9.7 mg/dL (8.5-10.1); Carbon Dioxide 28 mmol/L (21-32); Chloride 102 mmol/L (98-108); Estimated CRCL calculation 26 ml/min; Estimated Glomerular Filt Rate 46; Glucose 102 mg/dL (70-99); Osmolality Calculated 281 mOsm/kg (285-295); Potassium 3.8 mmol/L (3.5-5.1); Sodium 136 mmol/L (136-145); Total Protein 5.6 g/dL (6.4-8.2)
[2023-08-07 08:00] VITALS: BP 140/80; PULSE 89; RESP 17; TEMP 36.3; O2SAT 96
[2023-08-07] MEDS: CLOPIDOGREL BISULFATE 75 MG TABLET PO (09:07)
[2023-08-07] MEDS: DULoxetine HCL 20 MG CAPSULE.DR PO (09:09)
[2023-08-07] MEDS: APIXABAN 2.5 MG TABLET 10 MG PO (09:10)
[2023-08-07] MEDS: FUROSEMIDE 20 MG TABLET PO ×2 (09:10→17:53)
[2023-08-07] MEDS: HYDROXYCHLOROQUINE SULFATE 200 MG TABLET PO ×2 (09:10→17:53)
[2023-08-07] MEDS: POTASSIUM CHLORIDE 20 MEQ ER TABLET PO ×2 (09:10→17:53)
[2023-08-07] MEDS: ASPIRIN 81 MG ENTERIC TABLET PO (09:10)
[2023-08-07] MEDS: cefTRIAXone 2 GM/NS 100 ML 2 GM/100 ML BAG IVPB (09:11)
[2023-08-07 11:26] LABS: Vancomycin Trough 24.6 ug/mL (10.0-15.0)
--- NOTE | 2023-08-07 12:30 | PC.NURSE ---
Midline placement requested from [facility]. Dontae called back about request, states he will be here to place midline in 2-3 hours.
--- NOTE | 2023-08-07 13:06 | PM.IMPN ---
Progress Note: A&P Assessment and Plan (1) Sepsis: Qualifiers: Sepsis acute organ dysfunction status: unspecified Sepsis type: sepsis due to unspecified organism Qualified Code(s): A41.9 - Sepsis, unspecified organism Code(s): A41.9 - Sepsis, unspecified organism Status: Acute Assessment and Plan: MRSA in blood, on vancomycin. Parotitis and sialoadenitis appear resolved. Plan is midline catheter and IV antibiotics with return to long term anticipated in a couple days. 08/07: White blood cell count was not decreasing so Rocephin was added for polymicrobial coverage of sialoadenitis (2) Acute sialoadenitis: Code(s): K11.21 - Acute sialoadenitis Status: Acute Assessment and Plan: Likely source of sepsis, right sided parotid and submandibular glands with mild edema/palpable tenderness, on broad spectrum antibiotics. MRSA nasal swab ordered. IV antibiotics Follow up with Dr Lozano OCT 5 (3) Venous stasis ulcer: Code(s): I83.009 - Varicose veins of unspecified lower extremity with ulcer of unspecified site; L97.909 - Non-pressure chronic ulcer of unspecified part of unspecified lower leg with unspecified severity Status: Acute Assessment and Plan: Left lower leg sizable venous stasis ulcer without purulent drainage or best cellulitis. Bilateral lower extremity arterial and venous insufficiency noted. (4) Peripheral vascular disease: Code(s): I73.9 - Peripheral vascular disease, unspecified Status: Acute Assessment and Plan: bilateral lower extremity peripheral venous stasis noted with stasis ulcers left lower extremity (5) Left leg DVT: Code(s): I82.402 - Acute embolism and thrombosis of unspecified deep veins of left lower extremity Status: Acute Assessment and Plan: On Eliquis for treatment. Finished 7 days of 10 mg bid, will change to 5 mg bid ongoing (6) Grade I diastolic dysfunction: Code(s): I51.89 - Other ill-defined heart diseases Status: Acute Assessment and Plan: Pulmonary and peripheral edema resolved. Stop IV Lasix, start daily oral Lasix instead. Acute onset diastolic congestive heart failure. Plan IV vancomycin daily and IV Rocephin daily, will need buttermaker IV antibiotics on discharge Midline to be placed today Notified skilled nursing of planned discharge today or tomorrow. They did not start SNF authorization yet. Auth has been initiated. Office visit Dr. Lozano ENT on 08/22 1400 at [facility] Dr. Su will follow IV antibiotic treatment at [facility] Time Spent With Patient Time with patient: Greater than 35 minutes Subjective Date/time seen: 08/07/23 13:06 Interval history: Patient is doing well no significant changes or acute events. Vancomycin trough returns significantly elevated. Vancomycin has been adjusted by pharmacy. White blood cell count is starting to minimally decrease. We will draw urine culture and follow culture results as white blood cell continued to rise despite appropriate treatment for identified MRSA bloodstream infection. Midline catheter will be placed today and will consider discharge to the skilled nursing tomorrow. Review of Systems Review of Systems: All systems reviewed & are unremarkable except as noted in HPI and below Exam Narrative: GENERAL: Generally well appearing, alert and oriented, in no apparent distress. She is pleasant and conversant in full sentences. HEENT: Pupils are equally round and briskly reactive to light. Extraocular muscles are intact. Oral mucous membranes are moist without lesions. NECK: The patient has no noted JVD. No palpable tenderness to glands, no adenopathy. CHEST/LUNGS: Lungs are clear bilaterally, no respiratory distress. There is no subcutaneous air appreciated. HEART: The patient has a regular rate and rhythm. Radial pulses are 2+. ABDOMEN: The patient's abdomen is soft, nontender, and nondistend
--- NOTE | 2023-08-07 13:50 | PC.NURSE ---
Dontae from [facility] here to place midline. Provided with printed order and consent.
--- NOTE | 2023-08-07 14:15 | PC.NURSE ---
Addendum entered by Divine Vance RN 08/07/23 14:40: Midline placed in right brachial vein not left. Left charted in error. Original Note: Dontae from [facility] finished with procedure to place midline. Patient has midline in left brachial vein, 4fr lumen, 12cm long. Arm circumference 27 at insertion site. Patient tolerated procedure well.
[2023-08-07 16:00] VITALS: BP 128/81; PULSE 80; RESP 17; TEMP 36.3; O2SAT 97
[2023-08-07] MEDS: APIXABAN 2.5 MG TABLET 5 MG PO (20:15)
[2023-08-07 23:44] VITALS: BP 138/86; PULSE 95; RESP 16; TEMP 36.4; O2SAT 94
[2023-08-08 05:20] LABS: Basophils Absolute Auto 0.15 K/mm3 (0.00-0.10); Basophils Percent Auto 1.4 % (0.0-1.0); Eosinophils Absolute Auto 0.92 K/mm3 (0.02-0.50); Eosinophils Percent Auto 8.4 % (1.0-6.0); Hematocrit 31.5 % (35.0-42.0); Hemoglobin 9.8 g/dL (11.7-13.8); Immature Granulocyte Absolute 0.14 K/mm3 (0.00-0.00); Immature Granulocyte Percent A 1.3 % (0.0-0.0); Lymphocytes Absolute Auto 1.09 K/mm3 (1.10-4.50); Lymphocytes Percent Auto 9.9 % (18.0-42.0); Mean Corpuscular HGB Conc 31.1 g/dL (32.0-36.0); Mean Corpuscular Hemoglobin 24.6 pg (27.0-31.0); Mean Corpuscular Volume 79.1 fL (78.0-102.0); Mean Platelet Volume 10.6 fl (9.2-11.8); Monocytes Absolute Auto 1.32 K/mm3 (0.10-0.90); Neutrophils Absolute Auto 7.4 K/mm3 (1.7-7.2); Platelet Count Result 334 K/mm3 (150-420); Red Blood Count 3.98 M/mm3 (4.20-5.40); Red Cell Distribution Width 14.4 % (11.6-14.4)
[2023-08-08 05:28] LABS: Anion Gap 8 mmol/L (8-16); Blood Urea Nitrogen 11 mg/dL (7-18); Calcium 9.3 mg/dL (8.5-10.1); Carbon Dioxide 26 mmol/L (21-32); Chloride 101 mmol/L (98-108); Estimated CRCL calculation 27 ml/min; Estimated Glomerular Filt Rate 49; Glucose 99 mg/dL (70-99); Osmolality Calculated 279 mOsm/kg (285-295); Potassium 3.6 mmol/L (3.5-5.1); Sodium 135 mmol/L (136-145)
[2023-08-08 08:00] VITALS: BP 136/68; PULSE 94; RESP 15; TEMP 35.8; O2SAT 98
[2023-08-08] MEDS: POTASSIUM CHLORIDE 20 MEQ ER TABLET PO ×2 (09:46→17:27)
[2023-08-08] MEDS: cefTRIAXone 2 GM/NS 100 ML 2 GM/100 ML BAG IVPB (09:47)
[2023-08-08] MEDS: FUROSEMIDE 20 MG TABLET PO ×2 (09:47→17:27)
[2023-08-08] MEDS: calcitrioL 0.25 MCG CAPSULE PO (09:47)
[2023-08-08] MEDS: APIXABAN 2.5 MG TABLET 5 MG PO ×2 (09:47→20:41)
[2023-08-08] MEDS: CLOPIDOGREL BISULFATE 75 MG TABLET PO (09:47)
[2023-08-08] MEDS: DULoxetine HCL 20 MG CAPSULE.DR PO (09:47)
[2023-08-08] MEDS: HYDROXYCHLOROQUINE SULFATE 200 MG TABLET PO ×2 (09:47→17:27)
[2023-08-08] MEDS: ASPIRIN 81 MG ENTERIC TABLET PO (09:47)
[2023-08-08] MEDS: VANCOMYCIN 1,250 MG/NS 250 ML 1,250 MG/250 ML BAG 166.67 MG IVPB (09:48)
--- NOTE | 2023-08-08 13:30 | PM.IMPN ---
Progress Note: A&P Assessment and Plan (1) Sepsis: Qualifiers: Sepsis acute organ dysfunction status: unspecified Sepsis type: sepsis due to unspecified organism Qualified Code(s): A41.9 - Sepsis, unspecified organism Code(s): A41.9 - Sepsis, unspecified organism Status: Acute Assessment and Plan: Parotiditis MRSA in blood, on vancomycin. Parotitis and sialoadenitis appear resolved. Plan is midline catheter and IV antibiotics with return to jail anticipated in a couple days. 08/07: White blood cell count was not decreasing so Rocephin was added for polymicrobial coverage of sialoadenitis 08/08 WBC downtrending appropriately Vanco trough 08/07 was elevated at 24.6, pharmacy to correct dose Repeat blood cultures 08/02 have cleared the infection. (2) Acute sialoadenitis: Code(s): K11.21 - Acute sialoadenitis Status: Acute Assessment and Plan: Likely source of sepsis, right sided parotid and submandibular glands with mild edema/palpable tenderness, on broad spectrum antibiotics. MRSA nasal swab ordered. IV antibiotics Follow up with Dr Lozano AUG 09 (3) Venous stasis ulcer: Code(s): I83.009 - Varicose veins of unspecified lower extremity with ulcer of unspecified site; L97.909 - Non-pressure chronic ulcer of unspecified part of unspecified lower leg with unspecified severity Status: Acute Assessment and Plan: Left lower leg sizable venous stasis ulcer without purulent drainage or best cellulitis. Bilateral lower extremity arterial and venous insufficiency noted. Unable to doppler L DP pulse, weak doppler to L PT pulse, delayed cap refill, foot is cooler than the right. Known DVT on anticoagulation. (4) Peripheral vascular disease: Code(s): I73.9 - Peripheral vascular disease, unspecified Status: Acute Assessment and Plan: bilateral lower extremity peripheral venous stasis noted with stasis ulcers left lower extremity (5) Left leg DVT: Code(s): I82.402 - Acute embolism and thrombosis of unspecified deep veins of left lower extremity Status: Acute Assessment and Plan: DVT discovered on 07/31 to LLE. On Eliquis for treatment. Finished 7 days of 10 mg bid, will change to 5 mg bid ongoing (6) Grade I diastolic dysfunction: Code(s): I51.89 - Other ill-defined heart diseases Status: Acute Assessment and Plan: Pulmonary and peripheral edema resolved. Stop IV Lasix, start daily oral Lasix instead. Acute onset diastolic congestive heart failure. Plan IV vancomycin daily and IV Rocephin daily, will need keno terminal operator IV antibiotics on discharge until 08/15/23 Midline placed 08/07 Notified detention of planned discharge today or tomorrow. They did not start SNF authorization yet. Auth has been initiated. Office visit Dr. Lozano ENT on 08/22 [address] [facility] [address]. Su will follow IV antibiotic treatment at [facility]C to detention when they are able to accept her back. Subjective Date/time seen: 08/08/23 09:03 Interval history: HPI obtained from chart, This is an 87-year-old female patient admitted to the hospital after ER evaluation for altered mental status revealed patient experiencing sepsis from unknown source.? Patient resides at the local nursing and has a history including hypertension rheumatoid arthritis osteoporosis vitamin-D deficiency and a venous stasis ulcer moderate left leg.? Family noticed swelling the right side of patient's face.? During imaging workup patient was found to have right-sided parotiditis and submandibular sialoadenitis.? This is likely to be precipitating factor for sepsis as urine and CXR are not obviously infected.? Blood cultures in process.? Patient was started broad-spectrum antibiotics and admitted to the hospital for monitoring.? This morning patient is awake and alert to baseline mental status which is mildly confused.? Patient n
[2023-08-08 15:59] VITALS: BP 128/64; PULSE 79; RESP 17; TEMP 36.6; O2SAT 99
[2023-08-08] MEDS: ACETAMINOPHEN 325 MG TABLET 650 MG PO (20:41)
--- NOTE | 2023-08-08 23:30 | PC.NURSE ---
Entered room to find that pt had pulled her midline out and had blood all over her arm and linens. Small amount of bleeding continues. Pressure dressing applied. Pt cleaned and bed linens changed. Midline catheter intact. 12cm from insertion site. Pt in no distress. Call light in reach.
--- NOTE | 2023-08-08 23:40 | PC.NURSE ---
AIDEN Hernandez, notified of pt pulling PICC line out; Orders to put a regular IV site in before IV antibiotics in the AM.
[2023-08-09] VITALS: BP 187/77; PULSE 90; RESP 16; TEMP 36.4; O2SAT 96
[2023-08-09 05:19] LABS: Hematocrit 31.2 % (35.0-42.0); Hemoglobin 9.5 g/dL (11.7-13.8); Mean Corpuscular HGB Conc 30.4 g/dL (32.0-36.0); Mean Corpuscular Hemoglobin 24.3 pg (27.0-31.0); Mean Corpuscular Volume 79.8 fL (78.0-102.0); Mean Platelet Volume 10.4 fl (9.2-11.8); Platelet Count Result 304 K/mm3 (150-420); Red Blood Count 3.91 M/mm3 (4.20-5.40); Red Cell Distribution Width 14.6 % (11.6-14.4); White Blood Count 8.7 K/mm3 (4.8-10.8)
[2023-08-09 05:32] LABS: Anion Gap 6 mmol/L (8-16); Blood Urea Nitrogen 8 mg/dL (7-18); Calcium 9.3 mg/dL (8.5-10.1); Carbon Dioxide 29 mmol/L (21-32); Chloride 104 mmol/L (98-108); Estimated CRCL calculation 29 ml/min; Estimated Glomerular Filt Rate 53; Glucose 93 mg/dL (70-99); Osmolality Calculated 286 mOsm/kg (285-295); Potassium 3.4 mmol/L (3.5-5.1); Sodium 139 mmol/L (136-145)
[2023-08-09 05:46] LABS: Band Neutrophils Percent 0 % (0-6); Basophils Absolute Manual 0.17 K/mm3 (0-0.1); Basophils Percent Manual 2 % (0-1); Eosinophils Absolute Manual 1.04 K/mm3 (0.02-0.5); Eosinophils Percent Manual 12 % (1-6); Lymphocytes Absolute Manual 0.78 K/mm3 (1.1-4.5); Lymphocytes Percent Manual 9 % (18-44); Monocytes Absolute Manual 0.78 K/mm3 (0.1-0.90); Monocytes Percent Manual 9 % (3-9); Neutrophils Absolute Manual 5.91 K/mm3 (1.7-7.2); Neutrophils Percent Manual 68 % (46-73); Platelet Estimate Adequate (Adequate); Total Cells Counted 100
--- NOTE | 2023-08-09 07:38 | PM.IMPN ---
Progress Note: A&P Assessment and Plan (1) Sepsis: Qualifiers: Sepsis acute organ dysfunction status: unspecified Sepsis type: sepsis due to unspecified organism Qualified Code(s): A41.9 - Sepsis, unspecified organism Code(s): A41.9 - Sepsis, unspecified organism Status: Acute Assessment and Plan: MRSA in blood, on vancomycin. Parotitis and sialoadenitis appear resolved. Plan is midline catheter and IV antibiotics with return to jail anticipated in a couple days. 08/07: White blood cell count was not decreasing so Rocephin was added for polymicrobial coverage of sialoadenitis (2) Acute sialoadenitis: Code(s): K11.21 - Acute sialoadenitis Status: Acute Assessment and Plan: Likely source of sepsis, right sided parotid and submandibular glands with mild edema/palpable tenderness, on broad spectrum antibiotics. MRSA nasal swab ordered. IV antibiotics Follow up with Dr Lozano AUG 5 (3) Venous stasis ulcer: Code(s): I83.009 - Varicose veins of unspecified lower extremity with ulcer of unspecified site; L97.909 - Non-pressure chronic ulcer of unspecified part of unspecified lower leg with unspecified severity Status: Acute Assessment and Plan: Left lower leg sizable venous stasis ulcer without purulent drainage or best cellulitis. Bilateral lower extremity arterial and venous insufficiency noted. (4) Peripheral vascular disease: Code(s): I73.9 - Peripheral vascular disease, unspecified Status: Acute Assessment and Plan: bilateral lower extremity peripheral venous stasis noted with stasis ulcers left lower extremity (5) Left leg DVT: Code(s): I82.402 - Acute embolism and thrombosis of unspecified deep veins of left lower extremity Status: Acute Assessment and Plan: On Eliquis for treatment. Finished 7 days of 10 mg bid, will change to 5 mg bid ongoing (6) Grade I diastolic dysfunction: Code(s): I51.89 - Other ill-defined heart diseases Status: Acute Assessment and Plan: Pulmonary and peripheral edema resolved. Stop IV Lasix, start daily oral Lasix instead. Acute onset diastolic congestive heart failure. Plan IV vancomycin daily and IV Rocephin daily, will need superintendent marine oil terminal IV antibiotics on discharge Midline to be placed today...... Pulled line out and will need to have it replaced. Notified halfway of planned discharge today or tomorrow. They did not start SNF authorization yet. Auth has been initiated. Office visit Dr. Blake TANNER on 08/[address] [facility] Dr. Su will follow IV antibiotic treatment at [facility] Subjective Date/time seen: 08/09/23 07:38 Interval history: Patient is in need of PICC line to be replaced as she pulled out her previous one Unsure if [facility] will take her with a pherphial line so we will need to obatin another line. If we are able to obtain a line we can consider discharge today. Exam Narrative: GENERAL: Generally well appearing, alert and oriented, in no apparent distress. She is pleasant and conversant in full sentences. HEENT: Pupils are equally round and briskly reactive to light. CHEST/LUNGS: Lungs are clear bilaterally, no respiratory distress. There is no subcutaneous air appreciated. HEART: The patient has a regular rate and rhythm. Radial pulses are 2+. ABDOMEN: The patient's abdomen is soft, nontender, and nondistended. Bowel sounds are positive. Carpenter catheter in place with clear yellow urine drainage EXTREMITIES: The patient has no edema with discoloration consistent with peripheral vascular disease and a moderate size venous stasis ulcer left anterior lower leg/ankle and small on posterior calf. Anterior cat skin abrasion also noted, all with poor healing. Left heel purplish. Heel protectors in place. SKIN: The patient's skin is warm and dry, without rashes or lesions. PSYCHIATRIC: The patient has normal mental status and has
[2023-08-09 08:00] VITALS: BP 180/80; PULSE 84; RESP 18; TEMP 36.1; O2SAT 94
[2023-08-09] MEDS: cefTRIAXone 2 GM/NS 100 ML 2 GM/100 ML BAG IVPB (09:32)
[2023-08-09] MEDS: ASPIRIN 81 MG ENTERIC TABLET PO (09:35)
[2023-08-09] MEDS: POTASSIUM CHLORIDE 20 MEQ ER TABLET PO ×2 (09:35→17:00)
[2023-08-09] MEDS: DULoxetine HCL 20 MG CAPSULE.DR PO (09:35)
[2023-08-09] MEDS: APIXABAN 2.5 MG TABLET 5 MG PO ×2 (09:36→20:04)
[2023-08-09] MEDS: HYDROXYCHLOROQUINE SULFATE 200 MG TABLET PO (09:56)
[2023-08-09] MEDS: CLOPIDOGREL BISULFATE 75 MG TABLET PO (09:57)
[2023-08-09] MEDS: FUROSEMIDE 20 MG TABLET PO ×2 (09:58→17:27)
[2023-08-09] MEDS: VANCOMYCIN 1,250 MG/NS 250 ML 1,250 MG/250 ML BAG 167 MG IVPB (10:26)
--- NOTE | 2023-08-09 15:52 | PC.NURSE ---
@ 1190 anastacia belle rn started a midline in her r brachial in her r upper arm. done under uls. she claims immediate return of blood. and can be used. site looks clean.
[2023-08-09 15:55] VITALS: BP 148/82; PULSE 84; RESP 18; TEMP 36.1; O2SAT 93
[2023-08-09 17:47] LABS: Influenza A QL RT-PCR Negative (Negative); Influenza B QL RT-PCR Negative (Negative); SARS-CoV-2 RNA PCR Negative (Negative)
[2023-08-09 17:48] LABS: RSV RNA, RT-PCR Negative (Negative)
[2023-08-09 20:00] VITALS: PULSE 84; RESP 18; O2SAT 93
[2023-08-09] MEDS: ACETAMINOPHEN 325 MG TABLET 650 MG PO (20:04)
[2023-08-10] VITALS: BP 143/57; PULSE 96; RESP 16; TEMP 36; O2SAT 100
[2023-08-10 08:00] VITALS: BP 148/84; PULSE 82; RESP 16; TEMP 36.6; O2SAT 95
[2023-08-10 08:14] LABS: Basophils Absolute Auto 0.14 K/mm3 (0.00-0.10); Basophils Percent Auto 1.3 % (0.0-1.0); Eosinophils Absolute Auto 0.97 K/mm3 (0.02-0.50); Eosinophils Percent Auto 8.9 % (1.0-6.0); Hemoglobin 10.8 g/dL (11.7-13.8); Immature Granulocyte Absolute 0.06 K/mm3 (0.00-0.00); Immature Granulocyte Percent A 0.5 % (0.0-0.0); Lymphocytes Absolute Auto 0.76 K/mm3 (1.10-4.50); Lymphocytes Percent Auto 6.9 % (18.0-42.0); Mean Corpuscular Hemoglobin 24.1 pg (27.0-31.0); Mean Corpuscular Volume 80.2 fL (78.0-102.0); Mean Platelet Volume 9.8 fl (9.2-11.8); Monocytes Absolute Auto 1.02 K/mm3 (0.10-0.90); Monocytes Percent Auto 9.3 % (2.0-11.0); Neutrophils Percent Auto 73.1 % (50.0-70.0); Platelet Count Result 343 K/mm3 (150-420); Red Blood Count 4.49 M/mm3 (4.20-5.40); Red Cell Distribution Width 14.6 % (11.6-14.4)
[2023-08-10] MEDS: cefTRIAXone 2 GM/NS 100 ML 2 GM/100 ML BAG IVPB (08:22)
[2023-08-10] MEDS: calcitrioL 0.25 MCG CAPSULE PO (08:23)
[2023-08-10] MEDS: APIXABAN 2.5 MG TABLET 5 MG PO ×2 (08:23→21:14)
[2023-08-10] MEDS: FUROSEMIDE 20 MG TABLET PO ×2 (08:23→16:41)
[2023-08-10] MEDS: POTASSIUM CHLORIDE 20 MEQ ER TABLET PO ×2 (08:23→16:41)
[2023-08-10] MEDS: DULoxetine HCL 20 MG CAPSULE.DR PO (08:24)
[2023-08-10] MEDS: CLOPIDOGREL BISULFATE 75 MG TABLET PO (08:24)
[2023-08-10] MEDS: ASPIRIN 81 MG ENTERIC TABLET PO (08:24)
[2023-08-10 08:28] LABS: Anion Gap 6 mmol/L (8-16); Blood Urea Nitrogen 6 mg/dL (7-18); Calcium 9.8 mg/dL (8.5-10.1); Carbon Dioxide 29 mmol/L (21-32); Chloride 102 mmol/L (98-108); Estimated CRCL calculation 30 ml/min; Estimated Glomerular Filt Rate 57; Glucose 99 mg/dL (70-99); Osmolality Calculated 281 mOsm/kg (285-295); Potassium 3.5 mmol/L (3.5-5.1); Sodium 137 mmol/L (136-145)
[2023-08-10 08:35] LABS: Vancomycin Trough 21.6 ug/mL (10.0-15.0)
--- NOTE | 2023-08-10 16:38 | PM.IMPN ---
Progress Note: A&P Assessment and Plan (1) Sepsis: Qualifiers: Sepsis acute organ dysfunction status: unspecified Sepsis type: sepsis due to unspecified organism Qualified Code(s): A41.9 - Sepsis, unspecified organism Code(s): A41.9 - Sepsis, unspecified organism Status: Acute Assessment and Plan: MRSA in blood, on vancomycin. Parotitis and sialoadenitis appear resolved. Plan is midline catheter and IV antibiotics with return to [facility] anticipated in a couple days. 08/07: White blood cell count was not decreasing so Rocephin was added for polymicrobial coverage of sialoadenitis 08/10-WBC 11.0, slight increased (2) Acute sialoadenitis: Code(s): K11.21 - Acute sialoadenitis Status: Acute Assessment and Plan: Likely source of sepsis, right sided parotid and submandibular glands with mild edema/palpable tenderness, on broad spectrum antibiotics. MRSA nasal swab ordered. IV antibiotics Follow up with Dr Lozano OCT 5 (3) Venous stasis ulcer: Code(s): I83.009 - Varicose veins of unspecified lower extremity with ulcer of unspecified site; L97.909 - Non-pressure chronic ulcer of unspecified part of unspecified lower leg with unspecified severity Status: Acute Assessment and Plan: Left lower leg sizable venous stasis ulcer without purulent drainage or best cellulitis. Bilateral lower extremity arterial and venous insufficiency noted. (4) Peripheral vascular disease: Code(s): I73.9 - Peripheral vascular disease, unspecified Status: Acute Assessment and Plan: bilateral lower extremity peripheral venous stasis noted with stasis ulcers left lower extremity (5) Left leg DVT: Code(s): I82.402 - Acute embolism and thrombosis of unspecified deep veins of left lower extremity Status: Acute Assessment and Plan: On Eliquis for treatment. Finished 7 days of 10 mg bid, will change to 5 mg bid ongoing (6) Grade I diastolic dysfunction: Code(s): I51.89 - Other ill-defined heart diseases Status: Acute Assessment and Plan: Pulmonary and peripheral edema resolved. Stop IV Lasix, start daily oral Lasix instead. Acute onset diastolic congestive heart failure. Plan IV vancomycin daily and IV Rocephin daily, will need terminal operations supervisor IV antibiotics on discharge through 08/15 IV access re-established after patient removed midline. Awaiting on fpc to receive authorization Office visit Dr. Blake TANNER on 08/22 1400 at [facility] Dr. Su will [facility] Subjective Date/time seen: 08/10/23 0815 Interval history: HPI obtained from chart, This is an 87-year-old female patient admitted to the hospital after ER evaluation for altered mental status revealed patient experiencing sepsis from unknown source.? Patient resides at the local nursing and has a history including hypertension rheumatoid arthritis osteoporosis vitamin-D deficiency and a venous stasis ulcer moderate left leg.? Family noticed swelling the right side of patient's face.? During imaging workup patient was found to have right-sided parotiditis and submandibular sialoadenitis.? This is likely to be precipitating factor for sepsis as urine and CXR are not obviously infected.? Blood cultures in process.? Patient was started broad-spectrum antibiotics and admitted to the hospital for monitoring.? This morning patient is awake and alert to baseline mental status which is mildly confused.? Patient noted to have new oxygen demand and crackles in her lungs.? She also has 3+ lower extremity pitting edema with chronic findings of peripheral vascular disease.? Patient has a significant left lower extremity half dollar size venous stasis ulcer without purulence or definitive cellulitis changes. 08/08-This is a pleasantly confused 87 year old lady who is receiving treatment for bacteremia from a parotid gland infection. She
[2023-08-10 16:44] VITALS: BP 160/60; PULSE 97; RESP 16; TEMP 36.6; O2SAT 97
[2023-08-10 20:00] VITALS: PULSE 97; RESP 16; O2SAT 97
[2023-08-10] MEDS: ACETAMINOPHEN 325 MG TABLET 650 MG PO (21:15)
[2023-08-11] VITALS: BP 160/79; PULSE 94; RESP 16; TEMP 36.1; O2SAT 93
[2023-08-11 05:00] LABS: Basophils Absolute Auto 0.16 K/mm3 (0.00-0.10); Basophils Percent Auto 1.6 % (0.0-1.0); Eosinophils Absolute Auto 0.57 K/mm3 (0.02-0.50); Eosinophils Percent Auto 5.5 % (1.0-6.0); Hemoglobin 9.5 g/dL (11.7-13.8); Immature Granulocyte Absolute 0.05 K/mm3 (0.00-0.00); Immature Granulocyte Percent A 0.5 % (0.0-0.0); Lymphocytes Absolute Auto 0.94 K/mm3 (1.10-4.50); Lymphocytes Percent Auto 9.1 % (18.0-42.0); Mean Corpuscular HGB Conc 30.6 g/dL (32.0-36.0); Mean Corpuscular Hemoglobin 24.4 pg (27.0-31.0); Mean Corpuscular Volume 79.5 fL (78.0-102.0); Mean Platelet Volume 10.1 fl (9.2-11.8); Monocytes Absolute Auto 1.06 K/mm3 (0.10-0.90); Monocytes Percent Auto 10.3 % (2.0-11.0); Neutrophils Absolute Auto 7.5 K/mm3 (1.7-7.2); Platelet Count Result 322 K/mm3 (150-420); Red Cell Distribution Width 14.6 % (11.6-14.4); White Blood Count 10.3 K/mm3 (4.8-10.8)
[2023-08-11 05:11] LABS: Anion Gap 6 mmol/L (8-16); Blood Urea Nitrogen 5 mg/dL (7-18); Calcium 9.4 mg/dL (8.5-10.1); Carbon Dioxide 28 mmol/L (21-32); Chloride 103 mmol/L (98-108); Estimated CRCL calculation 30 ml/min; Estimated Glomerular Filt Rate 55; Glucose 105 mg/dL (70-99); Osmolality Calculated 281 mOsm/kg (285-295); Potassium 3.2 mmol/L (3.5-5.1); Sodium 137 mmol/L (136-145)
[2023-08-11 08:00] VITALS: BP 142/57; PULSE 91; RESP 18; TEMP 35.9; O2SAT 98
--- NOTE | 2023-08-11 08:00 | PC.NURSE ---
Pt woke for vital signs. Pt declined breakfast at this time, stated she wanted to sleep.
--- NOTE | 2023-08-11 09:48 | PM.IMPN ---
Progress Note: A&P Assessment and Plan (1) Left leg DVT: Code(s): I82.402 - Acute embolism and thrombosis of unspecified deep veins of left lower extremity Status: Acute Assessment and Plan: Continue oral medication anticoagulation (2) Anxiety: Code(s): F41.9 - Anxiety disorder, unspecified Status: Acute Assessment and Plan: Continue to take prn medication as needed (3) Fall: Code(s): W19.XXXA - Unspecified fall, initial encounter Status: Acute (4) Sepsis: Qualifiers: Sepsis acute organ dysfunction status: unspecified Sepsis type: sepsis due to unspecified organism Qualified Code(s): A41.9 - Sepsis, unspecified organism Code(s): A41.9 - Sepsis, unspecified organism Status: Acute Assessment and Plan: Continue IV antibiotics Patient to stop taking medication on 08/15/2023 (5) Peripheral vascular disease: Code(s): I73.9 - Peripheral vascular disease, unspecified Status: Acute (6) Hypertension: Code(s): I10 - Essential (primary) hypertension Status: Acute Assessment and Plan: monitor blood pressure medication Continue to take medication daily and adjust as indicated (7) Weakness: Code(s): R53.1 - Weakness Status: Acute Assessment and Plan: PT/OT evaluate and treat Subjective Date/time seen: 08/11/23 09:48 Interval history: Patient is in the bed with Picc line in the arm and she s feeling just fine. Patient denies any pain states she is not hurting Patient states she is exhausted as she has slept off and on througout the night and denies needing anything at this time. Patient did not eat breakfast. Took medication without difficulties and states she will get up later on . Exam Narrative: GENERAL: Generally well appearing, alert and oriented, in no apparent distress. She is pleasant and conversant in full sentences. HEENT: Pupils are equally round and briskly reactive to light. CHEST/LUNGS: Lungs are clear bilaterally, no respiratory distress. There is no subcutaneous air appreciated. HEART: The patient has a regular rate and rhythm. Radial pulses are 2+. ABDOMEN: The patient's abdomen is soft, nontender, and nondistended. Bowel sounds are positive. Carpenter catheter in place with clear yellow urine drainage EXTREMITIES: The patient has no edema with discoloration consistent with peripheral vascular disease and a moderate size venous stasis ulcer left anterior lower leg/ankle and small on posterior calf. Anterior cat skin abrasion also noted, all with poor healing. Left heel purplish. Heel protectors in place. SKIN: The patient's skin is warm and dry, without rashes or lesions. PSYCHIATRIC: The patient has normal mental status and has an appropriate affect. NEUROLOGIC: There are no gross deficits to the cranial nerves. Patient has some baseline confusion but no focal deficits. Objective Data Vital Signs Vital Signs: Vital Signs - 24 hr 08/10/23 16:44 08/10/23 20:00 08/11/23 00:00 Temperature 97.8 F 96.9 F L Pulse Rate 97 97 94 Respiratory Rate 16 16 16 Blood Pressure 160/60 H 160/79 H Pulse Oximetry 97 97 93 Oxygen Delivery Room Air Room Air Room Air 08/11/23 08:00 Temperature 96.7 F L Pulse Rate 91 Respiratory Rate 18 Blood Pressure 142/57 H Pulse Oximetry 98 Oxygen Delivery Room Air Intake/Output Intake/Output: Intake & Output 08/08/23 08/09/23 08/10/23 08/11/23 23:59 23:59 23:59 23:59 Intake Total 1999 1170 760 130 Output Total 900 800 Balance 1100 370 760 130 Meds/Results Medications: Active Medications Generic Name Dose Route Start Last Admin Trade Name Freq PRN Reason Stop Dose Admin Acetaminophen 650 mg 07/31/23 11:21 08/10/23 21:15 Acetaminophen 325 Mg Tablet PO 650 mg Q6H PRN Administration Pain Rated 5 or Less Apixaban 5 mg 08/07/23 21:00 08/10/23 21:14 Apixaban 2.5 Mg Tablet PO 5 mg Q12H
[2023-08-11] MEDS: VANCOMYCIN 1,000 MG/NS 250 ML 1,000 MG/250 ML BAG 250 MG IVPB (10:00)
[2023-08-11] MEDS: cefTRIAXone 2 GM/NS 100 ML 2 GM/100 ML BAG IVPB (10:01)
[2023-08-11] MEDS: DULoxetine HCL 20 MG CAPSULE.DR PO (10:05)
[2023-08-11] MEDS: APIXABAN 2.5 MG TABLET 5 MG PO ×2 (10:05→20:14)
[2023-08-11] MEDS: POTASSIUM CHLORIDE 20 MEQ ER TABLET PO ×2 (10:06→18:18)
[2023-08-11] MEDS: FUROSEMIDE 20 MG TABLET PO ×2 (10:06→18:18)
[2023-08-11] MEDS: ASPIRIN 81 MG ENTERIC TABLET PO (10:06)
[2023-08-11] MEDS: CLOPIDOGREL BISULFATE 75 MG TABLET PO (10:06)
[2023-08-11 16:00] VITALS: BP 149/84; PULSE 94; RESP 17; TEMP 35.9; O2SAT 98
[2023-08-11] MEDS: traZODone HCL 50 MG TABLET PO (20:15)
[2023-08-12] VITALS: BP 168/83; PULSE 92; RESP 16; TEMP 36.1; O2SAT 96
--- NOTE | 2023-08-12 04:15 | PC.NURSE ---
Patient pulled her RFA peripheral IV out with catheter intact. Pressure dressing applied. Patient playing with Midline dressing when nurse entered room. Midline wrapped with Coban. Patient denies pain and says she doesn't know what happened to make her arm bleed. Call light in reach.
[2023-08-12 05:56] LABS: Basophils Absolute Auto 0.13 K/mm3 (0.00-0.10); Basophils Percent Auto 1.2 % (0.0-1.0); Eosinophils Absolute Auto 0.74 K/mm3 (0.02-0.50); Eosinophils Percent Auto 6.7 % (1.0-6.0); Hematocrit 32.5 % (35.0-42.0); Hemoglobin 9.9 g/dL (11.7-13.8); Immature Granulocyte Absolute 0.05 K/mm3 (0.00-0.00); Immature Granulocyte Percent A 0.5 % (0.0-0.0); Lymphocytes Absolute Auto 0.96 K/mm3 (1.10-4.50); Lymphocytes Percent Auto 8.7 % (18.0-42.0); Mean Corpuscular HGB Conc 30.5 g/dL (32.0-36.0); Mean Corpuscular Hemoglobin 24.3 pg (27.0-31.0); Mean Corpuscular Volume 79.9 fL (78.0-102.0); Mean Platelet Volume 10.2 fl (9.2-11.8); Monocytes Absolute Auto 1.23 K/mm3 (0.10-0.90); Monocytes Percent Auto 11.2 % (2.0-11.0); Neutrophils Absolute Auto 7.9 K/mm3 (1.7-7.2); Neutrophils Percent Auto 71.7 % (50.0-70.0); Platelet Count Result 344 K/mm3 (150-420); Red Blood Count 4.07 M/mm3 (4.20-5.40); Red Cell Distribution Width 14.5 % (11.6-14.4)
[2023-08-12 06:07] LABS: Anion Gap 11 mmol/L (8-16); Blood Urea Nitrogen 4 mg/dL (7-18); Calcium 9.3 mg/dL (8.5-10.1); Carbon Dioxide 26 mmol/L (21-32); Chloride 101 mmol/L (98-108); Estimated CRCL calculation 34 ml/min; Estimated Glomerular Filt Rate > 60; Glucose 103 mg/dL (70-99); Osmolality Calculated 282 mOsm/kg (285-295); Potassium 3.3 mmol/L (3.5-5.1); Sodium 138 mmol/L (136-145)
[2023-08-12 08:00] VITALS: BP 142/75; PULSE 88; RESP 17; TEMP 36.2; O2SAT 97
[2023-08-12] MEDS: ASPIRIN 81 MG ENTERIC TABLET PO (09:45)
[2023-08-12] MEDS: DULoxetine HCL 20 MG CAPSULE.DR PO (09:45)
[2023-08-12] MEDS: POTASSIUM CHLORIDE 20 MEQ ER TABLET PO ×2 (09:45→17:38)
[2023-08-12] MEDS: calcitrioL 0.25 MCG CAPSULE PO (09:45)
[2023-08-12] MEDS: cefTRIAXone 2 GM/NS 100 ML 2 GM/100 ML BAG IVPB (09:45)
[2023-08-12] MEDS: APIXABAN 2.5 MG TABLET 5 MG PO ×2 (09:45→21:14)
[2023-08-12] MEDS: FUROSEMIDE 20 MG TABLET PO ×2 (09:45→17:38)
[2023-08-12] MEDS: CLOPIDOGREL BISULFATE 75 MG TABLET PO (09:45)
[2023-08-12] MEDS: VANCOMYCIN 1,000 MG/NS 250 ML 1,000 MG/250 ML BAG 250 MG IVPB (09:46)
--- NOTE | 2023-08-12 14:47 | PM.IMPN ---
Progress Note: A&P Assessment and Plan (1) Left leg DVT: Code(s): I82.402 - Acute embolism and thrombosis of unspecified deep veins of left lower extremity Status: Acute Assessment and Plan: Continue oral medication anticoagulation (2) Anxiety: Code(s): F41.9 - Anxiety disorder, unspecified Status: Acute Assessment and Plan: Continue to take prn medication as needed (3) Fall: Code(s): W19.XXXA - Unspecified fall, initial encounter Status: Acute (4) Sepsis: Qualifiers: Sepsis acute organ dysfunction status: unspecified Sepsis type: sepsis due to unspecified organism Qualified Code(s): A41.9 - Sepsis, unspecified organism Code(s): A41.9 - Sepsis, unspecified organism Status: Acute Assessment and Plan: Continue IV antibiotics Patient to stop taking medication on 08/15/2023 (5) Peripheral vascular disease: Code(s): I73.9 - Peripheral vascular disease, unspecified Status: Acute (6) Hypertension: Code(s): I10 - Essential (primary) hypertension Status: Acute Assessment and Plan: monitor blood pressure medication Continue to take medication daily and adjust as indicated (7) Weakness: Code(s): R53.1 - Weakness Status: Acute Assessment and Plan: PT/OT evaluate and treat Patient is not wanting to get out of the bed although she is eatind and drinking wihout difficulties. Patient is stable for discharge awaiting placement Subjective Date/time seen: 08/12/23 14:47 Interval history: Patient has been up all night and she is still awake. Patient continues to pull at PICC line we are awaiting on placement as she is stable for discharge at this time . Objective Data Vital Signs Vital Signs: Vital Signs - 24 hr 08/11/23 16:00 08/12/23 00:00 08/12/23 08:00 Temperature 96.7 F L 97.0 F L 97.2 F L Pulse Rate 94 92 88 Respiratory Rate 17 16 17 Blood Pressure 149/84 H 168/83 H 142/75 H Pulse Oximetry 98 96 97 Oxygen Delivery Room Air Room Air Room Air Intake/Output Intake/Output: Intake & Output 08/09/23 08/10/23 08/11/23 08/12/23 23:59 23:59 23:59 23:59 Intake Total 2548 334 1992 700 Output Total 800 Balance 796 499 7685 700 Meds/Results Medications: Active Medications Generic Name Dose Route Start Last Admin Trade Name Freq PRN Reason Stop Dose Admin Acetaminophen 650 mg 07/31/23 11:21 08/10/23 21:15 Acetaminophen 325 Mg Tablet PO 650 mg Q6H PRN Administration Pain Rated 5 or Less Apixaban 5 mg 08/07/23 21:00 08/12/23 09:45 Apixaban 2.5 Mg Tablet PO 5 mg Q12HR HILARY Administration Aspirin 81 mg 07/31/23 09:00 08/12/23 09:45 Aspirin 81 Mg Enteric Tablet PO 81 mg DAILY HILARY Administration Calcitriol 0.25 mcg 07/31/23 09:00 08/12/23 09:45 Calcitriol 0.25 Mcg Capsule PO 0.25 mcg Q48H HILARY Administration Clopidogrel Bisulfate 75 mg 07/31/23 09:00 08/12/23 09:45 Clopidogrel Bisulfate 75 Mg Tablet PO 75 mg DAILY HILARY Administration Duloxetine HCl 20 mg 07/31/23 09:00 08/12/23 09:45 Duloxetine Hcl 20 Mg Capsule.Dr PO 20 mg QAM HILARY Administration Furosemide 20 mg 08/04/23 17:00 08/12/23 09:45 Furosemide 20 Mg Tablet PO 20 mg BID HILARY Administration Ceftriaxone Sodium 2 gm in 100 mls @ 200 mls/hr 08/06/23 09:00 08/12/23 10:15 Rocephin 2 Gm/Ns 100 Ml IVPB Infused Q24H HILARY Infusion Vancomycin HCl 1,000 mg in 250 mls @ 250 mls/hr 08/11/23 09:00 08/12/23 10:46 Vancomycin 1,000 Mg/Ns 250 Ml IVPB Infused Q24H HILARY Infusion Ondansetron HCl 4 mg 07/30/23 14:02 Ondansetron Inj 4 Mg/2 Ml Vial IV PUSH Q6H PRN Nausea And Vomiting Potassium Chloride 20 meq 08/01/23 17:00 08/12/23 09:45 Potassium Chloride 20 Meq Er Tablet PO 20 meq BIDWM HILARY Administration Trazodone HCl 50 mg 08/11/23 19:10 08/11/23 20:15 Trazodone Hcl 50 Mg Tablet PO 50
[2023-08-12 16:00] VITALS: BP 148/80; PULSE 84; RESP 16; TEMP 36.3; O2SAT 97
--- NOTE | 2023-08-12 19:30 | PC.NURSE ---
Patient in bed, lying on her right side. Patient reaching out for and picking at things that aren't there. Speech is garbled. Doesn't follow commands. Call light in reach.
[2023-08-12] MEDS: MELATONIN 5 MG TABLET PO (21:14)
--- NOTE | 2023-08-12 21:40 | PC.NURSE ---
Gave patient her HS meds crushed in applesauce. Patient took them and appeared to swallow the bite and approximately 20 seconds later patient vomited the meds/applesauce and moderate amount of thick white phlegm. Patient is unable to follow commands. Speech is garbled. Patient does not focus on anything. Aria Raygoza TACTICAL [employer] DEFENSE CONTROLLER updated on patient's condition.
[2023-08-12 21:55] VITALS: BP 149/89; PULSE 88; RESP 18; TEMP 36.3; O2SAT 95
[2023-08-12 23:15] VITALS: BP 161/91; PULSE 94; RESP 18; TEMP 36.3; O2SAT 94
--- NOTE | 2023-08-12 23:20 | PC.NURSE ---
Aria Raygoza SECOND SHIFT SUPERVISOR returned call with orders received for PT/INR and CT of head without contrast.
[2023-08-13 00:11] LABS: INR 1.1; Prothrombin Time 12.2 Seconds (9.50-12.10)
[2023-08-13] MEDS: ONDANSETRON INJ 4 MG/2 ML VIAL IV PUSH (00:20)
--- NOTE | 2023-08-13 00:25 | PC.NURSE ---
PT/INR drawn and then immediately patient started vomiting moderate amount of yellow/green emesis/phlegm. Patient continues to have garbled speech. Patient does not follow commands to squeeze hand but does move around by herself a little bit. Patient then taken to radiology for CT. Patient tolerated test well. On the way back to her room patient started vomiting again but very small amount. Patient repositioned in bed with HOB elevated. PRN Zofran given @ 0020. Patient resting quietly @ this time. Call light in reach.
[2023-08-13 00:50] VITALS: BP 152/90; PULSE 92; RESP 20; TEMP 36.1; O2SAT 94
--- NOTE | 2023-08-13 04:23 | PC.NURSE ---
Patient unable to follow commands. Does not focus on anything. Left eye slightly matted, cleaned with warm cloth. Patient not speaking at all. Will not grasp hands but does weakly pull away from nurses during cares. No matter how patient is positioned she gets herself in position shortly after being positioned by nurses. Call light in reach.
[2023-08-13 05:39] LABS: Basophils Absolute Auto 0.12 K/mm3 (0.00-0.10); Basophils Percent Auto 0.9 % (0.0-1.0); Eosinophils Absolute Auto 0.19 K/mm3 (0.02-0.50); Eosinophils Percent Auto 1.4 % (1.0-6.0); Hematocrit 31.1 % (35.0-42.0); Hemoglobin 9.4 g/dL (11.7-13.8); Immature Granulocyte Absolute 0.08 K/mm3 (0.00-0.00); Immature Granulocyte Percent A 0.6 % (0.0-0.0); Lymphocytes Absolute Auto 0.85 K/mm3 (1.10-4.50); Lymphocytes Percent Auto 6.5 % (18.0-42.0); Mean Corpuscular HGB Conc 30.2 g/dL (32.0-36.0); Mean Corpuscular Volume 79.5 fL (78.0-102.0); Mean Platelet Volume 10.4 fl (9.2-11.8); Monocytes Percent Auto 10.7 % (2.0-11.0); Neutrophils Absolute Auto 10.5 K/mm3 (1.7-7.2); Neutrophils Percent Auto 79.9 % (50.0-70.0); Platelet Count Result 357 K/mm3 (150-420); Red Blood Count 3.91 M/mm3 (4.20-5.40); Red Cell Distribution Width 14.5 % (11.6-14.4); White Blood Count 13.1 K/mm3 (4.8-10.8)
[2023-08-13 05:51] LABS: Anion Gap 10 mmol/L (8-16); Blood Urea Nitrogen 6 mg/dL (7-18); Calcium 9.4 mg/dL (8.5-10.1); Carbon Dioxide 27 mmol/L (21-32); Chloride 100 mmol/L (98-108); Estimated CRCL calculation 30 ml/min; Estimated Glomerular Filt Rate 56; Glucose 122 mg/dL (70-99); Osmolality Calculated 282 mOsm/kg (285-295); Potassium 3.5 mmol/L (3.5-5.1); Sodium 137 mmol/L (136-145)
[2023-08-13 08:00] VITALS: BP 138/74; PULSE 78; RESP 18; TEMP 36.6; O2SAT 95
[2023-08-13] MEDS: cefTRIAXone 2 GM/NS 100 ML 2 GM/100 ML BAG IVPB (08:29)
[2023-08-13] MEDS: APIXABAN 2.5 MG TABLET 5 MG PO ×2 (08:30→20:16)
[2023-08-13] MEDS: FUROSEMIDE 20 MG TABLET PO ×2 (08:30→16:50)
[2023-08-13] MEDS: CLOPIDOGREL BISULFATE 75 MG TABLET PO (08:30)
[2023-08-13] MEDS: ASPIRIN 81 MG ENTERIC TABLET PO (08:30)
[2023-08-13] MEDS: POTASSIUM CHLORIDE 20 MEQ ER TABLET PO ×2 (08:30→16:50)
[2023-08-13] MEDS: DULoxetine HCL 20 MG CAPSULE.DR PO (08:31)
[2023-08-13 08:57] LABS: Vancomycin Trough 17.9 ug/mL (10.0-15.0)
--- NOTE | 2023-08-13 09:58 | PM.IMPN ---
Progress Note: A&P Assessment and Plan (1) Sepsis: Qualifiers: Sepsis acute organ dysfunction status: unspecified Sepsis type: sepsis due to unspecified organism Qualified Code(s): A41.9 - Sepsis, unspecified organism Code(s): A41.9 - Sepsis, unspecified organism Status: Acute Assessment and Plan: MRSA in blood, on vancomycin. Parotitis and sialoadenitis appear resolved. Plan is midline catheter and IV antibiotics with return to senior care anticipated in a couple days. 08/07: White blood cell count was not decreasing so Rocephin was added for polymicrobial coverage of sialoadenitis 08/10-WBC 11.0, slight increased 08/12-WBC and neutrophils increased, WBC 13. No documented fevers and vitals are stable New altered mental status from baseline of pleasantly confused. Drowsy. Limited conversation. 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 Hold sedating agents U/A, Chest XR (2) Left leg DVT: Code(s): I82.402 - Acute embolism and thrombosis of unspecified deep veins of left lower extremity Status: Acute Assessment and Plan: On Eliquis for treatment. Finished 7 days of 10 mg bid, will change to 5 mg bid ongoing (3) Anxiety: Code(s): F41.9 - Anxiety disorder, unspecified Status: Acute Assessment and Plan: Continue to take prn medication as needed (4) Fall: Code(s): W19.XXXA - Unspecified fall, initial encounter Status: Acute (5) Peripheral vascular disease: Code(s): I73.9 - Peripheral vascular disease, unspecified Status: Acute Assessment and Plan: bilateral lower extremity peripheral venous stasis noted with stasis ulcers left lower extremity (6) Hypertension: Code(s): I10 - Essential (primary) hypertension Status: Acute Assessment and Plan: monitor blood pressure medication Continue to take medication daily and adjust as indicated (7) Weakness: Code(s): R53.1 - Weakness Status: Acute Assessment and Plan: PT/OT evaluate and treat Patient is not wanting to get out of the bed although she is eating and drinking without difficulties. (8) Acute sialoadenitis: Code(s): K11.21 - Acute sialoadenitis Status: Acute Assessment and Plan: Likely source of sepsis, right sided parotid and submandibular glands with mild edema/palpable tenderness, on broad spectrum antibiotics. MRSA nasal swab ordered. IV antibiotics Follow up with Dr Lozano (9) Venous stasis ulcer: Code(s): I83.009 - Varicose veins of unspecified lower extremity with ulcer of unspecified site; L97.909 - Non-pressure chronic ulcer of unspecified part of unspecified lower leg with unspecified severity Status: Acute Assessment and Plan: Left lower leg sizable venous stasis ulcer without purulent drainage or best cellulitis. Bilateral lower extremity arterial and venous insufficiency noted. (10) Grade I diastolic dysfunction: Code(s): I51.89 - Other ill-defined heart diseases Status: Acute Assessment and Plan: Pulmonary and peripheral edema resolved. Stop IV Lasix, start daily oral Lasix instead. Acute onset diastolic congestive heart failure. Plan Feeding: Heart healthy diet Analgesia: tylenol Thromboembolic prophylaxis: eliquis Ulcer prophylaxis: na Glycemic control: na Bowel regimen: prn miralax Lines: picc ismael Antibiotics: vanco and rocehpin IV vancomycin daily and IV Rocephin daily, will need [facility] IV antibiotics on discharge through 08/22 IV access re-established after patient removed midline. Awaiting on [facility] to receive authorization Office visit Dr. Lozano ENT on 08/22 1400 at [facility] Dr. Su will follow IV antibiotic treatment at [facility] Subjective Date/time seen: 08/13/23 09:
[2023-08-13] MEDS: VANCOMYCIN 1,000 MG/NS 250 ML 1,000 MG/250 ML BAG 250 MG IVPB (10:11)
[2023-08-13 13:53] LABS: Appearance Urine Clear (Clear); Bilirubin Urine Negative (Negative); Blood Urine Negative (Negative); Color Urine Light Yellow (Yellow); Glucose Urine UA Negative (Negative); Ketones Urine Trace (Negative); Leukocyte Esterase Ur Negative LEU/UL (Negative); Nitrate Urine Negative (Negative); Protein Urine Negative (Negative); Specific Grav Ur 1.025 (1.010-1.020); Urobilinogen Urine 0.2 mg/dL (0.2-1.0)
[2023-08-13 13:57] LABS: Add Urine Microscopic? YES
[2023-08-13 13:58] LABS: Bacteria Urine Trace /hpf; Mucus Urine Moderate /lpf; RBC Urine 0-2 /hpf (0-2); Squamous Epithelial Cell Urine Few /hpf (Few); WBC Urine 0-3 /hpf (0-3)
--- NOTE | 2023-08-13 15:21 | PC.NURSE ---
Diet changed to heart healthy pureed per speech therapy.
--- NOTE | 2023-08-13 15:32 | PC.NURSE ---
Pt assisted to sitting position in bed, she has a blank stare and unable to answer questions at this time. She will answer yes/no and nod her head on occasion but otherwise stares blankly. Speech therapy in room to evaluate swallow test. Pt is able to drink tea c assist and tolerarted well for speech therapist.
[2023-08-13 15:42] VITALS: BP 134/89; PULSE 100; RESP 18; TEMP 36.1; O2SAT 97
--- NOTE | 2023-08-13 18:20 | PC.NURSE ---
Pt is sitting up in bed and watching TV, she is much more alert now and answering some questions appropriately. She is A&O x2, states understanding of call saunders use and has no c/o at this time.
[2023-08-13 20:00] VITALS: PULSE 100; RESP 18; O2SAT 97
[2023-08-13] MEDS: ACETAMINOPHEN 325 MG TABLET 650 MG PO (20:17)
[2023-08-14] VITALS: BP 134/77; PULSE 103; RESP 16; TEMP 36.2; O2SAT 96
[2023-08-14 05:21] LABS: Basophils Absolute Auto 0.19 K/mm3 (0.00-0.10); Basophils Percent Auto 1.9 % (0.0-1.0); Eosinophils Absolute Auto 0.53 K/mm3 (0.02-0.50); Eosinophils Percent Auto 5.3 % (1.0-6.0); Hematocrit 29.5 % (35.0-42.0); Hemoglobin 9.1 g/dL (11.7-13.8); Immature Granulocyte Absolute 0.04 K/mm3 (0.00-0.00); Immature Granulocyte Percent A 0.4 % (0.0-0.0); Lymphocytes Absolute Auto 0.84 K/mm3 (1.10-4.50); Lymphocytes Percent Auto 8.4 % (18.0-42.0); Mean Corpuscular HGB Conc 30.8 g/dL (32.0-36.0); Mean Corpuscular Hemoglobin 24.6 pg (27.0-31.0); Mean Corpuscular Volume 79.7 fL (78.0-102.0); Mean Platelet Volume 10.1 fl (9.2-11.8); Monocytes Absolute Auto 1.22 K/mm3 (0.10-0.90); Monocytes Percent Auto 12.2 % (2.0-11.0); Neutrophils Absolute Auto 7.2 K/mm3 (1.7-7.2); Neutrophils Percent Auto 71.8 % (50.0-70.0); Platelet Count Result 345 K/mm3 (150-420); Red Cell Distribution Width 14.5 % (11.6-14.4)
[2023-08-14 05:34] LABS: Anion Gap 7 mmol/L (8-16); Blood Urea Nitrogen 6 mg/dL (7-18); Calcium 9.4 mg/dL (8.5-10.1); Carbon Dioxide 29 mmol/L (21-32); Chloride 102 mmol/L (98-108); Estimated CRCL calculation 28 ml/min; Estimated Glomerular Filt Rate 51; Glucose 90 mg/dL (70-99); Osmolality Calculated 283 mOsm/kg (285-295); Potassium 3.4 mmol/L (3.5-5.1); Sodium 138 mmol/L (136-145)
--- NOTE | 2023-08-14 07:22 | PM.IMPN ---
Progress Note: A&P Assessment and Plan (1) Sepsis: Qualifiers: Sepsis acute organ dysfunction status: unspecified Sepsis type: sepsis due to unspecified organism Qualified Code(s): A41.9 - Sepsis, unspecified organism Code(s): A41.9 - Sepsis, unspecified organism Status: Acute Assessment and Plan: MRSA in blood, on vancomycin. Parotitis and sialoadenitis appear resolved. Plan is midline catheter and IV antibiotics with return to long-term anticipated in a couple days. 08/07: White blood cell count was not decreasing so Rocephin was added for polymicrobial coverage of sialoadenitis 08/10-WBC 11.0, slight increased 08/13-WBC and neutrophils increased, WBC 13---back to normal at 10 today 08/14 No documented fevers and vitals are stable New altered mental status from baseline of pleasantly confused. Drowsy. Limited conversation. 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 Hold sedating agents U/A, Chest XR. Both are not concerning for infectious process. (2) Left leg DVT: Code(s): I82.402 - Acute embolism and thrombosis of unspecified deep veins of left lower extremity Status: Acute Assessment and Plan: On Eliquis for treatment. Finished 7 days of 10 mg bid, will change to 5 mg bid ongoing (3) Anxiety: Code(s): F41.9 - Anxiety disorder, unspecified Status: Acute Assessment and Plan: Continue to take prn medication as needed (4) Fall: Code(s): W19.XXXA - Unspecified fall, initial encounter Status: Acute (5) Peripheral vascular disease: Code(s): I73.9 - Peripheral vascular disease, unspecified Status: Acute Assessment and Plan: bilateral lower extremity peripheral venous stasis noted with stasis ulcers left lower extremity (6) Hypertension: Code(s): I10 - Essential (primary) hypertension Status: Acute Assessment and Plan: monitor blood pressure medication Continue to take medication daily and adjust as indicated (7) Weakness: Code(s): R53.1 - Weakness Status: Acute Assessment and Plan: PT/OT evaluate and treat Patient is not wanting to get out of the bed although she is eating and drinking without difficulties. (8) Acute sialoadenitis: Code(s): K11.21 - Acute sialoadenitis Status: Acute Assessment and Plan: Likely source of sepsis, right sided parotid and submandibular glands with mild edema/palpable tenderness, on broad spectrum antibiotics. MRSA nasal swab ordered. IV antibiotics Follow up with Dr Lozano (9) Venous stasis ulcer: Code(s): I83.009 - Varicose veins of unspecified lower extremity with ulcer of unspecified site; L97.909 - Non-pressure chronic ulcer of unspecified part of unspecified lower leg with unspecified severity Status: Acute Assessment and Plan: Left lower leg sizable venous stasis ulcer without purulent drainage or best cellulitis. Bilateral lower extremity arterial and venous insufficiency noted. (10) Grade I diastolic dysfunction: Code(s): I51.89 - Other ill-defined heart diseases Status: Acute Assessment and Plan: Pulmonary and peripheral edema resolved. Stop IV Lasix, start daily oral Lasix instead. Acute onset diastolic congestive heart failure. Plan Feeding: Heart healthy diet Analgesia: tylenol Thromboembolic prophylaxis: eliquis Ulcer prophylaxis: na Glycemic control: na Bowel regimen: prn miralax Lines: picc ismael Antibiotics: vanco and rocehpin IV vancomycin daily and IV Rocephin daily, will need nursing home IV antibiotics on discharge through 08/22 IV access re-established after patient removed midline. Awaiting on senior care to receive authorization Office visit Dr. Lozano ENT on 08/22 1400 at [facility] Dr. Su will follow IV an
[2023-08-14 08:00] VITALS: BP 148/74; PULSE 78; RESP 16; TEMP 36.1; O2SAT 97
--- NOTE | 2023-08-14 08:08 | PM.DS ---
DS: Admitting Diagnosis Discharge Date 08/14 Admitting Diagnosis sepsis, bacteremia DS: Discharge Diagnosis Discharge Diagnosis (1) Sepsis: Qualifiers: Sepsis acute organ dysfunction status: unspecified Sepsis type: sepsis due to unspecified organism Qualified Code(s): A41.9 - Sepsis, unspecified organism Code(s): A41.9 - Sepsis, unspecified organism Status: Acute Assessment and Plan: MRSA in blood, on vancomycin. Parotitis and sialoadenitis appear resolved. Plan is midline catheter and IV antibiotics with return to alf anticipated in a couple days. 08/07: White blood cell count was not decreasing so Rocephin was added for polymicrobial coverage of sialoadenitis 08/10-WBC 11.0, slight increased 08/13-WBC and neutrophils increased, WBC 13---back to normal at 10 today 08/14 No documented fevers and vitals are stable New altered mental status from baseline of pleasantly confused. Drowsy. Limited conversation. 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 Hold sedating agents U/A, Chest XR. Both are not concerning for infectious process. (2) Left leg DVT: Code(s): I82.402 - Acute embolism and thrombosis of unspecified deep veins of left lower extremity Status: Acute Assessment and Plan: On Eliquis for treatment. Finished 7 days of 10 mg bid, will change to 5 mg bid ongoing (3) Anxiety: Code(s): F41.9 - Anxiety disorder, unspecified Status: Acute Assessment and Plan: Continue to take prn medication as needed (4) Fall: Code(s): W19.XXXA - Unspecified fall, initial encounter Status: Acute (5) Peripheral vascular disease: Code(s): I73.9 - Peripheral vascular disease, unspecified Status: Acute Assessment and Plan: bilateral lower extremity peripheral venous stasis noted with stasis ulcers left lower extremity (6) Hypertension: Code(s): I10 - Essential (primary) hypertension Status: Acute Assessment and Plan: monitor blood pressure medication Continue to take medication daily and adjust as indicated (7) Weakness: Code(s): R53.1 - Weakness Status: Acute Assessment and Plan: PT/OT evaluate and treat Patient is not wanting to get out of the bed although she is eating and drinking without difficulties. (8) Acute sialoadenitis: Code(s): K11.21 - Acute sialoadenitis Status: Acute Assessment and Plan: Likely source of sepsis, right sided parotid and submandibular glands with mild edema/palpable tenderness, on broad spectrum antibiotics. MRSA nasal swab ordered. IV antibiotics Follow up with Dr Lozano (9) Venous stasis ulcer: Code(s): I83.009 - Varicose veins of unspecified lower extremity with ulcer of unspecified site; L97.909 - Non-pressure chronic ulcer of unspecified part of unspecified lower leg with unspecified severity Status: Acute Assessment and Plan: Left lower leg sizable venous stasis ulcer without purulent drainage or best cellulitis. Bilateral lower extremity arterial and venous insufficiency noted. (10) Grade I diastolic dysfunction: Code(s): I51.89 - Other ill-defined heart diseases Status: Acute Assessment and Plan: Pulmonary and peripheral edema resolved. Stop IV Lasix, start daily oral Lasix instead. Acute onset diastolic congestive heart failure. Plan Feeding: Heart healthy diet Analgesia: tylenol Thromboembolic prophylaxis: eliquis Ulcer prophylaxis: na Glycemic control: na Bowel regimen: prn miralax Lines: picc ismael Antibiotics: vanco and rocehpin IV vancomycin daily and IV Rocephin daily, will need intermission coordinator IV antibiotics on discharge through 08/22 IV access re-established after patient removed midline. Awaiting on [facility] to receive authorization Off
[2023-08-14] MEDS: cefTRIAXone 2 GM/NS 100 ML 2 GM/100 ML BAG IVPB (08:23)
[2023-08-14] MEDS: SODIUM CHLORIDE 0.9% IV 1,000 ML 300 ML IV CONT (08:23)
[2023-08-14] MEDS: APIXABAN 2.5 MG TABLET 5 MG PO (08:24)
[2023-08-14] MEDS: POTASSIUM CHLORIDE 20 MEQ ER TABLET PO ×2 (08:24→08:46)
[2023-08-14] MEDS: FUROSEMIDE 20 MG TABLET PO (08:25)
[2023-08-14] MEDS: calcitrioL 0.25 MCG CAPSULE PO (08:25)
[2023-08-14] MEDS: DULoxetine HCL 20 MG CAPSULE.DR PO (08:26)
[2023-08-14] MEDS: VANCOMYCIN 1,000 MG/NS 250 ML 1,000 MG/250 ML BAG 250 MG IVPB (08:55)
[2023-08-14 12:08] LABS: Anion Gap 9 mmol/L (8-16); Blood Urea Nitrogen 7 mg/dL (7-18); Calcium 9.4 mg/dL (8.5-10.1); Carbon Dioxide 27 mmol/L (21-32); Chloride 103 mmol/L (98-108); Estimated CRCL calculation 30 ml/min; Estimated Glomerular Filt Rate 57; Glucose 102 mg/dL (70-99); Osmolality Calculated 286 mOsm/kg (285-295); Potassium 3.7 mmol/L (3.5-5.1); Sodium 139 mmol/L (136-145)
--- NOTE | 2023-08-14 14:17 | PC.NURSE ---
1325 report given to angel at [facility]. 1400 into [facility] per [facility]i move and left with a drywall worker from [place]. dc instructions sent with them. shins skin tears are dry and intact. l ankle/top of foot wound is 3x5cm has yellow center withdark edge 1x0.7cm. drg has mod amt of brownish green drainage. no odor noted. area cleansed re dressed with aquacel ag and aquacel foam drg.
--- NOTE | 2023-08-16 11:30 | PC.NURSE ---
Discharge call back, residential, continues on abx till 08/22/23
== END 2023-08-14 14:00 | DRG 871 ==
LOC: CHSED 14:03 → CHS2ND 14:05
PROVIDERS: Nurse Practitioner; Nurse Practitioner Acute Care; Nurse Practitioner Family; Admitting Provider Internal Medicine; Emergency Provider Emergency Medicine; PCP Internal Medicine; Visit Provider Internal Medicine
DX: A41.02 Sepsis due to Methicillin resistant Staphylococcus aureus (principal); I50.31 Acute diastolic (congestive) heart failure; L97.829 Non-pressure chronic ulcer of other part of left lower leg with unspecified severity; I82.402 Acute embolism and thrombosis of unspecified deep veins of left lower extremity; K11.21 Acute sialoadenitis; I11.0 Hypertensive heart disease with heart failure; I87.2 Venous insufficiency (chronic) (peripheral); E55.9 Vitamin D deficiency, unspecified; M81.0 Age-related osteoporosis without current pathological fracture; M05.9 Rheumatoid arthritis with rheumatoid factor, unspecified; M15.9 Polyosteoarthritis, unspecified; R33.9 Retention of urine, unspecified; Z11.52 Encounter for screening for COVID-19
CPT/HCPCS: 36415; 36569; 70450; 70486; 70491; 71045; 73590; 80048; 80053; 80202; 81001; 83615; 83735; 83880; 84132; 84484; 85025; 85610; 87040; 87081; 87086; 87147; 87186; 87637; 92526; 92610; 93005; 93306; 93970; 96361; 96365; 96366; 96367; 96375; 97161; 97165; 97530; 97535; 99285; A9270; G0378; J0692; J0696; J1200; J1836; J1940; J2060; J2405; J2930; J3370; J3480; J7030; Q9967

== ENCOUNTER 2023-10-29 06:54 | Outpatient (NON) | payer MEDICARE, SELFPAY ==
[2023-10-29 07:14] LABS: Basophils Absolute Auto 0.08 K/mm3 (0.00-0.10); Basophils Percent Auto 0.6 % (0.0-1.0); Eosinophils Absolute Auto 0.74 K/mm3 (0.02-0.50); Eosinophils Percent Auto 5.3 % (1.0-6.0); Hemoglobin 9.6 g/dL (11.7-13.8); Immature Granulocyte Absolute 0.11 K/mm3 (0.00-0.00); Immature Granulocyte Percent A 0.8 % (0.0-0.0); Lymphocytes Absolute Auto 1.66 K/mm3 (1.10-4.50); Mean Platelet Volume 9.6 fl (9.2-11.8); Monocytes Percent Auto 9.4 % (2.0-11.0); Neutrophils Percent Auto 71.9 % (50.0-70.0); Platelet Count Result 426 K/mm3 (150-420); Red Cell Distribution Width 15.6 % (11.6-14.4); White Blood Count 13.9 K/mm3 (4.8-10.8)
[2023-10-29 07:24] LABS: Anion Gap 6 mmol/L (8-16); Blood Urea Nitrogen 8 mg/dL (7-18); Calcium 9.6 mg/dL (8.5-10.1); Carbon Dioxide 32 mmol/L (21-32); Chloride 99 mmol/L (98-108); Estimated Glomerular Filt Rate > 60; Glucose 84 mg/dL (70-99); Osmolality Calculated 281 mOsm/kg (285-295); Potassium 3.6 mmol/L (3.5-5.1); Sodium 137 mmol/L (136-145)
[2023-10-29 07:33] LABS: CRP 3.4 mg/dL (0.0-0.9)
[2023-10-29 07:43] LABS: Erythrocyte Sedimentation Rate 40 mm/hr (0-30)
== END 2023-10-29 06:55 | disposition home or self-care (01) ==
LOC: CHSLAB 06:58
PROVIDERS: Visit Provider Internal Medicine
DX: L89.624 Pressure ulcer of left heel, stage 4 (principal); L97.326 Non-pressure chronic ulcer of left ankle with bone involvement without evidence of necrosis; I73.9 Peripheral vascular disease, unspecified; D64.9 Anemia, unspecified
CPT/HCPCS: 36415; 80048; 85025; 85652; 86140

== ENCOUNTER 2023-11-06 16:47 | Outpatient (NON) | payer MEDICARE, SELFPAY ==
[2023-11-06 17:17] LABS: Influenza Control Valid (Valid)
== END 2023-11-06 16:48 | disposition home or self-care (01) ==
PROVIDERS: Visit Provider Internal Medicine
DX: R68.89 Other general symptoms and signs (principal)
CPT/HCPCS: 87804

== ENCOUNTER 2023-11-15 06:33 | Outpatient (NON) | payer MEDICARE, SELFPAY ==
[2023-11-15 07:00] LABS: Basophils Absolute Auto 0.08 K/mm3 (0.00-0.10); Basophils Percent Auto 0.6 % (0.0-1.0); Eosinophils Absolute Auto 0.14 K/mm3 (0.02-0.50); Hematocrit 35.2 % (35.0-42.0); Hemoglobin 10.8 g/dL (11.7-13.8); Immature Granulocyte Absolute 0.25 K/mm3 (0.00-0.00); Immature Granulocyte Percent A 1.8 % (0.0-0.0); Lymphocytes Percent Auto 14.6 % (18.0-42.0); Mean Corpuscular HGB Conc 30.7 g/dL (32.0-36.0); Mean Corpuscular Hemoglobin 24.5 pg (27.0-31.0); Mean Platelet Volume 10.9 fl (9.2-11.8); Monocytes Absolute Auto 1.73 K/mm3 (0.10-0.90); Monocytes Percent Auto 12.6 % (2.0-11.0); Neutrophils Absolute Auto 9.5 K/mm3 (1.7-7.2); Neutrophils Percent Auto 69.4 % (50.0-70.0); Platelet Count Result 479 K/mm3 (150-420); Red Cell Distribution Width 15.9 % (11.6-14.4); White Blood Count 13.7 K/mm3 (4.8-10.8)
[2023-11-15 07:39] LABS: Anion Gap 8 mmol/L (8-16); Blood Urea Nitrogen 17 mg/dL (7-18); Calcium 9.8 mg/dL (8.5-10.1); Carbon Dioxide 28 mmol/L (21-32); Chloride 101 mmol/L (98-108); Estimated Glomerular Filt Rate 44; Glucose 90 mg/dL (70-99); Osmolality Calculated 285 mOsm/kg (285-295); Potassium 4.2 mmol/L (3.5-5.1); Sodium 137 mmol/L (136-145)
== END 2023-11-15 06:34 | disposition home or self-care (01) ==
LOC: CHSLAB 06:36
PROVIDERS: Visit Provider Internal Medicine
DX: D64.9 Anemia, unspecified (principal); I10 Essential (primary) hypertension; I73.9 Peripheral vascular disease, unspecified
CPT/HCPCS: 36415; 80048; 85025

== ENCOUNTER 2023-11-20 07:00 | Outpatient (NON) | payer MEDICARE, SELFPAY ==
[2023-11-20 08:45] LABS: Anion Gap 10 mmol/L (8-16); Blood Urea Nitrogen 23 mg/dL (7-18); Calcium 9.7 mg/dL (8.5-10.1); Carbon Dioxide 26 mmol/L (21-32); Chloride 99 mmol/L (98-108); Estimated Glomerular Filt Rate 47; Glucose 97 mg/dL (70-99); Osmolality Calculated 283 mOsm/kg (285-295); Potassium 4.3 mmol/L (3.5-5.1); Sodium 135 mmol/L (136-145)
== END 2023-11-20 07:01 | disposition home or self-care (01) ==
LOC: CHSLAB 07:04
PROVIDERS: Visit Provider Internal Medicine
DX: I69.122 Dysarthria following nontraumatic intracerebral hemorrhage (principal); I10 Essential (primary) hypertension; I73.9 Peripheral vascular disease, unspecified
CPT/HCPCS: 36415; 80048